=== PATIENT | female | born 1980 | race Caucasian/White ===

== ENCOUNTER 2018-06-16 15:09 | Outpatient (REF) | payer MEDICAID, SELFPAY | END 2018-06-16 15:29 | LOC: NCHCN 15:09 | PROVIDERS: PCP Registered Nurse; Visit Provider Registered Nurse | DX: Z86.14 Personal history of Methicillin resistant Staphylococcus aureus infection (principal) | CPT/HCPCS: 87081 ==

== ENCOUNTER 2018-08-13 10:03 | Outpatient (CLI) | payer MEDICAID, SELFPAY ==
--- NOTE | 2018-08-13 09:55 | DI.RAD_ITS ---
SYMPTOMS/DIAGNOSIS: RIGHT KNEE PAIN RIGHT KNEE: Comparison is made with July, from [facility]. There is severe narrowing of the lateral femorotibial joint space. There is prominent periarticular spurring as well as sclerosis. There is some valgus angulation. A joint effusion is seen. There are minimal degenerative changes of the patellofemoral joint. IMPRESSION: Severe degenerative changes of the lateral femorotibial joint.
--- NOTE | 2018-08-13 09:55 | DI.RAD_ITS ---
SYMPTOM/DIAGNOSIS: RT KNEE PAIN AP VIEWS OF LOWER EXTREMITIES: Standing AP view from performed from the iliac crest through the ankles. There are severe degenerative changes of the right lateral femoral tibial joint space causing significant valgus angulation at the right knee. This also creates a significant leg length discrepancy. The hip joint spaces and ankle joint spaces as well as left knee joint spaces are well maintained.
== END 2018-08-13 10:23 ==
PROVIDERS: PCP Registered Nurse; Visit Provider Physician Assistant
DX: M25.561 Pain in right knee (principal); M17.11 Unilateral primary osteoarthritis, right knee; M25.461 Effusion, right knee
CPT/HCPCS: 73560; 77073

== ENCOUNTER 2018-09-18 08:38 | Outpatient (CLI) | payer MEDICAID, SELFPAY ==
--- NOTE | 2018-09-18 07:56 | HPE_ITS ---
Date of service: 09/18/18 Assessment and Plan (1) Post-traumatic osteoarthritis of right knee: Current visit: No Status: Chronic Opening wedge osteotomy right femur. Details of surgery were discussed with patient as well as risks and pertinent anatomy. All questions were answered. History of Present Illness Chief Complaint: Right knee pain Narrative: Melvi is a 37 year old female who comes in today for a pre-op history and physical for an opening wedge osteotomy of her right knee. She says that she has been having right knee pain for about four years, but had injured the knee many years before that. She has had multiple interventions of this knee including a right knee arthroscopy after an injury sustained about 10 years ago. She has also tried an off brush loader and handle attacher brace of the right knee, and multiple aspirations and steroid injections of the right knee. None of these have been able to help her pain. She has had pain with ambulation, especially for a prolonged period of time. She also has difficulty with squatting and kneeling, as well as going up and down stairs. She states that she is not able to trust the knee, and is leery about lifting her grandchild because of the instability in her right knee. She did receive x-rays in the clinic but revealed a severe valgus deformity of her right knee with severe DJD of the lateral compartment of her knee. Because of her age and failure of conservative treatments to take care of her pain, Dr. Lugo offers an opening wedge osteotomy of the right knee, and patient would like to proceed. Hopefully this will buy her some time before it is necessary to move forward with a total knee replacement. Pertinent Surgical Information Melvi does relate a history of hepatitis C. She also has had a history of drug abuse, which is now being treated by 140 mg of methadone, and she admits to being a daily marijuana user. Patient denies history of hypertension, CVA, NC, angina, COPD, renal or liver disorders, bleeding disorders, diabetes, immune or thyroid disorders. No complications from anesthesia from her previous surgeries. Review of Systems Constitutional Denies fever(s) ENT Denies dizziness and Denies sore throat Cardiovascular Denies chest pain, Denies palpitations and Denies dyspnea Respiratory Denies cough and Denies dyspnea Gastrointestinal Denies abdominal pain, Denies melena, Denies hematochezia, Denies diarrhea, Denies nausea and Denies vomiting Genitourinary Denies hematuria and Denies dysuria Neurologic Denies dizziness Endocrine Denies palpitations PFSH Medical History History of drug abuse (Acute) History of hepatitis C (Acute) Asthma (Chronic) Surgical History History of tubal ligation (Chronic) History of arthroscopic knee surgery (Chronic) Family History Father Cancer Mother Cancer Aunt Cancer Social History Smoking/Tobacco Use Status: Current every day Tobacco Type: cigarettes Smoking packs per day: 0.5 Drug use: Daily Substance use type: marijuana Do you feel safe in your relationship?: Yes Meds Home Medications Medication Instructions Recorded Confirmed Type albuterol sulfate [ProAir HFA] 2 puff INHALATION PRN PRN 11/02/16 08/13/18 History lamotrigine [LaMICtal] 200 mg PO HS 07/09/17 08/13/18 History methadone 5 mg/5 mL oral solution 100 mg PO DAILY ml 08/13/18 08/13/18 History celecoxib 200 mg capsule 200 mg PO BID PRN #60 cap 09/10/18 Rx naloxone 4 mg/actuation nasal spray 1 spray SHRUTI ONCE PRN #2 each 09/10/18 Rx diazepam 5 mg tablet 5 mg PO BID-TID PRN #15 tab 09/15/18 Rx Allergies Allergy/AdvReac Type Severity Reaction Status Date / Time codeine Allergy hives with Unverified 09/18/18 08:53 throat tightness morphine Allergy hives and Unverified 09/18/18 08:53 throat swelling Penicillins Allergy Skin Rash Unverified 09/18/18 08:53 Exam [facility] Head: normocephalic and atraumatic General nose exam: no nasal discharge Throat: uvula midline and no uvular edema Other: soft palate rises symmetrically, no erythema Eyes Conjunctivae: conjunctivae normal Sclera: sclerae normal Pupils: PERRL Resp Effort & Inspection: normal respiratory effort Auscultation: clear to auscultation bilaterally and no wheezes Cardio Rate: regular rate Rhythm: regular rhythm Heart Sounds: S1 normal, S2 normal and no murmurs Other: BP: 107/70 Pulse: 64 GI Palpation: soft, no hepatosplenomegaly and nontender Auscultation: normal bowel sounds
[2018-09-18 09:47] LABS: HCT 36.8 % (36.0-46.0); Mean Corp. HGB Concentration 32.6 g/dL (32.0-36.0); Mean Corpuscular Hemoglobin 27.9 pg (27.0-33.0); Mean Corpuscular Volume 85.6 fL (80-95); Mean Platelet Volume 10.1 fL (8.0-11.0); Platelet Count 290 x1000/uL (130-400); RBC Distribution Width 16.2 % (11.7-14.6); White Blood Cell Count 10.57 k/cumm (4.4-10.8)
[2018-09-18 10:31] LABS: Anion Gap 8.8 mmol/L (3-11); BUN 10 mg/dL (7-18); CO2 28.2 mmol/L (21.0-32.0); CREATININE 0.67 mg/dL (0.55-1.02); Calcium 8.9 mg/dL (8.5-10.1); Chloride 102 mmol/L (98-107); Glucose 84 mg/dL (70-100); Potassium 3.7 mmol/L (3.5-5.1); Sodium 139 mmol/L (136-145)
== END 2018-09-18 08:58 ==
PROVIDERS: PCP Registered Nurse; Visit Provider Student in an Organized Health Care Education/Training Program
DX: M25.561 Pain in right knee (principal); M17.31 Unilateral post-traumatic osteoarthritis, right knee; Z01.812 Encounter for preprocedural laboratory examination; Z01.818 Encounter for other preprocedural examination
CPT/HCPCS: 36415; 80048; 85027; 86850; 86900; 86901; NC

== ENCOUNTER 2018-09-23 10:02 | Inpatient (IN) | payer MEDICAID, SELFPAY ==
[2018-09-23] VITALS (11 sets, daily range): BP systolic 132–177; BP diastolic 76–113; PULSE 85–99; RESP 13–23; TEMP 36.4–37.5; O2SAT 90–97
[2018-09-23] MEDS: Acetaminophen 500 MG TAB 1000 MG PO ×2 (10:43→19:41)
[2018-09-23] MEDS: Celecoxib 200 MG CAP 400 MG PO (10:43)
[2018-09-23] MEDS: Gabapentin 300 MG CAP PO ×2 (10:44→21:25)
[2018-09-23] MEDS: Lactated Ringers 1,000 ML 80 ML IV ×2 (10:44→17:32)
[2018-09-23] MEDS: Methadone Liquid 10 MG/ML 140 MG PO (11:00)
--- NOTE | 2018-09-23 12:58 | DI.RAD_ITS ---
SYMPTOM/DIAGNOSIS: POST TRAUMATIC OA RT KNEE RIGHT KNEE: Fluoroscopy Time: 105.3 seconds Intraoperative films demonstrate application of a plate and screw device to the lateral aspect of the distal femur where a bony surgical defect is demonstrated in the distal metaphysis.
[2018-09-23] MEDS: ceFAZolin 2 GM/50 ML BAG IVPB (13:27)
[2018-09-23] MEDS: Ketorolac 30 MG/ML VIAL (15:28)
[2018-09-23] MEDS: Normal Saline 20 ML VIAL (15:28)
[2018-09-23] MEDS: Bupivacaine 0.25% Pres-Free 30 ML VIAL (15:28)
[2018-09-23] MEDS: LORazepam 2 MG/ML VIAL 0.5 MG IVP (16:58)
[2018-09-23] MEDS: oxyCODONE 10 MG TAB PO ×2 (18:33→22:10)
[2018-09-23] MEDS: Ketorolac 15 MG/ML VIAL IVP (19:40)
[2018-09-23] MEDS: Normal Saline Flush 10 ML SYR IV (19:41)
[2018-09-23] MEDS: HYDROmorphone 2 MG/ML VIAL 1 MG IVP ×2 (20:57→23:35)
[2018-09-23] MEDS: Albuterol HFA 8 GM 60 PUFF INH IH (22:00)
[2018-09-24 00:49] VITALS: BP 137/78; PULSE 84; RESP 16; TEMP 37.2; O2SAT 94
[2018-09-24] MEDS: Ketorolac 15 MG/ML VIAL IVP ×2 (01:19→08:14)
[2018-09-24] MEDS: oxyCODONE 10 MG TAB PO ×2 (01:20→04:24)
[2018-09-24] MEDS: HYDROmorphone 2 MG/ML VIAL 1 MG IVP ×2 (02:24→05:41)
[2018-09-24 03:54] VITALS: BP 127/88; PULSE 68; RESP 14; TEMP 36.9; O2SAT 97
[2018-09-24] MEDS: Albuterol HFA 8 GM 60 PUFF INH IH (05:42)
[2018-09-24 07:23] VITALS: BP 143/85; PULSE 94; RESP 18; TEMP 37.3; O2SAT 96
[2018-09-24] MEDS: Acetaminophen 500 MG TAB 1000 MG PO (08:11)
[2018-09-24] MEDS: Aspirin E.C. 81 MG TABEC PO (08:12)
[2018-09-24] MEDS: diazePAM 5 MG TAB PO (08:12)
[2018-09-24] MEDS: Pantoprazole 40 MG TABCR PO (08:12)
[2018-09-24] MEDS: Methadone Liquid 10 MG/ML 140 MG PO (08:13)
[2018-09-24] MEDS: Docusate Sodium 100 MG CAP PO (08:13)
--- NOTE | 2018-09-24 08:58 | ROE_ITS ---
REPORT OF OPERATIVE PROCEDURE DATE OF SURGERY September 23, 2018 PREOPERATIVE DIAGNOSES Right knee valgus deformity with lateral compartment knee arthritis. POSTOPERATIVE DIAGNOSES Right knee valgus deformity with lateral compartment knee arthritis. PROCEDURE Lateral distal femoral varus producing osteotomy. SURGEON Leonel Lugo M.D. PIGMENT GRINDER Milena Arevalo PA-C ANESTHESIA General. ESTIMATED BLOOD LOSS 200 cc. COMPLICATIONS None. DISPOSITION The patient was awakened from anesthesia and taken to the PACU in stable condition. INDICATION FOR PROCEDURE Melvi is a 38-year old, who I had seen for severe right knee pain with notable valgus deformity of 15 + degrees. Her knee was otherwise stable, but she had significant lateral arthritis. Given her young age and significant medical history for substance abuse, as a first line treatment I recommended femo ral osteotomy for correction of deformity and hopeful offloading of the arthritic lateral compartment . I discussed the risks of the procedure to include, bleeding, infection, pain, stiffness, malunion, nonunion, continued deformity, continued pain, blood clot, damage to nerve and vessels. Despite these risks, she elected to proceed. PROCEDURE DESCRIPTION Melvi was greeted in the preoperative holding area. Her identity was confirmed and the correct side w as identified and marked. The consent was reviewed with the patient and signed. The history and physi duncan was updated. She was taken back to the Operating Room, placed in the supine position. All bony prominences were pa dded. A General anesthetic was administered. A small bump was placed underneath the right leg to brin g the leg into a neutral position with the toes facing towards the ceiling, as well as the patella. T he right leg was prepped with ChloraPrep and draped in a standard fashion. Prophylactic antibiotics i n the form of cefazolin were given. A timeout was performed for safe surgery. A standard lateral incision was made based overlying the IT band extending towards Gerdy's tubercle. The skin was incised sharply. Deep dissection was carried down all the way to the IT band. Any bleedi ng was cauterized. The IT band was then split in line with its fibers traveling down over the lateral femoral condyle and towards the Gerdy's tubercle. With the fibers split, the vastus lateralis was id entified. It was lifted off of its posterior origin. Perforating vessels were identified and cauteriz ed. This exposed the femur. Retractors were placed over the top of the femur. A small amount of disse ction was carried posteriorly to place the rectractor posteriorly to the femur, protecting the neurov ascular bundle. A guidewire was first placed across the femur at the level of the epicondyles parall el to the joint line. A second K-wire was then placed at approximately 15 or so degree angle ending a t that guidewire, but short of the medial cortex. This was the proposed osteotomy site. The Synthes TomoFix plate was then placed over the lateral femur to make sure we ended in the correct position and this seemed to adequately place the hole in the right position. Therefore, we proceeded with an osteotomy. Using a small oscillating saw, I performed the osteotomy to the depth of about 35 or so millimeters. The initial guide pin was measured at 55 millimeters. I then evaluated the osteo debra and used an osteotome to extend it more medially. I was very careful to leave at least 10 to 15 mm bridge medially. The measure distractor was then placed within the cut femoral wedge. This was slo wly and incrementally increased to about 14 degrees. This was based on measurements preoperatively. T his was also confirmed with an alignment taken with a straight metal donato placed over the center of th e hip and at the center of ankle confirmed by x-ray and noted to pass within the center of the knee. With this in position, I then measured this distance and placed a 12-mm spacer block. This would repr esent a 12-mm wedge. With this in place, all retractors were removed and once again, alignment was co nfirmed. I then used A SymALIGN Allow graft bone wedge, it measured [id number] millimeters. This was placed with in the osteotomy site. With this in position, then all retractors were once again removed. We had a m uch better alignment with still a slight valgus attitude. It was then noticed on the x-ray that there may have been some extension of our osteotomy more towards that medial surface. I did not want to tr y to risk completely destabilizing the distal femur, and so I did not adjust the bone graft or try to increase it any further. The TomoFix plating system was then placed over the lateral aspect of the f emur. This was secured in place by a K-wire, confirming to be in an appropriate location based on pal pation and by the x-ray. A cortical nonlocking screw was first placed. This brought the plate down to bone distally. Four locking screws were then placed distally across the knee; making sure these were not within the notch. Once these were secured, four screws were placed proximal to the osteotomy sit e. Once again, on the x-rays, we noted that there was some crack seen medially. However, it did not seem to be completely through. Nevertheless, it seemed that we did lose a few degrees of our correction, although repeat alignment checks did show the alignment donato passing over and just medial to the later al tibial spine. The plate appeared to have good positioning. A notch view was performed showing that the screws were not within the intercondylar notch. A live stress view was also performed showing no change in that medial femur crack. The wound was then thoroughly irrigated. All the deep tissues and periosteum were then injected with a mixture of 50 cc of 0.25% bupivacaine, 20 cc of Exparel, 30 mg of Ketoralac, 50 cc of normal saline . The wound was irrigated. The IT band was closed with a running #1-Vicryl suture. The deep layers we re then reapproximated with 0- Vicryl, followed by #2-0 Vicryl. The skin was closed with a running #4 -0 Monocryl. A Mepilex Silver dressing was placed. A vrw-ce-lfhen Sebastian wrap was applied and she was p laced into a hinging knee immobilizer unlocked. A Cryo/Cuff was also applied. At the end of the case, all counts were correct. The patient was transferred back to the PACU in sta ble condition.
--- NOTE | 2018-09-24 09:41 | DSE_ITS ---
Date of service: 09/24/18 Time of Service: 07:40 DS: Diagnosis Discharge Diagnosis (1) Knee deformity, acquired: Status: Acute Discharge Plan Disposition Patient Disposition: HOME Condition: Good Discharge Details Reason For Visit: R KNEE VALGUS DEFORMITY Admit Date/Time: 09/23/18 10:02 Admit Provider: Leonel Lugo Attending Provider: Leonel Lugo Primary Care Provider: QIANA WEEMS Hospital Course Hospital Course: Patient was admitted to the medical/surgical floor following the procedure. It was tolerated well without any notable medical, surgical, or anesthetic complications. Mobilization began postoperatively. The long catheter was removed and voiding spontaneously. Vitals were stable. Physical therapy worked with the patient and was cleared for discharge home. No acute medical issues. Home Meds and New Rx's Prescriptions: New aspirin 81 mg tablet,delayed release (DR/EC) 81 mg PO BID Qty: 60 RF: 0 acetaminophen 500 mg tablet 1,000 mg PO Q8H PRN (Reason: pain) Qty: 90 RF: 3 pantoprazole 40 mg tablet,delayed release (DR/EC) 40 mg PO DAILY Qty: 30 RF: 0 oxycodone 20 mg tablet 20 mg PO DAILY Qty: 30 RF: 0 ibuprofen 600 mg tablet 600 mg PO TID PRNQty: 90 RF: 3 Continued methadone 5 mg/5 mL solution 140 mg PO DAILY RF: 0 albuterol sulfate [ProAir HFA] 200 PUFF HFA aerosol inhaler 2 puff Inhalation PRN PRNRF: 0 lamotrigine [Lamictal] 200 MG tablet 200 mg PO HS RF: 0 Narcan 4 mg/actuation spray,non-aerosol 1 spray SHRUTI ONCE PRN (Reason: opioid overdose) Qty: 2 RF: 0 Changed diazepam 5 mg tablet 5 mg PO TID Qty: 15 RF: 0 Discontinued celecoxib 200 mg capsule 200 mg PO BID PRN (Reason: pain) Qty: 60 RF: 0 Discharge Instructions Additional Instructions: Dr. Lugo?s Discharge Instructions Activity: Touchdown weight bearing to the right leg. Use your walker or crutches for support. Use the knee immobilizer when mobilizing.Work on range of motion exercises as provided by Physical Therapy. Use the brace for any times of mobilization or when your leg is not supported. You may bend it as much as possible. - You should wear the LUISA hose on both legs for 2 weeks. Dressing: Keep the surgical dressing in place for at least one week. After the first week it may be removed and replace with light gauze and tape or nothing. It may get wet after 3 days but avoid soaking the dressing. If it gets wet, just lightly pat dry. You may remove the ANGEL wrap after 2 days. Medications: - You should take Tylenol and anti-inflammatory (Ibuprofen) as your primary pain control medications - You have been prescribed a stronger pain medication (Oxycodone) for breakthrough pain, take as needed as prescribed. Continue your home dose of Methadone 140mg daily. - You will be taking Aspirin 81mg twice a day for DVT prevention unless instructed otherwise. - If you have constipation you should take Colace or Miralax (both [id number]). It takes most people 3-4 days to have a bowel movement. Follow-up: 2 weeks Stand Alone Forms: Nursing Discharge Form Referrals: Leonel Lugo MD [ [facility] STAFF PHYSICIAN] - Activity:: Touchdown weight bearing Equipment/Supplies:: Walker Diet:: As Tolerated Discharge Orders Discharge Orders: Discharge Order (Routine); Ordered 09/24/18 Ordered By: Leonel Lugo DS: Data Vitals/I&O Vitals and I&O: Vital Signs Temperature 37.3 C 09/24/18 07:23 Temperature Source Tympanic 09/24/18 07:23 Pulse 94 H 09/24/18 07:23 Pulse Rhythm Regular 09/24/18 08:00 Respiratory Rate 18 09/24/18 07:23 Respiratory Effort Non-Labored 09/24/18 08:00 Respiratory Depth Normal 09/24/18 08:00 Respiratory Pattern Normal 09/24/18 08:00 Blood Pressure 143/85 H 09/24/18 07:23 Pulse Oximetry 96 09/24/18 07:23 Respiratory End-tidal CO2 48 09/23/18 17:20 Oxygen Delivery Method Room Air 09/24/18 07:23 Oxygen Flow Rate 0 09/24/18 07:23 Pain Level 6 09/24/18 06:41 Intake & Output 09/23/18 09/23/18 09/24/18 11:59 23:59 11:59 Intake Total 1551 / 1551 50 / 50 Output Total 850 / 850 1350 / 1350 Balance 701 / 701 -1300 / -1300 Weight 92.3 kg Intake: IV 1176 / 1176 50 / 50 Oral 375 / 375 Output: Urine 650 / 650 1350 / 1350 Estimated Blood Loss 200 / 200 Other: Urine Color Straw Yellow Urine Appearance Clear Clear Urine Odor None None Emesis Description None Voiding Methods Bedpan Bedside Commode Labs on day of discharge: Labs from last 24 hours 09/23/18 10:38 Patient ABO/Rh A Positive Antibody Screen Negative [facility] Medical History History of hepatitis C (Acute) Asthma (Chronic) History of drug abuse (Acute) Surgical History History of tubal ligation (Chronic) History of arthroscopic knee surgery (Chronic) Family History Father Cancer Mother Cancer Aunt Cancer Social History Smoking/Tobacco Use Status: Current every day Tobacco Type: cigarettes Drug use: Daily Substance use type: marijuana Do you feel safe in your relationship?: Yes
--- NOTE | 2018-09-24 09:47 | PDOC.CMIN ---
Care Management Initial Assess REASON FOR HOSPITALIZATION:: R knee valgus deformity s/p osteotomy PAST MEDICAL HISTORY/PAST SURGICAL HISTORY:: Medical: H/O SA, hepatitis C, asthma. Surgical: H/O tubal ligation, H/O arthroscopic knee surgery. PREVIOUS FUNCTIONAL STATUS/SOCIAL/FAMILY SUPPORTS:: Melvi is 38 yo woman who lives alone in one floor home in [place]. She has two daughters and grandchildren and her mother who live in the area. She is usually independent with ADL's without ambulatory device, although she does have crutches. She does not drive due to DUI record. Uses [facility] to get to her appointments at the methadone clinic in [facility]. CURRENT FUNCTIONAL STATUS:: She is up ambulating with walker in room when CM enters. She is insistent that she be discharged right now since MD told her she would be d/c'd later today. When informed MD would come back at noon to write orders, she stated she was leaving now. RN was able to message MD who wrote orders from his office for d/c. She calmed down after this and was cooperative. ADVANCE DIRECTIVES:: Does not have document and declined information. Has patient been provided with information about the portal?: Yes Did the patient sign up for the portal?: No CODE STATUS:: Full Code INSURANCE COVERAGE / FINANCIAL ISSUES:: Medicaid CURRENT HOME/COMMUNITY SERVICES/EQUIPMENT:: No current services. She has crutches at home. PRIMARY CARE PHYSICIAN:: Joycelyn Forde MD POTENTIAL DISCHARGE NEEDS:: PT recommends she have walker and for PT services. MD was contacted and orders obtained. DME options discussed with Melvi and she chose [facility], so walker was issued from [facility]. PATIENT/FAMILY EDUCATION NEEDS:: RN to review d/c instructions re meds and activity levels. Review Ask me Now questions. ANTICIPATED BARRIERS TO DISCHARGE:: none identified TRANSPORTATION:: via car with friend PLAN:: d/c home today as per MD with referral made to HH for PT services.
[2018-09-24] MEDS: oxyCODONE 10 MG TAB 20 MG PO (09:51)
--- NOTE | 2018-09-24 11:00 | PT.INIE ---
Date of service: 09/24/18 Time of Service: 09:37 PT Notes Inpatient Physical Therapy Evaluation Date: 09/24/2018 Referring Doctor: Leonel Lugo MD PT Orders: PT CONSULT: Status post right femoral osteotomy. TTWB with unlocked knee immobilizer Precautions: Fall. Standard. Right LE with unlocked knee immobilizer on. Patient Profile/Admitting Diagnosis: Patient is a 38-year-old with history of drug abuse and is a daily marijuana user who has a diagnosis of posttraumatic osteoarthritis of right knee, right knee valgus deformity with lateral compartment knee arthritis status post lateral distal femoral varus producing opening wedge osteotomy. PMHX: Medical History History of drug abuse (Acute) History of hepatitis C (Acute) Asthma (Chronic) Surgical History History of tubal ligation (Chronic) History of arthroscopic knee surgery (Chronic) Social History/Home Situation: Patient lives alone with 2 daughters in [place], [place] in a 1 floor house with 4 step to enter rails on both sides are far wide apart. She is independent with all aspects of ADLs with that the ambulatory device nor adaptive equipment. She is unable to drive due to a DUI record. She states that she has friends, neighbors and her mother who will be able to help as needed at home. She goes to the methadone clinic and [place], [place]. Current Functional Limitations: Need for assistance for all transfer and ambulation task performance using FWW and bilateral crutches for the stairs Equipment Owned/DME: Bilateral crutches Subjective: Patient is adamant about going home as soon as she is able to today. She is agreeable to a PT consult and assistive device training using prescribed weight bearing restriction. She states that she has adequate support network at home. She is agreeable to home health PT services to continue with bilateral crutch training on the stairs for safety. She hopes to continue as an outpatient PT client as soon as she is able. She reports 6/10 pain on the right knee with ambulation activity. She denies dizziness, chest pain, and headache throughout session today. Objective: General Observation: Patient seen standing with FWW with nurse, case management social worker, and friend Edgardo in the room. Hinged knee immobilizer on her right but is currently unlocked. ANGEL wraps to right LE Mental Status: Alert and oriented x4 Pain: 6/10 in the right knee at rest and with most ROM: Right Upper Extremity: Shoulder Flexion WFL. Shoulder abduction WFL. Elbow flexion WFL. Wrist flexion WFL. Functional opening and closing of hand WFL. Left Upper Extremity: Shoulder Flexion WFL. Shoulder abduction WFL. Elbow flexion WFL. Wrist flexion WFL. Functional opening and closing of hand WFL. Right Lower Extremity: Hip flexion WFL. Hip abduction WFL. Knee flexion 0-80. Knee extension -10 degrees. Ankle dorsiflexion WFL. Ankle plantarflexion WFL. Left Lower Extremity: Hip flexion WFL. Hip abduction WFL. Knee flexion WFL. Ankle dorsiflexion WFL. Ankle plantarflexion WFL. Strength: Right Upper Extremity: Shoulder flexors 5/5. Shoulder abductors 5/5. Elbow flexors 5/5. Elbow extensors 5/5. Binitrotoluene Operator strong. Left Upper Extremity: Shoulder flexors 5/5. Shoulder abductors 5/5. Elbow flexors 5/5. Elbow extensors 5/5. Binitrotoluene Operator strong. Right Lower Extremity: Hip flexors 4-/5. Hip abductors 4-/5. Knee flexors 3-/5. Knee extensors3-/5. Ankle dorsiflexors 4/5. Ankle plantarflexors 4/5. Left Lower Extremity:Hip flexors 5/5. Hip abductors 5/5. Knee flexors 5/5. Knee extensors 5/5. Ankle dorsiflexors 5/5. Ankle plantarflexors 5/5. Sensation: Intact as to pain and pressure on bilateral lower extremities. Bed Mobility/Transfers: Rolling independent Supine to sit independent Sit to supine independent Sit to stand independent Stand to sit independent Bed to chair supervision Chair to bed supervision Gait: Patient was able to tolerate level surface ambulation for 100 feet using FWW with toe-touch weight bearing on the right LE requiring only SBA from PT. Patient did not demonstrate 100% compliance with weight bearing precaution although she states that it may appear that she is putting more weight on the R LE but she is not, she stresses. On the steps, patient refused to attempt to use bilateral crutches and use the good leg to hop on the step. She did however tried to do the same while holding onto bilateral rails and demonstrated good technique and weight bearing precaution compliance. She states that she can use her bottom to get up the steps if she has to. Patient was advised that home health PT come in for a short time in order to stress stair negotiation technique to reduce fall risk. Balance: Static Sitting: Normal Dynamic Sitting: Normal Static Standing: Fair Dynamic Standing: Fair Special Tests: Mobility Limitations Standardized Measure [facility] AM-PAC 6 clicks Basic Mobility Inpatient Short Form: Raw Score: 22 CMS Score: 21% deficit Informed Consent/Education: Patient instructed in purpose of PT consult and plan of care. It was strongly recommended to patient that she could stair negotiation training to demise fall risk at home especially so that she needs to regularly go in and out out of the house for her methadone intake. Patient was also introduced and trained on the exercises that she can do on her own to maximize her motion and flexibility. Assessment: Patient is a 38-year-old female with diagnosis of posttraumatic osteoarthritis of right knee, right knee valgus deformity with lateral compartment knee arthritis status post lateral distal femoral varus producing opening wedge osteotomy. Patient presents with clinical signs and symptoms consistent with current/admitting diagnoses that have resulted to mobility limitations, gait instability, generalized weakness, and impairment of motor control as demonstrated by the following impairment level findings: 1. Decreased strength to R knee major muscle groups 2. Impaired standing balance 3. Impaired activity tolerance 4. Limitation of joint range of motion in R knee Impairments are contributing to the following functional limitations: 1. Inability to safely ambulate without assistive device and physical assistance 2. Increase completion time for mobility ADL performance 3. Increased fall risk 4. Inability to negotiate steps alone safely Patient is assessed as a complexity based on the following: History: Patient is a 38-year-old female with diagnosis of posttraumatic osteoarthritis of right knee, right knee valgus deformity with lateral compartment knee arthritis status post lateral distal femoral varus producing opening wedge osteotomy with history of drug abuse and is a daily marijuana user Examination: Demonstrable impairment in strength, balance, and range of motion with underlying impairments and functional limitations as documented above Presentation:Evolving Decision Makin moderate Plan of Care/Treatment Plan: Patient goes home today with a friend at home agreeable to a short time home health physical therapy. DISCHARGE RECOMMENDATIONS: Patient will highly benefit from short-term home health PT services to continue stair negotiation training using appropriate assistive ambulatory device in order to minimize fall risk at discharge destination. Patient did not demonstrate 100% compliance with weight bearing precaution and refused to do stairs using bilateral axillary crutches as she states that she is not prepared for it today. Patient was agreeable to having home health physical therapy to work with her to maximize safet. Patient plans to continue to have skilled physical therapy services at an outpatient clinic. Concerns about patient safety on the stairs have been relayed to case management social worker who states that she will facilitate HHS referral in consultation with orthopedic surgeon. TREATMENT CODE/TIME: 16739 x 30 minutes, 63563 x 42 minutes beginning at 9:37 AM. Thank you very much for this referral. Agustina Linares PT, DPT, CLT [facility]
--- NOTE | 2018-09-24 11:06 | IN_ITS ---
Date of service: 09/24/18 Time of Service: 09:37 PT Notes Inpatient Physical Therapy Evaluation Date: 09/24/2018 Referring Doctor: Leonel Lugo MD PT Orders: PT CONSULT: Status post right femoral osteotomy. TTWB with unlocked knee immobilizer Precautions: Fall. Standard. Right LE with unlocked knee immobilizer on. Patient Profile/Admitting Diagnosis: Patient is a 38-year-old with history of drug abuse and is a daily marijuana user who has a diagnosis of posttraumatic osteoarthritis of right knee, right knee valgus deformity with lateral compartment knee arthritis status post lateral distal femoral varus producing opening wedge osteotomy. PMHX: Medical History History of drug abuse (Acute) History of hepatitis C (Acute) Asthma (Chronic) Surgical History History of tubal ligation (Chronic) History of arthroscopic knee surgery (Chronic) Social History/Home Situation: Patient lives alone with 2 daughters in [place], [place] in a 1 floor house with 4 step to enter rails on both sides are far wide apart. She is independent with all aspects of ADLs with that the ambulatory device nor adaptive equipment. She is unable to drive due to a DUI record. She states that she has friends, neighbors and her mother who will be able to help as needed at home. She goes to the methadone clinic and [place], [place]. Current Functional Limitations: Need for assistance for all transfer and am bulation task performance using FWW and bilateral crutches for the stairs Equipment Owned/DME: Bilateral crutches Subjective: Patient is adamant about going home as soon as she is able to today. She is agreeable to a PT consult and assistive device training using prescribed weight bearing restriction. She states that she has adequate support network at home. She is agreeable to home health PT services to continue with bilateral crutch training on the stairs for safety. She hopes to continue as an outpatient PT client as soon as she is able. She reports 6/10 pain on the right knee with ambulation activity. She denies dizziness, chest pain, and headache throughout session today. Objective: General Observation: Patient seen standing with FWW with nurse, director of casework, and friend Edgardo in the room. Hinged knee immobilizer on her right but is currently unlocked. ANGEL wraps to right LE Mental Status: Alert and oriented x4 Pain: 6/10 in the right knee at rest and with most ROM: Right Upper Extremity: Shoulder Flexion WFL. Shoulder abduction WFL. Elbow flexion WFL. Wrist flexion WFL. Functional opening and closing of hand WFL. Left Upper Extremity: Shoulder Flexion WFL. Shoulder abduction WFL. Elbow flexion WFL. Wrist flexion WFL. Functional opening and closing of hand WFL. Right Lower Extremity: Hip flexion WFL. Hip abduction WFL. Knee flexion 0-80. Knee extension -10 degrees. Ankle dorsiflexion WFL. Ankle plantarflexion WFL. Left Lower Extremity: Hip flexion WFL. Hip abduction WFL. Knee flexion WFL. Ankle dorsiflexion WFL. Ankle plantarflexion WFL. Strength: Right Upper Extremity: Shoulder flexors 5/5. Shoulder abductors 5/5. Elbow flexors 5/5. Elbow extensors 5/5. Advertising Job Titles strong. Left Upper Extremity: Shoulder flexors 5/5. Shoulder abductors 5/5. Elbow flexors 5/5. Elbow extensors 5/5. Advertising Job Titles strong. Right Lower Extremity: Hip flexors 4-/5. Hip abductors 4-/5. Knee flexors 3-/5. Knee extensors3-/5. Ankle dorsiflexors 4/5. Ankle plantarflexors 4/5. Left Lower Extremity:Hip flexors 5/5. Hip abductors 5/5. Knee flexors 5/5. Knee extensors 5/5. Ankle dorsiflexors 5/5. Ankle plantarflexors 5/5. Sensation: Intact as to pain and pressure on bilateral lower extremities. Bed Mobility/Transfers: Rolling independent Supine to sit independent Sit to supine independent Sit to stand independent Stand to sit independent Bed to chair supervision Chair to bed supervision Gait: Patient was able to tolerate level surface ambulation for 100 feet using FWW with toe-touch weight bearing on the right LE requiring only SBA from PT. Patient did not demonstrate 100% compliance with weight bearing precaution although she states that it may appear that she is putting more weight on the R LE but she is not, she stresses. On the steps, patient refused to attempt to use bilateral crutches and use the good leg to hop on the step. She did however tried to do the same while holding onto bilateral rails and demonstrated good technique and weight bearing precaution compliance. She states that she can use her bottom to get up the steps if she has to. Patient was advised that home health PT come in for a short time in order to stress stair negotiation technique to reduce fall risk. Balance: Static Sitting: Normal Dynamic Sitting: Normal Static Standing: Fair Dynamic Standing: Fair Special Tests: Mobility Limitations Standardized Measure [facility] AM-PAC 6 clicks Basic Mobility Inpatient Short Form: Raw Score: 22 CMS Score: 21% deficit Informed Consent/Education: Patient instructed in purpose of PT consult and plan of care. It was strongly recommended to patient that she could stair negotiation training to demise fall risk at home especially so that she needs to regularly go in and out out of the house for her methadone intake. Patient was also introduced and trained on the exercises that she can do on her own to maximize her motion and flexibility. Assessment: Patient is a 38-year-old female with diagnosis of posttraumatic osteoarthritis of right knee, right knee valgus deformity with lateral compartment knee arthritis status post lateral distal femoral varus producing opening wedge osteotomy. Patient presents with clinical signs and symptoms consistent with current/admitting diagnoses that have resulted to mobility limitations, gait instability, generalized weakness, and impairment of motor control as demonstrated by the following impairment level findings: 1. Decreased strength to R knee major muscle groups 2. Impaired standing balance 3. Impaired activity tolerance 4. Limitation of joint range of motion in R knee Impairments are contributing to the following functional limitations: 1. Inability to safely ambulate without assistive device and physical assistance 2. Increase completion time for mobility ADL performance 3. Increased fall risk 4. Inability to negotiate steps alone safely Patient is assessed as a complexity based on the following: History: Patient is a 38-year-old female with diagnosis of posttraumatic osteoarthritis of right knee, right knee valgus deformity with lateral compartment knee arthritis status post lateral distal femoral varus producing opening wedge osteotomy with history of drug abuse and is a daily marijuana user Examination: Demonstrable impairment in strength, balance, and range of motion with underlying impairments and functional limitations as documented above Presentation:Evolving Decision Makin moderate Plan of Care/Treatment Plan: Patient goes home today with a friend at home agreeable to a short time home health physical therapy. DISCHARGE RECOMMENDATIONS: Patient will highly benefit from short-term home health PT services to continue stair negotiation training using appropriate assistive ambulatory device in order to minimize fall risk at discharge destination. Patient did not demonstrate 100% compliance with weight bearing precaution and refused to do stairs using bilateral axillary crutches as she states that she is not prepared for it today. Patient was agreeable to having home health physical therapy to work with her to maximize safet. Patient plans to continue to have skilled physical therapy services at an outpatient clinic. Concerns about patient safety on the stairs have been relayed to director of casework who states that she will facilitate HHS referral in consultation with orthopedic surgeon. TREATMENT CODE/TIME: 69963 x 30 minutes, 35786 x 42 minutes beginning at 9:37 AM. Thank you very much for this referral. Agustina Linares PT, DPT, CLT [facility]
--- NOTE | 2018-09-24 11:38 | PDOC.CMDIS ---
LACE Index Scoring Tool - Questions: Length of Stay (in days): 2 Acuity (Admit via E.D.?): No E.D. Visits: 0 - Answers: Total Score: 2 Risk of Readmission: Low Risk Care Management Discharge Reason for Hospitalization: R knee valgus deformity s/p osteotomy Discharge Plan: She is being discharged home today with referral for HH for PT services. Her friend Edgardo is transporting. Patient/Family Education Needs: RN reviewed d/c instructions re meds and activity levels. Reviewed Ask me Now. Services Needed at Discharge: Home Health Care Services, Physical Therapy
--- NOTE | 2018-09-24 13:43 | INITIAL_ITS ---
Care Management Initial Assess REASON FOR HOSPITALIZATION:: R knee valgus deformity s/p osteotomy PAST MEDICAL HISTORY/PAST SURGICAL HISTORY:: Medical: H/O SA, hepatitis C, asthma. Surgical: H/O tubal ligation, H/O arthroscopic knee surgery. PREVIOUS FUNCTIONAL STATUS/SOCIAL/FAMILY SUPPORTS:: Melvi is 38 yo woman who lives alone in one floor home in [place]. She has two daughters and grandchildren and her mother who live in the area. She is usually independent with ADL's without ambulatory device, although she does have crutches. She does not drive due to DUI record. Uses [facility] to get to her appointments at the methadone clinic in [facility]. CURRENT FUNCTIONAL STATUS:: She is up ambulating with walker in room when CM enters. She is insistent that she be discharged right now since MD told her she would be d/c'd later today. When informed MD would come back at noon to write orders, she stated she was leaving now. RN was able to message MD who wrote orders from his office for d/c. She calmed down after this and was cooperative. ADVANCE DIRECTIVES:: Does not have document and declined information. Has patient been provided with information about the portal?: Yes Did the patient sign up for the portal?: No CODE STATUS:: Full Code INSURANCE COVERAGE / FINANCIAL ISSUES:: Medicaid CURRENT HOME/COMMUNITY SERVICES/EQUIPMENT:: No current services. She has crutches at home. PRIMARY CARE PHYSICIAN:: Joycelyn Forde MD POTENTIAL DISCHARGE NEEDS:: PT recommends she have walker and for PT services. MD was contacted and orders obtained. DME options discussed with Melvi and she chose [facility], so walker was issued from [facility]. PATIENT/FAMILY EDUCATION NEEDS:: RN to review d/c instructions re meds and activity levels. Review Ask me Now questions. ANTICIPATED BARRIERS TO DISCHARGE:: none identified TRANSPORTATION:: via car with friend PLAN:: d/c home today as per MD with referral made to HH for PT services.
== END 2018-09-24 10:53 | disposition home or self-care (01) | DRG 481 ==
LOC: PDS 14:57 → MS 18:20 → PDS 10-29 13:14 → MS 10-29 13:15
PROVIDERS: Admitting Provider Student in an Organized Health Care Education/Training Program; PCP Registered Nurse; Visit Provider Student in an Organized Health Care Education/Training Program
PROC: BQ1 Imaging, Non-Axial Lower Bones, Fluoroscopy (ICD-10-PCS; CPT 27447; principal; 2018-09-23 11:00)
DX: M21.061 Valgus deformity, not elsewhere classified, right knee (principal); F11.20 Opioid dependence, uncomplicated; M17.31 Unilateral post-traumatic osteoarthritis, right knee; X58.XXXS Exposure to other specified factors, sequela
CPT/HCPCS: 27450; 36415; 81025; 86850; 86900; 86901; 97110; 97162; NC; 73560; G0378; J0690; J1100; J1885; J2060; J2405; J3010; L1833

== ENCOUNTER 2018-10-03 10:41 | Outpatient (CLI) | payer MEDICAID, SELFPAY ==
--- NOTE | 2018-10-03 10:32 | DI.RAD_ITS ---
SYMPTOMS/DIAGNOSIS: F/U RIGHT KNEE RIGHT KNEE: Two views. Comparison is 08/13/18 and 09/23/18. There are again seen postsurgical changes of an osteotomy of the distal femoral metaphysis with fixation with a sideplate and screws. No change in alignment of the orthopedic hardware or postsurgical changes in the distal femur are noted. Tricompartment degenerative changes are again seen in the knee. There is a suprapatellar joint effusion present.
== END 2018-10-03 11:01 ==
PROVIDERS: Visit Provider Student in an Organized Health Care Education/Training Program
DX: M17.31 Unilateral post-traumatic osteoarthritis, right knee (principal); Z47.89 Encounter for other orthopedic aftercare; M17.11 Unilateral primary osteoarthritis, right knee; M25.461 Effusion, right knee
CPT/HCPCS: 73560

== ENCOUNTER 2018-10-17 11:24 | Outpatient (CLI) | payer MEDICAID, SELFPAY ==
--- NOTE | 2018-10-17 11:18 | DI.RAD_ITS ---
SYMPTOM/DIAGNOSIS: F/U RIGHT KNEE SURGERY RIGHT KNEE: Comparison is made with 03 October 2018. There has been no change in the distal femoral hardware or fracture alignment. There is some increased callus formation around the fracture. Severe degenerative changes of the lateral femoral tibial joint are again noted.
== END 2018-10-17 11:44 ==
PROVIDERS: Visit Provider Physician Assistant
DX: M17.31 Unilateral post-traumatic osteoarthritis, right knee (principal); Z47.89 Encounter for other orthopedic aftercare
CPT/HCPCS: 73560

== ENCOUNTER 2018-12-08 11:56 | Outpatient (CLI) | payer MEDICAID, SELFPAY ==
--- NOTE | 2018-12-08 11:49 | DI.RAD_ITS ---
SYMPTOMS/DIAGNOSIS: F/U RIGHT KNEE: Comparison is made with the previous study of 10/17/2018. Again noted is the sideplate and compression screw device affixed to the lateral portion of the distal femur. There has been no change in the alignment of the fracture fragments. Exuberant callus formation is noted over the anterior portion of the fracture line. Note is also made of severe DJD involving the knee with lateral tibiofemoral joint narrowing, and sclerosis and hypertrophic spurring.
== END 2018-12-08 12:16 ==
PROVIDERS: PCP Registered Nurse; Visit Provider Student in an Organized Health Care Education/Training Program
DX: M17.31 Unilateral post-traumatic osteoarthritis, right knee (principal); S72.491D Other fracture of lower end of right femur, subsequent encounter for closed fracture with routine healing
CPT/HCPCS: 73560

== ENCOUNTER 2018-12-19 01:44 | Outpatient (CLI) | payer MEDICAID, SELFPAY ==
--- NOTE | 2018-12-19 14:47 | DI.CT_ITS ---
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 TECHNIQUE: COMPARISON: No exams were available for comparison FINDINGS: CT examination was performed utilizing multi slice acquisition multiplanar reconstruction. There is plate and screw fixation of the distal femoral diaphyseal metaphyseal region with a predominantly tra nsverse fracture of the distal metaphysis. There is dense callus formation in the adjoining soft tis sues particularly medially but there does not appear to be union either of the femoral fragments or t he fracture callus at this time. 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 No significant loosening of the fixation components
== END 2018-12-19 02:04 ==
PROVIDERS: PCP Registered Nurse; Visit Provider Student in an Organized Health Care Education/Training Program
DX: S72.491K Other fracture of lower end of right femur, subsequent encounter for closed fracture with nonunion (principal)
CPT/HCPCS: 73700

== ENCOUNTER 2018-12-19 15:06 | Outpatient (CLI) | payer MEDICAID, SELFPAY ==
[2018-12-19 16:06] LABS: Abs Immature Grans 0.03 k/cumm (0.0-0.09); Absolute Basophil Count 0.02 k/cumm (0.0-0.2); Absolute Eosinophil Count 0.18 k/cumm (0.0-0.7); Absolute Lymphocyte Count 4.11 k/cumm (1.2-3.4); Absolute Monocyte Count 0.66 k/cumm (0.11-0.7); Absolute Neutrophil Count 6.91 k/cumm (1.2-6.7); Basophils % 0.2; Eosinophils % 1.5; HGB 11.5 g/dL (12.0-15.5); Immature Grans % 0.3; Lymphocytes % 34.5; Mean Corp. HGB Concentration 32.9 g/dL (32.0-36.0); Mean Corpuscular Hemoglobin 28.5 pg (27.0-33.0); Mean Corpuscular Volume 86.8 fL (80-95); Mean Platelet Volume 10.1 fL (8.0-11.0); Monocytes % 5.5; Platelet Count 340 x1000/uL (130-400); RBC 4.03 m/cumm (4.00-5.20); RBC Distribution Width 14.6 % (11.7-14.6); White Blood Cell Count 11.91 k/cumm (4.4-10.8)
[2018-12-19 17:08] LABS: ALT 60 U/L (14-59); AST 86 U/L (15-37); Albumin 3.5 g/dL (3.4-5.0); Alkaline Phosphatase 192 U/L (46-116); Anion Gap 12.3 mmol/L (3-11); BUN 4 mg/dL (7-18); Bilirubin, Total 0.3 mg/dL (0.2-1.0); CO2 22.7 mmol/L (21.0-32.0); CREATININE 0.74 mg/dL (0.55-1.02); Calcium 8.9 mg/dL (8.5-10.1); Chloride 102 mmol/L (98-107); Glucose 79 mg/dL (70-100); Potassium 4.2 mmol/L (3.5-5.1); Sodium 137 mmol/L (136-145); Total Protein 7.4 g/dL (6.4-8.2)
[2018-12-22 09:37] LABS: Hepatitis B Surface Ag Negative (NEGAT)
[2018-12-22 10:13] LABS: HIV-1/2 Ag & Ab Screen Negative (NEGAT)
[2018-12-22 10:22] LABS: Hepatitis C Ab w Rflx HCV PCR Reactive (NEGAT)
[2018-12-22 10:51] LABS: HBs Antibody, Quant 4.2 mIU/mL; Hepatitis B Surface Ab Negative
[2018-12-22 10:52] LABS: Syphilis Serology (RPR) Negative (Negative)
[2018-12-22 11:43] LABS: Hep B Core Antibody Negative (NEGAT)
[2018-12-23 08:30] LABS: HCV RNA Detection Quantitative 20688 IU/mL (UNDECT)
== END 2018-12-19 15:26 ==
PROVIDERS: PCP Registered Nurse; Visit Provider Family Medicine
DX: F11.29 Opioid dependence with unspecified opioid-induced disorder (principal); Z11.4 Encounter for screening for human immunodeficiency virus [HIV]; Z11.59 Encounter for screening for other viral diseases; S72.491K Other fracture of lower end of right femur, subsequent encounter for closed fracture with nonunion
CPT/HCPCS: 36415; 80053; 86704; 86706; 86803; 87340; 87389; 73700; 85025; 86592; 87522

== ENCOUNTER 2019-01-02 10:53 | Outpatient (CLI) | payer MEDICAID, SELFPAY ==
--- NOTE | 2019-01-02 10:10 | W.PREOPHP ---
Date of service: 01/02/19 Assessment and Plan Assessment and plan (1) Nonunion of osteotomy site: Status: Acute Assessment and plan: Revision of nonunion of osteotomy of the right femur with IM nailing and distal femur plate and iliac bone graft. Details of surgery were discussed with patient as well as risks and pertinent anatomy. All questions were answered. History of Present Illness History of Present Illness Chief Complaint: Right leg osteotomy nonunion Narrative: Melvi comes in today for a preop history and physical for a revision of a distal femur osteotomy. About 2 months ago she had a distal femur osteotomy for DJD of her right knee. She continued to have pain in her thigh and knee over the next few months that did not completely go away. Ultimately imaging was obtained including a CT scan which revealed a nonunion at the osteotomy site. It does appear to be some bone bridging on the CT scan according to a note by Dr. Lugo, but it does not appear to be fully filling in. Because of this nonunion, Dr. Lugo does offer a revision of the osteotomy in which she will take out the old hardware and place an IM nail as well as a distal femur plate in its place with iliac bone graft. Melvi agrees with this plan and is anxious to proceed. Pertinent Surgical Information Melvi does relate a history of hepatitis C. She also has had a history of drug abuse, which is now being treated by 140 mg of methadone, and she admits to being a daily marijuana user. Patient denies history of hypertension, CVA, IA, angina, COPD, renal or liver disorders, bleeding disorders, diabetes, immune or thyroid disorders. No complications from anesthesia from her previous surgeries. Review of Systems Constitutional Constitutional: Denies fever(s) ENT Ears, Nose, Mouth, and Throat: Denies dizziness and Denies sore throat Cardiovascular Cardiovascular: Denies chest pain, Denies palpitations and Denies dyspnea Respiratory Respiratory: Denies cough and Denies dyspnea Gastrointestinal Gastrointestinal: Denies abdominal pain, Denies melena, Denies hematochezia, Denies diarrhea, Denies nausea and Denies vomiting Genitourinary Genitourinary: Denies hematuria and Denies dysuria Neurologic Neurologic: Denies dizziness Endocrine Endocrine: Denies palpitations [facility] Medical History (Updated 12/24/18 @ 06:41 by Leonel Lugo MD) Asthma (Chronic) History of drug abuse (Acute) per pt clean for 2 years History of hepatitis C (Acute) per pt has been treated but it didn't cure it made my numbers go down Surgical History (Updated 01/02/19 @ 10:16 by LAURA Jenkins) History of arthroscopic knee surgery (Inactive) Right History of right femoral derotational osteotomy (Acute 09/23/18) History of tubal ligation (Inactive) Social History Smoking/Tobacco Use Status: Current every day Tobacco Type: cigarettes Smoking packs per day: 0.5 Smoking cigarettes per day: 10.0 Drug use: Daily Substance use type: marijuana Do you feel safe in your relationship?: Yes Meds Home Medications and Allergies Home Medications Medication Instructions Recorded Confirmed Type albuterol sulfate [ProAir HFA] 2 puff INHALATION PRN PRN 11/02/16 12/08/18 History lamotrigine [Lamictal] 200 mg PO HS 07/09/17 12/08/18 History methadone 5 mg/5 mL oral solution 140 mg PO DAILY ml 08/13/18 12/08/18 History Narcan 1 spray SHRUTI ONCE PRN #2 each 09/24/18 12/08/18 Rx acetaminophen 1,000 mg PO Q8H PRN #90 tab 09/24/18 12/08/18 Rx aspirin 81 mg PO BID #60 tab 09/24/18 12/08/18 Rx pantoprazole 40 mg PO DAILY #30 tab 09/24/18 12/08/18 Rx Crutches #1 ea 10/17/18 12/08/18 Rx shower chair #1 ea 10/17/18 12/08/18 Rx diazepam 5 mg tablet 5 mg PO TID #15 tab 12/26/18 Rx ibuprofen 600 mg tablet 600 mg PO TID PRN #90 tab 12/26/18 Rx oxycodone 15 mg tablet 15 mg PO Q8H PRN #21 tab MDD 45mg 12/26/18 Rx Allergies Allergy/AdvReac Type Severity Reaction Status Date / Time codeine Allergy hives with Unverified 01/02/19 10:11 throat tightness morphine Allergy hives and Unverified 01/02/19 10:11 throat swelling Penicillins Allergy Skin Rash Unverified 10/11/19 10:11 Exam HENMT Head: normocephalic and atraumatic General nose exam: no nasal discharge Throat: uvula midline and no uvular edema Other: soft palate rises symmetrically, no erythema Eyes Conjunctivae: conjunctivae normal Sclera: sclerae normal Pupils: PERRL Resp Effort & Inspection: normal respiratory effort Auscultation: clear to auscultation bilaterally and no wheezes Cardio Rate: regular rate Rhythm: regular rhythm Heart Sounds: S1 normal, S2 normal and no murmurs GI Palpation: soft, no hepatosplenomegaly and nontender Auscultation: normal bowel sounds
[2019-01-02 13:01] LABS: HCT 36.1 % (36.0-46.0); HGB 11.7 g/dL (12.0-15.5); Mean Corp. HGB Concentration 32.4 g/dL (32.0-36.0); Mean Corpuscular Hemoglobin 27.7 pg (27.0-33.0); Mean Corpuscular Volume 85.5 fL (80-95); Mean Platelet Volume 9.9 fL (8.0-11.0); Platelet Count 381 x1000/uL (130-400); RBC 4.22 m/cumm (4.00-5.20); RBC Distribution Width 14.4 % (11.7-14.6); White Blood Cell Count 11.32 k/cumm (4.4-10.8)
[2019-01-02 14:30] LABS: Anion Gap 13.6 mmol/L (3-11); BUN 10 mg/dL (7-18); CO2 22.4 mmol/L (21.0-32.0); CREATININE 0.81 mg/dL (0.55-1.02); Calcium 9.2 mg/dL (8.5-10.1); Chloride 102 mmol/L (98-107); Glucose 98 mg/dL (70-100); Potassium 3.3 mmol/L (3.5-5.1); Sodium 138 mmol/L (136-145)
== END 2019-01-02 11:13 ==
PROVIDERS: PCP Registered Nurse; Visit Provider Student in an Organized Health Care Education/Training Program
DX: M21.961 Unspecified acquired deformity of right lower leg (principal); M96.89 Other intraoperative and postprocedural complications and disorders of the musculoskeletal system; S72.491K Other fracture of lower end of right femur, subsequent encounter for closed fracture with nonunion; F11.20 Opioid dependence, uncomplicated; Z01.818 Encounter for other preprocedural examination; Z01.812 Encounter for preprocedural laboratory examination
CPT/HCPCS: 36415; 80048; 85027; 86850; 86900; 86901; NC

== ENCOUNTER 2019-01-07 10:59 | Inpatient (IN) | payer MEDICAID, SELFPAY ==
[2019-01-02 11:02] VITALS: BP 110/72; PULSE 69; RESP 17; TEMP 36.5; O2SAT 97
[2019-01-07] VITALS (15 sets, daily range): BP systolic 100–164; BP diastolic 71–137; PULSE 62–91; RESP 11–18; TEMP 36.6–36.8; O2SAT 96–99
[2019-01-07] MEDS: Lactated Ringers 1,000 ML 80 ML IV ×2 (12:49→17:56)
[2019-01-07] MEDS: Celecoxib 200 MG CAP 400 MG PO (13:04)
[2019-01-07] MEDS: Acetaminophen 500 MG TAB 1000 MG PO ×2 (13:05→19:21)
[2019-01-07] MEDS: Gabapentin 300 MG CAP PO ×2 (13:05→20:10)
[2019-01-07] MEDS: ceFAZolin 2 GM/50 ML BAG IVPB (13:54)
--- NOTE | 2019-01-07 15:06 | NUR.NOTE ---
01/07/19 1315 Pt denies having illegal substances in her personal belongings here at the hospital. susanp Nursing Note:
[2019-01-07] MEDS: Bupivacaine LIPOSOME/PF 133 MG/10 ML VIAL IJ ×2 (15:10→17:26)
[2019-01-07] MEDS: Bupivacaine 0.25% Pres-Free 30 ML VIAL ×2 (15:10→17:25)
--- NOTE | 2019-01-07 17:07 | DI.RAD_ITS ---
EXAM: XR FEMUR RT CLINICAL HISTORY: nonunion of osteotomy of the right femur TECHNIQUE: C-arm fluoroscopy COMPARISON: XR knee RT 2V AP,lat from 12/08/2018 CT LOWER EXTREMITY RT WO from 12/19/2018 FINDINGS: Fluoroscopy as provided in the OR. Hard copy images show a pre existing lateral fixation plate over the distal femur. An intramedullary donato has been inserted since the previous exam. Please see proce dure note for details. FLUORO TIME: 175.7 seconds
[2019-01-07] MEDS: fentaNYL 100 MCG/2 ML VIAL IVP (18:20)
[2019-01-07] MEDS: HYDROmorphone 2 MG/ML VIAL IVP ×2 (19:22→22:05)
[2019-01-07] MEDS: diazePAM 5 MG TAB PO (19:27)
[2019-01-07] MEDS: Ketorolac 30 MG/ML VIAL IVP (20:09)
[2019-01-07] MEDS: Methylphenidate 10 MG TAB 20 MG PO (20:09)
[2019-01-07] MEDS: oxyCODONE 15 MG TAB PO (20:40)
[2019-01-07] MEDS: Normal Saline Flush 10 ML SYR IV (22:04)
[2019-01-08] VITALS (66 sets, daily range): BP systolic 135–184; BP diastolic 71–115; PULSE 82–113; RESP 10–30; TEMP 36.4–37.4; O2SAT 95–100
[2019-01-08] MEDS: HYDROmorphone 2 MG/ML VIAL IVP ×4 (00:12→06:52)
[2019-01-08] MEDS: Albuterol HFA 8 GM 60 PUFF INH IH (00:12)
[2019-01-08] MEDS: Ketorolac 30 MG/ML VIAL IVP ×4 (01:59→20:17)
[2019-01-08] MEDS: oxyCODONE 15 MG TAB PO ×5 (02:50→20:42)
[2019-01-08 07:00] LABS: HCT 30.2 % (36.0-46.0); HGB 9.6 g/dL (12.0-15.5); Mean Corp. HGB Concentration 31.8 g/dL (32.0-36.0); Mean Corpuscular Hemoglobin 27.5 pg (27.0-33.0); Mean Corpuscular Volume 86.5 fL (80-95); Mean Platelet Volume 9.9 fL (8.0-11.0); Platelet Count 369 x1000/uL (130-400); RBC 3.49 m/cumm (4.00-5.20); RBC Distribution Width 14.6 % (11.7-14.6); White Blood Cell Count 12.08 k/cumm (4.4-10.8)
[2019-01-08 07:10] LABS: Anion Gap 9.8 mmol/L (3-11); BUN 9 mg/dL (7-18); CO2 26.2 mmol/L (21.0-32.0); CREATININE 0.66 mg/dL (0.55-1.02); Calcium 8.6 mg/dL (8.5-10.1); Chloride 104 mmol/L (98-107); Glucose 93 mg/dL (70-100); Potassium 3.7 mmol/L (3.5-5.1); Sodium 140 mmol/L (136-145)
[2019-01-08] MEDS: Methylphenidate 10 MG TAB 20 MG PO ×3 (08:25→20:57)
[2019-01-08] MEDS: Pantoprazole 40 MG TABCR PO (08:26)
[2019-01-08] MEDS: lamoTRIgine 100 MG TAB 200 MG PO (08:26)
[2019-01-08] MEDS: Gabapentin 300 MG CAP PO ×3 (08:26→20:18)
[2019-01-08] MEDS: Acetaminophen 500 MG TAB 1000 MG PO ×3 (08:26→20:18)
[2019-01-08] MEDS: diazePAM 5 MG TAB PO ×3 (08:26→20:19)
[2019-01-08] MEDS: Dexamethasone 4 MG TAB PO (08:26)
[2019-01-08] MEDS: Enoxaparin 40 MG/0.4 ML SYR SC (08:27)
[2019-01-08] MEDS: Methadone Liquid 10 MG/ML 140 MG PO (08:28)
--- NOTE | 2019-01-08 09:29 | ROE_ITS ---
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 SURGERY Operative repair of right distal femoral nonunion with removal of hardware and placement of intramedu llary nail and plate with autologous bone graft harvest. SURGEON Leonel Lugo M.D. [employer] Milena Arevalo PA-C ANESTHESIA General with spinal and femoral nerve block. ESTIMATED BLOOD LOSS 1000 cc FINDINGS There was a hypertrophic nonunion at the osteotomy site. The original plate was used to help re-align the distal femur back into a neutral alignment. The osteotomy site was easily opened up and bone gra ft was harvested from the intramedullary space of the femur and the nonunion site was secured with an intramedullary nail, as well as a lateral side plate. COMPLICATIONS No surgical complications were identified. There was some ooze from the osteotomy site initially, but this decreased throughout the case with no notable vascular injury. Postoperatively, she was in acut e pain and it was unclear the success of the femoral nerve block and the spinal with epi wash. Theref ore, she was started on ketamine for an alternative approach to her acute pain management given chron ic opioid abuse, which is ongoing and dependence on methadone. She was transferred to the ICU. DISPOSITION ICU for acute postoperative pain management in the setting of chronic opioid dependence and abuse. INDICATION FOR PROCEDURE Melvi is a 38-year old who has severe lateral compartment arthritis of the right knee with notable va lgus deformity. She underwent a varus producing osteotomy of her distal femur on the right side on . Unfortunately, she left the hospital the next day and did not maintain nonweightbearing preca utions. She had to go up and down multiple flights of stairs. She had multiple falls, all within the first two weeks. At the first postoperative visit, the medial cortex of the femur was noted to be bro dennis. She had lost her correction. She had persistent pain. We tried to manage this nonoperatively to leave it to heal, but unfortunately, it formed a hypertrophic nonunion. She had persistent pain in th e setting of her chronic pain. She also had recurrent deformity. Given these findings, I did offer co rrection of the nonunion. I was very honest with Melvi that her chronic opiate use and her history of remitting opiate abuse in the form of heroin will make treating her pain quite difficult. Nonetheles s, she wants something to hopefully, fix this more permanently. Therefore, I discussed the treatment options. I reviewed the technical details of trying to fix this nonunion site. I reviewed the potenti al risks to include bleeding, infection, pain, stiffness, damage to nerves and vessels, damage to mus bertha and tendons, malunion, recurrent nonunion, blood clot, need for repeat procedures, cardiopulmonar y compromise, despite these risks, she elects to proceed. PROCEDURE DESCRIPTION Melvi was greeted in the preoperative holding area. Her identity was confirmed and the correct side w as identified and marked. The consent was reviewed with the patient and signed. The history and physi duncan was updated. Melvi was taken back to the PACU, where a femoral nerve block was administered. There are challenges with all of her care with very poor IV access. It took multiple attempts to find any access at all, w hich was somewhat challenging. Her participation in these events was also difficult with high anxiety and pain. After successful administration of an IV and femoral nerve block, she was taken back to [facility] Operating Room. She was then administered a spinal anesthetic. This also was done with some difficu lty, but it appeared to be successful. It was performed with an epi wash for hopeful longer duration. Melvi was then positioned in the supine position on the Operating Room table. All bony prominences we re well padded. A bump was placed underneath the right hip. She was secured to the table and the arms were secured and well padded. A general anesthetic without intubation was then administered. Prophyl actic antibiotics in the form of cefazolin were given. Timeout was performed for safe surgery. [facility] leg was prepped with ChloraPrep and draped in a standard fashion leaving space by the iliac crest in case for bone grafting. The knee was placed over an operative triangle to promote some flexion of the hip and of the knee. Previous incision was then opened up and extended slightly proximal, but al so extending distally towards the tibial tubercle. The deep tissues were dissected down to the Ilioti bial band. The Iliotibial band was identified and dissected out. The superior margin of the iliotibia l band was incised. This allowed us to drift slightly more anteriorly and then down the lateral borde r of the patellar tendon for access into the joint. This was taken down to full thickness level and t o expose the plate and the lateral femoral condyle. With the IT band now split, the plate was identif ied. A blackmon elevator was used to help free up any scar tissue. There was notable synovitis around the plate itself. There were adhesions and scaring between the soft tissues and the distal femur and the plate. These were again bluntly dissected with a blackmon elevator freeing them up and stripping them off of the plate. I then the anterior soft tissues off of the anterior distal femur. The unders luisito of the patellar tendon was freed from any adhesions to the deeper layer and any meniscus it was m manjula sure not to penetrate or cut. The osteotomy site was not easily identifiable. However, there was notable fibrous tissue with the us e of a curette. I was able to fall into the osteotomy site. Once this was identified, I then worked a nteriorly to posteriorly to clear out the osteotomy site of any fibrous tissue. There was notable kendrick sandy deformity of the knee. A retractor was placed in the posterior region of the osteotomy and a larg e osteotome was then used to make sure the osteotomy site was fully opened up. The proximal screws of the old plate were removed, and the laminar trousseau consultant was placed into the osteotomy site. This was op ened up to recreate a normal mechanical alignment reducing the valgus malalignment that she had. With this being held, two unicortical locking screws were placed through the old plate to help hold this position. Three of the distal screws were also removed for access into the distal femur. All remnant fibrous tissue and nonhealing tissue was removed from the osteotomy site. A starting K-wi re was then placed through the middle of the trochlear groove right at the apex of the intracondylar notch. This was confirmed to be in adequate position both on the AP and the lateral. This was advance d into the femur. The near cortex and articular surface was then opened up with a 13-mm reamer. To co llect bone graft for the nonunion repair, I elected to use the reamer irrigation aspiration system by [employer]. A 13.5-mm reamer tip was attached to the REBECCA System. This was then inserted into the femur. This collected bone graft from within the intramedullary space of the femur. This was taken slowly u p the entire length of the femur to the proximal most aspect. It was taken slowly and backed off to g ather as much bone marrow as possible. Once this was completed, we had prepared the canal for intrame dullary nail, but also collected bone graft of about 40 cc. This was kept on the back table for later use. It was combined with 10 cc of Allograft structural bone graft. The length of the femur was then measured 360 mm. A 12 x 360 mm nail was then selected and inserted i nto the femur without difficulty. It was sent just past the cartilage level of the femur. A single he lical blade was then placed through the distal aspect of the nail. I was attempting to place two scre ws in the distal fragment, but the more proximal of the two screws, would be too close to the osteoto my site and therefore, I opted for the helical blade with a larger surface area of fixation. The pass of the helical blade was opened laterally and then the helical blade was malleted into position. Thi s was all done after removing the plate and holding the osteotomy site open with a laminar trousseau consultant. Two anterior to posterior screws were then placed proximally using perfect circles techniques. Blunt dissection was carried down through the anterior musculature onto the bone making sure not to cause a ny soft tissue damage. These were also placed without difficulty. They were confirmed to be through the nail and in appropriate positions on the AP and lateral pictures. The laminar trousseau consultant was remove d and the alignment of the knee was maintained. To serve as a backup for a deformity and also just be tter fixation, I then placed a lateral plate over the femur. A [employer] variable angle and distal femur plate was sized in position. Dressed securely onto the femu r and it was secured with a K-wire. The variable angle screws allowed me to direct the screws around the nail distally. I was able to place four locking screws distally, which were full length. I then p laced a single nonlocking screw proximally to bring the plate down to bone against the shaft. Once th is was on position, three additional locking screws were placed, two being unicortical given the nail . I was able to direct the nonlocking and one locking screw around the nail, but as the plate moved m ore distal, there was no additional room and therefore unicortical locking screws were placed. The al ignment was maintained. The knee was taken through range of motion and noted to be stable. There was no notable prominent hardware. Thorough irrigation was performed with pulse irrigation. Once this was fully irrigated, the wound was irrigated with Irrisept Chlorhexidine solution. The bone graft harvested from the femur along with 10 cc of Allograft bone matrix was then packed int o the osteotomy site. The soft tissue envelope posteriorly was left largely intact and therefore this served as an envelope posteriorly and we inserted the bone graft from the anterior surface. This was pushed and pressurized into the area. All but about 5 cc of the combination bone graft was used. Th e deep tissues were then injected with a mixture of 50 cc of 0.25% bupivacaine and 10 cc of Exparel. This was done along the periosteal tissues of the knee, as well as the IT band and the vastus lateral is musculature. The IT band was then reapproximated with a #1-Vicryl. This was also used to incorpora te the superior edge of the IT band and the lateral retinaculum to close up the joint arthrotomy. The deep tissues were closed with #0-Vicryl followed by #2-0 Vicryl. The skin was closed with ricky. T he wounds were dressed with Xeroform, 4x4s, Kerlix and Sebastian wrap. She was placed into a knee immobiliz er. At the end of the case all counts were correct. The patient was awakened from anesthesia and imme diately complained of pain. She was taken to the PACU in stable condition although with significant p ain concerns. In the PACU, she required copious amounts of narcotics with zero improvement, therefore the decision was made to transfer her to the ICU for postoperative recovery and the use of alternati ve agents such as ketamine.
--- NOTE | 2019-01-08 09:56 | INITIAL_ITS ---
- If Service Date Differs Date of service: 01/08/19 Time of Service: 09:56 Care Management Initial Assess REASON FOR HOSPITALIZATION:: Non-union of osteotomy site PAST MEDICAL HISTORY/PAST SURGICAL HISTORY:: Medical History (Updated 12/24/18 @ 06:41 by Leonel Lugo MD). Asthma (Chronic). History of drug abuse (Acute). per pt clean for 2 years. History of hepatitis C (Acute). per pt has been treated but it didn't cure it made my numbers go down. Surgical History (Updated 01/02/19 @ 10:16 by LAURA Jenkins). History of arthroscopic knee surgery (Inactive). Right. History of right femoral derotational osteotomy (Acute 09/23/18). History of tubal ligation (Inactive) PREVIOUS FUNCTIONAL STATUS/SOCIAL/FAMILY SUPPORTS:: Melvi lives alone in an apartment in [place], [place]. She is independent at baseline. Melvi uses a walker to ambulate because of recent knee surgery that was complicated by premature weight bearing. Melvi has 2 daughters and grandchildren and a mother who live in the area. Melvi does not drive because of a DUI; she uses [facility] for transportation. CURRENT FUNCTIONAL STATUS:: Melvi was sitting up in a wheelchair in the ICU when CM came to see her. She stated she was in pain and had met with a [employer] for pain managemment. She is currently receiving ketamine. Melvi is desirous of going to rehab when discharged, however, because she is on methadone to treat substance abuse, CM unable to find an accdepting facility. ADVANCE DIRECTIVES:: none on file Has patient been provided with information about the portal?: No Did the patient sign up for the portal?: No CODE STATUS:: Full Code INSURANCE COVERAGE / FINANCIAL ISSUES:: Medicaid CURRENT HOME/COMMUNITY SERVICES/EQUIPMENT:: Melvi uses crutches . She also goes to [facility] in [place] for methadine treatment PRIMARY CARE PHYSICIAN:: Joycelyn Adair PATIENT/FAMILY EDUCATION NEEDS:: Discharge plan, limitations, follow up plan, Ask me Three ANTICIPATED BARRIERS TO DISCHARGE:: Melvi is on methadone for substance abuse and therefore unable to be placed in a short term rehab facility TRANSPORTATION:: via private vehicle when ready PLAN:: Melvi will likely transition to swing bed status for a week or two when pain is controlled and when determined by provider. She will then discharge home with home health if needed. Melvi will follow up with her surgeon and discharge plan of care. She will transport with friends or family via private vehicle.CM will provide support patient, family and discharge planning needs.
--- NOTE | 2019-01-08 12:19 | PDOC.ANES ---
Date of service: 01/08/19 Time of Service: 12:19 Anesthesia Note Report Anesthesia Note: Asked to Consult on June by Dr. Lugo. 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 Despite spinal anesthesia as well as femoral nerve block, she had severe pain last night. She is currently on a ketamine infusion at 0.4mg/kg/hr for acute pain as well as PRN fentanyl and oxycodone as well as scheduled valium, methadone, tylenol, toradol, and gabapentin. This morning she has been out of bed to wheelchair and is sitting in chair calm and conversive, constantly asking if she is going to . I reassured her she is not dying and we just want to better control her pain. She is currently an 8/10 at the distal right femur site, worse with movement. She is completely alert and oriented with no respiratory or hemodynamic concerns. Her ketamine infusion has been increased to 0.8mg/kg/hr with a bolus of 15mg ketamine IV (5mg Wasted). She remains alert and oriented and pain was reduced at rest to a 3-4/10 which she states is tolerable. We discussed the reality that being pain free would likely not occur and our mutual goal would be a tolerable discomfort (3-5/10). Additionally the goal will be to not request additional narcotic analgesia above and beyond her home doses unless truly needed. This will be beneficial, especially in light of her recent heroin relapse. Melvi agrees with this plan, Dr. Lugo made aware of changes.
--- NOTE | 2019-01-08 12:43 | IN_ITS ---
Date of service: 01/08/19 Time of Service: 10:15 PT Notes Inpatient Physical Therapy Evaluation Date: 01/08/2018 Referring Doctor: Leonel Lugo MD PT Orders: PT CONSULT: S/P ORIF of R distal femoral fracture with IMN and autologous bone graft Precautions: Fall. Standard. PWB on R LE with knee immobilized. ROM to R knee to tolerance. Patient Profile/Admitting Diagnosis: Patient is a 38-year-old female on opiate dependence and with history of repeated falls. 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 PMHX: Medical History (Updated 12/24/18 @ 06:41 by Leonel Lugo MD) Asthma (Chronic) History of drug abuse (Acute) per pt clean for 2 years History of hepatitis C (Acute) per pt has been treated but it didn't cure it made my numbers go down Surgical History (Updated 01/02/19 @ 10:16 by LAURA Jenkins) History of arthroscopic knee surgery (Inactive) Right History of right femoral derotational osteotomy (Acute 09/23/18) History of tubal ligation (Inactive) Social History/Home Situation: Patient lives in a one floor house with 5 steps to enter. Equipment Owned/DME: FWW Subjective: Patient states that she is in a lot of discomfort as she did not get enough sleep the prior night due to postoperative pain complaint. Patient was agreeable to PT evaluation after reinforcement from this PT and nurse Garibay about needing PT to assist with transfers and safety so she can do her morning care. Objective: General Observation: Patient resting in bed upon arrival of this PT and student PT. Nurse Garibay present in room getting patient ready for her morning care. R LE propped up on three piloows. Patient looking distressed due to pain complaint and lack of sleep. Telemetry monitoring in place. Knee immobilizer off. Unable to check dressing as patient would not allow anybody touching and looking at her R leg except for Nurse Garibay. Mental Status: Alert and oriented x 4 Pain: 9-10/10 on R surgical site aggravated by movement. ROM: Right Upper Extremity: Shoulder Flexion WFL. Shoulder abduction WFL. Elbow flexion WFL. Wrist flexion WFL. Opening and closing of hand WFL. Left Upper Extremity: Shoulder Flexion WFL. Shoulder abduction WFL. Elbow flexion WFL. Wrist flexion WFL. Opening and closing of hand WFL. Right Lower Extremity: NT due to patient refusal. Left Lower Extremity: Grossly WFL. Strength: Right Upper Extremity: Shoulder flexors 5/5. Shoulder abductors 5/5. Elbow flexors 5/5. Elbow extensors 5/5. Field Clerk strong. Left Upper Extremity: Shoulder flexors 5/5. Shoulder abductors 5/5. Elbow flexors 5/5. Elbow extensors 5/5. Field Clerk strong. Right Lower Extremity: NT due to patient refusal. Left Lower Extremity: Grossly 5/5 Bed Mobility/Transfers: Rolling moderate assist of 2 Supine to sit moderate assist of 2 Sit to supine moderate assist of 2 Sit to stand moderate assist of 2 Stand to sit moderate assist of 2 Bed to chair moderate assist of 2 Chair to bed moderate assist of 2 Gait: NT due to patient refusal and high anxiety over handling of her R leg and pain complaint. Balance: Static Sitting: Normal Dynamic Sitting: Normal Static Standing: Poor Dynamic Standing: Poor Special Tests: Mobility Limitations Standardized Measure [facility] AM-PAC 6 clicks Basic Mobility Inpatient Short Form: Raw Score: 10 CMS Score: 77% deficit Informed Consent/Education: Patient instructed in purpose of PT consult and plan of care. 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 She is agreeable to going to a SNF which can facilitate opioid dependence management while she is recovering from her most recent surgery. Her prognosis is fair. She presents with high anxiety level and has trust issue which may limit the amount of participation in PT sessions. At this time, she only trusts nurse Lani to hold onto her R leg and did not let this PT examine nor test it. Patient presents with clinical signs and symptoms consistent with current/admitting diagnoses that have resulted to mobility limitations, gait instability, generalized weakness, and impairment of motor control as demonstrated by the following impairment level findings: 1. Decreased strength to B LE major muscle groups 2. Impaired sitting/standing balance 3. Impaired activity tolerance 4. Limitation of joint range of motion in L hip and knee Impairments are contributing to the following functional limitations: 1. Dependent bed mobility skills 2. Increased dependence with transfers 3. Inability to safely ambulate without assistive device and physical assistance 4. Increase completion time for mobility ADL performance 5. Increased fall risk 6. 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 Supine-Sit minimal assist 2. Sit-Supine minimal assist 3. Sit-Stand minimal assist 4. Stand-Sit minimal assist 5. Bed-Chair minimal assist 6. Chair-Bed minimal assist 7. Independent gait on level surface with use of least restrictive device for at least 30 feet without report of pain nor dyspnea 8. Independent stair negotiation while holding onto bilateral rails for at least 5 steps without report of pain nor dyspnea 9. Independent with home exercise program 10. Standing tolerance 2 minutes; Static/Dynamic standing balance Fair Plan of Care/Treatment Plan: 1-2x/day, 7 days/week x 1 week. Plan of care has been reviewed with the FILLING WINDER providing the service under Physical Therapy direction. Initiate Physical Therapy intervention for strengthening, bed mobility, transfers, gait, stairs, balance training, use of assistive device. DISCHARGE RECOMMENDATIONS: Patient will benefit from intermediate facility placement in order to progress mobility level, strength, and balance in preparation for a safe discharge to home. Patient states she is agreeable to going to either [facility] or to another SNF in [place], [place] whenever she is medically cleared to do so. TREATMENT CODE/TIME: 18250 x21 minutes beginning at 10:15 AM. Thank you very much for this referral. Agustina Linares PT, DPT, CLT [facility]
[2019-01-08] MEDS: Normal Saline Flush 10 ML SYR IVP ×2 (13:19→16:44)
[2019-01-08] MEDS: Ketamine 500 MG/10 ML VIAL IV ×6 (14:23→23:54)
--- NOTE | 2019-01-08 14:33 | PHARADMIT ---
Addendum entered by Alexus Arenas 01/10/19 10:50: Pharmacy Note Subjective pt is working with PT Objective BP-151/103 HR-101 other VS okay no labs today Assessment ketamine continues, MD note mentions starting to wean this off tomorrow no med changes Plan continue to watch VS, labs and for med changes Addendum entered by Alexus Arenas 01/09/19 16:25: Pharmacy Note Subjective pt is working with PT Objective BP-152/113 HR-94 RR-27 K+3.2 Assessment ketamine drip continues, possible titration starting tomorrow per nursing? dexamethasone discontinued Plan no MD note yet, continue to watch VS, labs and for med changes Original Note: Admission Pharmacy Clinical Review Repair of R DISTAL FEMUR NONUNION SURGERY 01/07/19- Code Status Full Code Current Weight 86.9 kg Renally Cleared and Narrow Therapeutic Index Meds CrCl~76ml/min QTc Value / Action Taken n/a BP Control, Fever BP 163/94 Afebrile Electrolytes reviewed WNL DVT Prophylaxis Lovenox 40mg Opiate Usage / Scheduled Bowel Regimen Ordered Methadone 140mg daily Fentanyl 100mg IVP q1h/prn (a little over the conscious sedation guidelines of 1mg/kg but she has a very high tolerance) Ketamine infusion as well as IVP bolus' while awake OxyIR 45-60mg q6h/prn....increase Pyxis minimum Yes, prn bowel meds Plt/SCr for Heparin / Enoxaparin Plt 369 SCr 0.66 INR for Warfarin H/H stable, WBC/Bands H/H 9.6/30.2 WBC 12.08 Antibiotic appropriateness n/a Cultures and Sensitivities n/a Surgical ABX d/c within 24 hr Cefazolin post-op complete DM control / Insulin Dosing Heart Failure (Check EF%) (ANGEL's, B-Block, Diuretics) IV to PO Switch Home Meds Reviewed Also takes Gabapentin, diazepam, Lamictal, Methylphenidate Home Meds Not Ordered Ibuprofen Comments Pain 11/01 Anesthesia consult for pain control: Currently on Ketamine infusion titrated up to 1 mg/kg/hr = 87ml/hr, made total of 3 infusion bags for daytime and overnight working w/PT
--- NOTE | 2019-01-08 15:27 | PT.INNT ---
Date of service: 01/08/19 Time of Service: 15:27 PT Notes 01/08/19 Patient refused afternoon PT session x2, stating that she was in signficant pain and did not want anyone moving her R LE. She was willing to lift her R LE, independently, for readjustment in wheelchair and propping with pillows. Will attempt to resume PT services tomorrow morning.
--- NOTE | 2019-01-08 15:30 | DI.RAD_ITS ---
EXAM: XR FEMUR RT INDICATION: postop R femoral nonunion repair. COMPARISON: XR standing alignment from 08/13/2018 XR FEMUR RT from 01/07/2019 TECHNIQUE: 2D digital imaging was performed. FINDINGS: Intramedullary donato and distal femoral fixation plate are again. Residual postsurgical air and skin ricky are seen. There has been no change compared with the intraoperative images. IMPRESSION:
--- NOTE | 2019-01-08 16:19 | W.PM.PROGNOT ---
Date of Service Date of service: 01/08/19 Time of Service: 16:19 Assessment and Plan Assessment and plan (1) Nonunion of osteotomy site: Status: Acute Assessment and plan: Melvi is status post operative repair of right distal femur nonunion. It is expected for her to have difficult postoperative pain management given her recent opiate abuse as well as her chronic opiate dependence. She is currently in the ICU for acute pain management and has responded well to the ketamine infusion. This is a sub-anesthetic amount of ketamine to provide analgesia without sedation. Anesthesia is helping manage this medication for best effect. We will continue with the oral oxycodone but try to hold off on any IV ketamine. I expect the use of ketamine for postoperative pain management for at least another 24 to 48 hours before we transition off the ketamine. We will check an x-ray today of the right femur. I will request a PICC line to be placed for IV access given her poor access. (2) Post-traumatic osteoarthritis of right knee: Status: Chronic Subjective Subjective Patient reports: no new complaints Interval history since last seen: Melvi reports that the pain has improved. Rosendo Kwok from anesthesia has been involved with helping manage acute pain with the alternative method of ketamine given chronic opiate abuse and dependence. Melvi has been able to get out of the bed with some assistance. She denies any chest pain or shortness of breath. She has had no fevers no chills. She denies any confusion or hallucinations. Exam Narrative Exam Narrative: Alert and oriented x3. No acute distress. Sitting up in the chair. Right knee dressing is clean dry and intact. Intact ankle dorsiflexion and plantarflexion. Sensation intact light touch over the deep and superficial peroneal nerve and tibial nerve. The foot is warm and well-perfused. Breathing comfortably without any notable distress or difficulty. Objective Objective Clinical Data: Abnormal lab results 01/08/19 Range/Units 06:20 WBC 12.08 H (4.4-10.8) k/cumm RBC 3.49 L (4.00-5.20) m/cumm Hgb 9.6 L (12.0-15.5) g/dL Hct 30.2 L (36.0-46.0) % MCHC 31.8 L (32.0-36.0) g/dL Vital Signs Temperature 37.2 C 01/08/19 11:34 Temperature Source Temporal Artery Scan 01/08/19 11:34 Pulse 106 H 01/08/19 14:00 Pulse Rhythm Regular 01/07/19 11:33 Pulse 104 H 01/08/19 14:01 Respiratory Rate 15 01/08/19 14:01 Respiratory Effort Non-Labored 01/08/19 11:34 Respiratory Depth Normal 01/08/19 11:34 Respiratory Pattern Normal 01/08/19 11:34 Blood Pressure 163/94 H 01/08/19 14:00 Blood Pressure Mean 110 01/08/19 14:00 Blood Pressure Position Sitting 01/08/19 11:34 Pulse Oximetry 98 01/08/19 14:00 Respiratory End-tidal CO2 35 01/07/19 18:50 Oxygen Delivery Method Room Air 01/08/19 11:34 Oxygen Flow Rate 0 01/08/19 11:34 Pain Level 8 01/08/19 14:20 Intake & Output 01/07/19 01/08/19 01/08/19 23:59 11:59 23:59 Intake Total 1570 / 1570 3070.000 / 3398.059 328.059 / 3398.059 Output Total 1250 / 1250 1175 / 1625 450 / 1625 Balance 320 / 320 1895.000 / 1773.059 -121.941 / 1773.059 Weight 86.9 kg Intake: IV 1420 / 1420 1150.000 / 1238.059 88.059 / 1238.059 Oral 150 / 150 1920 / 2160 240 / 2160 Output: Urine 250 / 250 1175 / 1625 450 / 1625 Estimated Blood Loss 1000 / 1000 Other: Urine Color Light Gloria Yellow Yellow Urine Appearance Clear Clear Clear Urine Odor None None Comment Watts in place Emesis Description None Voiding Methods Bedside Commode Bedside Commode Laboratory Results WBC 12.08 k/cumm (4.4-10.8) H 01/08/19 06:20 RBC 3.49 m/cumm (4.00-5.20) L 01/08/19 06:20 Hgb 9.6 g/dL (12.0-15.5) L 01/08/19 06:20 Hct 30.2 % (36.0-46.0) L 01/08/19 06:20 MCV 86.5 fL (80-95) 01/08/19 06:20 MCH 27.5 pg (27.0-33.0) 01/08/19 06:20 MCHC 31.8 g/dL (32.0-36.0) L 01/08/19 06:20 RDW 14.6 % (11.7-14.6) 01/08/19 06:20 Plt Count 369 x1000/uL (130-400) 01/08/19 06:20 MPV 9.9 fL (8.0-11.0) 01/08/19 06:20 Sodium 140 mmol/L (136-145) 01/08/19 06:20 Potassium 3.7 mmol/L (3.5-5.1) 01/08/19 06:20 Chloride 104 mmol/L (98-107) 01/08/19 06:20 Carbon Dioxide 26.2 mmol/L (21.0-32.0) 01/08/19 06:20 Anion Gap 9.8 mmol/L (3-11) 01/08/19 06:20 BUN 9 mg/dL (7-18) 01/08/19 06:20 Creatinine 0.66 mg/dL (0.55-1.02) 01/08/19 06:20 Estimated GFR/1.73 m2 >= 60.00 (mL/min/1.73m2) 01/08/19 06:20 Glucose 93 mg/dL (70-100) 01/08/19 06:20 Calcium 8.6 mg/dL (8.5-10.1) 01/08/19 06:20
[2019-01-08] MEDS: fentaNYL 100 MCG/2 ML VIAL IVP ×2 (16:42→19:28)
[2019-01-08] MEDS: Docusate Sodium 100 MG CAP PO (16:44)
[2019-01-08] MEDS: Refresh PLUS Eye Drops 0.4ml 1 EACH OU (17:45)
[2019-01-08] MEDS: Normal Saline Flush 10 ML SYR 20 ML IVP (20:17)
[2019-01-08] MEDS: LORazepam 2 MG/ML VIAL IVP (21:00)
[2019-01-08] MEDS: LORazepam 2 MG/ML VIAL 1 MG IVP (23:03)
[2019-01-09] VITALS (61 sets, daily range): BP systolic 135–177; BP diastolic 71–113; PULSE 82–105; RESP 10–29; TEMP 36.4–37.5; O2SAT 91–100
[2019-01-09] MEDS: Ketamine 500 MG/10 ML VIAL IV ×5 (01:52→08:53)
[2019-01-09] MEDS: Ketorolac 30 MG/ML VIAL IVP ×4 (02:20→19:49)
[2019-01-09] MEDS: oxyCODONE 15 MG TAB PO ×4 (05:28→21:28)
[2019-01-09] MEDS: Methadone Liquid 10 MG/ML 140 MG PO (06:12)
[2019-01-09] MEDS: Methylphenidate 10 MG TAB 20 MG PO ×3 (06:17→19:49)
[2019-01-09] MEDS: Normal Saline Flush 10 ML SYR IVP ×7 (06:18→21:30)
[2019-01-09] MEDS: LORazepam 2 MG/ML VIAL 1 MG IVP ×2 (06:33→21:28)
[2019-01-09 07:23] LABS: HCT 26.5 % (36.0-46.0); HGB 8.2 g/dL (12.0-15.5); Mean Corp. HGB Concentration 30.9 g/dL (32.0-36.0); Mean Corpuscular Hemoglobin 27.2 pg (27.0-33.0); Platelet Count 332 x1000/uL (130-400); RBC 3.01 m/cumm (4.00-5.20); RBC Distribution Width 14.8 % (11.7-14.6)
[2019-01-09] MEDS: Enoxaparin 40 MG/0.4 ML SYR SC (07:23)
[2019-01-09] MEDS: Refresh PLUS Eye Drops 0.4ml 1 EACH OU (07:24)
[2019-01-09] MEDS: Docusate Sodium 100 MG CAP PO ×2 (07:25→19:49)
[2019-01-09] MEDS: Dexamethasone 4 MG TAB PO (07:25)
[2019-01-09] MEDS: Normal Saline Flush 10 ML SYR 20 ML IVP ×2 (07:25→19:21)
[2019-01-09] MEDS: Gabapentin 300 MG CAP PO ×3 (07:26→19:49)
[2019-01-09] MEDS: lamoTRIgine 100 MG TAB 200 MG PO (07:26)
[2019-01-09] MEDS: Pantoprazole 40 MG TABCR PO (07:26)
[2019-01-09] MEDS: Acetaminophen 500 MG TAB 1000 MG PO ×3 (07:27→19:49)
[2019-01-09 07:37] LABS: Anion Gap 9.8 mmol/L (3-11); BUN 12 mg/dL (7-18); CO2 27.2 mmol/L (21.0-32.0); CREATININE 0.55 mg/dL (0.55-1.02); Calcium 8.3 mg/dL (8.5-10.1); Chloride 107 mmol/L (98-107); Glucose 96 mg/dL (70-100); Potassium 3.2 mmol/L (3.5-5.1); Sodium 144 mmol/L (136-145)
--- NOTE | 2019-01-09 11:07 | PT.INTREAT ---
Date of service: 01/09/19 Time of Service: 11:07 PT Notes 01/09/19 SUBJECTIVE: June stating she wants to walk. No complaints of pain in the R LE today. Some discomfort noted in her low back. OBJECTIVE: Seated in her wheel chair. Agreeable to work with PT. TRANSFERS Sit to stand: Mod A with verbal cues Stand to sit: Mod A with verbal cues GAIT Device: FWW Weight bearing: PWB R Assist: Mod A x 1 Distance: 5'+3' Deviation: Shuffle with the left LE, walker management and verbal cueing throughout ASSESSMENT: Pt seems to have her pain under control today without complaints noted to me. She requires significant amount of verbal cueing for all transfers and gait. PLAN: Continue current POC progressing mobility as she is able to tolerate. Treatment time: 25 minutes [id number] Lily Hanks PTA Clinic location: [facility] [place], [place]
--- NOTE | 2019-01-09 14:35 | PT.INTREAT ---
Date of service: 01/09/19 Time of Service: 14:35 PT Notes 01/09/19 SUBJECTIVE: June reporting she is feeling pretty good this afternoon. Seated on commode and would like to get up. OBJECTIVE: Agreeable to PT treatment. TRANSFERS Sit to stand: Min A Stand to sit: Min A GAIT Device: FWW Weight bearing: PWB R Distance: 15' Assist: Min A x 1 Deviation: Verbal cues for technique, Small hops to unweight the right LE THEREX: Pt performs glut sets and ankle pumps and instructed to perform independently. ASSESSMENT: Pt is advancing her mobility with continued cues for proper technique and safety. She continues to have her pain under control this PM. PLAN: Continue current POC progressing mobility as she is able to tolerate. Treatment time: 20' [id number] Lily Hanks PTA Clinic location: [facility] [place], [place]
[2019-01-09] MEDS: fentaNYL 100 MCG/2 ML VIAL 150 MCG IVP ×5 (15:16→23:40)
--- NOTE | 2019-01-09 15:33 | CHAPLAIN ---
I met June this afternoon as she was getting ready to leave her room in her wheelchair. I explained my role and offered support. She asked if the chapel is always open and if she cold got here. I let her know that it is in fact, always open and as long as her nurse gives her permission to leave the floor, she is welcome to spend time in the chapel. She asked if we could talk about things not uatsdin, and told her we certainly can and let her know how to get a in touch with me.
--- NOTE | 2019-01-09 15:56 | PDOC.CMPRO ---
- If Service Date Differs Date of service: 01/09/19 Time of Service: 15:56 Care Management Progress Note S/O: Melvi was sitting up in a wheelchair when CM came to visit. She was pleasant and smiling and appropriate in her interactions. Melvi seemed more awake than on previous occasions and stated that her pain is well controlled. She shared that she had the best night's sleep she has had in a while. Melvi was again reassured that she will transition to swing bed if we are unable to find an accepting SNF. 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 P: Melvi will likely transition to swing bed status for a week or two when pain is controlled and when determined by provider. She will then discharge home with home health if needed. Melvi will follow up with her surgeon and discharge plan of care. She will transport with friends or family via private vehicle. CM will provide support patient, family and discharge planning needs.
--- NOTE | 2019-01-09 19:29 | W.PM.PROGNOT ---
Date of Service Date of service: 01/09/19 Time of Service: 13:30 Assessment and Plan Assessment and plan (1) Nonunion of osteotomy site: Status: Acute Assessment and plan: Melvi is s/p right distal femur nonunion repair involving removal of hardware, bone graftnig and replating and nailing of the femur. X-rays show no apparent complications and her exam is encouraging. She is PWB with assistive devices. Kneee immobilizer when she is ambulating. Lovenox for blood clot prevention. (2) Acute postoperative pain: Status: Acute Assessment and plan: Melvi has a challengin situation given her chronic Methadone use and her recent opiate abuse. This all makes managing her pain, in an otherwise quite painful procedure, challenging. With the assistance of anesthesia she has been kept on a Ketamine infusion in the ICU which has been able to treat her pain well. She is still requiring breakthrough narcotics but we have at least reached a reasonable level of objective pain. I would plan to keep her on the Ketamine for at least another 2-3 days before trying to remove the Ketamine and get to the floor. Subjective Subjective Interval history since last seen: Melvi had a good night last nght. She was able to sleep and reports much more tolerable levels of pain. She is currently at 1 mg/kg/hr of Ketamine and receiving Q4hr Oxycodone. Ativan was used for agitation and insomnia and this worked well. She denies any chest pain, SOB, fever, or chills. Exam Narrative Exam Narrative: Sitting in the wheelchair. Leg is elevated. Dressing c/d/i. Objective Objective Clinical Data: Abnormal lab results 01/09/19 01/09/19 Range/Units 06:18 06:18 RBC 3.01 L (4.00-5.20) m/cumm Hgb 8.2 L (12.0-15.5) g/dL Hct 26.5 L (36.0-46.0) % MCHC 30.9 L (32.0-36.0) g/dL RDW 14.8 H (11.7-14.6) % Potassium 3.2 L (3.5-5.1) mmol/L Calcium 8.3 L (8.5-10.1) mg/dL Vital Signs Temperature 37.2 C 01/10/19 03:40 Temperature Source Temporal Artery Scan 01/10/19 03:40 Pulse 78 01/10/19 06:00 Pulse Rhythm Regular 01/07/19 11:33 Pulse 80 01/10/19 06:00 Respiratory Rate 9 L 01/10/19 06:00 Respiratory Effort Non-Labored 01/10/19 03:40 Respiratory Depth Normal 01/10/19 03:40 Respiratory Pattern Normal 01/10/19 03:40 Blood Pressure 122/85 01/10/19 06:00 Blood Pressure Mean 94 01/10/19 06:00 Blood Pressure Position Sitting 01/10/19 03:40 Pulse Oximetry 98 01/09/19 16:25 Respiratory End-tidal CO2 35 01/07/19 18:50 Oxygen Delivery Method Room Air 01/10/19 03:40 Oxygen Flow Rate 0 01/10/19 03:40 Pain Level 7 01/10/19 03:40 Intake & Output 01/09/19 01/09/19 01/10/19 11:59 23:59 11:59 Intake Total 1062.637 / 3249.637 2187 / 3249.637 855 / 855 Output Total 1450 / 3100 1650 / 3100 400 / 400 Balance -387.363 / 149.637 537 / 149.637 455 / 455 Intake: IV 1062.637 / 2112.637 1050 / 2112.637 505 / 505 Oral 1137 / 1137 350 / 350 Output: Urine 1450 / 3100 1650 / 3100 400 / 400 Other: Urine Color Yellow Yellow Yellow Urine Appearance Clear Clear Clear Urine Odor Normal Normal Voiding Methods Bedside Commode Laboratory Results WBC 10.30 k/cumm (4.4-10.8) 01/09/19 06:18 RBC 3.01 m/cumm (4.00-5.20) L 01/09/19 06:18 Hgb 8.2 g/dL (12.0-15.5) L 01/09/19 06:18 Hct 26.5 % (36.0-46.0) L 01/09/19 06:18 MCV 88.0 fL (80-95) 01/09/19 06:18 MCH 27.2 pg (27.0-33.0) 01/09/19 06:18 MCHC 30.9 g/dL (32.0-36.0) L 01/09/19 06:18 RDW 14.8 % (11.7-14.6) H 01/09/19 06:18 Plt Count 332 x1000/uL (130-400) 01/09/19 06:18 MPV 10.0 fL (8.0-11.0) 01/09/19 06:18 Sodium 144 mmol/L (136-145) 01/09/19 06:18 Potassium 3.2 mmol/L (3.5-5.1) L 01/09/19 06:18 Chloride 107 mmol/L (98-107) 01/09/19 06:18 Carbon Dioxide 27.2 mmol/L (21.0-32.0) 01/09/19 06:18 Anion Gap 9.8 mmol/L (3-11) 01/09/19 06:18 BUN 12 mg/dL (7-18) 01/09/19 06:18 Creatinine 0.55 mg/dL (0.55-1.02) 01/09/19 06:18 Estimated GFR/1.73 m2 >= 60.00 (mL/min/1.73m2) 01/09/19 06:18 Glucose 96 mg/dL (70-100) 01/09/19 06:18 Calcium 8.3 mg/dL (8.5-10.1) L 01/09/19 06:18
[2019-01-10] VITALS (39 sets, daily range): BP systolic 113–159; BP diastolic 65–114; PULSE 70–103; RESP 9–27; TEMP 36.4–37.2; O2SAT 96–99
[2019-01-10] MEDS: Ketorolac 30 MG/ML VIAL IVP ×4 (02:21→19:31)
[2019-01-10] MEDS: Normal Saline Flush 10 ML SYR IVP ×2 (02:21→22:52)
[2019-01-10] MEDS: oxyCODONE 15 MG TAB PO ×5 (02:40→19:18)
[2019-01-10] MEDS: fentaNYL 100 MCG/2 ML VIAL 150 MCG IVP ×4 (03:24→22:52)
[2019-01-10] MEDS: Methadone Liquid 10 MG/ML 140 MG PO (06:57)
[2019-01-10] MEDS: Enoxaparin 40 MG/0.4 ML SYR SC (08:06)
[2019-01-10] MEDS: Pantoprazole 40 MG TABCR PO (08:06)
[2019-01-10] MEDS: Acetaminophen 500 MG TAB 1000 MG PO ×3 (08:07→19:28)
[2019-01-10] MEDS: Gabapentin 300 MG CAP PO ×3 (08:07→19:27)
[2019-01-10] MEDS: lamoTRIgine 100 MG TAB 200 MG PO (08:07)
[2019-01-10] MEDS: Methylphenidate 10 MG TAB 20 MG PO ×3 (08:10→19:28)
[2019-01-10] MEDS: Normal Saline Flush 10 ML SYR 20 ML IVP ×2 (08:30→19:30)
--- NOTE | 2019-01-10 08:36 | W.PM.PROGNOT ---
Date of Service Date of service: 01/10/19 Time of Service: 08:36 Assessment and Plan Assessment and plan (1) Acute postoperative pain: Status: Acute Assessment and plan: Melvi is a 38-year-old status post nonunion of an osteotomy site takedown with interval plate and nail placement. She has made excellent improvements over the first day and night. She has been able to sleep and she reports good pain control. Unfortunately, she is requiring a significant amount of medications including a 1 mg/kg/h infusion of ketamine. She has gone without any bolus dosing of ketamine over the last 24 hours. I am encouraging her in the nursing staff to avoid bolus dosing of fentanyl. I would like to start weaning her off the ketamine tomorrow with a hopeful transfer back to the floor on only oral medications by Saturday. She does have acute postoperative blood loss anemia but her vital signs are stable and her last hemoglobin on postop day #2 was 8.2. (2) Nonunion of osteotomy site: Status: Acute Subjective Subjective Interval history since last seen: Melvi reports that she had another good night. Her pain is been controlled. She has been able to be mobile in the wheelchair. She is moving mostly independently. She denies any numbness or tingling. Exam Narrative Exam Narrative: Sitting in the wheelchair. Right leg shows well approximated incisions without any drainage and with no sign of infection. There is some swelling around the surgical site with a joint effusion. She tolerates some gentle motion from 10 to 40 degrees. Objective Objective Clinical Data: Vital Signs Temperature 37.2 C 01/10/19 03:40 Temperature Source Temporal Artery Scan 01/10/19 03:40 Pulse 78 01/10/19 06:00 Pulse Rhythm Regular 01/07/19 11:33 Pulse 80 01/10/19 06:00 Respiratory Rate 9 L 01/10/19 06:00 Respiratory Effort Non-Labored 01/10/19 03:40 Respiratory Depth Normal 01/10/19 03:40 Respiratory Pattern Normal 01/10/19 03:40 Blood Pressure 122/85 01/10/19 06:00 Blood Pressure Mean 94 01/10/19 06:00 Blood Pressure Position Sitting 01/10/19 03:40 Pulse Oximetry 98 01/09/19 16:25 Respiratory End-tidal CO2 35 01/07/19 18:50 Oxygen Delivery Method Room Air 01/10/19 03:40 Oxygen Flow Rate 0 01/10/19 03:40 Pain Level 8 01/10/19 08:22 Intake & Output 01/09/19 01/09/19 01/10/19 11:59 23:59 11:59 Intake Total 1062.637 / 3249.637 2187 / 3249.637 855 / 855 Output Total 1450 / 3100 1650 / 3100 400 / 400 Balance -387.363 / 149.637 537 / 149.637 455 / 455 Intake: IV 1062.637 / 2112.637 1050 / 2112.637 505 / 505 Oral 1137 / 1137 350 / 350 Output: Urine 1450 / 3100 1650 / 3100 400 / 400 Other: Urine Color Yellow Yellow Yellow Urine Appearance Clear Clear Clear Urine Odor Normal Normal Voiding Methods Bedside Commode Laboratory Results WBC 10.30 k/cumm (4.4-10.8) 01/09/19 06:18 RBC 3.01 m/cumm (4.00-5.20) L 01/09/19 06:18 Hgb 8.2 g/dL (12.0-15.5) L 01/09/19 06:18 Hct 26.5 % (36.0-46.0) L 01/09/19 06:18 MCV 88.0 fL (80-95) 01/09/19 06:18 MCH 27.2 pg (27.0-33.0) 01/09/19 06:18 MCHC 30.9 g/dL (32.0-36.0) L 01/09/19 06:18 RDW 14.8 % (11.7-14.6) H 01/09/19 06:18 Plt Count 332 x1000/uL (130-400) 01/09/19 06:18 MPV 10.0 fL (8.0-11.0) 01/09/19 06:18 Sodium 144 mmol/L (136-145) 01/09/19 06:18 Potassium 3.2 mmol/L (3.5-5.1) L 01/09/19 06:18 Chloride 107 mmol/L (98-107) 01/09/19 06:18 Carbon Dioxide 27.2 mmol/L (21.0-32.0) 01/09/19 06:18 Anion Gap 9.8 mmol/L (3-11) 01/09/19 06:18 BUN 12 mg/dL (7-18) 01/09/19 06:18 Creatinine 0.55 mg/dL (0.55-1.02) 01/09/19 06:18 Estimated GFR/1.73 m2 >= 60.00 (mL/min/1.73m2) 01/09/19 06:18 Glucose 96 mg/dL (70-100) 01/09/19 06:18 Calcium 8.3 mg/dL (8.5-10.1) L 01/09/19 06:18
--- NOTE | 2019-01-10 08:57 | NUR.NOTE ---
Up to wheel chair with minimal assist. Participated in secure leg positioning. Requested to leave unit in wheel chair. Ketamine drip disconnected. Dr. Lugo in to change dressing and discuss plan. Patient fell asleep in wheel chair outside room after taking PO medications. Nursing Note:
--- NOTE | 2019-01-10 10:11 | NUR.NOTE ---
Anesthesia in and discussed pain management strategies with patient. P.T. in. Ambulated in pham with walker and knee brace on tolerated well. Remains off Ketamine. Awaiting daughter to come in and help with her shower.Nursing Note:
--- NOTE | 2019-01-10 10:33 | PDOC.CMPRO ---
Care Management Progress Note S/O:Melvi was sitting up in her wheelchair whe I visited this morning. Waiting for her daughter Renu Harvey, to arrive to help her take a shower today. Stated that her pain was starting to get a little higher att his time because she had just finished taking a walk in the hallway. Still receiving IV fentanyl and ketamine. Asked to update her HIPAA document. Removed daughter Jacqui Harvey stating that she had fallen off the wagon and was unreliable at this time. Added daughter Renu Harvey, brother Tony Juárez and aunt Nadja Valente. Updated form faxed to [facility]. Shares that she would like to go to a rehab facility but is willing to stay here in Swing Bed status when ready to change to SNF level of care. A:38y.o. female admitted for R distal femur non-union. Remains at ICU level of care for monitoring while receiving IV fentanyl and ketamine. P:Melvi will likely transition to swing bed status for a week or two when pain is controlled and when determined by provider. She will then discharge home with home health if needed. Melvi will follow up with her surgeon and discharge plan of care. She will transport with friends or family via private vehicle.CM will provide support patient, family and discharge planning needs.
--- NOTE | 2019-01-10 11:19 | PT.INTREAT ---
Date of service: 01/10/19 Time of Service: 09:30 PT Notes Inpatient Physical Therapy Treatment Note [facility] Date: 01/10/19 PRECAUTIONS:Fall/ PWB SUBJECTIVE: June states that her daughter is coming later this am and will give her a shower. She is feeling stronger today, still having pain, but seems to be able to control it better. She has been wheeling herself around the hospital floor independently. OBJECTIVE: [] BED MOBILITY/TRANSFERS Sit-stand: SBA Stand-sit: SBA GAIT Assistive Device: FWW with knee immobilizer Weight bearing: PWB/ WBAT right Assist: CG/SBA Distance: 40'x2 ASSESSMENT: tolerated session well. She is steady on feet. She stood in room going through her clothes and getting organized for her shower. PLAN: will continue towards established goals. TREATMENT CODE/TIME: 35 min direct treatment time. [id number].
--- NOTE | 2019-01-10 12:33 | NUR.NOTE ---
Daughter, daughter's boyfriend, and granddaughter in. Daughter assisted mother with shower. Left unit in wheel chair with visitors at 1225. Nursing Note:
--- NOTE | 2019-01-10 13:12 | NUR.NOTE ---
PRN Visitors left. Oxycodone given. Assisted back to recliner. Nursing Note:
[2019-01-10] MEDS: Albuterol HFA 8 GM 60 PUFF INH IH ×2 (13:42→22:47)
[2019-01-10] MEDS: LORazepam 2 MG/ML VIAL 1 MG IVP ×2 (13:59→19:32)
--- NOTE | 2019-01-10 14:05 | NUR.NOTE ---
Woke up from napping in chair c/o feeling cold and not right. Became agitated and crying stating that her leg hurt. Requested her Albuterol MDI. LS clear. 2 puffs with spacer given. After 1st puff but before second puff stated that it's not working and she needs a treatment. O2 sats 98-100% on room air. Calling out for female nurse. 2PM medications given including Neurontin, Tylenol and Toradol. IV ativan given. States she has to pee. Commode brought to side of chair. States she can manage herself. Became calm and in good spirits when her phone rang with a giggling baby ring tone.Nursing Note:
--- NOTE | 2019-01-10 15:52 | NUR.NOTE ---
Up to wheel chair. Ketamine drip put on hold and IV disconnected. Left unit with brother to go to lobby. Remained in good spirits after earlier episode of increased anxiety and crying. No complaints of pain while getting into wheel chair or leaving unit.Nursing Note:
--- NOTE | 2019-01-10 18:54 | NUR.NOTE ---
Currently asleep in recliner. Wakes up occasionally and calls out, Did you forget about me? Ketamine drip remained off after return to unit with brother. Off unit for approximately 30 minutes. Nursing Note:
[2019-01-11] VITALS (21 sets, daily range): BP systolic 124–179; BP diastolic 90–106; PULSE 74–105; RESP 14–21; TEMP 36.6–37; O2SAT 98–100
[2019-01-11] MEDS: oxyCODONE 15 MG TAB PO ×6 (00:24→20:59)
[2019-01-11] MEDS: LORazepam 2 MG/ML VIAL 1 MG IVP ×2 (00:25→04:40)
--- NOTE | 2019-01-11 00:43 | NUR.NOTE ---
Pt complained of dressing to R anterior knee peeling, then when i left the room briefly she ripped the whole dressing off. Unable to find any orders for dressing change, I covered the incision with a mepilex with border AG which appeared to be the dressing removed by the pt. Nursing Note:
[2019-01-11] MEDS: Ketorolac 30 MG/ML VIAL IVP ×4 (04:29→21:00)
[2019-01-11] MEDS: fentaNYL 100 MCG/2 ML VIAL 150 MCG IVP (04:39)
[2019-01-11] MEDS: Albuterol HFA 8 GM 60 PUFF INH IH (05:12)
[2019-01-11] MEDS: Normal Saline Flush 10 ML SYR IVP ×2 (06:31→13:26)
--- NOTE | 2019-01-11 06:36 | NUR.NOTE ---
pt left unit at approx 0535 to go downstairs and look for a newspaper. Ketamine turned off at 0500 when pt stated she would going for a ride in her wheelchair to med surg. Pt arrived back to ICU at 0630. Used commode and got herself back to recliner. No complaints of pain yet, pt moving very well around the room. Nursing Note:
[2019-01-11 07:27] LABS: HCT 24.7 % (36.0-46.0); HGB 7.8 g/dL (12.0-15.5); Mean Corp. HGB Concentration 31.6 g/dL (32.0-36.0); Mean Corpuscular Hemoglobin 27.9 pg (27.0-33.0); Mean Corpuscular Volume 88.2 fL (80-95); Mean Platelet Volume 9.8 fL (8.0-11.0); Platelet Count 323 x1000/uL (130-400); RBC Distribution Width 14.7 % (11.7-14.6); White Blood Cell Count 9.09 k/cumm (4.4-10.8)
[2019-01-11 07:34] LABS: BUN 10 mg/dL (7-18); CREATININE 0.58 mg/dL (0.55-1.02); Calcium 8.4 mg/dL (8.5-10.1); Chloride 106 mmol/L (98-107); Glucose 91 mg/dL (70-100); Potassium 3.2 mmol/L (3.5-5.1); Sodium 143 mmol/L (136-145)
--- NOTE | 2019-01-11 07:54 | NUR.NOTE ---
0745: Pt's brother arrived and woke patient up. Pt quickly got up out of the recliner chair and put herself into her wheelchair and announced that she was going down to the cafeteria to get some reading material. Pt hopped on her left foot to accompish this transfer. Pt requests can I have my pain medicine when I get back? Pt states she will be back in 15 minutes.
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
[2019-01-11] MEDS: Methadone Liquid 10 MG/ML 140 MG PO (08:59)
[2019-01-11] MEDS: Enoxaparin 40 MG/0.4 ML SYR SC (09:00)
[2019-01-11] MEDS: Gabapentin 300 MG CAP PO ×3 (09:00→20:59)
[2019-01-11] MEDS: Pantoprazole 40 MG TABCR PO (09:00)
[2019-01-11] MEDS: Docusate Sodium 100 MG CAP PO (09:00)
[2019-01-11] MEDS: Polyethylene Glycol 3350 17 GM PACKET PO (09:00)
[2019-01-11] MEDS: lamoTRIgine 100 MG TAB 200 MG PO (09:01)
[2019-01-11] MEDS: Normal Saline Flush 10 ML SYR 20 ML IVP ×2 (09:01→21:01)
[2019-01-11] MEDS: Methylphenidate 10 MG TAB 20 MG PO ×3 (09:03→21:09)
[2019-01-11] MEDS: Acetaminophen 500 MG TAB 1000 MG PO ×3 (09:04→21:00)
[2019-01-11] MEDS: fentaNYL 50 MCG PATCH TD ×2 (09:50→16:31)
[2019-01-11] MEDS: LORazepam 1 MG TAB PO ×3 (09:51→20:58)
[2019-01-11] MEDS: Potassium Chloride 20 MEQ TABCR PO ×2 (11:20→21:00)
--- NOTE | 2019-01-11 13:23 | PT.INTREAT ---
Date of service: 01/11/19 PT Notes Inpatient Physical Therapy Treatment Note [facility] Date: 01/11/19 SUBJECTIVE: June states that she is very tired. I feel like I sleep all the time. OBJECTIVE: [] BED MOBILITY/TRANSFERS Sit-supine: SBA Sit-stand: S Stand-sit: S GAIT Assistive Device: FWW Weight bearing: WBAT right Assist: SBA Distance: 75'x2 THEREX: seated heel slides for knee flex ROM, with ankle pumps. Seated may. QS and glut sets. See flowsheet for details. Legs were then elevated on pillows and she performed ankle pumps. Cryo was applied. ASSESSMENT: tolerated session well. She is independent and safe with transfers and functional mobility. No LOB while standing. PLAN: continue towards established goals. TREATMENT CODE/TIME: 30 min. [id number], [id number]
--- NOTE | 2019-01-11 17:07 | PDOC.CMPRO ---
Care Management Progress Note S/O:Melvi was sitting up in her wheelchair when I visited this morning. Pain is well controlled and the IV Ketamine as well as Dilaudid have been discontinued. Visiting with friends and family and joined them for lunch in the cafeteria. A:38y.o. female admitted for R distal femur non-union. Level of care changed to Acute today and she moved to the M/S Unit. P:Melvi will likely transition to swing bed status for a week or two when no longer requiring Acute level of care. She will then discharge home with home health if needed. Melvi will follow up with her surgeon and discharge plan of care. She will transport with friends or family via private vehicle. Rehab options will be identified for possible placement as an option to the Swing Bed program here.
[2019-01-11] MEDS: LORazepam 1 MG TAB 2 MG PO (21:09)
--- NOTE | 2019-01-11 22:54 | NUR.NOTE ---
It was reported by [employer] that patient was seen outside earlier this night.Patient state she was not aware she is not supposed to go outside she was educated this was to help keep her safe, while being in the hospital. She said she wanted to start chantix because she has not smoked for 3 days and this evening she went outside for a smoke,. When she returned to the floor she state she was in a 9/10 pain because her dressing fell off and 1 of the ricky fell out.
[2019-01-12] VITALS: BP 131/74; PULSE 81; RESP 18; TEMP 37.1; O2SAT 98
[2019-01-12] MEDS: oxyCODONE 15 MG TAB PO ×7 (00:01→23:19)
[2019-01-12] MEDS: Ketorolac 30 MG/ML VIAL IVP ×4 (01:47→23:08)
[2019-01-12] MEDS: Normal Saline Flush 10 ML SYR IVP ×7 (01:48→23:09)
[2019-01-12 03:34] VITALS: BP 128/86; PULSE 82; RESP 16; TEMP 37; O2SAT 97
[2019-01-12] MEDS: Methadone Liquid 10 MG/ML 140 MG PO (06:03)
[2019-01-12] MEDS: Methylphenidate 10 MG TAB 20 MG PO ×3 (06:56→20:33)
[2019-01-12] MEDS: LORazepam 1 MG TAB PO ×3 (06:56→23:19)
[2019-01-12] MEDS: Potassium Chloride 20 MEQ TABCR PO (07:37)
[2019-01-12] MEDS: Acetaminophen 500 MG TAB 1000 MG PO ×3 (07:37→20:33)
[2019-01-12] MEDS: Pantoprazole 40 MG TABCR PO (07:38)
[2019-01-12] MEDS: Enoxaparin 40 MG/0.4 ML SYR SC (07:38)
[2019-01-12] MEDS: lamoTRIgine 100 MG TAB 200 MG PO (07:38)
[2019-01-12] MEDS: Normal Saline Flush 10 ML SYR 20 ML IVP ×2 (07:38→20:34)
[2019-01-12] MEDS: Gabapentin 300 MG CAP PO ×3 (07:38→20:34)
[2019-01-12 07:45] VITALS: BP 153/90; PULSE 82; RESP 18; TEMP 36.8; O2SAT 98
[2019-01-12] MEDS: HYDROmorphone 2 MG/ML VIAL IVP ×2 (07:50→11:31)
[2019-01-12] MEDS: Bisacodyl 5 MG TABEC PO ×2 (10:31→16:59)
[2019-01-12 11:41] VITALS: BP 150/87; PULSE 86; RESP 16; TEMP 36.9; O2SAT 97
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
[2019-01-12 13:08] LABS: HCT 25.5 % (36.0-46.0); Mean Corp. HGB Concentration 31.4 g/dL (32.0-36.0); Mean Corpuscular Hemoglobin 27.7 pg (27.0-33.0); Mean Corpuscular Volume 88.2 fL (80-95); Mean Platelet Volume 9.3 fL (8.0-11.0); Platelet Count 360 x1000/uL (130-400); RBC 2.89 m/cumm (4.00-5.20); RBC Distribution Width 14.9 % (11.7-14.6); White Blood Cell Count 9.96 k/cumm (4.4-10.8)
[2019-01-12 13:13] LABS: Anion Gap 8.3 mmol/L (3-11); BUN 10 mg/dL (7-18); CO2 27.7 mmol/L (21.0-32.0); CREATININE 0.54 mg/dL (0.55-1.02); Calcium 8.7 mg/dL (8.5-10.1); Chloride 105 mmol/L (98-107); Glucose 90 mg/dL (70-100); Potassium 3.8 mmol/L (3.5-5.1); Sodium 141 mmol/L (136-145)
--- NOTE | 2019-01-12 13:27 | NUR.NOTE ---
Fentanyl patch removed from right shoulder and placed in med waste bin witnessed by Roger Majano. Nursing Note:
--- NOTE | 2019-01-12 14:06 | W.PM.PROGNOT ---
Date of Service Date of service: 01/12/19 Time of Service: 09:06 Assessment and Plan Assessment and plan (1) Post-traumatic osteoarthritis of right knee: Status: Chronic Assessment and plan: Transferred to the [facility] floor yesterday. Doing well. Hgb stable at 8 from acute post-operative blood loss anemia. Independent with ambulation. No BM, will increase laxatives. (2) Acute postoperative pain: Status: Acute Subjective Subjective Patient reports: no new complaints, still having pain, tolerating a regular diet and flatus; denies bowel movement and fever Exam Narrative Exam Narrative: Minimal sanguinous drainage from the wound. Notable swelling to the distal femur. ROM 10-60. Able to SLR. Objective Objective Clinical Data: Abnormal lab results 01/13/19 01/13/19 Range/Units 06:45 06:45 RBC 2.91 L (4.00-5.20) m/cumm Hgb 8.0 L (12.0-15.5) g/dL Hct 25.8 L (36.0-46.0) % MCHC 31.0 L (32.0-36.0) g/dL RDW 14.9 H (11.7-14.6) % Creatinine 0.54 L (0.55-1.02) mg/dL Vital Signs Temperature 36.8 C 01/13/19 07:25 Temperature Source Tympanic 01/13/19 07:25 Pulse 72 01/13/19 08:24 Pulse Rhythm Regular 01/13/19 11:26 Pulse 78 01/11/19 06:40 Respiratory Rate 16 01/13/19 08:24 Respiratory Effort Non-Labored 01/13/19 11:26 Respiratory Depth Normal 01/13/19 11:26 Respiratory Pattern Normal 01/13/19 11:26 Blood Pressure 131/68 01/13/19 07:25 Blood Pressure Mean 103 01/11/19 11:22 Blood Pressure Position Sitting 01/10/19 17:44 Pulse Oximetry 94 L 01/13/19 08:24 Respiratory End-tidal CO2 35 01/07/19 18:50 Oxygen Delivery Method Room Air 01/13/19 07:25 Oxygen Flow Rate 0 01/13/19 07:25 Pain Level 8 01/13/19 13:25 Comment 01/13/19 07:25 Intake & Output 01/12/19 01/13/1901/13/19 23:59 11:59 23:59 Intake Total 120 / 540 Balance 120 / 540 Intake: Oral 120 / 520 Other: Urine Color Pale Urine Appearance Clear Clear Urine Odor None Stool Size Small Stool Characteristics Soft Brown Voiding Methods Toilet Laboratory Results WBC 10.28 k/cumm (4.4-10.8) 01/13/19 06:45 RBC 2.91 m/cumm (4.00-5.20) L 01/13/19 06:45 Hgb 8.0 g/dL (12.0-15.5) L 01/13/19 06:45 Hct 25.8 % (36.0-46.0) L 01/13/19 06:45 MCV 88.7 fL (80-95) 01/13/19 06:45 MCH 27.5 pg (27.0-33.0) 01/13/19 06:45 MCHC 31.0 g/dL (32.0-36.0) L 01/13/19 06:45 RDW 14.9 % (11.7-14.6) H 01/13/19 06:45 Plt Count 375 x1000/uL (130-400) 01/13/19 06:45 MPV 9.5 fL (8.0-11.0) 01/13/19 06:45 Sodium 141 mmol/L (136-145) 01/13/19 06:45 Potassium 3.7 mmol/L (3.5-5.1) 01/13/19 06:45 Chloride 104 mmol/L (98-107) 01/13/19 06:45 Carbon Dioxide 28.9 mmol/L (21.0-32.0) 01/13/19 06:45 Anion Gap 8.1 mmol/L (3-11) 01/13/19 06:45 BUN 11 mg/dL (7-18) 01/13/19 06:45 Creatinine 0.54 mg/dL (0.55-1.02) L 01/13/19 06:45 Estimated GFR/1.73 m2 >= 60.00 (mL/min/1.73m2) 01/13/19 06:45 Glucose 94 mg/dL (70-100) 01/13/19 06:45 Calcium 8.7 mg/dL (8.5-10.1) 01/13/19 06:45
--- NOTE | 2019-01-12 15:41 | PT.INNT ---
Date of service: 01/12/19 Time of Service: 15:41 PT Notes 01/12/2019 Patient refused afternoon PT session, stating that her doctor told her to limit her activity due to increased right knee soreness and increased drainage from incision site. She states that she walked earlier today and that she has been compliant with her independent exercises, and that she will participate in PT tomorrow morning. Will attempt to resume PT services tomorrow morning.
--- NOTE | 2019-01-12 16:20 | PDOC.CMPRO ---
- If Service Date Differs Date of service: 01/12/19 Time of Service: 16:20 Care Management Progress Note S/O:Melvi was sitting up in her wheelchair when KHALIF visited this morning. She stated that she is still in pain. Dr. Lugo entered the room while KHAILF was present and outlined a change in her pain management. She has had a Fentanyl patch but stated that it is not working so that will be discontinued and IV Fentanyl will be available for breakthrough pain. Dr. Lugo also plans to increase Melvi's Oxycodone. KHALIF continues to reach out to SNFs in the hopes that placement can be secured. A:38y.o. female admitted for R distal femur non-union. Level of care changed to Acute today and she moved to the M/S Unit. P:Melvi will likely transition to swing bed status for a week or two when no longer requiring Acute level of care. She will then discharge home with home health if needed. Melvi will follow up with her surgeon and discharge plan of care. She will transport with friends or family via private vehicle. Rehab options will be identified for possible placement as an option to the Swing Bed program here.
[2019-01-12 16:28] VITALS: BP 162/86; PULSE 85; RESP 16; TEMP 36.1; O2SAT 100
[2019-01-12] MEDS: fentaNYL 100 MCG/2 ML VIAL IVP ×3 (16:59→23:09)
[2019-01-12] MEDS: Nicotine 2 MG GUM CH (16:59)
[2019-01-12] MEDS: LORazepam 1 MG TAB 2 MG PO (21:50)
[2019-01-13 00:25] VITALS: BP 173/94; PULSE 85; RESP 16; TEMP 37.2; O2SAT 99
[2019-01-13] MEDS: oxyCODONE 15 MG TAB PO ×7 (02:01→23:40)
[2019-01-13] MEDS: fentaNYL 100 MCG/2 ML VIAL IVP ×5 (03:03→20:08)
[2019-01-13] MEDS: Normal Saline Flush 10 ML SYR IVP ×6 (03:03→22:20)
[2019-01-13] MEDS: Ketorolac 30 MG/ML VIAL IVP ×4 (03:58→22:20)
[2019-01-13] MEDS: Methadone Liquid 10 MG/ML 140 MG PO (06:19)
[2019-01-13] MEDS: Methylphenidate 10 MG TAB 20 MG PO ×3 (06:19→20:10)
[2019-01-13 07:25] VITALS: BP 131/68; PULSE 90; RESP 20; TEMP 36.8; O2SAT 97
[2019-01-13 07:44] LABS: HCT 25.8 % (36.0-46.0); Mean Corpuscular Hemoglobin 27.5 pg (27.0-33.0); Mean Corpuscular Volume 88.7 fL (80-95); Mean Platelet Volume 9.5 fL (8.0-11.0); Platelet Count 375 x1000/uL (130-400); RBC 2.91 m/cumm (4.00-5.20); RBC Distribution Width 14.9 % (11.7-14.6); White Blood Cell Count 10.28 k/cumm (4.4-10.8)
[2019-01-13] MEDS: Albuterol HFA 8 GM 60 PUFF INH IH (07:57)
[2019-01-13 08:21] LABS: Anion Gap 8.1 mmol/L (3-11); BUN 11 mg/dL (7-18); CO2 28.9 mmol/L (21.0-32.0); CREATININE 0.54 mg/dL (0.55-1.02); Calcium 8.7 mg/dL (8.5-10.1); Chloride 104 mmol/L (98-107); Glucose 94 mg/dL (70-100); Potassium 3.7 mmol/L (3.5-5.1); Sodium 141 mmol/L (136-145)
[2019-01-13] MEDS: Albuterol 2.5 MG/3 ML INH SOLN VIAL (08:21)
[2019-01-13 08:24] VITALS: PULSE 72; RESP 1; RESP 16; O2SAT 94
--- NOTE | 2019-01-13 09:00 | DI.RAD_ITS ---
EXAM: XR KNEE RT 1V INDICATION: f/u R distal femur nonunion repair s/p WB. COMPARISON: XR knee RT 2V AP,lat from 12/08/2018 XR FEMUR RT from 01/08/2019 TECHNIQUE: 2D digital imaging was performed. FINDINGS: There has been no change in the hardware in the distal femur. There has been no change in fracture alignment. Skin ricky are seen. Severe degenerative changes of the knee are again seen.
[2019-01-13] MEDS: Acetaminophen 500 MG TAB 1000 MG PO ×3 (09:02→20:10)
[2019-01-13] MEDS: Docusate Sodium 100 MG CAP PO (09:02)
[2019-01-13] MEDS: Bisacodyl 5 MG TABEC PO (09:02)
[2019-01-13] MEDS: Aspirin E.C. 81 MG TABEC PO ×2 (09:02→20:11)
[2019-01-13] MEDS: LORazepam 1 MG TAB PO ×2 (09:03→13:30)
[2019-01-13] MEDS: Gabapentin 300 MG CAP PO ×3 (09:03→20:10)
[2019-01-13] MEDS: Pantoprazole 40 MG TABCR PO (09:03)
[2019-01-13] MEDS: lamoTRIgine 100 MG TAB 200 MG PO (09:03)
[2019-01-13] MEDS: Methylnaltrexone 12 MG/0.6 ML VIAL SC (09:09)
[2019-01-13] MEDS: Normal Saline Flush 10 ML SYR 20 ML IVP ×2 (09:10→20:12)
[2019-01-13 11:40] VITALS: BP 130/89; PULSE 89; RESP 16; TEMP 36.5; O2SAT 98
[2019-01-13] MEDS: Cetirizine 10 MG TAB PO (13:07)
[2019-01-13] MEDS: Fluticasone NASAL SPRAY 16 GM BTL NS (13:07)
--- NOTE | 2019-01-13 14:08 | W.PM.PROGNOT ---
Date of Service Date of service: 01/13/19 Time of Service: 11:08 Assessment and Plan Assessment and plan (1) Nonunion of osteotomy site: Status: Acute Assessment and plan: POD#6 s/p nonunion repair of the right distal femur. She has been mobilizing more than I expected. She is partial weight bearing but she seems to put more weight on it than I would like. Repeat x-ray today does not demonstrate any change in position. Minimal drainage. I encouraged June to work on ROM. She may limit her mobilization and weight bearing to help ontrol pain and swelling. Apply ice/heat as tolerated. (2) Acute postoperative pain: Status: Acute Assessment and plan: Continue with current regimen and plan on transitioning to only oral tomorrow. (3) Acute blood loss anemia: Status: Acute Assessment and plan: Follow Hgb. (4) Constipation due to opioid therapy: Status: Acute Assessment and plan: Continue Dulcolax and Miralax. Add Methylnaltrexone. Subjective Subjective Interval history since last seen: June had an increase in pain last night. She now feels better this morning. She has yet to have a bowel movement. She also complains of some postnasal drip and a cough. She did report doing too much activity yesterday. She has noted some increasing swelling about the right leg. No increase in drainage. No fevers no chills. No chest pain or shortness of breath. Exam Narrative Exam Narrative: Sitting in the reclining chair. The right leg has a clean dry and intact dressing. There is notable swelling and effusion about the right knee. Some pain with range of motion which she tolerates range of motion 10 to 40 degrees difficulty. Intact dorsiflexion and plantar flexion of the right ankle. Sensation intact light touch of the deep and superficial peroneal nerves and tibial nerve. The foot is warm and well-perfused. Objective Objective Clinical Data: Abnormal lab results 01/13/19 01/13/19 Range/Units 06:45 06:45 RBC 2.91 L (4.00-5.20) m/cumm Hgb 8.0 L (12.0-15.5) g/dL Hct 25.8 L (36.0-46.0) % MCHC 31.0 L (32.0-36.0) g/dL RDW 14.9 H (11.7-14.6) % Creatinine 0.54 L (0.55-1.02) mg/dL Vital Signs Temperature 36.8 C 01/13/19 07:25 Temperature Source Tympanic 01/13/19 07:25 Pulse 72 01/13/19 08:24 Pulse Rhythm Regular 01/13/19 11:26 Pulse 78 01/11/19 06:40 Respiratory Rate 16 01/13/19 08:24 Respiratory Effort Non-Labored 01/13/19 11:26 Respiratory Depth Normal 01/13/19 11:26 Respiratory Pattern Normal 01/13/19 11:26 Blood Pressure 131/68 01/13/19 07:25 Blood Pressure Mean 103 01/11/19 11:22 Blood Pressure Position Sitting 01/10/19 17:44 Pulse Oximetry 94 L 01/13/19 08:24 Respiratory End-tidal CO2 35 01/07/19 18:50 Oxygen Delivery Method Room Air 01/13/19 07:25 Oxygen Flow Rate 0 01/13/19 07:25 Pain Level 8 01/13/19 13:25 Comment 01/13/19 07:25 Intake & Output 01/12/19 01/13/19 01/13/19 23:59 11:59 23:59 Intake Total 120 / 540 Balance 120 / 540 Intake: Oral 120 / 520 Other: Urine Color Pale Urine Appearance Clear Clear Urine Odor None Stool Size Small Stool Characteristics Soft Brown Voiding Methods Toilet Laboratory Results WBC 10.28 k/cumm (4.4-10.8) 01/13/19 06:45 RBC 2.91 m/cumm (4.00-5.20) L 01/13/19 06:45 Hgb 8.0 g/dL (12.0-15.5) L 01/13/19 06:45 Hct 25.8 % (36.0-46.0) L 01/13/19 06:45 MCV 88.7 fL (80-95) 01/13/19 06:45 MCH 27.5 pg (27.0-33.0) 01/13/19 06:45 MCHC 31.0 g/dL (32.0-36.0) L 01/13/19 06:45 RDW 14.9 % (11.7-14.6) H 01/13/19 06:45 Plt Count 375 x1000/uL (130-400) 01/13/19 06:45 MPV 9.5 fL (8.0-11.0) 01/13/19 06:45 Sodium 141 mmol/L (136-145) 01/13/19 06:45 Potassium 3.7 mmol/L (3.5-5.1) 01/13/19 06:45 Chloride 104 mmol/L (98-107) 01/13/19 06:45 Carbon Dioxide 28.9 mmol/L (21.0-32.0) 01/13/19 06:45 Anion Gap 8.1 mmol/L (3-11) 01/13/19 06:45 BUN 11 mg/dL (7-18) 01/13/19 06:45 Creatinine 0.54 mg/dL (0.55-1.02) L 01/13/19 06:45 Estimated GFR/1.73 m2 >= 60.00 (mL/min/1.73m2) 01/13/19 06:45 Glucose 94 mg/dL (70-100) 01/13/19 06:45 Calcium 8.7 mg/dL (8.5-10.1) 01/13/19 06:45
--- NOTE | 2019-01-13 15:20 | PDOC.CMPRO ---
- If Service Date Differs Date of service: 01/13/19 Time of Service: 15:20 Care Management Progress Note S/O:Melvi was walking in her room unassisted, without a walker or cane, when CM came to see her. She admitted to being cranky and said she is tired of being here and just wants to leave. She stated that she was going to go to the cafeteria then go outside. CM reminded her that as an inpatient, she is not supposed to leave the unit. She stated she did not care; she intended to go out. She had a male with her who was pushing her wheelchair. Dr. Lugo indicated that he intends to change her to swing bed status tomorrow. A:38y.o. female admitted for R distal femur non-union. Level of care changed to Acute today and she moved to the M/S Unit. P:Melvi will likely transition to swing bed status for a week or two when no longer requiring acute level of care. All efforts to obtain a SNF bed offer have been unsuccessful due to Melvi's methadone maintenance for substance abuse.She will be discharged home with home health if needed. Melvi will follow up with her surgeon and discharge plan of care. She will transport with friends or family via private vehicle.
[2019-01-13 16:08] VITALS: BP 129/90; PULSE 79; RESP 18; TEMP 36.2; O2SAT 98
--- NOTE | 2019-01-13 16:57 | PT.INTREAT ---
Date of service: 01/13/19 Time of Service: 10:32 PT Notes Inpatient Physical Therapy Treatment Note [facility] Date: 01/13/2019 PRECAUTIONS: Fall. PWB R. Knee extension brace. R knee ROM as tolerated. SUBJECTIVE: Patient reports she is in severe pain and continues to be frustrated with how her discharge planning is process is going on. She states that the doctor told her to ?take a rest day?. While she declines the offer to go for a walk, she is agreeable to participating in therapeutic exercises this morning. OBJECTIVE: Patient is seen sitting in recliner. She appeared disoriented. Her eye movements were uncoordinated, and her eyelids did not move symmetrically. She was able to follow directions. PAIN: 9/10 BED MOBILITY/TRANSFERS Rolling L/R: Independent Supine-sit: Independent Sit-supine: Independent Sit-stand: Independent Stand-sit: Independent Bed-Chair: SBA Chair-bed: SBA GAIT Assistive Device: FWW Weight bearing: PWB R Assist: SBA Distance: 150? Deviation: Patient exhibited proper step-to gait mechanics but needed cueing to keep the walker at a further distance to her. Her gait appears antalgic on the right. THEREX: Standing Heel raises x 10 Long Arc Quads x 10 Manual-resisted hip abduction (seated): x 10 ASSESSMENT: Patient is a 38 year old female s/p R TKA POD 5 due to traumatic event. Given the time passed since surgery, Melvi is ambulating very well. She demonstrated her ability to bear more weight than the previous days. Her tolerance for movement has also increased. She admitted that she has been smoking cigarettes since admission, and was educated on the effects tobacco-products have on the healing process. Despite her level of irritability, she is succeeding and continues to benefit from PT services. Patient is showing signs/symptoms consistent with her current/admitting diagnosis. PLAN: Continue with plan of care. TREATMENT CODE/TIME: Session 1 40912 x 12 minutes beginning at 10:32 AM. Session 2 [id number] x 13 minutes beginning at 13:06 PM. Juan Ignacio, [facility] In consultation with: Agustina Linares PT, DPT, CLT [facility]
[2019-01-13 20:23] VITALS: BP 168/112; PULSE 87; RESP 16; TEMP 37.3; O2SAT 97
[2019-01-13] MEDS: LORazepam 1 MG TAB 2 MG PO (22:20)
[2019-01-14 00:11] VITALS: BP 138/81; PULSE 86; RESP 17; TEMP 37; O2SAT 100
[2019-01-14] MEDS: fentaNYL 100 MCG/2 ML VIAL IVP ×4 (01:20→14:08)
[2019-01-14] MEDS: Normal Saline Flush 10 ML SYR IVP ×5 (01:21→14:09)
[2019-01-14] MEDS: oxyCODONE 15 MG TAB PO ×4 (03:17→14:38)
[2019-01-14] MEDS: Albuterol HFA 8 GM 60 PUFF INH IH ×2 (03:18→14:43)
[2019-01-14] MEDS: Albuterol 2.5 MG/3 ML INH SOLN VIAL UPD (04:04)
[2019-01-14] MEDS: Ketorolac 30 MG/ML VIAL IVP (04:05)
[2019-01-14 05:00] VITALS: BP 121/75; PULSE 81; RESP 18; TEMP 37.2; O2SAT 95
[2019-01-14] MEDS: Methadone Liquid 10 MG/ML 140 MG PO (06:13)
[2019-01-14 07:10] VITALS: BP 142/73; PULSE 79; RESP 16; TEMP 37.1; O2SAT 98
[2019-01-14 07:41] LABS: HCT 26.3 % (36.0-46.0); Mean Corp. HGB Concentration 30.4 g/dL (32.0-36.0); Mean Corpuscular Hemoglobin 27.1 pg (27.0-33.0); Mean Corpuscular Volume 89.2 fL (80-95); Mean Platelet Volume 9.4 fL (8.0-11.0); Platelet Count 393 x1000/uL (130-400); RBC 2.95 m/cumm (4.00-5.20); RBC Distribution Width 15.2 % (11.7-14.6); White Blood Cell Count 10.63 k/cumm (4.4-10.8)
[2019-01-14] MEDS: Gabapentin 300 MG CAP PO ×2 (07:57→13:25)
[2019-01-14] MEDS: Acetaminophen 500 MG TAB 1000 MG PO ×2 (07:57→13:25)
[2019-01-14] MEDS: Pantoprazole 40 MG TABCR PO (07:58)
[2019-01-14] MEDS: Cetirizine 10 MG TAB PO (07:58)
[2019-01-14] MEDS: Celecoxib 200 MG CAP PO (07:58)
[2019-01-14] MEDS: Methylphenidate 10 MG TAB 20 MG PO ×2 (07:59→11:27)
[2019-01-14] MEDS: lamoTRIgine 100 MG TAB 200 MG PO (07:59)
[2019-01-14] MEDS: Aspirin E.C. 81 MG TABEC PO (07:59)
[2019-01-14] MEDS: Normal Saline Flush 10 ML SYR 20 ML IVP (08:00)
[2019-01-14 08:18] LABS: Anion Gap 4.7 mmol/L (3-11); BUN 12 mg/dL (7-18); CO2 30.3 mmol/L (21.0-32.0); CREATININE 0.67 mg/dL (0.55-1.02); Chloride 103 mmol/L (98-107); Glucose 92 mg/dL (70-100); Potassium 4.2 mmol/L (3.5-5.1); Sodium 138 mmol/L (136-145)
--- NOTE | 2019-01-14 08:26 | DI.RAD_ITS ---
EXAM: XR CHEST 2V PA LATERAL INDICATION: productive cough. COMPARISON: No exams were available for comparison TECHNIQUE: 2D digital imaging was performed. FINDINGS: There is a soft region of increased density projected over the left upper lobe, suspicious for an inf iltrate. The lungs are otherwise clear. There is no pleural effusion. The heart is not enlarged. A ri ght subclavian catheter ends in the distal superior vena cava or at the caval right atrial junction. IMPRESSION: Findings suspicious for a left upper lobe pneumonitis.
[2019-01-14] MEDS: Bisacodyl 5 MG TABEC PO (10:09)
[2019-01-14] MEDS: Docusate Sodium 100 MG CAP PO (10:09)
[2019-01-14 11:00] VITALS: BP 129/68; PULSE 90; RESP 14; TEMP 36.4; O2SAT 95
--- NOTE | 2019-01-14 14:31 | PT.INNT ---
Date of service: 01/14/19 Time of Service: 14:00 PT Notes 01/14/2019 Subjective: Patient is refusing physical therapy services today. She states she is in too much pain, and her knee is too swollen to be doing any activity. She also reports that she has a lung infection. She reports the doctor saw her this morning and told her she has been overdoing it. This statement has not been confirmed with Dr. Lugo. Objective: Patient?s knee does have notable swelling but nothing beyond what is to be expected. Assessment: Patient is a 38 year old female s/p R distal femoral fracture POD 6 due to traumatic event. Since admission to the medical/surgical unit, she has refused PT services twice due to pain and swelling. Upon examination, the R knee is indeed swollen, but not more than expected. The swelling is showing early signs of fibrosis. She has been known to ambulate well with FWW and using a wheelchair. She is showing signs/symptoms consistent with her current/admitting diagnoses. Plan: Continue with plan of care
--- NOTE | 2019-01-14 14:36 | CMPROGNOTE_ITS ---
- If Service Date Differs Date of service: 01/14/19 Time of Service: 14:36 Care Management Progress Note S/O:Melvi was sitting up in her wheelchair when CM came to see her. She stated that she had been really stressed yesterday and may have been a bit short. Melvi shared that her was killed in a motorcycle accident a couple of months ago and that she needs to go to court related to that. She also said that she is concerned about how she will manage at home alone; she does not want to re- injure her leg again. A:38y.o. female admitted for R distal femur non-union. Level of care changed to Acute today and she moved to the M/S Unit. P:Melvi will likely transition to swing bed status later today. All efforts to obtain a SNF bed offer have been unsuccessful due to Melvi's methadone maintenance for substance abuse. She will be discharged home with home health when ready. Melvi will follow up with her surgeon and discharge plan of care. She will transport with friends or family via private vehicle.
--- NOTE | 2019-01-14 14:48 | DSE_ITS ---
Date of service: 01/14/19 Time of Service: 14:48 DS: Diagnosis Discharge Diagnosis (1) Nonunion of osteotomy site: Status: Acute (2) Acute postoperative pain: Status: Acute (3) Acute blood loss anemia: Status: Acute (4) Constipation due to opioid therapy: Status: Acute (5) Pneumonitis: Status: Acute Discharge Plan Disposition Patient Disposition: [facility] SWING BED LEVEL 1 Condition: Improving Discharge Details Reason For Visit: R DISTAL FEMUR NONUNION Admit Date/Time: 01/07/19 10:59 Admit Provider: Leonel Lugo Attending Provider: Leonel Lugo Primary Care Provider: QIANA WEEMS Hospital Course Hospital Course: Melvi was admitted to the ICU following her repair of a right distal femur nonunion. Acute pain control was challenging over the first 24 hours but she was stabilized on a high dose ketamine drip. Both IV and oral agents were used for pain control. She was kept on this for 3 days and a positive before was transferred to the medical surgical floor. She did require IV medications at whatever dosing they are made available. Her oral medications were increased and eventually IV medications were stopped on postop day #7. She was almost independent with transfers. She was able to ambulate independently, although not always following precautions. X-rays were performed after weightbearing which did not show any change in position of the hardware. On postop #6 she developed a cough which was productive and sent for sputum analysis. Chest x- ray showed some mild changes of the left upper lobe. She reports a history of having episodes of pneumonia and therefore was started on Augmentin. Her living situation requires multiple stairs and no significant social support. Therefore, she was deemed a candidate for swing bed discharge. She is to work on stairs and independent ambulation. Home Meds and New Rx's Prescriptions: Continued methadone 5 mg/5 mL solution 140 mg PO DAILY RF: 0 (DME) Crutches Qty: 1 RF: 0 (DME) shower chair Qty: 1 RF: 0 ibuprofen 600 mg tablet 600 mg PO TID PRN (Reason: pain) Qty: 90 RF: 3 diazepam 5 mg tablet 5 mg PO TID Qty: 15 RF: 0 oxycodone 15 mg tablet 15 mg PO Q8H MDD 45mg PRN (Reason: pain) Qty: 9 RF: 0 methylphenidate HCl [Ritalin] 20 mg Tablet 20 mg PO TID RF: 0 albuterol sulfate [ProAir HFA] 200 PUFF HFA aerosol inhaler 2 puff Inhalation PRN PRNRF: 0 lamotrigine [Lamictal] 200 MG tablet 200 mg PO DAILY RF: 0 aspirin 81 mg tablet,delayed release (DR/EC) 81 mg PO BID Qty: 60 RF: 0 pantoprazole 40 mg tablet,delayed release (DR/EC) 40 mg PO DAILY Qty: 30 RF: 0 Narcan 4 mg/actuation spray,non-aerosol 1 spray SHRUTI ONCE PRN (Reason: opioid overdose) Qty: 2 RF: 0 Discharge Instructions Additional Instructions: Admit to swing bed level 1 Referrals: Leonel Lugo MD [ [facility] STAFF PHYSICIAN] - Activity:: Partial weightbearing right leg Equipment/Supplies:: Walker Diet:: As Tolerated Discharge Orders Discharge Orders: Discharge Order (Routine); Ordered 01/14/19 Ordered By: Leonel Lugo DS: Summary Status at Discharge Functional status at discharge: uses cane/walker Overall status at discharge: patient is progressing back to baseline Mental Status: mental status grossly normal Speech and Movement: speech and movement normal Mood: congruent mood Affect: normal affect Exam Psych Mental Status: mental status grossly normal Speech and Movement: speech and movement normal Mood: congruent mood Affect: normal affect DS: Data Vitals/I&O Vitals and I&O: Vital Signs Temperature 36.4 C L 01/14/19 11:00 Temperature Source Tympanic 01/14/19 11:00 Pulse 90 01/14/19 11:00 Pulse Rhythm Regular 01/14/19 09:41 Pulse 78 01/11/19 06:40 Respiratory Rate 14 01/14/19 11:00 Respiratory Effort Non-Labored 01/14/19 09:41 Respiratory Depth Normal 01/14/19 09:41 Respiratory Pattern Normal 01/14/19 09:41 Blood Pressure 129/68 01/14/19 11:00 Blood Pressure Mean 103 01/11/19 11:22 Blood Pressure Position Sitting 01/10/19 17:44 Pulse Oximetry 95 01/14/19 11:00 Respiratory End-tidal CO2 35 01/07/19 18:50 Oxygen Delivery Method Room Air 01/14/19 11:00 Oxygen Flow Rate 0 01/14/19 11:00 Pain Level 10 01/14/19 14:38 Comment 01/14/19 11:00 Intake & Output 01/13/19 01/14/19 01/14/19 23:59 11:59 23:59 Intake Total 1160 / 1160 490 / 490 Balance 1160 / 1160 490 / 490 Intake: IV 40 / 40 Oral 1160 / 1160 450 / 450 Other: Urine Color Yellow Pale Urine Appearance Clear Clear Urine Odor Normal Comment Pt voiding ad sheldon. Voiding Methods Toilet Toilet Data Completed and Pending Labs on day of discharge: Labs from last 24 hours 01/14/19 01/14/19 07:15 07:15 WBC 10.63 RBC 2.95 L Hgb 8.0 L Hct 26.3 L MCV 89.2 MCH 27.1 MCHC 30.4 L RDW 15.2 H Plt Count 393 MPV 9.4 Sodium 138 Potassium 4.2 Chloride 103 Carbon Dioxide 30.3 Anion Gap 4.7 BUN 12 Creatinine 0.67 Estimated GFR/1.73 m2 >= 60.00 Glucose 92 Calcium 9.0 01/14/19 05:30 Sputum Sputum Culture - Pending Preliminary micro results at discharge 01/14/19 05:30 Sputum Culture - Pending Sputum [facility] Medical History Asthma (Chronic) History of drug abuse (Acute) per pt clean for 2 years History of hepatitis C (Acute) per pt has been treated but it didn't cure it made my numbers go down Hx of seizure disorder (Acute) Surgical History H/O excision of mass (Acute) Lipomas removed from base of neck and lower midback 11/2018 in [place], [place] History of arthroscopic knee surgery (Inactive) Right History of right femoral derotational osteotomy (Acute 09/23/18) History of tubal ligation (Inactive) Family History Father Cancer Mother Cancer Aunt Cancer Social History Smoking/Tobacco Use Status: Current every day Tobacco Type: cigarettes Smoking packs per day: 0.5 Smoking cigarettes per day: 10.0 Drug use: Daily Substance use type: marijuana Current gender identity: female Do you feel safe in your relationship?: Yes
--- NOTE | 2019-01-14 15:52 | CHAPLAIN ---
June and I met when she was in the ICU and she indicated she would be interested in a visit later on. I checked in with her today, but she said she was not in the mood. I'll try again another day.
--- NOTE | 2019-01-14 18:00 | NUR.NOTE ---
Nursing Note: Pt to Swingbed status at 1259 this afternoon.
--- NOTE | 2019-01-15 09:54 | INDS_ITS ---
Date of service: 01/15/19 PT Notes Inpatient Physical Therapy Discharge Summary Dates: 01/15/2019 Dates of Service: 01/08/2019 through 01/14/2019 This is a clinical summary of care provided on the duration of dates listed above. No charge was made in the completion of this documentation. Referring Doctor: Leonel Lugo MD PT Orders: PT CONSULT: S/P ORIF of R distal femoral fracture with IMN and autologous bone graft Precautions: Fall. Standard. PWB on R LE with knee immobilized. ROM to R knee to tolerance. Patient Profile/Admitting Diagnosis: Patient is discharged from acute care level and will be re-evaluated under swing bed level 1 to determine appropriateness for continued skilled PT services. Patient is a 38-year-old female on opiate dependence and with history of repeated falls. 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 PMHX: Medical History (Updated 12/24/18 @ 06:41 by Leonel Lugo MD) Asthma (Chronic) History of drug abuse (Acute) per pt clean for 2 years History of hepatitis C (Acute) per pt has been treated but it didn't cure it made my numbers go down Surgical History (Updated 01/02/19 @ 10:16 by LAURA Jenkins) History of arthroscopic knee surgery (Inactive) Right History of right femoral derotational osteotomy (Acute 09/23/18) History of tubal ligation (Inactive) Social History/Home Situation: Patient lives in a one floor house with 5 steps to enter. Equipment Owned/DME: FWW Subjective: Patient states that she is in a lot of discomfort as she did not get enough sleep the prior night due to postoperative pain complaint. Patient was agreeable to PT evaluation after reinforcement from this PT and nurse Garibay about needing PT to assist with transfers and safety so she can do her morning care. Objective: General Observation: Patient resting in bed upon arrival of this PT and student PT. Nurse Garibay present in room getting patient ready for her morning care. R LE propped up on three piloows. Patient looking distressed due to pain complaint and lack of sleep. Telemetry monitoring in place. Knee immobilizer off. Unable to check dressing as patient would not allow anybody touching and looking at her R leg except for Nurse Garibay. Mental Status: Alert and oriented x 4 Pain: 9-10/10 on R surgical site aggravated by movement. ROM: Right Upper Extremity: Shoulder Flexion WFL. Shoulder abduction WFL. Elbow flexion WFL. Wrist flexion WFL. Opening and closing of hand WFL. Left Upper Extremity: Shoulder Flexion WFL. Shoulder abduction WFL. Elbow flexion WFL. Wrist flexion WFL. Opening and closing of hand WFL. Right Lower Extremity: NT due to patient refusal. Left Lower Extremity: Grossly WFL. Strength: Right Upper Extremity: Shoulder flexors 5/5. Shoulder abductors 5/5. Elbow flexors 5/5. Elbow extensors 5/5. Switchboard Clerk strong. Left Upper Extremity: Shoulder flexors 5/5. Shoulder abductors 5/5. Elbow flexors 5/5. Elbow extensors 5/5. Switchboard Clerk strong. Right Lower Extremity: NT due to patient refusal. Left Lower Extremity: Grossly 5/5 Bed Mobility/Transfers: Rolling independent Supine to sit independent Sit to supine independent Sit to stand independent Stand to sit independent Bed to chair independent Chair to bed independent Gait: Patient is able to tolerate level surface ambulation for 150 feet with only supervision assist using FWW and minimal verbal cueing for weight bearing compliance. Balance: Static Sitting: Normal Dynamic Sitting: Normal Static Standing: Fair Dynamic Standing: Fair Special Tests: Mobility Limitations Standardized Measure [facility] 6 clicks Basic Mobility Inpatient Short Form: Raw Score: 23 CMS Score: 11% deficit Informed Consent/Education: Patient instructed in purpose of PT consult and plan of care. 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 She is agreeable to going to a SNF which can facilitate opioid dependence management while she is recovering from her most recent surgery. Her prognosis is fair. She presents with high anxiety level and has trust issue which may limit the amount of participation in PT sessions. Patient presents with clinical signs and symptoms consistent with current/admitting diagnoses that have resulted to mobility limitations, gait instability, generalized weakness, and impairment of motor control as demonstrated by the following impairment level findings: 1. Decreased strength to B LE major muscle groups 2. Impaired sitting/standing balance 3. Impaired activity tolerance 4. Limitation of joint range of motion in L hip and knee Impairments are contributing to the following functional limitations: 1. Dependent bed mobility skills 2. Increased dependence with transfers 3. Inability to safely ambulate without assistive device and physical assistance 4. Increase completion time for mobility ADL performance 5. Increased fall risk 6. 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 Supine-Sit minimal assist MET 2. Sit-Supine minimal assist MET 3. Sit-Stand minimal assist MET 4. Stand-Sit minimal assist MET 5. Bed-Chair minimal assist MET 6. Chair-Bed minimal assist MET 7. Independent gait on level surface with use of least restrictive device for at least 30 feet without report of pain nor dyspnea MET 8. Independent stair negotiation while holding onto bilateral rails for at least 5 steps without report of pain nor dyspnea MET 9. Independent with home exercise program MET 10. Standing tolerance 2 minutes; Static/Dynamic standing balance Fair MET DISCHARGE RECOMMENDATIONS: Patient will benefit from senior living facility placement in order to progress mobility level, strength, and balance in preparation for a safe discharge to home. Patient states she is agreeable to going to either [facility] or to another SNF in [place], [place] whenever she is medically cleared to do so. TREATMENT CODE/TIME: NC. Thank you very much for this referral. Agustina Linares PT, DPT, CLT [facility]
== END 2019-01-14 16:23 | disposition swing bed (61) | DRG 907 ==
LOC: PDS 18:32 → ICU 19:14 → MS 01-11 11:37
PROVIDERS: Admitting Provider Student in an Organized Health Care Education/Training Program; PCP Registered Nurse; Visit Provider Student in an Organized Health Care Education/Training Program
PROC: 0QSB06Z Reposition Right Lower Femur with Intramedullary Internal Fixation Device, Open Approach (ICD-10-PCS; CPT 27472; principal; 2019-01-07 14:00)
PROC: 0QSB06Z Reposition Right Lower Femur with Intramedullary Internal Fixation Device, Open Approach (ICD-10-PCS; CPT 27245; 2019-01-07 14:00)
PROC: 0QSB06Z Reposition Right Lower Femur with Intramedullary Internal Fixation Device, Open Approach (ICD-10-PCS; CPT 27472; 2019-01-07 14:00)
DX: M96.89 Other intraoperative and postprocedural complications and disorders of the musculoskeletal system (principal); J18.9 Pneumonia, unspecified organism; D62 Acute posthemorrhagic anemia; F11.20 Opioid dependence, uncomplicated; M21.861 Other specified acquired deformities of right lower leg; M17.31 Unilateral post-traumatic osteoarthritis, right knee; K59.03 Drug induced constipation; T40.2X5A Adverse effect of other opioids, initial encounter; G89.18 Other acute postprocedural pain; Z59.1 Inadequate housing; Z91.19 Patient's noncompliance with other medical treatment and regimen; Z87.828 Personal history of other (healed) physical injury and trauma; Z87.01 Personal history of pneumonia (recurrent); G40.909 Epilepsy, unspecified, not intractable, without status epilepticus; B19.20 Unspecified viral hepatitis C without hepatic coma; J45.909 Unspecified asthma, uncomplicated
CPT/HCPCS: 27472; 36415; 36569; 36592; 73552; 76942; 80048; 85027; 94640; 97110; 97163; 97530; J1650; NC; 71046; 73560; 87070; 87205; J0690; J1100; J1885; J2060; J2250; J3010; J7613; J8540; L1830

== ENCOUNTER 2019-01-14 14:40 | Inpatient (IN) | payer MEDICAID, SELFPAY ==
--- NOTE | 2019-01-14 14:40 | HPE_ITS ---
Date of service: 01/14/19 Time of Service: 14:48 Diagnosis Discharge Diagnosis (1) Nonunion of osteotomy site: Status: Acute (2) Acute postoperative pain: Status: Acute (3) Acute blood loss anemia: Status: Acute (4) Constipation due to opioid therapy: Status: Acute (5) Pneumonitis: Status: Acute Plan Disposition Patient Disposition: [facility] SWING BED LEVEL 1 Condition: Improving Discharge Details Reason For Visit: R DISTAL FEMUR NONUNION Admit Date/Time: 01/07/19 10:59 Admit Provider: Leonel Lugo Attending Provider: Leonel Lugo Primary Care Provider: QIANA WEEMS Hospital Course Hospital Course: June was admitted to the ICU following her repair of a right distal femur nonunion. Acute pain control was challenging over the first 24 hours but she was stabilized on a high dose ketamine drip. Both IV and oral agents were used for pain control. She was kept on this for 3 days and a positive before was transferred to the medical surgical floor. She did require IV medications at whatever dosing they are made available. Her oral medications were increased and eventually IV medications were stopped on postop day #7. She was almost independent with transfers. She was able to ambulate independently, although not always following precautions. X-rays were performed after weightbearing which did not show any change in position of the hardware. On postop #6 she developed a cough which was productive and sent for sputum analysis. Chest x- ray showed some mild changes of the left upper lobe. She reports a history of having episodes of pneumonia and therefore was started on Augmentin. Her living situation requires multiple stairs and no significant social support. Therefore, she was deemed a candidate for swing bed discharge. She is to work on stairs and independent ambulation. Home Meds and New Rx's Prescriptions: Continued methadone 5 mg/5 mL solution 140 mg PO DAILY RF: 0 (DME) Crutches Qty: 1 RF: 0 (DME) shower chair Qty: 1 RF: 0 ibuprofen 600 mg tablet 600 mg PO TID PRN (Reason: pain) Qty: 90 RF: 3 diazepam 5 mg tablet 5 mg PO TID Qty: 15 RF: 0 oxycodone 15 mg tablet 15 mg PO Q8H MDD 45mg PRN (Reason: pain) Qty: 9 RF: 0 methylphenidate HCl [Ritalin] 20 mg Tablet 20 mg PO TID RF: 0 albuterol sulfate [ProAir HFA] 200 PUFF HFA aerosol inhaler 2 puff Inhalation PRN PRNRF: 0 lamotrigine [Lamictal] 200 MG tablet 200 mg PO DAILY RF: 0 aspirin 81 mg tablet,delayed release (DR/EC) 81 mg PO BID Qty: 60 RF: 0 pantoprazole 40 mg tablet,delayed release (DR/EC) 40 mg PO DAILY Qty: 30 RF: 0 Narcan 4 mg/actuation spray,non-aerosol 1 spray SHRUTI ONCE PRN (Reason: opioid overdose) Qty: 2 RF: 0 Discharge Instructions Additional Instructions: Admit to swing bed level 1 Referrals: Leonel Lugo MD [ [facility] STAFF PHYSICIAN] - Activity:: Partial weightbearing right leg Equipment/Supplies:: Walker Diet:: As Tolerated Discharge Orders Discharge Orders: Discharge Order (Routine); Ordered 01/14/19 Ordered By: Leonel Lugo DS: Summary Status at Discharge Functional status at discharge: uses cane/walker Overall status at discharge: patient is progressing back to baseline Mental Status: mental status grossly normal Speech and Movement: speech and movement normal Mood: congruent mood Affect: normal affect Exam Psych Mental Status: mental status grossly normal Speech and Movement: speech and movement normal Mood: congruent mood Affect: normal affect DS: Data Vitals/I&O Vitals and I&O: Vital Signs Temperature 36.4 C L 01/14/19 11:00 Temperature Source Tympanic 01/14/19 11:00 Pulse 90 01/14/19 11:00 Pulse Rhythm Regular 01/14/19 09:41 Pulse 78 01/11/19 06:40 Respiratory Rate 14 01/14/19 11:00 Respiratory Effort Non-Labored 01/14/19 09:41 Respiratory Depth Normal 01/14/19 09:41 Respiratory Pattern Normal 01/14/19 09:41 Blood Pressure 129/68 01/14/19 11:00 Blood Pressure Mean 103 01/11/19 11:22 Blood Pressure Position Sitting 01/10/19 17:44 Pulse Oximetry 95 01/14/19 11:00 Respiratory End-tidal CO2 35 01/07/19 18:50 Oxygen Delivery Method Room Air 01/14/19 11:00 Oxygen Flow Rate 0 01/14/19 11:00 Pain Level 10 01/14/19 14:38 Comment 01/14/19 11:00 Intake & Output 01/13/19 01/14/19 01/14/19 23:59 11:59 23:59 Intake Total 1160 / 1160 490 / 490 Balance 1160 / 1160 490 / 490 Intake: IV 40 / 40 Oral 1160 / 1160 450 / 450 Other: Urine Color Yellow Pale Urine Appearance Clear Clear Urine Odor Normal Comment Pt voiding ad sheldon. Voiding Methods Toilet Toilet Data Completed and Pending Labs on day of discharge: Labs from last 24 hours 01/14/19 01/14/19 07:15 07:15 WBC 10.63 RBC 2.95 L Hgb 8.0 L Hct 26.3 L MCV 89.2 MCH 27.1 MCHC 30.4 L RDW 15.2 H Plt Count 393 MPV 9.4 Sodium 138 Potassium 4.2 Chloride 103 Carbon Dioxide 30.3 Anion Gap 4.7 BUN 12 Creatinine 0.67 Estimated GFR/1.73 m2 >= 60.00 Glucose 92 Calcium 9.0 01/14/19 05:30 Sputum Sputum Culture - Pending Preliminary micro results at discharge 01/14/19 05:30 Sputum Culture - Pending Sputum [facility] Medical History Asthma (Chronic) History of drug abuse (Acute) per pt clean for 2 years History of hepatitis C (Acute) per pt has been treated but it didn't cure it made my numbers go down Hx of seizure disorder (Acute) Surgical History H/O excision of mass (Acute) Lipomas removed from base of neck and lower midback 11/2018 in [place] History of arthroscopic knee surgery (Inactive) Right History of right femoral derotational osteotomy (Acute 09/23/18) History of tubal ligation (Inactive) Family History Father Cancer Mother Cancer Aunt Cancer Social History Smoking/Tobacco Use Status: Current every day Tobacco Type: cigarettes Smoking packs per day: 0.5 Smoking cigarettes per day: 10.0 Drug use: Daily Substance use type: marijuana Current gender identity: female Do you feel safe in your relationship?: Yes CC:
[2019-01-14] MEDS: oxyCODONE 15 MG TAB PO ×2 (17:02→20:30)
--- NOTE | 2019-01-14 18:02 | NUR.NOTE ---
Nursing Note: Pt to Swingbed status from Acute MS at 1259.
[2019-01-14] MEDS: Ibuprofen 800 MG TAB PO (20:17)
[2019-01-14] MEDS: Methylphenidate 10 MG TAB 20 MG PO (20:18)
[2019-01-14] MEDS: Aspirin E.C. 81 MG TABEC PO (20:19)
[2019-01-14] MEDS: Acetaminophen 500 MG TAB 1000 MG PO (20:20)
[2019-01-14] MEDS: Celecoxib 200 MG CAP PO (20:20)
[2019-01-14] MEDS: Amoxicillin 875/Clav. 125 TAB PO (20:20)
[2019-01-14] MEDS: Gabapentin 300 MG CAP PO (20:20)
[2019-01-14] MEDS: LORazepam 1 MG TAB PO (20:28)
[2019-01-14] MEDS: Bisacodyl 5 MG TABEC PO (20:29)
[2019-01-14] MEDS: Docusate Sodium 100 MG CAP PO (20:29)
[2019-01-14 20:30] VITALS: BP 154/79; PULSE 76; RESP 17; TEMP 37.1; O2SAT 100
--- NOTE | 2019-01-14 21:11 | NUR.NOTE ---
Pts PICC line was removed at 2039 by this RN. Supplies were gathered, pts mid arm circumstance was measured to be 29 cm, 1 cm less than the 30 cm circumference at time of insertion. Pt and RN donned masks and RN donned gloves. External bandage was removed, PICC line was removed from vein with no bleeding at insertion site. Bacitracin was applied over insertion site and covered with Tegaderm clear film. PICC catheter was measured to be 41 cm which is equal to the 41 cm measurement at time of insertion. Pt tolerated procedure well.
[2019-01-15] MEDS: LORazepam 1 MG TAB 2 MG PO (00:02)
[2019-01-15] MEDS: oxyCODONE 15 MG TAB PO ×5 (00:03→14:49)
[2019-01-15] MEDS: Ibuprofen 800 MG TAB PO ×2 (03:39→12:07)
[2019-01-15] MEDS: Albuterol HFA 8 GM 60 PUFF INH IH (04:24)
[2019-01-15] MEDS: Methadone Liquid 10 MG/ML 140 MG PO (06:31)
[2019-01-15 08:42] VITALS: BP 148/84; PULSE 77; RESP 16; TEMP 36.8; O2SAT 97
[2019-01-15] MEDS: Aspirin E.C. 81 MG TABEC PO (08:47)
[2019-01-15] MEDS: Pantoprazole 40 MG TABCR PO (08:47)
[2019-01-15] MEDS: Methylphenidate 10 MG TAB 20 MG PO ×2 (08:48→12:07)
[2019-01-15] MEDS: lamoTRIgine 100 MG TAB 200 MG PO (08:48)
[2019-01-15] MEDS: Gabapentin 300 MG CAP PO ×2 (08:48→14:45)
[2019-01-15] MEDS: Acetaminophen 500 MG TAB 1000 MG PO ×2 (08:49→14:45)
[2019-01-15] MEDS: Celecoxib 200 MG CAP PO (08:49)
[2019-01-15] MEDS: Cetirizine 10 MG TAB PO (08:49)
[2019-01-15 12:25] VITALS: BP 134/72; PULSE 77; RESP 16; TEMP 36.2; O2SAT 96
--- NOTE | 2019-01-15 12:46 | W.PM.DS.N ---
Date of service: 01/15/19 Time of Service: 12:47 DS: Diagnosis Discharge Diagnosis (1) Constipation due to opioid therapy: Status: Acute Asessment and Plan: Continue home laxatives. (2) Acute postoperative pain: Status: Acute Asessment and Plan: Resume Methadone and Gabapentin. Continue Ativan and Oxycodone PRN. (3) Acute blood loss anemia: Status: Acute Asessment and Plan: Stable Hgb. Encourage iron rich diet. (4) Nonunion of osteotomy site: Status: Acute Asessment and Plan: POD#8 s/p repair of nonunion of right femur. Making good progress. PWB RLE. (5) Pneumonitis: Status: Acute Asessment and Plan: SPutum culture negative. CXR with only some haziness. Bactrim DS BID x 5 days. Discharge Plan Disposition Patient Disposition: HOME W/HOME HEALTH SERVICE Condition: Improving Discharge Details Reason For Visit: R DISTAL FEMUR NONUNION Admit Date/Time: 01/14/19 14:40 Admit Provider: Leonel Lugo Attending Provider: Leonel Lugo Primary Care Provider: QIANA WEEMS Home Meds and New Rx's Prescriptions: New (DME) Shower Chair Qty: 1 RF: 0 (DME) Raised Toilet Seat Qty: 1 RF: 0 polyethylene glycol 3350 17 gram Powder In Packet 17 g PO BID PRN PRN (Reason: Constipation) Qty: 0 RF: 0 sulfamethoxazole-trimethoprim 800-160 mg Tablet 1 tab PO BID Qty: 10 RF: 0 acetaminophen [Mapap Extra Strength] 500 mg Tablet 1,000 mg PO TID Qty: 90 RF: 0 docusate sodium [Colace] 100 mg Capsule 100 mg PO BID PRN PRN (Reason: Constipation) Qty: 0 RF: 0 bisacodyl 5 mg Tablet,Delayed Release (Dr/Ec) 5 mg PO TID PRN PRN (Reason: Constipation) Qty: 0 RF: 0 lorazepam 1 mg Tablet 1 mg PO TID PRN PRNQty: 21 RF: 0 lorazepam 1 mg Tablet 2 mg PO HS Qty: 14 RF: 0 gabapentin 300 mg Capsule 300 mg PO TID Qty: 90 RF: 0 ibuprofen 800 mg tablet 800 mg PO TID Qty: 90 RF: 0 oxycodone 20 mg tablet 80 mg PO Q4H PRN (Reason: pain) Qty: 168 RF: 0 Continued methadone 5 mg/5 mL solution 140 mg PO DAILY RF: 0 methylphenidate HCl [Ritalin] 20 mg Tablet 20 mg PO TID Qty: 42 RF: 0 aspirin 81 mg tablet,delayed release (DR/EC) 81 mg PO BID Qty: 60 RF: 0 pantoprazole 40 mg tablet,delayed release (DR/EC) 40 mg PO DAILY Qty: 30 RF: 0 Narcan 4 mg/actuation spray,non-aerosol 1 spray SHRUTI ONCE PRN (Reason: opioid overdose) Qty: 2 RF: 0 albuterol sulfate [ProAir HFA] 200 PUFF HFA aerosol inhaler 2 puff Inhalation PRN PRNRF: 0 lamotrigine [Lamictal] 200 MG tablet 200 mg PO DAILY RF: 0 Discontinued ibuprofen 600 mg tablet 600 mg PO TID PRN (Reason: pain) Qty: 90 RF: 3 diazepam 5 mg tablet 5 mg PO TID Qty: 15 RF: 0 oxycodone 15 mg tablet 15 mg PO Q8H MDD 45mg PRN (Reason: pain) Qty: 9 RF: 0 No Action (DME) Crutches Qty: 1 RF: 0 (DME) shower chair Qty: 1 RF: 0 Discharge Instructions Additional Instructions: Dr. Lugo?s Total Knee Discharge Instructions Activity: The most important activity is to move the knee. You should avoid putting all of your weight on the right leg. You are partial weight-bearing using crutches and walker. Dressing: You don't need to keep the wound covered at all times. You may shower and get it wet. Watch the wound for any signs of irritation or infection - redness and draining. Medications: - You should take Tylenol and anti-inflammatory Ibuprofen as your primary pain control medications - You have Gabapentin (Neurontin) for nerve pain. You will take this three times a day. - You have Lorazepam (Ativan) for anxiety, agitation and spasms which you will take as needed three times a day and at bedtime. - You have been prescribed a stronger pain medication Oxycodone for breakthrough pain, take as needed as prescribed. - You have also been prescribed a stomach acid reduction agent Pantoprozole (Protonix) to help reduce stomach acid and reflux. - You will be taking Aspirin 81mg twice a day for DVT prevention unless instructed otherwise. - If you have constipation you should take Colace or Miralax (both [id number]). It takes most people 3-4 days to have a bowel movement. Follow-up: 2 weeks 1. Encounter Date and Reason I certify that MELVI SALAZAR was seen by Leonel Lugo MD on 01/15/19 and that I had a [id number] encounter with this patient that meets the physician face to face encounter requirements. 2. Clinical Findings Supporting Skilled Need and Homebound Status I certify that home health services are medically necessary, include either intermittent custodial and/or physical/speech therapy, and that this patient is homebound in that absences from the home require considerable and taxing effort and are infrequent or of short duration, or are attributable to the need to receive medical care. [X] (a) Attached documentation from encounter provides clinical findings supporting skilled need and homebound status (including what assistance patient requires to leave the home). The encounter with the patient was in whole, or in part, for the following medical condition, which is the primary reason for home health care: R DISTAL FEMUR NONUNION Retirement: Physical Therapy: Melvi would benefit from physical therapy for a right distal femur nonunion repair. She is partial weight bearing and should use a walker or crutches. She should work on knee range of motion and gait training. Speech Therapy: Homebound: Melvi is unable to leave her home unassisted. She requires assistance and has notable gait restrictions and weakness. 3. Certification and Authentication I certify that I composed the above information based on my clinical judgement relating to this patient's medical condition and, if applicable, clinical findings communicated to me by the NPP or inpatient physician who performed the Home Health Referral. All further orders will be obtained through Dr. Lugo Referrals: Leonel Lugo MD [ [facility] STAFF PHYSICIAN] - Activity:: Partial weight bearing Equipment/Supplies:: Crutches, Raised Toilet Seat, Shower Chair, and Walker Diet:: As Tolerated Discharge Orders Discharge Orders: Discharge Order (Routine); Ordered 01/15/19 Ordered By: Leonel Lugo DS: Summary Status at Discharge Functional status at discharge: uses cane/walker Overall status at discharge: patient is progressing back to baseline Mental Status: mental status grossly normal Speech and Movement: speech and movement normal Mood: congruent mood Affect: normal affect Exam Psych Mental Status: mental status grossly normal Speech and Movement: speech and movement normal Mood: congruent mood Affect: normal affect DS: Data Vitals/I&O Vitals and I&O: Vital Signs Temperature 36.2 C L 01/15/19 12:25 Temperature Source Tympanic 01/15/19 12:25 Pulse 77 01/15/19 12:25 Pulse Rhythm Regular 01/15/19 11:57 Respiratory Rate 16 01/15/19 12:25 Respiratory Effort 01/15/19 11:57 Respiratory Depth Normal 01/15/19 11:57 Respiratory Pattern Normal 01/15/19 11:57 Blood Pressure 134/72 01/15/19 12:25 Pulse Oximetry 96 01/15/19 12:25 Oxygen Delivery Method Room Air 01/15/19 12:25 Oxygen Flow Rate 0 01/15/19 12:25 Pain Level 10 01/15/19 12:25 Comment 01/14/19 20:30 Intake & Output 01/14/19 01/15/19 01/15/19 23:59 11:59 23:59 Weight 86.9 kg Other: Urine Appearance Clear Clear PFSH Medical History Asthma (Chronic) History of drug abuse (Acute) per pt clean for 2 years History of hepatitis C (Acute) per pt has been treated but it didn't cure it made my numbers go down Hx of seizure disorder (Acute) Surgical History H/O excision of mass (Acute) Lipomas removed from base of neck and lower midback 11/2018 in [place] History of arthroscopic knee surgery (Inactive) Right History of right femoral derotational osteotomy (Acute 09/23/18) History of tubal ligation (Inactive) Family History Father Cancer Mother Cancer Aunt Cancer Social History Smoking/Tobacco Use Status: Current every day Tobacco Type: cigarettes Smoking packs per day: 0.5 Smoking cigarettes per day: 10.0 Drug use: Daily Substance use type: marijuana Current gender identity: female Do you feel safe in your relationship?: Yes
--- NOTE | 2019-01-15 13:24 | W.PM.DS.N ---
DS: Diagnosis Discharge Diagnosis (1) Constipation due to opioid therapy: Status: Acute (2) Acute postoperative pain: Status: Acute (3) Acute blood loss anemia: Status: Acute (4) Nonunion of osteotomy site: Status: Acute (5) Pneumonitis: Status: Acute Discharge Plan Disposition Patient Disposition: HOME W/HOME HEALTH SERVICE Condition: Improving Discharge Details Reason For Visit: R DISTAL FEMUR NONUNION Admit Date/Time: 01/14/19 14:40 Admit Provider: Leonel Lugo Attending Provider: Leonel Lugo Primary Care Provider: QIANA WEEMS [facility] Course Hospital Course: June was admitted to the ICU following her repair of a right distal femur nonunion. Acute pain control was challenging over the first 24 hours but she was stabilized on a high dose ketamine drip. Both IV and oral agents were used for pain control. She was kept on this for 3 days and a positive before was transferred to the medical surgical floor. She did require IV medications at whatever dosing they are made available. Her oral medications were increased and eventually IV medications were stopped on postop day #7. She was stable on a regimen of her home dose of methadone, oxycodone 80 mg, Ativan 1 mg 3 times daily and 2 mg nightly, gabapentin 300 mg 3 times daily, ibuprofen 800 mg 3 times daily, and acetaminophen 1000 mg 3 times daily. She was almost independent with transfers. She was able to ambulate independently, although not always following precautions. X-rays were performed after weightbearing which did not show any change in position of the hardware. On postop #6 she developed a cough which was productive and sent for sputum analysis. Chest x-ray showed some mild changes of the left upper lobe. She reports a history of having episodes of pneumonia and therefore was started on Bactrim. Given her success with physical therapy she was transferred to a swing bed status but quickly was independent with all activities and therefore she was deemed safe for discharge home with home health services. Home Meds and New Rx's Prescriptions: New (DME) Shower Chair Qty: 1 RF: 0 (DME) Raised Toilet Seat Qty: 1 RF: 0 polyethylene glycol 3350 17 gram Powder In Packet 17 g PO BID PRN PRN (Reason: Constipation) Qty: 0 RF: 0 docusate sodium [Colace] 100 mg Capsule 100 mg PO BID PRN PRN (Reason: Constipation) Qty: 0 RF: 0 bisacodyl 5 mg Tablet,Delayed Release (Dr/Ec) 5 mg PO TID PRN PRN (Reason: Constipation) Qty: 0 RF: 0 oxycodone 20 mg tablet 80 mg PO Q4H PRN (Reason: pain) Qty: 168 RF: 0 Continued methadone 5 mg/5 mL solution 140 mg PO DAILY RF: 0 methylphenidate HCl [Ritalin] 20 mg Tablet 20 mg PO TID Qty: 42 RF: 0 albuterol sulfate [ProAir HFA] 200 PUFF HFA aerosol inhaler 2 puff Inhalation PRN PRNRF: 0 lamotrigine [Lamictal] 200 MG tablet 200 mg PO DAILY RF: 0 Discontinued ibuprofen 600 mg tablet 600 mg PO TID PRN (Reason: pain) Qty: 90 RF: 3 diazepam 5 mg tablet 5 mg PO TID Qty: 15 RF: 0 oxycodone 15 mg tablet 15 mg PO Q8H MDD 45mg PRN (Reason: pain) Qty: 9 RF: 0 aspirin 81 mg tablet,delayed release (DR/EC) 81 mg PO BID Qty: 60 RF: 0 pantoprazole 40 mg tablet,delayed release (DR/EC) 40 mg PO DAILY Qty: 30 RF: 0 Narcan 4 mg/actuation spray,non-aerosol 1 spray SHRUTI ONCE PRN (Reason: opioid overdose) Qty: 2 RF: 0 No Action (DME) Crutches Qty: 1 RF: 0 (DME) shower chair Qty: 1 RF: 0 acetaminophen [Mapap Extra Strength] 500 mg tablet 1,000 mg PO TID Qty: 90 RF: 0 aspirin 81 mg tablet,delayed release (DR/EC) 81 mg PO BID Qty: 60 RF: 0 gabapentin 300 mg capsule 300 mg PO TID Qty: 90 RF: 0 ibuprofen 800 mg tablet 800 mg PO TID Qty: 90 RF: 0 lorazepam 1 mg tablet 1 mg PO TID PRN PRN (Reason: anxiety) Qty: 21 RF: 0 lorazepam 1 mg tablet 2 mg PO HS Qty: 14 RF: 0 Narcan 4 mg/actuation spray,non-aerosol 1 spray SHRUTI ONCE PRN (Reason: opioid overdose) Qty: 2 RF: 0 pantoprazole 40 mg tablet,delayed release (DR/EC) 40 mg PO DAILY Qty: 30 RF: 0 sulfamethoxazole-trimethoprim 800-160 mg tablet 1 tab PO BID Qty: 10 RF: 0 Discharge Instructions Additional Instructions: Dr. Lugo?s Total Knee Discharge Instructions Activity: The most important activity is to move the knee. You should avoid putting all of your weight on the right leg. You are partial weight-bearing using crutches and walker. Dressing: You don't need to keep the wound covered at all times. You may shower and get it wet. Watch the wound for any signs of irritation or infection - redness and draining. Medications: - You should take Tylenol and anti-inflammatory Ibuprofen as your primary pain control medications - You have Gabapentin (Neurontin) for nerve pain. You will take this three times a day. - You have Lorazepam (Ativan) for anxiety, agitation and spasms which you will take as needed three times a day and at bedtime. - You have been prescribed a stronger pain medication Oxycodone for breakthrough pain, take as needed as prescribed. - You have also been prescribed a stomach acid reduction agent Pantoprozole (Protonix) to help reduce stomach acid and reflux. - You will be taking Aspirin 81mg twice a day for DVT prevention unless instructed otherwise. - If you have constipation you should take Colace or Miralax (both [id number]). It takes most people 3-4 days to have a bowel movement. Follow-up: 2 weeks 1. Encounter Date and Reason I certify that MELVI SALAZAR was seen by Leonel Lugo MD on 01/15/19 and that I had a [id number] encounter with this patient that meets the physician face to face encounter requirements. 2. Clinical Findings Supporting Skilled Need and Homebound Status I certify that home health services are medically necessary, include either intermittent senior living and/or physical/speech therapy, and that this patient is homebound in that absences from the home require considerable and taxing effort and are infrequent or of short duration, or are attributable to the need to receive medical care. [X] (a) Attached documentation from encounter provides clinical findings supporting skilled need and homebound status (including what assistance patient requires to leave the home). The encounter with the patient was in whole, or in part, for the following medical condition, which is the primary reason for home health care: R DISTAL FEMUR NONUNION [facility]: Physical Therapy: Melvi would benefit from physical therapy for a right distal femur nonunion repair. She is partial weight bearing and should use a walker or crutches. She should work on knee range of motion and gait training. Speech Therapy: Homebound: Melvi is unable to leave her home unassisted. She requires assistance and has notable gait restrictions and weakness. 3. Certification and Authentication I certify that I composed the above information based on my clinical judgement relating to this patient's medical condition and, if applicable, clinical findings communicated to me by the NPP or inpatient physician who performed the Home Health Referral. All further orders will be obtained through Dr. Lugo Referrals: Leonel Lugo MD [ [facility] STAFF PHYSICIAN] - Activity:: Partial weight bearing Equipment/Supplies:: Crutches, Raised Toilet Seat, Shower Chair, and Walker Diet:: As Tolerated Discharge Orders Discharge Orders: Discharge Order (Routine); Ordered 01/15/19 Ordered By: Leonel Lugo DS: Summary Status at Discharge Functional status at discharge: uses cane/walker Overall status at discharge: patient is progressing back to baseline Mental Status: mental status grossly normal Speech and Movement: speech and movement normal Mood: congruent mood Affect: normal affect Exam Psych Mental Status: mental status grossly normal Speech and Movement: speech and movement normal Mood: congruent mood Affect: normal affect DS: Data Vitals/I&O Vitals and I&O: Vital Signs Temperature 36.2 C L 01/15/19 12:25 Temperature Source Tympanic 01/15/19 12:25 Pulse 77 01/15/19 12:25 Pulse Rhythm Regular 01/15/19 11:57 Respiratory Rate 16 01/15/19 12:25 Respiratory Effort 01/15/19 11:57 Respiratory Depth Normal 01/15/19 11:57 Respiratory Pattern Normal 01/15/19 11:57 Blood Pressure 134/72 01/15/19 12:25 Pulse Oximetry 96 01/15/19 12:25 Oxygen Delivery Method Room Air 01/15/19 12:25 Oxygen Flow Rate 0 01/15/19 12:25 Pain Level 10 01/15/19 12:25 Comment 01/14/19 20:30 Intake & Output 01/14/19 01/15/19 01/15/19 23:59 11:59 23:59 Weight 86.9 kg Other: Urine Appearance Clear Clear PFSH Medical History Asthma (Chronic) History of drug abuse (Acute) per pt clean for 2 years History of hepatitis C (Acute) per pt has been treated but it didn't cure it made my numbers go down Hx of seizure disorder (Acute) Surgical History H/O excision of mass (Acute) Lipomas removed from base of neck and lower midback 11/2018 in [place], [place] History of arthroscopic knee surgery (Inactive) Right History of right femoral derotational osteotomy (Acute 09/23/18) History of tubal ligation (Inactive) Family History Father Cancer Mother Cancer Aunt Cancer Social History Smoking/Tobacco Use Status: Current every day Tobacco Type: cigarettes Smoking packs per day: 0.5 Smoking cigarettes per day: 10.0 Drug use: Daily Substance use type: marijuana Current gender identity: female Do you feel safe in your relationship?: Yes
--- NOTE | 2019-01-15 14:35 | PT.INIE ---
Date of service: 01/15/19 Time of Service: 11:28 PT Notes Inpatient Physical Therapy Evaluation Date: 01/15/2019 Dates of Service: 01/15/2019 only Referring Doctor: Leonel Lugo MD PT Orders: PT CONSULT: S/P ORIF of R distal femoral fracture with IMN and autologous bone graft Precautions: Fall. Standard. PWB on R LE with knee immobilized. ROM to R knee to tolerance. Patient Profile/Admitting Diagnosis: Patient is reevaluated under swing bed level and is also being discharged to home today, 01/15/2019. Patient is a 38-year-old female on opiate dependence and with history of repeated falls. 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 PMHX: Medical History (Updated 12/24/18 @ 06:41 by Leonel Lugo MD) Asthma (Chronic) History of drug abuse (Acute) per pt clean for 2 years History of hepatitis C (Acute) per pt has been treated but it didn't cure it made my numbers go down Surgical History (Updated 01/02/19 @ 10:16 by LAURA Jenkins) History of arthroscopic knee surgery (Inactive) Right History of right femoral derotational osteotomy (Acute 09/23/18) History of tubal ligation (Inactive) Social History/Home Situation: Patient lives in a one floor house with 5 steps to enter. Equipment Owned/DME: [facility] Subjective: Patient looks forward to going home today and is confident about doing so. She does need to be re-educated on the use of bilateral axillary crutches as she states that she has not had somebody teach her how to use them before. She is agreeable to home health PT/OT services in order to ensure her safety and facilitate a smooth transition to home. She complains of a tolerable pain on the right knee that this did not prevent her from doing mobility training with her for this session. Objective: General Observation: Patient is seen seated on wheelchair upon arrival of PT and student PT. Edema to right thigh less today than yesterday. Mental Status: Alert and oriented x 4 Pain: 5/10 pain with weightbearing ROM: Right Upper Extremity: Shoulder Flexion WFL. Shoulder abduction WFL. Elbow flexion WFL. Wrist flexion WFL. Opening and closing of hand WFL. Left Upper Extremity: Shoulder Flexion WFL. Shoulder abduction WFL. Elbow flexion WFL. Wrist flexion WFL. Opening and closing of hand WFL. Right Lower Extremity: Right hip flexion allows to 10 degrees beyond 90 while seated on wheelchair. Right knee flexion allows up to 80 degrees before discomfort sets in while seated on wheelchair. Ankle dorsiflexion and plantar flexion WFL. Left Lower Extremity: Grossly WFL. Strength: Right Upper Extremity: Shoulder flexors 5/5. Shoulder abductors 5/5. Elbow flexors 5/5. Elbow extensors 5/5. Museum Service Scheduler strong. Left Upper Extremity: Shoulder flexors 5/5. Shoulder abductors 5/5. Elbow flexors 5/5. Elbow extensors 5/5. Museum Service Scheduler strong. Right Lower Extremity: Hip flexors 3-/5. Knee flexors 3-/5. Knee extensors 3-/5. Ankle dorsiflexors 4/5 ankle plantar flexors 4/5. Left Lower Extremity: Grossly 5/5 Bed Mobility/Transfers: Rolling independent Supine to sit independent Sit to supine independent Sit to stand independent Stand to sit independent Bed to chair independent Chair to bed independent Gait: Patient is able to tolerate level surface ambulation for 150 feet with only supervision assist using bilateral axillary crutches and minimal verbal cueing for weight bearing compliance. Patient also demonstrated tolerated up-and-down three 4 inch steps and two 6 inch steps using bilateral axillary crutches requiring only SBA with no further increase in pain report received. Balance: Static Sitting: Normal Dynamic Sitting: Normal Static Standing: Fair Dynamic Standing: Fair Special Tests: Mobility Limitations [facility] In[facility] Short Form: Raw Score: 23 CMS Score: 11% deficit Informed Consent/Education: Patient instructed in purpose of PT consult and plan of care. 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 Her prognosis is fair. She presents with high anxiety level and has trust issue which may limit the amount of participation in PT sessions. Patient continues to present with clinical signs and symptoms consistent with current/admitting diagnoses that have resulted to mobility limitations, gait instability, generalized weakness, and impairment of motor control as demonstrated by the following impairment level findings: 1. Decreased strength to R LE major muscle groups 2. Impaired standing balance 3. Impaired activity tolerance 4. Limitation of joint range of motion in L hip and knee Impairments are contributing to the following functional limitations: 1. Inability to safely ambulate without assistive device and physical assistance 2. Increase completion time for mobility ADL performance 3. Increased fall risk 4. Inability to negotiate steps alone safely Patient is [place] a 70083 moderate complexity based on the following: History: Patient is S/P repair of R distal femoral non-union with removal of hardware and placement of IMN and plate placement; is opiod dependent Examination: Demonstrable impairment in strength, balance, and range of motion with underlying impairments and functional limitations as documented above Presentation: Evolving Decision Makin moderate complexity Goals: Goals X1 week 1. Supine-Sit minimal assist MET 2. Sit-Supine minimal assist MET 3. Sit-Stand minimal assist MET 4. Stand-Sit minimal assist MET 5. Bed-Chair minimal assist MET 6. Chair-Bed minimal assist MET 7. Independent gait on level surface with use of least restrictive device for at least 30 feet without report of pain nor dyspnea MET 8. Independent stair negotiation while holding onto bilateral rails for at least 5 steps without report of pain nor dyspnea MET 9. Independent with home exercise program MET 10. Standing tolerance 2 minutes; Static/Dynamic standing balance Fair MET DISCHARGE RECOMMENDATIONS: Patient will benefit from home health PT services in order to progress mobility level using least restrictive assistive ambulatory device, assess home safety, identify additional equipment needs, and establish a functional maintenance program that will increase ability of patient to remain at home. She will benefit from a shower chair with back rest and a bedside commode for home as she continues to be partial weight bearing at home until upgraded by orthopedic surgeon. TREATMENT CODE/TIME: 60580 x 39 minutes beginning at 13:19 p.m.. Thank you very much for this referral. Agustina iLnares PT, DPT, CLT [facility]
[2019-01-15] MEDS: Sulfameth/Trimeth DS TAB 1 TAB PO (14:46)
--- NOTE | 2019-01-15 16:52 | PDOC.CMDIS ---
- If Service Date Differs Date of service: 01/15/19 Time of Service: 16:52 LACE Index Scoring Tool - Questions: Length of Stay (in days): 7 - 13 Acuity (Admit via E.D.?): No E.D. Visits: 0 - Answers: Total Score: 5 Risk of Readmission: Low Risk Care Management Discharge Reason for Hospitalization: Non-union of osteotomy site Discharge Plan: Melvi will be discharged home with new services of nursing and PT. She will have a walker and crutches and follow up with her surgeon and discharge plan of care. She will transport with her brother via private vehicle. Patient/Family Education Needs: Discharge plan, limitations, follow up plan and Ask Me Three.
== END 2019-01-15 14:58 | disposition home health service (06) | DRG 919 ==
PROVIDERS: Admitting Provider Student in an Organized Health Care Education/Training Program; PCP Registered Nurse; Visit Provider Student in an Organized Health Care Education/Training Program
DX: J18.9 Pneumonia, unspecified organism (principal); D62 Acute posthemorrhagic anemia; F11.20 Opioid dependence, uncomplicated; K59.03 Drug induced constipation; T40.2X5A Adverse effect of other opioids, initial encounter; M96.89 Other intraoperative and postprocedural complications and disorders of the musculoskeletal system; G89.18 Other acute postprocedural pain
CPT/HCPCS: 97162; NC; E0114

== ENCOUNTER 2019-02-02 16:08 | Outpatient (CLI) | payer MEDICAID, SELFPAY ==
--- NOTE | 2019-02-02 15:51 | DI.RAD_ITS ---
EXAM: XR FEMUR RT INDICATION: 1st post op. COMPARISON: XR FEMUR RT from 01/08/2019 TECHNIQUE: 2D digital imaging was performed. FINDINGS: There is again seen a sideplate and screws and an intramedullary donato transfixing the distal right fem oral fracture. The fracture is unchanged in alignment. Callus formation is seen about the fracture c onsistent with some interval healing. No new fracture or dislocation is present.
== END 2019-02-02 16:28 ==
PROVIDERS: PCP Registered Nurse; Visit Provider Student in an Organized Health Care Education/Training Program
DX: S72.491D Other fracture of lower end of right femur, subsequent encounter for closed fracture with routine healing (principal)
CPT/HCPCS: 73552

== ENCOUNTER 2019-03-02 15:39 | Outpatient (CLI) | payer MEDICAID, SELFPAY ==
--- NOTE | 2019-03-02 15:52 | DI.RAD_ITS ---
EXAM: XR STANDING ALIGNMENT INDICATION: F/U SURGERY. COMPARISON: XR KNEE RT 1V from 03/02/2019 TECHNIQUE: 2D digital imaging was performed. Standing AP views are performed from the pelvis throug h the ankles. FINDINGS: There is an intramedullary donato in the right femur as well as a distal screw and plate fixation. The re are severe degenerative changes of the lateral femoral tibial joint. The left knee joint spaces a re well maintained. The hip joint spaces are well maintained. The left femoral head projects a few millimeters superior to the right. IMPRESSION: Left femoral hardware. 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 Minimal leg length discrepancy.
--- NOTE | 2019-03-02 15:55 | DI.RAD_ITS ---
EXAM: XR KNEE RT 1V INDICATION: F/U SURGERY. COMPARISON: XR FEMUR RT from 02/02/2019 XR STANDING ALIGNMENT from 03/02/2019 TECHNIQUE: 2D digital imaging was performed. FINDINGS: An intramedullary donato is again noted through the femur. There is a lateral screw and plate fixation of the distal femur for fixation of the distal fracture. There has been continued healing at the fra cture site. There is prominent callus formation of the medial aspect of the distal femoral metaphysi s. There are severe degenerative changes of the lateral femoral tibial joint. The medial femoral ti bial joint is well maintained. There is some irregularity at the articular aspect of the patella. 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 Continued healing of distal femoral fracture.
== END 2019-03-02 15:59 ==
PROVIDERS: PCP Registered Nurse; Visit Provider Student in an Organized Health Care Education/Training Program
DX: S72.491D Other fracture of lower end of right femur, subsequent encounter for closed fracture with routine healing (principal); M17.11 Unilateral primary osteoarthritis, right knee; M21.70 Unequal limb length (acquired), unspecified site
CPT/HCPCS: 73560; 77073

== ENCOUNTER 2019-04-03 08:52 | Outpatient (CLI) | payer MEDICAID, SELFPAY ==
--- NOTE | 2019-04-03 08:57 | DI.RAD_ITS ---
EXAM: XR KNEE RT 2V AP,LAT CLINICAL HISTORY: F/U ORIF TECHNIQUE: COMPARISON: XR FEMUR RT from 02/02/2019 XR STANDING ALIGNMENT from 03/02/2019 XR KNEE RT 1V from 03/02/2019 FINDINGS: Two views were obtained and show plate and screw fixation of fracture of the distal femur with plate and screw fixation and an intramedullary donato in place. Alignment appears unchanged comparison with N ove[place] . A visible fracture plane persists. IMPRESSION:
== END 2019-04-03 09:12 ==
PROVIDERS: PCP Registered Nurse; Visit Provider Student in an Organized Health Care Education/Training Program
DX: S72.491D Other fracture of lower end of right femur, subsequent encounter for closed fracture with routine healing (principal)
CPT/HCPCS: 73560

== ENCOUNTER 2019-04-30 11:39 | Outpatient (CLI) | payer MEDICAID, SELFPAY ==
--- NOTE | 2019-04-30 11:57 | DI.RAD_ITS ---
EXAM: XR KNEE RT 2V AP,LAT CLINICAL HISTORY: F/U SURGERY TECHNIQUE: COMPARISON: XR KNEE RT 2V AP,LAT from 04/03/2019 FINDINGS: Two views were obtained. Intramedullary donato of the femur and plate and screw fixation distal femur a gain noted. Findings suggesting slightly increased healing at the fracture site of the distal femur, no change in alignment comparison with examination April 03. Severe degenerative changes of the lateral tibiofemoral joint noted. IMPRESSION:
== END 2019-04-30 11:59 ==
PROVIDERS: PCP Registered Nurse; Visit Provider Student in an Organized Health Care Education/Training Program
DX: M17.11 Unilateral primary osteoarthritis, right knee (principal); S72.491D Other fracture of lower end of right femur, subsequent encounter for closed fracture with routine healing; Z47.89 Encounter for other orthopedic aftercare
CPT/HCPCS: 73560

== ENCOUNTER 2019-05-29 11:20 | Outpatient (CLI) | payer MEDICAID, SELFPAY ==
--- NOTE | 2019-05-29 11:00 | DI.RAD_ITS ---
EXAM: XR FEMUR RT INDICATION: eval R femur nonunion and hardware. COMPARISON: XR KNEE RT 2V AP,LAT from 04/30/2019 TECHNIQUE: 2D digital imaging was performed. FINDINGS: An intramedullary donato is again noted through the femur. The distal femoral screw and plate fixation is again noted. There has been continued healing at the fracture site. Severe degenerative changes are noted of the lateral femoral tibial joint. DATA REPOSITORY: RADIATION DOSE DELIVERED:
== END 2019-05-29 11:40 ==
PROVIDERS: PCP Registered Nurse; Visit Provider Student in an Organized Health Care Education/Training Program
DX: S72.491D Other fracture of lower end of right femur, subsequent encounter for closed fracture with routine healing (principal); M17.31 Unilateral post-traumatic osteoarthritis, right knee
CPT/HCPCS: 73552

== ENCOUNTER 2019-07-06 10:31 | Outpatient (CLI) | payer MEDICAID, SELFPAY ==
--- NOTE | 2019-07-06 10:15 | DI.RAD_ITS ---
EXAM: XR KNEE RT 2V AP,LAT CLINICAL HISTORY: F/U SURGERY TECHNIQUE: 2D digital imaging was performed. COMPARISON: XR KNEE RT 2V AP,LAT from 04/30/2019 FINDINGS: Intramedullary donato is again noted through the femur. There is a screw and plate fixation along the lateral aspect of the distal femur. There has been no change in fracture alignment. Some lucency re ayleen present. No new abnormalities are seen. Degenerative changes of the lateral femoral tibial sky int are again noted.
== END 2019-07-06 10:51 ==
PROVIDERS: PCP Registered Nurse; Visit Provider Student in an Organized Health Care Education/Training Program
DX: S72.491D Other fracture of lower end of right femur, subsequent encounter for closed fracture with routine healing (principal); M17.31 Unilateral post-traumatic osteoarthritis, right knee
CPT/HCPCS: 73560

== ENCOUNTER 2019-08-31 09:14 | Outpatient (CLI) | payer MEDICAID, SELFPAY ==
--- NOTE | 2019-08-31 09:00 | DI.RAD_ITS ---
EXAM: XR KNEE RT 2V AP,LAT CLINICAL HISTORY: PRE OP. TECHNIQUE: 2D digital imaging was performed. COMPARISON: CR XR KNEE RT 2V AP,LAT from 07/06/2019 FINDINGS: There is again seen a fracture of the distal femur. Fracture lines remain visualized. Distal aspect of an intramedullary donato is again seen in the distal femur. Side plate and screws are again seen al christian the lateral aspect of the distal femur. Degenerative changes are seen in all 3 compartments of t he knee most marked in the lateral femoral tibial joint. No acute abnormality is identified. IMPRESSION: Stable appearance of the right knee. DATA REPOSITORY: RADIATION DOSE DELIVERED:
== END 2019-08-31 09:34 ==
PROVIDERS: PCP Registered Nurse; Referring Provider Registered Nurse; Visit Provider Student in an Organized Health Care Education/Training Program
DX: S72.491D Other fracture of lower end of right femur, subsequent encounter for closed fracture with routine healing (principal); M17.11 Unilateral primary osteoarthritis, right knee; M21.961 Unspecified acquired deformity of right lower leg
CPT/HCPCS: 73560

== ENCOUNTER 2019-09-02 01:39 | Outpatient (CLI) | payer MEDICAID, SELFPAY | END 2019-09-02 01:59 | PROVIDERS: PCP Registered Nurse; Visit Provider Nurse Practitioner Family | DX: R55 Syncope and collapse (principal) ==

== ENCOUNTER 2019-09-21 12:46 | Outpatient (CLI) | payer MEDICAID, SELFPAY ==
[2019-09-22 11:58] LABS: COVID-19 RT-PCR UVMMC Result Negative (Negative)
== END 2019-09-21 13:06 ==
PROVIDERS: Student in an Organized Health Care Education/Training Program; PCP Registered Nurse; Visit Provider Registered Nurse
DX: Z01.818 Encounter for other preprocedural examination (principal); Z11.59 Encounter for screening for other viral diseases
CPT/HCPCS: U0003

== ENCOUNTER 2019-09-28 02:08 | Outpatient (CLI) | payer MEDICAID, SELFPAY ==
[2019-09-28 10:55] LABS: HCT 34.6 % (36.0-46.0); HGB 10.7 g/dL (12.0-15.5); Mean Corp. HGB Concentration 30.9 g/dL (32.0-36.0); Mean Corpuscular Hemoglobin 25.6 pg (27.0-33.0); Mean Corpuscular Volume 82.8 fL (80-95); Mean Platelet Volume 10.2 fL (8.0-11.0); Platelet Count 348 x1000/uL (130-400); RBC 4.18 m/cumm (4.00-5.20); RBC Distribution Width 19.9 % (11.7-14.6)
[2019-09-28 11:16] LABS: Anion Gap 9.3 mmol/L (3-11); BUN 7 mg/dL (7-18); CO2 27.7 mmol/L (21.0-32.0); CREATININE 0.77 mg/dL (0.55-1.02); Chloride 102 mmol/L (98-107); Glucose 87 mg/dL (74-106); Potassium 4.3 mmol/L (3.5-5.1); Sodium 139 mmol/L (136-145)
[2019-09-29 02:28] LABS: COVID-19 RT-PCR UVMMC Result Negative (Negative)
== END 2019-09-28 02:28 ==
PROVIDERS: PCP Registered Nurse; Visit Provider Student in an Organized Health Care Education/Training Program
DX: M25.561 Pain in right knee (principal); M17.31 Unilateral post-traumatic osteoarthritis, right knee; Z11.59 Encounter for screening for other viral diseases; Z01.818 Encounter for other preprocedural examination; Z01.812 Encounter for preprocedural laboratory examination
CPT/HCPCS: 36415; 80048; 85027; 86850; 86900; 86901; U0003

== ENCOUNTER 2019-09-30 08:06 | Observation (INO) | payer MEDICAID, SELFPAY ==
[2019-09-30] VITALS (8 sets, daily range): BP systolic 107–145; BP diastolic 55–99; PULSE 56–78; RESP 14–18; TEMP 36–37.2; O2SAT 93–98
[2019-09-30] MEDS: Gabapentin 300 MG CAP PO (08:55)
[2019-09-30] MEDS: Acetaminophen 500 MG TAB 1000 MG PO ×2 (08:55→19:46)
[2019-09-30] MEDS: Celecoxib 200 MG CAP 400 MG PO (08:56)
[2019-09-30] MEDS: Methadone Liquid 10 MG/ML 180 MG PO (09:15)
[2019-09-30] MEDS: Lactated Ringers 1,000 ML 80 ML IV ×2 (09:30→17:32)
--- NOTE | 2019-09-30 10:13 | DI.RAD_ITS ---
EXAM: XR KNEE RT 2V AP,LAT CLINICAL HISTORY: (1) Knee deformity, acquired:. TECHNIQUE: 2D and realtime digital imaging was performed. COMPARISON: No exams were available for comparison FINDINGS: Please see procedure note for details. Fluoro Time: 38.6 seconds RADIATION DOSE DELIVERED:
[2019-09-30] MEDS: Bupivacaine 0.25% Pres-Free 30 ML VIAL ×3 (10:48→13:12)
[2019-09-30] MEDS: ceFAZolin 2 GM/50 ML BAG IVPB (11:20)
[2019-09-30] MEDS: Normal Saline 20 ML VIAL (13:09)
[2019-09-30] MEDS: Ketorolac 30 MG/ML VIAL (13:11)
--- NOTE | 2019-09-30 17:15 | DI.RAD_ITS ---
EXAM: XR KNEE RT 2V AP,LAT INDICATION: 2 view right knee - postop. COMPARISON: CR XR KNEE RT 2V AP,LAT from 08/31/2019 TECHNIQUE: 2D digital imaging was performed. FINDINGS: There has been interval removal of the intra left intramedullary donato and screw and plate fixation fr om the distal femur. There is an old distal femoral fracture. A total knee prosthesis has been pedro quyen. The components appear well aligned. There is residual postsurgical air in the soft tissues. DATA REPOSITORY: RADIATION DOSE DELIVERED:
--- NOTE | 2019-09-30 17:15 | PT.INNT ---
Date of service: 09/30/19 Time of Service: 17:15 PT Notes 09/30/11 Patient refuses PT consultation. She initially reports that she is leaving AMA. She admits that she does not have any type of assistive device at home, and that she will only consider use of crutches. She was issued a pair of axillary crutches, and at that point reports that she is staying the night, but again adamantly refuses PT. Will attempt consultation in the am.
[2019-09-30] MEDS: ceFAZolin 1 GM/50 ML BAG IVPB (18:16)
[2019-09-30] MEDS: oxyCODONE 15 MG TAB 30 MG PO ×2 (18:23→21:56)
[2019-09-30] MEDS: Pregabalin 50 MG CAP 150 MG PO (19:45)
[2019-09-30] MEDS: Methylphenidate 10 MG TAB 20 MG PO (19:45)
[2019-09-30] MEDS: Aspirin E.C. 81 MG TABEC PO (19:46)
--- NOTE | 2019-09-30 21:03 | ROE_ITS ---
Date of service: 09/30/19 Time of Service: 15:32 Operative Note Operative Note DATE OF PROCEDURE: 09/30/19 PRE-OP DIAGNOSIS: Right Knee Osteoarthritis with Retained Hardware POST-OP DIAGNOSIS: same PROCEDURE: Right Total Knee Arthroplasty with Intraoperative Navigation and Removal of IMN and Plate SURGEON: Leonel Lugo MACHINE SHOP WORKER: Joceline Retana ANESTHESIA: regional and spinal ESTIMATED BLOOD LOSS: 400 PATHOLOGY: none sent TOURNIQUET TIME: 34 COMPLICATIONS: None Patient was transported to: PACU Patient's condition: stable Implants: 1. Depuy Attune Posterior Stabilized Revision Femoral Component, Size 4, with [id number] cementless stem 2. Depuy Attune Fixed Platform Tibial Component, Size 3 3. Depuy Attune 4x7mm Fixed, Stabilized Poly 4. Depuy Attune Patellar Component, Size 32 Indications: I have seen Melvi in clinic for symptoms of knee arthritis, confirm ed with radiographic findings. Melvi has exhausted nonoperative methods and was having significant limitations in daily function and desired better function and less pain. We had previously performed a distal femoral osteotomy which failed initially but then satisfactorily restored alignment. However, she continued to have pain. I discussed the technical details of a knee replacement with hard mariee removal. I explained the risks of the procedure to include, but not limited to, bleeding, infection, pain, stiffness, fracture, damage to nerves and vessels, damage to muscles and tendons, loosening, need for repeat procedure, blood clot and cardiopulmonary demise. Despite these risks, Melvi elected to proceed. Findings: The hardware was removed without complication. A knee arthroplasty was placed with a stemmed femur to bypass the previous osteotomy site although there were no signs of nonunion. Procedure Description: Melvi was greeted in the preoperative holding area where the correct side was identified and marked. The consent was reviewed with the patient and signed. The history and physical was updated. All questions were answered. Preoperative mediacations were administered: Acetaminophen 1000mg, Celebrex 400mg, Gabapentin 300mg, and Oxycontin 10mg. An adductor canal block was then administered by the anesthesia team in the PACU. Melvi was taken back to the operating room. A spinal anesthestic was then administered. The patient was placed into the supine position on the operating room table. A nonsterile tourniquet was placed high onto the leg but only used for cementing. Posts were placed for positioning during the procedure. All bony prominences were well padded. Prophylactic antibiotics in the form of Cefazolin were administered. 1g of Tranxemic Acid was given intravenously within 30 minutes of incision. The right proximal thigh was then prepped with Chloraprep and draped in a limited fashion to the area of the proximal screws. The C-arm was positioned such that we had a good lateral of the femur showing the position of the screws. A timeout to confirm correct identity, side and site, procedure, allergies, anesthesia, and medical concerns was performed. Proximal screws from the retrograde femoral nail were first removed. A 2 similar incision was made overlying the screws, based on positioning from intraoperative fluoroscopy. Dissection was carried the skin only. Deep dissection was carried down bluntly with a blunt hemostat. Once the anterior femur was encountered gentle blunt dissection was carried out with a [place] such that the screw heads were palpable. Using C-arm for guidance the screws were removed without difficulty. There is no active bleeding. The wound was irrigated. The wound was closed with #2-0 Vicryl followed by #3-0 Monocryl. This was further closed with skin glue and a Mepilex silver dressing. This dr aping was then removed. The C-arm was not used for the remainder of the case. While the back table was kept sterile all drapes were removed. A nonsterile tourniquet was placed high up on the right thigh. Posterior placed on the bed to support positions of 90 degrees and hyperflexion. A side post was also placed for support. The right leg was then prepped with ChloraPrep starting at the foot and covered with an impervious stockinette. A separate ChloraPrep was then used to prep the knee. The stockinette was taken up all the way up the leg, secured distally with a Kim. Extremity drape was then placed in the proposed incision site was exposed by cutting out portion of the stockinette. I made sure to include proximal enough for access to the remainder of the plate. The previous lateral based incision was left visible as well. There were no signs of issue with that incision site. The surgical site was then once again prepped with ChloraPrep and allowed to dry. An [place] dressing was then placed over the exposed skin. With the knee in some flexion, a midline incision was made overlying the knee. This was taken more proximal than usual and was purposely taken slightly medial more distal to avoid intersecting the previous true lateral incision. Full thickness skin flaps were raised once the extensor mechanism was encountered. These were raised medially and laterally. Any bleeding was controlled with electrocautery. Once the extensor mechanism was fully exposed, a medial parapatellar arthrotomy was performed in a flexed position. All bleeding from the arthrotomy and the geniculate arteries was coagulated. I also went ahead and performed a quadriceps snip for better exposure knowing that I would need access to the lateral aspect of the femur. There is thickened synovium seen around the distal femur from previous surgeries and chronic inflammation. This was resected with electrocautery and a rongeur. This was carried around laterally as well to exp ose the plate over the lateral femur. A medial subperiosteal peel was performed with electrocautery to the midcoronal plane. The fat pad was removed while keeping the patellar tendon protected. The ACL and PCL were resected and the anterior horn of the lateral meniscus was transected. The knee was brought into 90 degrees of flexion and exposure of the lateral femur was obtained. I was easily able to remove the distal 4 screws from the lateral femoral plate. The more proximal screws took some additional dissection in the quadriceps that was definitely imperative and exposure here. The most proximal screw was unobtainable strictly through the lateral based incision. Therefore, made a small stab wound into the lateral thigh and placed the screwdriver through the skin under visualization from within the midline incision. Through this technique, is able to move this most proximal screw. All 8 screws were removed and the plate was removed without significant difficulty. The cap to the end of the femoral nail was then removed. The distractor device was inserted into the distal aspect of the retrograde femoral nail. The distractor was placed onto the helical blade and this was removed without difficulty. The nail was likewise removed without significant issue. The canal was irrigated and suctioned. The lateral collateral ligament complex was definitely intact. However, there is noted to be damage to the popliteus from the previously placed plate. The knee was then flexed with the patella everted. A single starting pin was then placed 1cm anterior to the PCL insertion and the notch in the direction of the femoral head. The OrthoAlign device was applied over the pin. It was oriented to be in line with the epicondylar axis and the trochlear groove. It was then pinned into place. The navigation computer was then turned on and calibrated. The distal femur cut was set at 0 degrees varus/valgus and 2.5 degrees flexion. The distal femur cutting guide then was positioned for a 9mm cut. The distal femur was cut with an oscillating saw while protecting the soft tissues. The tibia was then addressed. The OrthoAlign device was placed over the tibial tubercle and medial tibia and secured into position. Once again, OrthoAlign was calibrated and then set for a 0 degree varus/valgus cut and 3 degrees of posterior slope. With this locked into position, the cut thickness stylus was used to assess cut thickness. The lateral side was set for a 4 mm cut which corresponded to an 8 mm cut of the medial side. This was then held in position and pinned into place with 2 additional pins and a cross pin for stability. The medial and lateral collateral ligaments were protected and the cut was performed. With this completed, it was assessed and noted to be of appropriate dimensions. The guide and OrthoAlign was removed. A spacer block was inserted and the knee was brought into extension. The 6mm spacer block provided full extension, without hyperextension and with stability of both the medial and lateral collateral ligaments was assessed. The pins from the femur and the tibia were then removed. The distal femur was then sized. The anterior stylus was placed onto the lateral ridge of the anterior femur. This indicated a size 4 femur. The external rotation of the guide was adjusted to 0 degrees to match the epicondylar axis, perpendicular to [place]?s line. The 4-in-1 cutting guide was the placed. The posterior medial femur cut was evaluated and appeared of good thickness. The spacer block was inserted underneath the cutting guide and stability was confirmed in 90 degrees of flexion. An tess wing was used to confirm appropriate position of the anterior cut to avoid notching. This cutting guide was ensured to be flush on the cut surface and then pinned into place with headed pins. While protecting the soft tissues, quad tendon, and collateral ligaments, the anterior and posterior cuts were performed with a saw. The central two pins were removed and the posterior and anterior chamfers were cut next. The notch-cutting guide was placed. This was pinned to lateralize the femoral component as much as possible while keeping it flush on the cut surface. This was then pinned into position. A reciprocating saw was used to make the notch cut. A rasp smoothed the cut surfaces. A trial posterior stabilized femoral component was then inserted, impacted down to the cut surfaces, and the lug holes were drilled. A provisional trial tibial component was placed and the knee was brought through range of motion. The polyethylene was trialed until there was good flexion and extension with excellent stability to the medial and lateral collaterals. The patella was tracking without thumbs. The tibial cut surface was fully exposed. The medial and lateral menisci were removed. The tibia was then sized as a 3. The tibia had been previously marked during trialing to correspond to the center of the tibial component to help with rotation. The trial was aligned to this [place], approximately rotated to the medial 1/3rd of the tibial tubercle. The trial was pinned into place. The tibia was prepared with a reamer and a keel punch. The knee was then brought into extension and the patella was measured as 24 mm. Using the patellar clamp and cut guide, this was resected to a flat surface with at least 13mm of thickness remaining. The size 32 patella fit the best. This was oriented and then clamped into position. The lugs were drilled. I then assembled the cut through guide for the attune revision femoral system. The size 4 guide was placed with excellent fit onto the cut surface of the distal femur. The reaming guide was attached and then began to ream the distal femur. This started with the opening cemented reamer first and then proceeding from a 12 mm moving in 1 mm increments. At 60 mm are started to get some chatter. I was able to get up to an 18 mm with some effort. The plan was for a 110 mm stem which would bypass the osteotomy site. The revision box cut was then performed using reciprocating saw after removing the intramedullary reamers. A trial revision femur was then inserted with the size 18 mm x 110 mm stem. However, this was difficult to place and was shifting slightly over the medial condyle. Therefore, to prevent risk of fracture, and knowing that the os teotomy has changed the overall orientation of the distal femur, I size down to a 16 mm x 110 mm stem. This fit well and did not force the distal component in any other position than what desired. The trial components were removed. The final components, except for the polyethylene were opened on the back table. The periosteal and capsular tissues, especially posteriorly, around the knee were then systematically injected with a periarticular cocktail consisting of 50cc 0.25% Marcaine, 30mg Ketorolac, 20cc of Exparal and 50cc of injectable saline. The tourniquet was then inflated to 275mmHg. The knee was thoroughly irrigated with a pulse lavage and dried. On the back table, with the implants opened, the cement was mixed. 2 batches of antibiotic laden cement were prepared with vacuum assistance. After the cement was ready a small amount was placed on to the back side of the tibial component at the keel. A small amount was placed onto the posterior flange of the femur. Cement was manual pressurized and impregnated into the cut surface of the tibia. The tibial component was then inserted into the cut surface and impacted into position. Excess cement was removed and the component was reimpacted. Again, excess cement was removed and our attention was then turned to the femur. The femoral cut surface was once again dried and cement was manually impacted into the cut surface. No cement was allowed to go into the canal. The femoral component was lined with the cut surfaces and impacted. Excess cement was removed. It was ensured to be down against the cut surface. The trial polyethylene was then inserted and the leg was brought out into full extension for the duration of the cement curing process, approximately 15min. Cement was lastly manually impacted into the cut surface of the patella and the patellar button was clamped into position and held. During this process attention was turned to the gutters of the knee and for all interfaces for any excess cement. After the cement had finally cured, approximately 15min, the clamp was removed from the patella and the knee was taken through range of motion. A size 7mm polyethylene component provided the best range of motion and stability with less than 2mm gapping with medial and lateral stress and full extension without significant hyperextension. The patella was tracking with a no-thumbs techniq ue. The trial poly was removed and once again the knee was checked for any loose, excess, or errant cement. The poly component was then inserted and impacted into position after cleaning and drying the tibial tray. The capsule was then reapproximated with a No. 1 Vicryl at multiple locations. The capsule was finally closed with a No. 2 Stratafix, barbed suture. The tourniquet was then released and the arthrotomy appeared watertight without significant bleeding. The second dosing of 1g TXA was started. Deep tissues were then reapproximated with 0 Vicryl and 2-0 Vicryl. The skin was closed with a running 3-0 Monocryl in a subcuticular fashion. This was reinforced with skin glue. A Mepilex silver dressing was applied along with a [id number] ANGEL wrap. A CryoCuff was applied. Melvi was transferred to the hospital bed without difficulty an suffering no apparent complication. Melvi has a good prognosis although pain control will be an issue as it has been this whole time with her treatment. She had a bupivacaine spinal today with fentanyl. She also had the abductor block. I will start her on a high-dose HOGSHEAD STRIPPER with an increase in her home dose of oxycodone and continuing her home methadone dose. Physical therapy will start today and without restrictions, weight- bearing as tolerated. Aspirin 81mg BID will be used for DVT prophylaxis.
[2019-09-30] MEDS: diazePAM 5 MG TAB PO (21:56)
[2019-09-30] MEDS: Ketorolac 30 MG/ML VIAL 15 MG IVP (21:56)
[2019-09-30] MEDS: Albuterol HFA 8 GM 60 PUFF INH IH (23:46)
[2019-10-01] VITALS: BP 169/99; PULSE 84; RESP 20; TEMP 37.2; O2SAT 98
[2019-10-01 00:52] VITALS: BP 156/83; PULSE 75; RESP 20
[2019-10-01] MEDS: oxyCODONE 15 MG TAB 30 MG PO ×3 (00:59→06:52)
[2019-10-01] MEDS: ceFAZolin 1 GM/50 ML BAG IVPB (00:59)
[2019-10-01] MEDS: diphenhydrAMINE 25 MG CAP PO (01:20)
--- NOTE | 2019-10-01 01:57 | NUR.NOTE ---
Nursing Note: Since 2200 hrs. , Pt was upset of her pain meds. Requested staff to put her on the recliner chair, continuously asking for stronger pain med. Ate supper and lots of snacks like cola, ice cream & peanut butter and crackers. [employer] Dilaudid been utilized as per demand of pt. She is not satisfied,and suspicious., Stated That Dilaudid does not do anything for my pain. Oxycodone po; toradol;diazepam as scheduled administered but patient continue to cry out loud, demanded to call MD, Pt was congested and have colds. Albuterol puff given as per request. discharge specialist paged Dr. Lugo but no answer, Ortho contacted by discharge specialist and ordered benadryl 25 mg po given which she is not happy on that.Needs been attended. Watts drained good amount of clear urine now. Drsg on right leg with pb wrap is dry and intact. Cryo cuff in progress.Call lights at reach.
[2019-10-01] MEDS: Ketorolac 30 MG/ML VIAL 15 MG IVP ×2 (02:18→08:37)
[2019-10-01 03:25] VITALS: BP 149/96; PULSE 86; RESP 18; TEMP 37.3; O2SAT 98
[2019-10-01] MEDS: Methylphenidate 10 MG TAB 20 MG PO (06:18)
[2019-10-01] MEDS: Pregabalin 50 MG CAP 150 MG PO (06:18)
[2019-10-01] MEDS: Lactated Ringers 1,000 ML 80 ML IV (06:52)
[2019-10-01 07:35] VITALS: BP 169/105; PULSE 94; RESP 17; TEMP 37.3; O2SAT 99
[2019-10-01] MEDS: Acetaminophen 500 MG TAB 1000 MG PO (07:38)
[2019-10-01] MEDS: lamoTRIgine 100 MG TAB 200 MG PO (07:38)
[2019-10-01] MEDS: Pantoprazole 40 MG TABCR PO (07:39)
[2019-10-01] MEDS: Aspirin E.C. 81 MG TABEC PO (07:39)
[2019-10-01] MEDS: diazePAM 5 MG TAB PO (07:39)
[2019-10-01] MEDS: Methadone Liquid 10 MG/ML 180 MG PO (07:40)
[2019-10-01] MEDS: Normal Saline Flush 10 ML SYR IV ×2 (07:40→08:36)
--- NOTE | 2019-10-01 07:52 | DSE_ITS ---
Date of service: 10/01/19 Time of Service: 07:52 DS: Diagnosis Discharge Diagnosis (1) Post-traumatic osteoarthritis of right knee: Status: Chronic Discharge Plan Disposition Patient Disposition: HOME Condition: Stable Discharge Details Reason For Visit: S/P RIGHT LOWER EXTREMITY HARDWARE REMOVAL AND TKA Admit Date/Time: 09/30/19 08:06 Admit Provider: Leonel Lugo Attending Provider: Leonel Lugo Primary Care Provider: QIANA WEEMS Hospital Course Hospital Course: Patient was admitted to the medical/surgical floor following the procedure. The surgery was tolerated well without any notable medical, surgical, or anesthetic complications. She did have significant complaints of pain, which is a chronic issue for June. Adjustments were made to the pain regimen, and while she reported severe 9/10 pain, she was objectively stable and content with the regimen. Mobilization began postoperatively. The long catheter was removed and voiding spontaneously. Vitals were stable. Physical therapy worked with the patient and was cleared for discharge home. No acute medical issues. Pain was controlled on oral regimen. Home Meds and New Rx's Prescriptions: New metronidazole 500 mg Tablet 500 mg PO BID Qty: 14 RF: 0 Continued methadone 5 mg/5 mL solution 180 mg PO DAILY RF: 0 methylphenidate HCl [Ritalin] 20 mg tablet 20 mg PO TID MDD 60mg Qty: 42 RF: 0 pregabalin 150 mg capsule 150 mg PO BID Qty: 60 RF: 0 polyethylene glycol 3350 17 gram Powder In Packet 17 g PO BID PRN PRN (Reason: Constipation) Qty: 14 RF: 3 ibuprofen 800 mg tablet 800 mg PO Q8H PRN (Reason: pain) Qty: 90 RF: 6 aspirin 81 mg tablet,delayed release (DR/EC) 81 mg PO BID Qty: 60 RF: 0 acetaminophen [Mapap Extra Strength] 500 mg tablet 1,000 mg PO TID Qty: 90 RF: 0 pantoprazole 40 mg tablet,delayed release (DR/EC) 40 mg PO DAILY Qty: 30 RF: 3 bisacodyl 5 mg Tablet,Delayed Release (Dr/Ec) 5 mg PO TID PRN PRN (Reason: Constipation) Qty: 15 RF: 3 diazepam 10 mg tablet 10 mg PO QHS PRN (Reason: sleep) Qty: 14 RF: 0 Narcan 4 mg/actuation spray,non-aerosol 1 spray SHRUTI ONCE PRN (Reason: opioid overdose) Qty: 2 RF: 0 albuterol sulfate [ProAir HFA] 200 PUFF HFA aerosol inhaler 2 puff Inhalation PRN PRNRF: 0 lamotrigine [Lamictal] 200 MG tablet 200 mg PO DAILY RF: 0 Changed oxycodone 20 mg tablet 60 mg PO Q4H MDD 120mg PRN (Reason: pain) Qty: 126 RF: 0 Discontinued lorazepam 1 mg tablet 1 mg PO TID PRN PRN (Reason: anxiety) Qty: 21 RF: 0 lorazepam 1 mg tablet 2 mg PO HS Qty: 14 RF: 0 sulfamethoxazole-trimethoprim 800-160 mg tablet 1 tab PO BID Qty: 14 RF: 0 chlorhexidine gluconate 4 % liquid 1 applic TP DAILY Qty: 236 RF: 0 docusate sodium [Colace] 100 mg Capsule 100 mg PO BID PRN PRN (Reason: Constipation) Qty: 0 RF: 0 No Action (DME) Crutches Qty: 1 RF: 0 (DME) shower chair Qty: 1 RF: 0 (DME) compression socks, medium Misc See Rx Instructions .ROUTE .MEDSUPPLY Qty: 1 RF: 0 (DME) Bone Stimulator Qty: 1 RF: 0 (DME) Shower Chair Qty: 1 RF: 0 (DME) Raised Toilet Seat Qty: 1 RF: 0 Discharge Instructions Additional Instructions: Dr. Lugo?s Total Knee Discharge Instructions Activity: The most important activity is to walk. You should try to take short walks a few times a day. It is important that when resting you work on keeping the knee straight. Avoid putting a pillow behind the knee as this will encourage flexion. Work on range of motion exercises as provided by Physical Therapy and the preoperative booklet. - Start outpatient physical therapy within 2 weeks. - You should wear the LUISA hose on both legs for 2 weeks. Dressing: Keep the surgical dressing (JOSÉ Wound Vacuum Dressing) in place for at least one week. After the first week, you may remove this dressing and then replace with a Mepilex Silver dressing (provided by the hospital). The dressing may get wet after 3 days but avoid soaking the dressing. If it gets wet, just lightly pat dry. Most patient prefer to cover with ClingWrap or Saran Wrap to keep the dressing dry. After the first week, the dressing may be removed and replaced with light gauze and tape or nothing. Medications: - You should take Tylenol and anti-inflammatory Ibuprofen as your primary pain control medications - You have been prescribed a stronger pain medication Oxycodone for breakthrough pain, take as needed as prescribed. - You should continue Pregabalin. - You also have Diazepam to take at night for pain and sleep. - You have also been prescribed a stomach acid reduction agent Pantoprozole to help reduce stomach acid and reflux. - You will be taking Aspirin 81mg twice a day for DVT prevention unless instructed otherwise. - If you have constipation you should take Colace or Miralax (both [id number]). It takes most people 3-4 days to have a bowel movement. Follow-up: 2 weeks. You should also call physical therapy to work on scheduling outpatient therapy sessions which can begin at 2 weeks. If you have any acute concerns or questions, please do not hesitate to contact the office at [phone]. You may contact Dr. Lugo with any questions after hours through the hospital at [phone] or on his cell phone at [phone]. Referrals: Leonel Lugo MD [ [facility] STAFF PHYSICIAN] - Activity:: Activity as Tolerated Equipment/Supplies:: Walker Diet:: As Tolerated Discharge Orders Discharge Orders: Discharge Order (Routine); Ordered 10/01/19 Ordered By: Leonel Lugo DS: Summary Status at Discharge Functional status at discharge: uses cane/walker Overall status at discharge: patient is progressing back to baseline Mental Status: mental status grossly normal Speech and Movement: speech and movement normal Mood: congruent mood Affect: normal affect Exam Psych Mental Status: mental status grossly normal Speech and Movement: speech and movement normal Mood: congruent mood Affect: normal affect DS: Data Vitals/I&O Vitals and I&O: Vital Signs Temperature 37.3 C 10/01/19 07:35 Temperature Source Temporal Artery Scan 10/01/19 07:35 Pulse 94 H 10/01/19 07:35 Pulse Rhythm Regular 10/01/19 03:15 Respiratory Rate 17 10/01/19 07:35 Respiratory Effort 10/01/19 03:15 Respiratory Depth Normal 10/01/19 03:15 Respiratory Pattern Normal 10/01/19 03:15 Blood Pressure 169/105 H 10/01/19 07:35 Pulse Oximetry 99 10/01/19 07:35 Respiratory End-tidal CO2 39 09/30/19 16:28 Oxygen Delivery Method Room Air 10/01/19 07:35 Oxygen Flow Rate 0 10/01/19 07:35 Pain Level 9 10/01/19 07:38 Intake & Output 09/30/19 09/30/19 10/01/19 11:59 23:59 11:59 Intake Total 110 / 1066.666 956.666 / 9475.537 0040 / 1000 Output Total 1550 / 1550 950 / 950 Balance 110 / -483.334 -593.334 / -483.334 50 / 50 Weight 85.7 kg Intake: IV 110 / 1066.666 956.666 / 7009.985 6114 / 1000 Output: Urine 1150 / 1150 950 / 950 Estimated Blood Loss 400 / 400 Other: Urine Color Yellow Light Gloria Yellow Urine Appearance Clear Clear Clear Emesis Description None Data Completed and Pending Labs on day of discharge: Labs from last 24 hours 09/30/19 09:02 Patient ABO/Rh A Positive Antibody Screen Negative [facility] Medical History Asthma (Chronic) History of drug abuse (Acute) per pt clean for 10 months History of hepatitis C (Acute) per pt has been treated but it didn't cure it made my numbers go down--Pt. denies having Hep C. 09/24/19 Hx of seizure disorder (Acute) Pt. states it was from detox Surgical History H/O excision of mass (Acute) Lipomas removed from base of neck and lower midback 11/2018 in [place] History of arthroscopic knee surgery (Inactive) Right History of right femoral derotational osteotomy (Acute 09/23/18) History of tubal ligation (Inactive) Family History Father Cancer Mother Cancer Aunt Cancer Social History Smoking/Tobacco Use Status: Current every day Tobacco Type: cigarettes Smoking packs per day: 0.5 Smoking cigarettes per day: 10.0 Drug use: Daily Substance use type: marijuana Current gender identity: female Do you feel safe in your relationship?: Yes
[2019-10-01] MEDS: metroNIDAZOLE 500 MG TAB PO (08:36)
--- NOTE | 2019-10-01 09:07 | IN_ITS ---
Date of service: 10/01/19 Time of Service: 08:15 PT Notes Visit Reasons: S/P RIGHT LOWER EXTREMITY HARDWARE REMOVAL AND TKA Inpatient Physical Therapy Evaluation Date: 10/01/19 Referring Doctor: Dr. Lugo PT Orders: PT CONSULT: Status post hardware removal and right TKR Precautions: Fall, standard Patient Profile/Admitting Diagnosis: Patient admitted status post hardware removal and right TKR, now postop day 1. She refused PT consultation yesterday. She has a complicated surgical history in addition to a history of poor pain management. 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 Plans to utilize [facility] for appointments postoperatively. Equipment Owned/DME: Patient states that she has been issued both a walker and crutches in the past, although does not currently possess either. States that she did not utilize the crutches after her last surgery despite instruction to do so. Subjective: Melvi is in good spirits this morning. She is anxious to get up and walk in order to go home. States that she needs crutches in order to navigate her home, but requests a walker as well, as she feels more confident with support from walker. She would like to initiate outpatient PT as soon as possible. Objective: General Observation: Patient resting in chair with right knee flexed to approximately 60 degrees at initiation of session. She has a bone stimulator in place and right lower extremity is Sebastian wrapped. Watts catheter removed just prior to PT session. No additional lines. Mental Status: A&O x3. Patient appears anxious throughout session, and demonstrates poor safety with equipment management throughout session. Pain: 9/10 ROM: Right Upper Extremity: WFL Left Upper Extremity: WFL Right Lower Extremity: -10 degrees extension to approximately 60 degrees flexion right knee Left Lower Extremity: Grossly WFL Strength: Right Upper Extremity: WFL Left Upper Extremity: WFL Right Lower Extremity: Patient able to perform SLR with min assist from upper extremities. Left Lower Extremity: WFL Bed Mobility/Transfers: Supine?sit: Independent Sit?supine: Independent Sit?stand: Independent Stand?sit: Independent Patient is able to dress independently, with only minimal assistance for management of bone stimulator Gait: Patient ambulates 120 feet with FW W and WBAT right lower extremity. She maintains approximately 50% weightbearing on the right, with initial contact at the forefoot. This is performed with CGA?supervision. She was also fitted with axillary crutches, and ambulates 40 feet with supervision and minimal cueing for equipment management. Balance: Static Sitting: Normal Dynamic Sitting: Normal Static Standing: Good Dynamic Standing: Fair Special Tests: Mobility Limitations Standardized Measure [facility] AM-PAC 6 clicks Basic Mobility Inpatient Short Form: Raw Score: 24 CMS Score: 0% deficit Treatment: Today's session consisted of gait training with both FW W and bilateral axillary crutches, with extensive gait training as noted above. She was also instructed in early quad setting activities and passive extension exercises for improved ROM. She is provided with a postop PT packet. Informed Consent/Education: Patient instructed in purpose of PT consult and plan of care. Assessment: Patient is a 39 year old female referred to physical therapy services with the diagnosis of status post hardware removal and right TKA, postop day 1. Patient presents with clinical signs and symptoms consistent with diagnosis, as demonstrated by the following impairment level findings: 1. Decreased right knee range of motion 2. Decreased right lower extremity strength 3. Recent activity tolerance 4. Decreased tolerance to right lower extremity weightbearing 5. Decreased safety awareness Impairments are contributing to the following functional limitations: 1. Decreased activity tolerance 2. Increased fall risk Patient is assessed as Moderate 41168 complexity based on the following: History: Patient is a 39-year-old female 1 day status post hardware removal and right TKA. She has an extensive surgical history in addition to a history of poorly controlled pain. Complicating factors include history of drug addiction, history of poorly controlled pain, and history of poor compliance with postoperative care. Examination: Functional limitations as noted above Presentation: Evolving Decision Making: Moderate complexity Plan of Care/Treatment Plan: Patient demonstrates sufficient mobility to allow for transition back home. Fall risk is elevated due to limited safety awareness and history of poor compliance with assistive device use postoperatively. She will benefit from initiation of outpatient PT as soon as possible for improved functional strength and prevention of joint contracture. DISCHARGE RECOMMENDATIONS: Home, outpatient PT. Patient was issued both FW W and bilateral axillary crutches. TREATMENT CODE/TIME: 815?9:00; 34456, 60613 Yarelis Oliva, PT, DPT [facility]
[2019-10-01] MEDS: oxyCODONE 15 MG TAB 60 MG PO (09:49)
--- NOTE | 2019-10-01 12:10 | PDOC.CMPRO ---
- If Service Date Differs Date of service: 10/01/19 Time of Service: 12:10 Care Management Progress Note S/O: PT requested a walker for June this morning, and this was provided by CM. June discharged home before CM could meet with her. P: June will be discharged home with no new services.
== END 2019-10-01 09:55 | disposition home or self-care (01) ==
LOC: PDS 13:07 → MS 22:16 → PDS 10-20 16:23 → MS 10-20 16:23
PROVIDERS: Admitting Provider Student in an Organized Health Care Education/Training Program; PCP Registered Nurse; Visit Provider Student in an Organized Health Care Education/Training Program
PROC: 0SRC0J9 Replacement of Right Knee Joint with Synthetic Substitute, Cemented, Open Approach (ICD-10-PCS; CPT 27447; principal; 2019-09-30 10:00)
PROC: 0SRC0J9 Replacement of Right Knee Joint with Synthetic Substitute, Cemented, Open Approach (ICD-10-PCS; CPT 27447; 2019-09-30 10:00)
DX: M17.11 Unilateral primary osteoarthritis, right knee (principal); T84.84XA Pain due to internal orthopedic prosthetic devices, implants and grafts, initial encounter; M25.561 Pain in right knee; Z96.651 Presence of right artificial knee joint; S72.401S Unspecified fracture of lower end of right femur, sequela; X58.XXXS Exposure to other specified factors, sequela; J45.909 Unspecified asthma, uncomplicated; F17.210 Nicotine dependence, cigarettes, uncomplicated; F12.90 Cannabis use, unspecified, uncomplicated; K21.9 Gastro-esophageal reflux disease without esophagitis; G89.18 Other acute postprocedural pain
CPT/HCPCS: 27447; 20985; 20680; C1776; 36415; 76942; 81025; 86850; 86900; 86901; 97162; 97530; NC; 73560; E0114; G0378; J0690; J1170; J1885; J2001; J2250; J3010

== ENCOUNTER 2019-10-11 06:56 | Inpatient (IN) | payer MEDICAID, SELFPAY ==
[2019-10-11] VITALS (10 sets, daily range): BP systolic 125–186; BP diastolic 82–124; PULSE 63–86; RESP 14–22; TEMP 36.2–36.7; O2SAT 97–100
--- NOTE | 2019-10-11 06:57 | ED.GENADUL_ITS ---
Discharge Plan Disposition Patient Disposition: [facility] INPATIENT Condition: Stable Discharge Details Chief Complaint: Orthopedic Clinical Impression: Surgical wound dehiscence Primary Care Provider: QIANA WEEMS ED Provider: Lei Harrison Home Meds and New Rx's Prescriptions: No Action methadone 5 mg/5 mL solution 180 mg PO DAILY RF: 0 (DME) Crutches Qty: 1 RF: 0 (DME) shower chair Qty: 1 RF: 0 (DME) compression socks, medium Misc See Rx Instructions .ROUTE .MEDSUPPLY Qty: 1 RF: 0 (DME) Bone Stimulator Qty: 1 RF: 0 oxycodone 30 mg tablet 60 mg PO Q4H MDD 360mg PRN (Reason: pain) Qty: 84 RF: 0 sulfamethoxazole-trimethoprim 800-160 mg tablet 1 tab PO BID Qty: 14 RF: 0 methylphenidate HCl [Ritalin] 20 mg tablet 20 mg PO TID MDD 60mg Qty: 42 RF: 0 pregabalin 300 mg capsule 300 mg PO BID Qty: 60 RF: 0 (DME) Shower Chair Qty: 1 RF: 0 (DME) Raised Toilet Seat Qty: 1 RF: 0 ibuprofen 800 mg tablet 800 mg PO Q8H PRN (Reason: pain) Qty: 90 RF: 6 aspirin 81 mg tablet,delayed release (DR/EC) 81 mg PO BID Qty: 60 RF: 0 acetaminophen [Mapap Extra Strength] 500 mg tablet 1,000 mg PO TID Qty: 90 RF: 0 pantoprazole 40 mg tablet,delayed release (DR/EC) 40 mg PO DAILY Qty: 30 RF: 3 bisacodyl 5 mg Tablet,Delayed Release (Dr/Ec) 5 mg PO TID PRN PRN (Reason: Constipation) Qty: 15 RF: 3 diazepam 10 mg tablet 10 mg PO QHS PRN (Reason: sleep) Qty: 14 RF: 0 Narcan 4 mg/actuation spray,non-aerosol 1 spray SHRUTI ONCE PRN (Reason: opioid overdose) Qty: 2 RF: 0 metronidazole 500 mg Tablet 500 mg PO BID Qty: 14 RF: 0 albuterol sulfate [ProAir HFA] 200 PUFF HFA aerosol inhaler 2 puff Inhalation PRN PRNRF: 0 lamotrigine [Lamictal] 200 MG tablet 200 mg PO DAILY RF: 0 Medical Decision Making Patient discussed with Dr. Lugo. Patient has not had anything to eat or drink since last night. Wound packed with saline gauze. Patient to go to the operating room this morning. Unable to obtain IV access here despite use of ultrasound. Need preop antibiotics but will leave for anesthesia to obtain access rather than multiple attempts here. She will be kept n.p.o. She is aware of need to go to the OR. Medical Records Medical records reviewed: Yes I reviewed the patient's medical records. HPI General Mode of arrival: EMS . Date/Time Provider Initiated Documentation: 10/11/19 06:57 . Limitations to Documentation: no limitations . Information obtained by: patient, RN notes reviewed and old records reviewed . HPI Narrative: Patient presents to ED with wound dehiscence. Patient underwent right total knee replacement on the . She also had donato removed from the femur. She had a slight dehiscence from the hip wound a few days ago. She was seen by Dr. Lugo. She was placed on Bactrim. This morning she was making breakfast. She turned to open refrigerator and reports that her knee just gave out and she went down. The wound for her knee completely opened up. EMS was called. Patient transported to ED for evaluation. Related Data Home Medications Medication Instructions Recorded Confirmed albuterol sulfate [ProAir HFA] 2 puff INHALATION PRN PRN 11/02/16 10/11/19 lamotrigine [Lamictal] 200 mg PO DAILY 07/09/17 10/11/19 methadone 5 mg/5 mL oral solution 180 mg PO DAILY ml 08/13/18 10/11/19 Crutches #1 ea 10/17/18 10/08/19 shower chair #1 ea 10/17/18 10/08/19 Raised Toilet Seat #1 ea 01/15/19 10/08/19 Shower Chair #1 ea 01/15/19 10/08/19 methylphenidate HCl 20 mg tablet 20 mg PO TID #42 tab MDD 60mg 01/15/19 10/11/19 Bone Stimulator #1 ea 04/03/19 10/08/19 compression socks, medium #1 each 04/03/19 10/08/19 Narcan 1 spray SHRUTI ONCE PRN #2 each 10/01/19 10/11/19 acetaminophen [Mapap Extra 1,000 mg PO TID #90 tab 10/01/19 10/11/19 Strength] aspirin 81 mg PO BID #60 tab 10/01/19 10/11/19 bisacodyl 5 mg PO TID PRN PRN #15 tab 10/01/19 10/11/19 diazepam 10 mg PO QHS PRN #14 tab 10/01/19 10/11/19 ibuprofen 800 mg PO Q8H PRN #90 tab 10/01/19 10/11/19 metronidazole 500 mg PO BID #14 tab 10/01/19 10/11/19 pantoprazole 40 mg PO DAILY #30 tab 10/01/19 10/11/19 oxycodone 30 mg tablet 60 mg PO Q4H PRN #84 tab MDD 360mg 10/07/19 10/11/19 pregabalin 300 mg capsule 300 mg PO BID #60 cap 10/07/19 10/11/19 sulfamethoxazole 800 1 tab PO BID #14 tab 10/08/19 10/11/19 mg-trimethoprim 160 mg tablet Previous Rx's Medication Instructions Recorded Crutches #1 ea 10/17/18 shower chair #1 ea 10/17/18 Raised Toilet Seat #1 ea 01/15/19 Shower Chair #1 ea 01/15/19 methylphenidate HCl 20 mg tablet 20 mg PO TID #42 tab MDD 60mg 01/15/19 Bone Stimulator #1 ea 04/03/19 compression socks, medium #1 each 04/03/19 Narcan 1 spray SHRUTI ONCE PRN #2 each 10/01/19 acetaminophen [Mapap Extra 1,000 mg PO TID #90 tab 10/01/19 Strength] aspirin 81 mg PO BID #60 tab 10/01/19 bisacodyl 5 mg PO TID PRN PRN #15 tab 10/01/19 diazepam 10 mg PO QHS PRN #14 tab 10/01/19 ibuprofen 800 mg PO Q8H PRN #90 tab 10/01/19 metronidazole 500 mg PO BID #14 tab 10/01/19 pantoprazole 40 mg PO DAILY #30 tab 10/01/19 oxycodone 30 mg tablet 60 mg PO Q4H PRN #84 tab MDD 360mg 10/07/19 pregabalin 300 mg capsule 300 mg PO BID #60 cap 10/07/19 sulfamethoxazole 800 1 tab PO BID #14 tab 10/08/19 mg-trimethoprim 160 mg tablet Allergies Allergy/AdvReac Type Severity Reaction Status Date / Time codeine Allergy hives with Unverified 10/11/19 07:09 throat tightness morphine Allergy hives and Unverified 10/11/19 07:09 throat swelling Penicillins Allergy Skin Rash Unverified 10/11/19 07:09 Review of Systems Narrative: As documented in HPI otherwise negative as below. Const: no fever, chills, weakness Resp: no cough, SOB, pleuritic pain CV: no CP, diaphoresis, edema, syncope GI: no abdominal pain, nausea, vomiting, diarrhea Neuro: no headache, numbness, focal weakness, confusion PFSH Medical History Asthma (Chronic) History of drug abuse (Acute) per pt clean for 10 months History of hepatitis C (Acute) per pt has been treated but it didn't cure it made my numbers go down--Pt. denies having Hep C. 09/24/19 Hx of seizure disorder (Acute) Pt. states it was from detox Surgical History H/O excision of mass (Acute) Lipomas removed from base of neck and lower midback 11/2018 in [place], [place] History of arthroscopic knee surgery (Inactive) Right History of right femoral derotational osteotomy (Acute 09/23/18) History of tubal ligation (Inactive) Social History Smoking/Tobacco Use Status: Current every day Tobacco Type: cigarettes Smoking packs per day: 0.5 Smoking cigarettes per day: 10.0 Alcohol Intake: current Alcohol Intake frequency: holidays/special occasions only Drug use: Daily Substance use type: marijuana Current gender identity: female Do you feel safe at home: Yes Do you feel safe in your relationship?: Yes Exam Narrative Exam Narrative: Vitals: Afebrile. Blood pressure elevated otherwise normal vitals. Normal O2 saturation. Const: WDWN female in NAD. HEENT: NC/AT. Normal facial exam. Neck: Supple. Trachea midline. Lungs: Normal respiratory effort. Neuro: A+O x 3. Normal speech. Cranial nerves II - XII grossly intact. No gross motor or sensory deficit. Ext: Right lower extremity in a vacuum splint. Skin: Warm and dry. Knee incision opened completely from one end to the other down to patella and muscles.
--- NOTE | 2019-10-11 08:11 | OCONE_ITS ---
Date of service: 10/11/19 Time of Service: 08:11 History of Present Illness History of Present Illness Chief Complaint: Right Wound Dehiscence Narrative: Melvi is a 39-year-old who underwent extensive surgery on September 2019. She had removal of hardware including both an intramedullary nail as well as a lateral distal femur plate and then placement of a knee replacement. She did well. She went home the next day. She reported significant improvements with her pain with ambulation and standing. She weaned herself off of crutches. I did see her in the office on 10/07 for concern about her proximal incision which did show superficial dehiscence. There is no signs of infection. The main knee wound was also inspected and did not show any signs of infection. Her range of motion was 5-90. She reports that this morning she was cooking breakfast that she twisted in the kitchen and went down. It is unclear whether it open first third open after she fell but either way, she noted that her knee wound was completely open. She called EMS and was brought to the emergency department. She had a clear dehiscence of all layers of the right knee and I was called in consult. She denies any preceding symptoms. She denies numbness or tingling. She denies fevers and chills. She has not traveled out of the area since the surgery. She has not had any contact with anyone who has had or has COVID-19. She denies any chest pain or shortness of breath. Consults Consult date: 10/11/19 Requesting physician: Lei Harrison Consult Reason Right surgical wound dehiscence Assessment and Plan Assessment and plan (1) Surgical wound dehiscence: Status: Acute Assessment and plan: Melvi is a 39-year-old who has had complete surgical wound dehiscence of her right knee. Unfortunately, she has had multiple surgeries to this knee. She also has a history of skin infections and difficulty healing wounds. It is likely a combination of things which led to the wound dehiscence. She does not show any active signs of infection, however, infection must be considered. Although, I think it is unlikely given the appearance of the knee. Unfortunately, this dehiscence increases the risk of infection and therefore it is imperative that we get this quickly. I discussed this case with Melvi and she agrees to move as quickly as possible to protect the knee replacement. I recommended an urgent irrigation and debridement of the wound with thorough assessment of all soft tissues. I also take some samples of the deep tissues just to make sure there is no brewing infection. The plan will be for extensive debridement with irrigation. I would then reapproximate the knee using interrupted sutures and placement of antibiotics within the knee. This was then be closed in a more standard interrupted format with the assistance of vacuum dressing. Given that this does not appear to be infected I do not think she has to stay for any prolonged period of time. I would like her to be in a knee immobilizer when ambulating for the first 2 weeks. I did go over the risk of the procedure which would be repeat dehiscence, bleeding, infection, need for repeat procedures, weakness, stiffness. Despite these risks, she elects to proceed. Qualifiers: Encounter type: initial encounter Qualified Code(s): T81.31XA - Disruption of external operation (surgical) wound, not elsewhere classified, initial encounter Review of Systems All systems reviewed & are unremarkable except as noted in HPI and below PFSH Medical History Asthma (Chronic) History of drug abuse (Acute) per pt clean for 10 months History of hepatitis C (Acute) per pt has been treated but it didn't cure it made my numbers go down--Pt. denies having Hep C. 09/24/19 Hx of seizure disorder (Acute) Pt. states it was from detox Surgical History H/O excision of mass (Acute) Lipomas removed from base of neck and lower midback 11/2018 in [place] History of arthroscopic knee surgery (Inactive) Right History of right femoral derotational osteotomy (Acute 09/23/18) History of tubal ligation (Inactive) Family History Father Cancer Mother Cancer Aunt Cancer Social History Smoking/Tobacco Use Status: Current every day Tobacco Type: cigarettes Smoking packs per day: 0.5 Smoking cigarettes per day: 10.0 Alcohol Intake: current Alcohol Intake frequency: holidays/special occasions only Drug use: Daily Substance use type: marijuana Current gender identity: female Do you feel safe at home: Yes Do you feel safe in your relationship?: Yes Exam Const General: cooperative, in distress mild, disheveled and other (Quickly falls asleep) Nutritional Appearance: overweight Orientation: oriented x3 Limitations: other limitations (Apparently sleepy) Resp Effort & Inspection: normal respiratory effort Cardio Rate: regular rate Extrem Other: Evaluation of the right knee shows a complete wound dehiscence. There are no signs of significant trauma to the tissues. There are no signs of infection. There is no erythema. However, the almost the entirety of the incision is opened up. The arthrotomy also appears to be open. There is no active bleeding. Results Last Vital Signs Temp 36.7 C 10/11/19 06:58 Pulse 86 10/11/19 06:58 Resp 20 10/11/19 06:58 BP 150/110 H 10/11/19 06:58 Pulse Ox 99 10/11/19 06:58
[2019-10-11] MEDS: Lactated Ringers 1,000 ML 30 ML IV (09:14)
[2019-10-11] MEDS: ceFAZolin 2 GM/50 ML BAG IVPB (09:18)
[2019-10-11] MEDS: Normal Saline 20 ML VIAL (10:25)
[2019-10-11] MEDS: Ketorolac 30 MG/ML VIAL (10:27)
[2019-10-11] MEDS: Bupivacaine 0.25% Pres-Free 30 ML VIAL (10:28)
--- NOTE | 2019-10-11 11:34 | W.PM.OP ---
Date of service: 10/11/19 Time of Service: 11:34 Operative Note Operative Note DATE OF PROCEDURE: 10/11/19 PRE-OP DIAGNOSIS: Right Knee Surgical Wound Dehiscence POST-OP DIAGNOSIS: same PROCEDURE: Right Knee Irrigation and Debridement, Polyethylene Exchange, Wound and Arthrotomy Closure SURGEON: Leonel Lugo QUALITY CONTROL OPERATOR: Milena Arevalo ANESTHESIA: GETA ESTIMATED BLOOD LOSS: 50 PATHOLOGY: other (Deep cultures sent to microbiology) TOURNIQUET TIME: 0 COMPLICATIONS: None Patient was transported to: PACU Patient's condition: stable Implants: Depuy Attune 4x7mm Fixed, Stabilized Poly Indications: Meliv is a 39-year-old who is 11 days status post hardware removal with revision knee arthroplasty of the right knee. I saw her 2 days ago for superficial dehiscence of the most proximal accessory wound from the surgery. She otherwise had no complaints about her knee. She endorses full range of motion and was feeling improvements with ambulation and standing. That wound was inspected and showed no signs of concern or infection. This morning, she was in the kitchen and tripped over her cat landing on a hyperflexed right knee with immediate dehiscence of the wound. She presented to the emergency department with a complete dehiscence of all layers of the wound. After brief evaluation in the emergency department I recommended operative intervention, to include debridement and closure. I explained the risks of the procedure to include, but not limited to, bleeding, infection, pain, stiffness, damage to nerves and vessels, damage to muscles and tendons, loosening, need for repeat procedure, blood clot and cardiopulmonary demise. Despite these risks, Melvi elected to proceed. I was also very concerned about her history of wound infections so I would treat this aggressively as if it were infected. Findings: Almost the entire incision was opened. A small portion proximally and distally were still intact. The entire arthrotomy was also dehisced starting from just the inferior pole patella extending into the musculature proximally. All suture was removed. The knee was thoroughly debrided with a complete synovectomy. The polyethylene was removed. The knee was irrigated with 6 L of normal saline as well as Irricept. 2 cultures were sent. Antibiotics were placed locally in the wound VF stimuli and calcium sulfate beads. Procedure Description: Melvi was seen in the emergency department. Her history and physical was updated at that time. A consent was signed with the patient. Melvi was taken back to the operating room. A spinal anesthetic was attempted but was unsuccessful due to her combativeness and agitation. Therefore, she was converted to a general LMA. The patient was placed into the supine position on the operating room table. Posts were placed for positioning during the procedure. All bony prominences were well padded. Prophylactic antibiotics in the form of cefazolin and vancomycin were administered. 1g of Tranxemic Acid was given intravenously within 30 minutes of incision. The right leg was then prepped with Betadine and draped in a standard fashion with impervious stockinette. A timeout to confirm correct identity, side and site, procedure, allergies, anesthesia, and medical concerns was performed. The knee was briefly inspected which showed the dehiscence to involve all layers. There is a small portion, less than 2 cm, both proximally and distally which was not dehisced. This was completed with a knife. The arthrotomy was opened from the inferior pole patella through the quadriceps snip, lateral quadriceps musculature. With finger dissection was able to complete the arthrotomy distally. Rongeur was then used to remove any suture remnant. Interestingly, all the knots were still intact. The sutures within the quadriceps ruptured at multiple spots but did not pull through. I also excised the central 1 to 2 mm of the skin to promote new skin for healing as well as removing a large area which could be a nidus of infection. In general, the anatomy was difficult to appreciate initially given the proximity to surgery. There is a significant amount of scarring throughout the entire knee. A rondure was used to remove anything which appeared to be unhealthy or necrotic. There is no purulence anywhere to be found. I did take a culture swab deep within the knee given my concern for infection since the knee was open by as well as her history. Continue to a aggressive synovectomy completely around the knee working way up into the suprapatellar pouch and in the medial lateral gutters. This was also carried around anteriorly and around the patella. The knee was then irrigated with 3 L of normal saline. A second look was then performed to sharply debride any other material which appeared to be contaminated or necrotic or unhealthy. I then brought the knee into flexion and removed the polyethylene component. The posterior aspect of the knee was debrided with a rongeur and then once again the entire knee was irrigated with 3 L of normal saline. After this was completed another look was carried out within the knee and I did not see any concerning tissue. The knee was then irrigated with Irricept solution where it was left in the wound for a minimum of 3 minutes. While this was being completed, on the back table 1 g vancomycin powder was mixed with the Stimulan calcium phosphate product. This was prepared in small beads to be used at the conclusion of the case. A new posterior stabilized 4 x 7 mm polyethylene was then placed without difficulty. The knee was held in 90 degrees of flexion and the arthrotomy was closed using interrupted #1 PDS sutures laden with antibiotics. Again, since this wound was dehisced completely in a less than ideal environment and with Melvi sister, I wanted to take every precaution to hopefully prevent against infection. Once the superior portion of the arthrotomy into the quadriceps was closed, I then placed the stimulant beads into the suprapatellar pouch. The knee was brought back into flexion and the arthrotomy was finally closed with multiple interrupted #1 PDS sutures. The tissue quality was quite poor in general. And large bites were taken. Superficial wound was once again irrigated with Irricept chlorhexidine solution. The deep tissues of the knee were injected with a mixture of 0.25% bupivacaine, 30 mg ketorolac, and 20 cc of Exparel. I also anesthetized the soft tissues in the skin. The deep layers were then closed with a 0 PDS in interrupted fashion. This brought the skin edges back together. The skin was then closed with #2-0 nylon in a near far far near pattern. A few simple's were also used. This kept some of the tension off of the skin edges and nicely everted the skin edges bring them back together. I then placed a miriam wound vacuum device onto the wound. This was secured with the included dressing materials and had a good seal. She was then placed into a knee immobilizer. At the end the case all counts were correct. Melvi may weight-bear as tolerated. For mobilization I want her to wear the knee immobilizer. However, if she is not moving around, she may remove the knee immobilizer and bend the knee up to 90 degrees. She should use an assistive device for ambulation at least for the next 2 weeks. I will see her back in 3 weeks. Melvi was transferred to the hospital bed without difficulty an suffering no apparent complication.
--- NOTE | 2019-10-11 11:57 | W.PM.DS.N ---
Date of service: 10/11/19 DS: Diagnosis Discharge Diagnosis (1) Surgical wound dehiscence: Status: Acute Discharge Plan Disposition Patient Disposition: HOME Condition: Stable Discharge Details Chief Complaint: Orthopedic Clinical Impression: Surgical wound dehiscence Reason For Visit: RIGHT SURGICAL WOUND DEHISCENCE Admit Date/Time: 10/11/19 08:26 Admit Provider: Leonel Lugo Attending Provider: Leonel Lugo Primary Care Provider: QIANA WEEMS ED Provider: Lei Harrison [facility] Course Hospital Course: Patient was admitted to the medical/surgical floor following the procedure. The surgery was tolerated well without any notable medical, surgical, or anesthetic complications. She did have difficulty with waking following the procedure and vasilating between alertness and somnolence. She was arousable and would follow commands. Pain was controlled with previous oral regimen. Home Meds and New Rx's Prescriptions: Continued methadone 5 mg/5 mL solution 180 mg PO DAILY RF: 0 (DME) Crutches Qty: 1 RF: 0 (DME) shower chair Qty: 1 RF: 0 (DME) compression socks, medium Misc See Rx Instructions .ROUTE .MEDSUPPLY Qty: 1 RF: 0 (DME) Bone Stimulator Qty: 1 RF: 0 oxycodone 30 mg tablet 60 mg PO Q4H MDD 360mg PRN (Reason: pain) Qty: 84 RF: 0 sulfamethoxazole-trimethoprim 800-160 mg tablet 1 tab PO BID Qty: 14 RF: 0 methylphenidate HCl [Ritalin] 20 mg tablet 20 mg PO TID MDD 60mg Qty: 42 RF: 0 pregabalin 300 mg capsule 300 mg PO BID Qty: 60 RF: 0 (DME) Shower Chair Qty: 1 RF: 0 (DME) Raised Toilet Seat Qty: 1 RF: 0 ibuprofen 800 mg tablet 800 mg PO Q8H PRN (Reason: pain) Qty: 90 RF: 6 aspirin 81 mg tablet,delayed release (DR/EC) 81 mg PO BID Qty: 60 RF: 0 acetaminophen [Mapap Extra Strength] 500 mg tablet 1,000 mg PO TID Qty: 90 RF: 0 pantoprazole 40 mg tablet,delayed release (DR/EC) 40 mg PO DAILY Qty: 30 RF: 3 bisacodyl 5 mg Tablet,Delayed Release (Dr/Ec) 5 mg PO TID PRN PRN (Reason: Constipation) Qty: 15 RF: 3 diazepam 10 mg tablet 10 mg PO QHS PRN (Reason: sleep) Qty: 14 RF: 0 Narcan 4 mg/actuation spray,non-aerosol 1 spray SHRUTI ONCE PRN (Reason: opioid overdose) Qty: 2 RF: 0 albuterol sulfate [ProAir HFA] 200 PUFF HFA aerosol inhaler 2 puff Inhalation PRN PRNRF: 0 lamotrigine [Lamictal] 200 MG tablet 200 mg PO DAILY RF: 0 Discontinued metronidazole 500 mg Tablet 500 mg PO BID Qty: 14 RF: 0 Discharge Instructions Additional Instructions: Activity: You may put all of your weight on the right knee. However, for the next 2 weeks, you need to wear the knee immobilizer to provide some support to the knee and the knee closure. Use your crutches to support ambulation. When you are not standing or walking, you may remove the brace and work on some gentle range of motion. It is important that when resting you work on keeping the knee straight. Avoid putting a pillow behind the knee as this will encourage flexion. - Hold on outpatient physical therapy for at least 2-3 weeks. Dressing: Keep the surgical dressing (JOSÉ Wound Vacuum Dressing) in place for at least one week. After the first week, you may remove this dressing and then replace with a Mepilex Silver dressing (provided by the hospital). Please try to keep the wound dry. Most patient prefer to cover with ClingWrap or Saran Wrap to keep the dressing dry. After the first week, the dressing may be removed and replaced with the provided Mepilex silver dressing. Medications: - You should take Tylenol and anti-inflammatory Ibuprofen as your primary pain control medications - You have been prescribed a stronger pain medication Oxycodone for breakthrough pain, take as needed as prescribed. - You should continue Pregabalin, 300mg twice daily. - You also have Diazepam to take at night for pain and sleep. - You have also been prescribed a stomach acid reduction agent Pantoprozole to help reduce stomach acid and reflux. - You should continue to take Aspirin 81mg twice a day for DVT prevention unless instructed otherwise. - If you have constipation you should take Colace or Miralax (both [id number]). It takes most people 3-4 days to have a bowel movement. - You will continue on your antibiotic for the next 3 days. Follow-up: 2-3 weeks. If you have any acute concerns or questions, please do not hesitate to contact the office at [phone]. You may contact Dr. Lugo with any questions after hours through the hospital at [phone] or on his cell phone at [phone]. Referrals: Leonel Lugo MD [ [facility] STAFF PHYSICIAN] - Activity:: Elevate Remove Dressings/Wound Care:: Do Not Remove Shower/Bathe:: Cover Activity:: Activity as Tolerated Equipment/Supplies:: No Equipment Needed Diet:: As Tolerated Discharge Orders Discharge Orders: Discharge Order (Routine); Ordered 10/11/19 Ordered By: Leonel Lugo DS: Summary Status at Discharge Functional status at discharge: uses cane/walker Overall status at discharge: patient is progressing back to baseline Mental Status: mental status grossly normal Speech and Movement: speech and movement normal Mood: irritable mood Affect: irritable affect Exam Psych Mental Status: mental status grossly normal Speech and Movement: speech and movement normal Mood: irritable mood Affect: irritable affect DS: Data Vitals/I&O Vitals and I&O: Vital Signs Temperature 36.4 C L 10/11/19 11:51 Temperature Source Temporal Artery Scan 10/11/19 06:58 Pulse 64 10/11/19 11:51 Respiratory Rate 14 10/11/19 11:51 Respiratory Effort Non-Labored 10/11/19 07:04 Blood Pressure 143/95 H 10/11/19 11:51 Blood Pressure Position Sitting 10/11/19 06:58 Pulse Oximetry 100 10/11/19 11:51 Respiratory End-tidal CO2 40 10/11/19 11:51 Oxygen Delivery Method OxyMask 10/11/19 11:51 Oxygen Flow Rate 10 10/11/19 11:51 Pain Level 10 10/11/19 06:58 Intake & Output 10/10/19 10/10/19 10/11/19 11:59 23:59 11:59 Intake Total 710 / 710 Output Total 50 / 50 Balance 660 / 660 Weight 85.729 kg Intake: IV 710 / 710 Output: Estimated Blood Loss 50 / 50 Data Completed and Pending Labs on day of discharge: Labs from last 24 hours 10/11/19 09:52 Gram Stain Cancelled Anaerobic Culture Cancelled Anaerob Organism Srce Cancelled Anaer Org ID Rpt Status Cancelled 10/11/19 09:54 Knee - Right Anaerobic Culture - Pending 10/11/19 09:52 Knee - Right Surgical Culture - Pending 10/11/19 09:52 Knee - Right Gram Stain - Pending Preliminary micro results at discharge 10/11/19 09:54 Anaerobic Culture - Pending Knee - Right 10/11/19 09:52 Surgical Culture - Pending Knee - Right Gram Stain - Pending [facility] Medical History Asthma (Chronic) History of drug abuse (Acute) per pt clean for 10 months History of hepatitis C (Acute) per pt has been treated but it didn't cure it made my numbers go down--Pt. denies having Hep C. 09/24/19 Hx of seizure disorder (Acute) Pt. states it was from detox Surgical History H/O excision of mass (Acute) Lipomas removed from base of neck and lower midback 11/2018 in [place], [place] History of arthroscopic knee surgery (Inactive) Right History of right femoral derotational osteotomy (Acute 09/23/18) History of tubal ligation (Inactive) Family History Father Cancer Mother Cancer Aunt Cancer Social History Smoking/Tobacco Use Status: Current every day Tobacco Type: cigarettes Smoking packs per day: 0.5 Smoking cigarettes per day: 10.0 Alcohol Intake: current Alcohol Intake frequency: holidays/special occasions only Drug use: Daily Substance use type: marijuana Current gender identity: female Do you feel safe at home: Yes Do you feel safe in your relationship?: Yes
[2019-10-11] MEDS: oxyCODONE 15 MG TAB 60 MG PO (14:18)
[2019-10-11] MEDS: Acetaminophen 500 MG TAB 1000 MG PO (14:40)
== END 2019-10-11 15:24 | disposition home or self-care (01) | DRG 909 ==
LOC: ER 07:42 → SUR 08:47 → MS 13:21 → ER 10-12 09:38 → SUR 10-12 09:38 → MS 10-20 16:21
PROVIDERS: Admitting Provider Student in an Organized Health Care Education/Training Program; Emergency Provider Emergency Medicine; PCP Registered Nurse; Visit Provider Student in an Organized Health Care Education/Training Program
PROC: 0SPC09Z Removal of Liner from Right Knee Joint, Open Approach (ICD-10-PCS; CPT 27486; principal; 2019-10-11 08:05)
DX: T81.32XA Disruption of internal operation (surgical) wound, not elsewhere classified, initial encounter (principal); Z96.651 Presence of right artificial knee joint; F17.210 Nicotine dependence, cigarettes, uncomplicated; R45.1 Restlessness and agitation; Z98.890 Other specified postprocedural states
CPT/HCPCS: 27486; 87070; 87077; 99253; 99284; NC; 87075; 87186; 87205; G0378; J0131; J0690; J1100; J1885; J2001; J2250; J2405; J3010; L1830

== ENCOUNTER 2019-11-03 07:33 | Outpatient (CLI) | payer MEDICAID, SELFPAY ==
[2019-11-05 05:06] LABS: SARS-CoV-2 RNA Undetected (Undetected); SARS-CoV-2 Specimen Source Nasopharynx
== END 2019-11-03 07:53 ==
PROVIDERS: PCP Registered Nurse; Visit Provider Registered Nurse
DX: Z11.59 Encounter for screening for other viral diseases (principal)
CPT/HCPCS: U0003

== ENCOUNTER 2020-01-04 12:52 | Outpatient (REF) | payer MEDICAID, SELFPAY ==
[2020-01-04 13:26] LABS: Clarity Bloody
== END 2020-01-04 13:12 ==
LOC: LBN 12:52
PROVIDERS: PCP Registered Nurse; Visit Provider Student in an Organized Health Care Education/Training Program
DX: M25.561 Pain in right knee (principal); T84.84XA Pain due to internal orthopedic prosthetic devices, implants and grafts, initial encounter; Z96.651 Presence of right artificial knee joint
CPT/HCPCS: 87077; 87070; 87186; 87205; 89051

== ENCOUNTER 2020-01-04 14:16 | Outpatient (CLI) | payer MEDICAID, SELFPAY ==
--- NOTE | 2020-01-04 10:00 | DI.RAD_ITS ---
EXAM: XR FEMUR RT CLINICAL HISTORY: f/u R TKA with pain. TECHNIQUE: 2D digital imaging was performed. COMPARISON: CR XR FEMUR RT from 05/29/2019 CR XR KNEE RT 2V AP,LAT from 09/30/2019 FINDINGS: There is no acute fracture or dislocation. There has been no change in alignment of the old distal r ight femoral fracture. The patient has a right knee replacement. The visualized portions appear sta ble. The soft tissues are unremarkable. IMPRESSION: Stable right femur. DATA REPOSITORY: RADIATION DOSE DELIVERED:
--- NOTE | 2020-01-04 10:00 | DI.RAD_ITS ---
EXAM: XR KNEE RT 2V AP,LAT CLINICAL HISTORY: f/u R TKA with pain. TECHNIQUE: 2D digital imaging was performed. COMPARISON: CR XR KNEE RT 2V AP,LAT from 09/30/2019 FINDINGS: BONES: No acute fracture is present. There is an old distal right femoral fracture. No bony destruc tive lesion is seen. JOINTS: There is again seen a right total knee replacement. The orthopedic hardware appears stable. There is a joint effusion. SOFT TISSUE: There is soft tissue swelling in the suprapatella and prepatellar regions. IMPRESSION: Swelling in the prepatellar and suprapatellar soft tissues. Joint effusion. DATA REPOSITORY: RADIATION DOSE DELIVERED:
== END 2020-01-04 14:36 ==
PROVIDERS: PCP Registered Nurse; Visit Provider Student in an Organized Health Care Education/Training Program
DX: M25.461 Effusion, right knee (principal); Z96.651 Presence of right artificial knee joint
CPT/HCPCS: 73552; 73560

== ENCOUNTER 2020-01-08 13:10 | Outpatient (CLI) | payer MEDICAID, SELFPAY ==
[2020-01-09 17:55] LABS: COVID-19 RT-PCR Result NEGATIVE (Negative)
== END 2020-01-08 13:30 ==
PROVIDERS: PCP Registered Nurse; Visit Provider Student in an Organized Health Care Education/Training Program
DX: Z11.59 Encounter for screening for other viral diseases (principal); M25.561 Pain in right knee; T84.53XA Infection and inflammatory reaction due to internal right knee prosthesis, initial encounter; Z01.818 Encounter for other preprocedural examination
CPT/HCPCS: 36415; 80048; 85027; 85652; 86850; 86900; 86901; 86920; U0003; 86140

== ENCOUNTER 2020-01-14 10:16 | Outpatient (CLI) | payer MEDICAID, SELFPAY ==
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
[2020-01-14 11:07] VITALS: BP 148/83; PULSE 75; RESP 16; TEMP 36.2; O2SAT 98
== END 2020-01-14 10:36 ==
LOC: PDS 01-15 08:16 → DSU 03-08 09:43
PROVIDERS: PCP Registered Nurse; Visit Provider Student in an Organized Health Care Education/Training Program
DX: T84.84XA Pain due to internal orthopedic prosthetic devices, implants and grafts, initial encounter (principal)
CPT/HCPCS: 36415; 87040

== ENCOUNTER 2020-01-18 07:47 | Outpatient (CLI) | payer MEDICAID, SELFPAY ==
[2020-01-19 21:05] LABS: COVID-19 RT-PCR Result NEGATIVE (Negative)
== END 2020-01-18 08:07 ==
PROVIDERS: PCP Registered Nurse; Visit Provider Student in an Organized Health Care Education/Training Program
DX: Z11.59 Encounter for screening for other viral diseases (principal); Z01.818 Encounter for other preprocedural examination; T84.53XA Infection and inflammatory reaction due to internal right knee prosthesis, initial encounter
CPT/HCPCS: U0003

== ENCOUNTER 2020-01-21 10:39 | Inpatient (IN) | payer MEDICAID, SELFPAY ==
--- NOTE | 2020-01-19 14:40 | NUR.NOTE ---
This RN spoke with pt. for pre-op call, pt. stated she has NOT used any recreational drugs since last time of 01/11/20 (Injecting Focalin). Pt. was given pre-op instructions, NPO after midnight, no gum, no mints, no chewing tobacco, no lozenges or hard candy. Water only until 0730, with an arrival time of 1030. Pt was instructed to take her scheduled medications, Lyrics, Pantoprazole, Oxycodone, Methadone, and Lamictal with sips of water morning of surgery. Pt. stated understanding. (Medications reviewed and cleared for DOS with Rosendo Kwok CRNA). Pt was reminded to remain quarantining until DOS, and not to go out into the public, or go into other rooms at [facility] where she is currently staying. Pt. stated understanding. Pt, was also reminded that she is to continue wearing her mask while she is at [facility], and that she will also receive a urine test pre-operatively. Pt. stated agreeance and understanding. Nursing Note:
[2020-01-21] VITALS (65 sets, daily range): BP systolic 113–176; BP diastolic 47–153; PULSE 58–81; RESP 4–24; TEMP 36.7–37; O2SAT 85–100
[2020-01-21] MEDS: Celecoxib 200 MG CAP 400 MG PO (11:17)
[2020-01-21] MEDS: Acetaminophen 500 MG TAB 1000 MG PO (11:17)
[2020-01-21] MEDS: Lactated Ringers 1,000 ML 80 ML IV (12:00)
[2020-01-21] MEDS: ceFAZolin 2 GM/50 ML BAG IVPB (13:15)
[2020-01-21] MEDS: Ketorolac 30 MG/ML VIAL (15:58)
[2020-01-21] MEDS: Bupivacaine 0.25% Pres-Free 30 ML VIAL (15:58)
[2020-01-21] MEDS: Normal Saline 20 ML VIAL (15:58)
[2020-01-21] MEDS: HYDROmorphone 2 MG/ML VIAL IVP ×2 (18:03→20:59)
[2020-01-21] MEDS: Normal Saline Flush 10 ML SYR IV ×2 (18:05→21:00)
[2020-01-21] MEDS: diazePAM 5 MG TAB 10 MG PO (18:26)
[2020-01-21] MEDS: ACETAMINOPHEN 1,000 MG/100 ML BTL 400 MG IVPB (19:02)
--- NOTE | 2020-01-21 19:27 | W.PM.OP ---
Date of service: 01/21/20 Time of Service: 16:40 Operative Note Operative Note DATE OF PROCEDURE: 01/21/20 PRE-OP DIAGNOSIS: Infected Periprosthetic Knee Infection POST-OP DIAGNOSIS: same PROCEDURE: Explantation of right knee arthroplasty, debridement, antibiotic delivery bead placement, modifiied antibiotic spacer placement SURGEON: Leonel Lugo ASSISTANT PASSENGER LOCOMOTIVE ENGINEER: Milena Arevalo ANESTHESIA: GETA ESTIMATED BLOOD LOSS: 1,200 PATHOLOGY: other (Multiple cultures were sent for aerobic, anaerobic, and fungal) TOURNIQUET TIME: 0 COMPLICATIONS: None Patient was transported to: ICU Patient's condition: stable Implants: Depuy Attune Posterior Stabilized Femur, Size 4 Depuy Attune RP/PS 4x10mm poly 20cc of Antibiotic Loaded Stiumlan Bullets 10cc of Antibiotic Loaded Stimulan Beads Indications: Kenji is a 39 year old female has had a tumultuous course following her initial distal femoral osteotomy. After healing of the osteotomy site was completed she was then revised to a total knee arthroplasty. She did very well initially until she tripped and fell landing on a hyperflexed knee down the stairs and dehiscing the entire wound and arthrotomy. She was taken to the operating room and repair of the arthrotomy and the soft tissue envelope was performed. She healed this well but starting after the first week started having increasing pain. She was brought into the office but refused aspiration. She called on multiple occasions with some increasing pain but due to social circumstances it was difficult in getting into the office. Finally, aspiration was performed which grew staph epidermidis. Given the history of this with multiple surgeries and the organism growing, I consulted a few other arthroplasty surgeons who agreed that a revision was the best next step rather than a debridement with antibiotics and implant retention. I reviewed this with Kenji. I discussed the risk and benefits. I discussed the risk in detail to include bleeding, persistent infection, damage to nerves and vessels, damage to muscles and tendons, fracture, need for repeat procedures, blood clot, worsening infection requiring amputation or fusion. Despite these risks, she elected to proceed. When she initially presented for this procedure she had reported to be using IV drugs the day before and by later quarantine so blood cultures were obtained at that time and she was requarantine with a Covid test. Today, her blood cultures were negative and her Covid test was negative. She admits to being quarantined during this timeframe. Findings: There was some gross purulence encountered. There is also significant amount of necrotic hypertrophic tissue seen within the knee itself and a small defect over the superior medial aspect of the patella into the joint. Both the tibia and the femur had some signs of partial loosening or areas of the cement mantle between the cement and bone were loose. All implants were removed. All cement was removed. 9 L of irrigation were utilized throughout the case. New drapes and new instruments were utilized in a fraction less antibiotic spacer was placed. Procedure Description: Kenji was greeted in the preoperative holding area. Her identity was confirmed the correct side was identified and marked. The consent was reviewed the patient signed. History and physical was updated. She was taken to the operating room placed in supine position. She refused any regional peripheral nerve blockade and elected for a general anesthetic. In the supine position all bony problems well-padded. A general anesthetic was administered. A tourniquet was placed high up onto the right thigh but was not used. Prophylactic antibiotics in the form of cefazolin were administered. 1 g of tranexamic acid was administered. The right leg was prepped with ChloraPrep and draped in standard fashion. A timeout was held for safe surgery. After confirmation of all necessary components for the case were available and in the room, case proceeded. I excised the previous scar with a 3 mm wide excision of skin from the previous scar incorporating tardy of the scar and extending approximately distally by 1 cm. The skin and some subcutaneous tissue was excised sharply. Deeper dissection was carried down both with knife and electrocautery to identify tissue planes. Given the multiple other surgeries the tissue plane was very difficult to appreciate. Immediately, over the patella and the medial aspect of patella there was noted to be some purulent type material. With minimal dissection there was expression of purulent fluid. There is also seen necrotic hypertrophic synovium in this area as well which was sent to micro for both aerobic, anaerobic, and fungal cultures. There is to be some defect over this arthrotomy site. There also was like a reconstitution of tendinous tissue on top of the patella encapsulating or at least superficially binding the arthrotomy. Therefore, I utilize this as a flap and raised it to find a more natural arthrotomy site and then performed a medial parapatellar arthrotomy. This was taken sharply through all the tissue both proximally and distally. There is notable hypertrophic synovium and purulent material which was encountered mostly of the tissue rather than true pus. Other samples were taken of the tissue in this area and sent to microbiology. Bleeding was vigorous at first. I chose not use a tourniquet due to previous pain issues and the infection. However, there was some blood pressure control issues in the beginning which caused a quick loss of blood which soon stabilized after cauterization of bleeding vessels and normalization of blood pressure. She remained hemodynamically stable. An aggressive synovectomy was performed using 2 Allises and 2 Galdino's both medially and laterally. I then utilized a rongeur to remove any other necrotic appearing or devitalized tissue. This debridement excision did extend quite proximally up in the anterior thigh as well as the lateral thigh. There is mostly necrotic tissue more laterally than medially. The knee was then flexed up after releasing the medial tissue around the implant. The polyethylene was removed. This exposed the posterior synovium which was also lightly debrided. I then focused on removal of the implants. Using flexible osteotomes I went to try to separate the mantle between the implant and cement. However, was evident mostly laterally on the femur and medially on the tibia that there is already loosening between the cement at the bone. These areas I tried not to go into the bone to preserve as much bone as possible. In the areas of seem to have good fixation I loosened with the osteotome. I then placed a bone tamp on the distal flange of the femoral implant and with light taps continue to have the implant moving medially to anteriorly and laterally and [id number] and increasing in the intensity of the blows of the mallet. There is slow subtle motion until the implant was able to be removed fully. There is very minimal bone attached to the implant but most the cement came with the implant. Another culture was sent from the intramedullary space as well as from the posterior synovium. The posterior synovium was then debrided with a rongeur being careful not to penetrate to far posteriorly. A curette was used to remove any remnant cement. A small osteotome was also used for any other areas of cement however there is very little remaining cement except over the anterior flange which was removed without difficulty. In general, there is no significant bone loss appreciated. Attention was then turned to removing the tibial implant. Just like the femur there is very little well attached cement mantle. In the areas, mostly lateral, where there was attached cement used a flexible osteotome to free this up. I was able to place an osteoma underneath the tibial component and with some white mallet blows freed up so that removed itself with minimal difficulty. There is minimal bone attached, minimal bone loss, and only small amounts of cement remaining mostly within the metaphyseal region of the stem and flange. Then used a series of curettes to chisel out the well adhered cement from within the tibia. I used a back scraping curette to also remove this from within the tibia. The intramedullary space the tibia was opened with a curette for complete removal of necrotic material. Once all cement was removed I then turned my attention patella. The patella was removed with an osteotome and remnant cement and polyethylene was removed with a rongeur and curette. Using a rongeur I continued a to perform a debridement while we irrigated the knee with 9 L of normal saline. During this process irrigation was positive there is any large areas of necrotic tissue or synovium which were missed and these areas were debrided aggressively. The canals were also irrigated with pulse lavage system and likewise debrided of any necrotic or apparently infectious material. During this, on the back table, 20 cc of stimulan was prepared with tobramycin and vancomycin and a bullet format for insertion into the canals. 10 cc of stimulan were also utilized to make tobramycin and vancomycin beads. For each 10 cc of calcium sulfate beads, there was 1 g of vancomycin and 240 g of tobramycin. At this point the leg was cleaned with a clean lap and new drapes were applied. All instruments which were used for the first after the case were then passed off including light handles, Bovie electrocautery, and suction. All surgical team members changed scrubs and gloves. I then trialed components to determine appropriate fit for the low fraction antibiotic spacer. The same size femur would be used given there is minimal bone loss and a size 4 x 10 polyseem to fit appropriately. This provided stability hyperextension as well as to varus and valgus stress. The stimulant bullets were then placed into the femoral canals and the tibial canals with the seo team lead device. On the back table 2 batches of antibiotic laden cement were prepared along with additional 3 g of vancomycin and 1.2 g of tobramycin per batch of cement. The pharmacy did not have any additional tobramycin. The cement was also colored with methylene blue for later identification. The cement was mixed by hand for approxi-30 seconds until his runny and then the antibiotics were added in powder form. These are continue to be mixed by hand. Once they are no longer sticky and somewhat doughy it was placed onto the femur and the femoral component was inserted. Likewise, cement was placed onto the tibia and a tibial polyethylene was inserted. Excess cement was quickly removed and the leg was brought into about 5 degrees of extension where it stayed. The knee was moved around slightly and the tibial and femoral bone was not prepared fully to hopefully provide limited cement penetration. Once cured, the knee was taken through range of motion. Knee was stable and the components were stable. The knee was then thoroughly irrigated with irrisept chlorhexidine solution. Stimulant beads were placed within the suprapatellar pouch. The arthrotomy was then closed with #1 antibiotic laden PDS. Multiple interrupted sutures were placed throughout the entire arthrotomy with good reapproximation of the tissue. Tissue planes were challenging to reapproximate I was able to mobilize some of the failed arthrotomy over the patella overlapping the superficial tissues on top of itself to reinforce the repair. The knee was then once again irrigated with irrisept solution. The tissues deep within the knee and in this surrounding subcutaneous tissue and skin were then injected with a mixture of 0.5% Vivacaine, 20 cc of Exparel, 30 mg of ketorolac, expanded with additional 50 cc of saline. The deeper tissues been closed with a 0 Vicryl. Skin was closed with Prolene. A miriam vacuum-assisted dressing was applied to manage any drainage. A thigh to foot Sebastian wrap was then applied followed by a knee immobilizer. Multiple specimens were taken and sent to microbiology during the case. At end the case all counts were correct. There was notable blood loss of 200 cc yet she remained hemodynamically stable. She was then transferred to the ICU in a stable condition for postoperative management, monitoring, and pain treatment with ketamine and Lidocaine.
[2020-01-21] MEDS: Pregabalin 100 MG CAP 300 MG PO (20:11)
[2020-01-21] MEDS: oxyCODONE 10 MG TAB PO (20:15)
[2020-01-22] VITALS (154 sets, daily range): BP systolic 93–223; BP diastolic 52–197; PULSE 64–129; RESP 11–38; TEMP 36.2–37.5; O2SAT 87–100
[2020-01-22] MEDS: HYDROmorphone 2 MG/ML VIAL IVP ×7 (00:27→20:46)
[2020-01-22] MEDS: oxyCODONE 10 MG TAB PO (00:52)
[2020-01-22] MEDS: ACETAMINOPHEN 1,000 MG/100 ML BTL 400 MG IVPB ×3 (01:55→17:37)
[2020-01-22] MEDS: diazePAM 5 MG TAB 10 MG PO ×2 (05:14→17:28)
[2020-01-22] MEDS: Pantoprazole 40 MG TABCR PO (06:35)
[2020-01-22 06:45] LABS: Anion Gap 7.7 mmol/L (3-11); BUN 12 mg/dL (7-18); CO2 28.3 mmol/L (21.0-32.0); CREATININE 0.76 mg/dL (0.55-1.02); Chloride 104 mmol/L (98-107); Glucose 117 mg/dL (74-106); Potassium 4.8 mmol/L (3.5-5.1); Sodium 140 mmol/L (136-145)
[2020-01-22 06:48] LABS: MCH 20.6 pg (27.0-33.0); MCHC 28.3 % (32.0-36.0); MPV 9.7 fL (8.0-11.0); Platelet Count 413 10^3/uL (130-400); RBC 2.52 10^6/uL (3.93-5.22); RDW 19.3 % (11.7-14.6); RDW-SD 50.7 fL; WBC 13.63 10^3/uL (4.4-10.8)
[2020-01-22 07:19] LABS: HGB 5.2 g/dL (11.2-15.7)
[2020-01-22 07:21] LABS: HCT 18.4 % (36.0-46.0)
--- NOTE | 2020-01-22 07:58 | PDOC.ANES ---
Date of service: 01/22/20 Time of Service: 07:40 Anesthesia Note Report Anesthesia Note: I saw June this morning. Before entering room, she was lying in bed, appeared in no acute distress with eyes closed. As I entered she opened her eyes with no stimulation and stated that she is a 9/10 pain in her knee. We discussed that we expected her pain management would take time but that she was doing great. I gave her a 0.25mg/kg bolus of ketamine and increased her basal infusion from 1 to 1.5mg/kg/hr. She now states she is a 2/10. She continues on her 1.5mg/min of lidocaine infusion as well. Nursing will continue to monitor her, although we expect her tolerance to be high given recreation and prescribed medication history. She does state she is hungry and thirsty and would like to get out of bed to sit in a recliner soon. I asked that she wait a while until we can assess how the medication change has effected her. I will check on her throughout today and nursing will call with any questions or concerns.
[2020-01-22] MEDS: lamoTRIgine 100 MG TAB PO (08:29)
[2020-01-22] MEDS: lamoTRIgine 25 MG TAB PO (08:29)
[2020-01-22] MEDS: Pregabalin 100 MG CAP 300 MG PO ×2 (08:30→20:06)
[2020-01-22] MEDS: Dexamethasone 4 MG TAB PO (08:31)
[2020-01-22] MEDS: diphenhydrAMINE 25 MG CAP PO (08:32)
[2020-01-22] MEDS: Ketorolac 15 MG/ML VIAL IVP ×3 (08:32→20:05)
[2020-01-22] MEDS: oxyCODONE 10 MG TAB 40 MG PO ×3 (08:33→22:16)
[2020-01-22] MEDS: Methadone Liquid 10 MG/ML 180 MG PO (08:35)
[2020-01-22] MEDS: LIDOCAINE/D5W 2,000 MG/500 ML BAG 22.5 MG IV (10:40)
[2020-01-22] MEDS: rifAMPin 300 MG CAP PO ×2 (10:49→20:06)
[2020-01-22] MEDS: Docusate Sodium 100 MG CAP PO (12:07)
[2020-01-22] MEDS: Methylphenidate 10 MG TAB 20 MG PO (13:36)
[2020-01-22] MEDS: Normal Saline Flush 10 ML SYR IV (13:36)
--- NOTE | 2020-01-22 14:34 | W.PM.PROGNOT ---
Date of Service Date of service: 01/22/20 Time of Service: 12:35 Assessment and Plan Assessment and plan (1) Difficult intravenous access: Status: Acute Assessment and plan: PICC team was consulted last night after the surgery. Successful PICC placement was performed and it has been running appropriately. Maintain PICC access for all hospital care at this point. (2) Acute postoperative pain: Status: Acute Assessment and plan: Melvi has significant postoperative pain. She is highly sensitized with her chronic opiate dependency requiring significant amounts of medications. She is currently in the ICU for ketamine administration to help support postoperative pain and to appropriately monitor her. She is tolerating this therapy well and this seems to be providing relief without the use of as many narcotics. Anesthesia is the primary team managing the ketamine. There is a protocol for titration. Please direct questions about the ketamine to anesthesia. The ideal plan would have is continuing the ketamine throughout the day tomorrow, Saturday, and then slowly starting to titrate back to the ketamine while increasing her daily narcotics. We will continue with IV hydromorphone or oral oxycodone as needed. She will continue with her chronic methadone. We also have Valium all order as well which is done well with Melvi given her tendency for anxiety and agitation and even some flights of ideas. (3) Opioid dependence with current use: Status: Acute Assessment and plan: Her chronic opiate dependence makes managing pain difficult. Continue with home-based methadone of 180 mg daily. (4) Acute blood loss anemia: Status: Acute Assessment and plan: Melvi has some chronic anemia based on preoperative labs. We did loosen if amount of blood during the surgery, approximate 1200 cc. Her hemoglobin is 5.2 this morning. However, she has remained hemodynamically stable overnight with minimal tachycardia and actual hypertension. Recheck hemoglobin after transfusion of 2 units. (5) Infection of prosthetic right knee joint: Status: Acute Assessment and plan: Melvi is a 39-year-old who is now status post explantation of right knee components removing all cement and necrotic material. Previous aspiration revealed staph epidermidis. Cultures from the operating room are pending. She is currently on vancomycin and rifampin. We will monitor vancomycin levels. PICC line is placed. This will require at least 6 weeks of antibiotics. However, I do not think she would be a candidate for any long-term IV medications. I did review the case with infectious disease at [facility] who does make the suggestion of either once daily daptomycin or oral linezolid. We will start trending the C-reactive protein and the sed rate on positive #2. I will also work on prior authorization for linezolid as I expect that Melvi want to go home once she has gotten off the ketamine and has managed pain. We will DC the Watts today. She may ambulate as tolerated using a walker or crutches at all times. While she is mobilizing she is of the knee immobilizer in place. I will also make a physical therapy consult. Qualifiers: Encounter type: subsequent encounter Qualified Code(s): T84.53XD - Infection and inflammatory reaction due to internal right knee prosthesis, subsequent encounter Subjective Subjective Interval history since last seen: Melvi reports to be doing okay. She does complain about not being of the move and not having a proper chair and about the food. However, she feels better now than she did earlier. She complains of significant pain overnight last night but is doing much better now. Anesthesia has been able to titrate up her ketamine which seems to have helped. While she remained hemodynamically stable, her hip morning hemoglobin came back at 5.7 and therefore she was transferred 2 units. She continues to be stable. She denies any numbness or tingling. She denies any chest pain or shortness of breath. Exam Narrative Exam Narrative: Sitting in the chair. Quite fidgety and anxious appearing but this is close to her baseline. Drowsy but still able to respond appropriately and stay awake. Right leg is within the knee immobilizer. She demonstrates ankle dorsiflexion, plantarflexion, eversion, inversion. Dressings clean dry and intact. Objective Last Vital Signs Temp 36.4 C L 01/22/20 15:43 Pulse 97 H 01/22/20 16:19 Resp 20 01/22/20 18:10 BP 168/97 H 01/22/20 16:03 Pulse Ox 94 01/22/20 18:20 Laboratory Results - last 24 hr 01/22/20 01/22/20 01/22/20 06:24 06:24 07:16 WBC 13.63 H RBC 2.52 L Hgb 5.2 L* Hct 18.4 L* MCV 73.0 L MCH 20.6 L MCHC 28.3 L RDW 19.3 H Plt Count 413 H MPV 9.7 Sodium 140 Potassium 4.8 Chloride 104 Carbon Dioxide 28.3 Anion Gap 7.7 BUN 12 Creatinine 0.76 Estimated GFR/1.73 m2 >= 60.00 Glucose 117 H Calcium 9.0 Magnesium 2.0 Patient ABO/Rh Cancelled Crossmatch See Detail
--- NOTE | 2020-01-22 16:07 | INITIAL_ITS ---
- If Service Date Differs Date of service: 01/22/20 Time of Service: 16:16 Care Management Initial Assess REASON FOR HOSPITALIZATION:: Explant of R TKA, Antibiotic spaer placement PAST MEDICAL HISTORY/PAST SURGICAL HISTORY:: Asthma, depression, hx of drug ab use, hepatitis C, seizure disorder, MRSA, excision of mass, R TKA, right femoral derotational osteotomy, tubal ligation PREVIOUS FUNCTIONAL STATUS/SOCIAL/FAMILY SUPPORTS:: Melvi lives alone in an apartment in [place], [place]. She is independent at baseline. Melvi uses a walker to ambulate because of recent knee surgery that was complicated by premature weight bearing. Melvi has 2 daughters and grandchildren and a mother who live in the area. Melvi does not drive because of a DUI; she uses [facility] for transportation. CURRENT FUNCTIONAL STATUS:: Melvi was sleeping. RN reported she did not sleep well last night and had fit full sleep when able. CM did not disturb her. ADVANCE DIRECTIVES:: None on file at [facility]. Has patient been provided with info about the portal/API?: No Did the patient sign up for the portal?: No CODE STATUS:: Full Code INSURANCE COVERAGE / FINANCIAL ISSUES:: [facility] CURRENT HOME/COMMUNITY SERVICES/EQUIPMENT:: Melvi uses crutches . She also goes to [facility] in [place] for methadine treatment PRIMARY CARE PHYSICIAN:: Joycelyn Adair POTENTIAL DISCHARGE NEEDS:: Determination of L/T ABX treatment; duration, route, frequency to determine disposition. PATIENT/FAMILY EDUCATION NEEDS:: Review of discharge instructions, discuss Ask Me Three. ANTICIPATED BARRIERS TO DISCHARGE:: As below. TRANSPORTATION:: TBD by mobility and disposition. PLAN:: Due to recent intravenous substance use, Melvi would not be a good candidate for outpatient IV ABX. She also is unlikely to tolerate a [facility] hospitalization. Dr. Lugo is hopeful that oral Linezolid 600 mg twice daily for six weeks will be recommended by [facility]; awaiting determination. Anticipate if Melvi is able to discharge home on oral antibiotics that a Prior Authorization process through her [facility] will be required. She continues to be closely monitored for pain control post surgically. CM continues to follow.
--- NOTE | 2020-01-22 17:28 | PHA.REVIEW ---
Pharmacy Admission Review - Admission Clinical Review codeine Allergy (Verified 01/21/20 10:52) hives with throat tightness morphine Allergy (Verified 01/21/20 10:52) hives and throat swelling Penicillins Allergy (Verified 01/21/20 10:52) Skin Rash Height 5 ft 3 in Weight 76.5 kg - Renal Dosing Renal Dosing: BUN 12 mg/dL (7-18) 01/22/20 06:24 Creatinine 0.76 mg/dL (0.55-1.02) 01/22/20 06:24 Medications needing adjustments: Reviewed - Anticoagulation Anticoagulation: Hgb 5.2 g/dL (11.2-15.7) L* 01/22/20 06:24 Hct 18.4 % (36.0-46.0) L* 01/22/20 06:24 Plt Count 413 10^3/uL (130-400) H 01/22/20 06:24 Creatinine 0.76 mg/dL (0.55-1.02) 01/22/20 06:24 DVT Prohphylaxis: Reviewed Medications: Enoxaparin - Opiate Usage Evaluate Pain Scale/Pains Meds: Reviewed (daily methadone, oxycodone 40mg PRN - 4 doses past 24 hours, hydromorphone 2mg PRN - 6 doses past 24 hours) Scheduled Bowel Reg ordered if on Opiates?: No (PRN orders) - Relevant Labs Sodium 140 mmol/L (136-145) 01/22/20 06:24 Potassium 4.8 mmol/L (3.5-5.1) 01/22/20 06:24 Chloride 104 mmol/L (98-107) 01/22/20 06:24 Magnesium 2.0 mg/dL (1.8-2.4) 01/22/20 06:24 - DM Control DM Control: Glucose 117 mg/dL (74-106) H 01/22/20 06:24 - Heart Failure/LA EF%, ANGEL's, B-Blockers, Diuretics: N/A - BP Control BP Control: Blood Pressure [Right Arm] 168/105 Blood Pressure 168/97 Blood Pressure 162/111 Blood Pressure 168/105 Blood Pressure 151/119 Blood Pressure 161/131 Blood Pressure 164/96 Blood Pressure 169/98 Blood Pressure 158/89 Blood Pressure 144/83 Blood Pressure 144/83 Blood Pressure 131/77 Blood Pressure 145/75 Blood Pressure 131/87 Blood Pressure 118/67 Blood Pressure 118/67 Blood Pressure 116/64 Blood Pressure 128/66 Blood Pressure 127/92 Blood Pressure 127/92 Blood Pressure 141/93 Blood Pressure 93/77 Blood Pressure 138/67 Blood Pressure 154/86 Blood Pressure 154/86 Blood Pressure 126/71 If elevated: Reviewed List meds needing interventions: will monitor, no med orders yet - Qtc Review If Elevated: N/A - IV to PO Switch IV Medications: Reviewed - Home Meds Relevent Home Meds Not ordered & why?: all ordered - Current meds Current Medication Order Review: Reviewed (Ketamine concentrated infusion: 5mg/ml currently running at 60mg/hr (decreased from 120mg/hr) - THIS IS FOR PAIN CONTROL PURPOSES and is NOT a palliative order; she is also receiving diazepam PRN, pregabalin BID, ketorolac q6h in addition to opiate usage for pain control) - Comments Comments/Follow Ups: ABX regimen: rifampin BID plus Vancomycin 1g q10h. Per ordering provider of ketamine (Pieter Kwok): Not a palliative order. For pain control postoperative in pain patient. Maintain 1.5mg/kg/hr infusion rate. Titrate to pain level less than 6/10. Patient must remain alert and responsive to verbal stimuli. May titrate by 0.25 mg/kg/hr every 30 minutes up to a max of 2 mg/kg/hr. Continue to assess pain and sedation scale every hour. Notify anesthesia of any questions.
[2020-01-22 20:26] LABS: HGB 8.6 g/dL (11.2-15.7)
[2020-01-22] MEDS: DEXTROSE 5%-WATER 250 ML (23:22)
[2020-01-23] VITALS (89 sets, daily range): BP systolic 110–201; BP diastolic 72–138; PULSE 61–176; RESP 11–32; TEMP 35.8–36.5; O2SAT 92–100
[2020-01-23] MEDS: diazePAM 5 MG TAB 10 MG PO ×4 (00:16→20:35)
[2020-01-23] MEDS: HYDROmorphone 2 MG/ML VIAL IVP ×4 (00:17→21:50)
[2020-01-23] MEDS: ACETAMINOPHEN 1,000 MG/100 ML BTL 400 MG IVPB ×3 (01:45→17:27)
[2020-01-23] MEDS: Ketorolac 15 MG/ML VIAL IVP ×4 (01:45→20:43)
[2020-01-23] MEDS: Normal Saline Flush 10 ML SYR IVP ×3 (02:36→07:53)
--- NOTE | 2020-01-23 04:36 | ANES_ITS ---
Date of service: 01/23/20 Time of Service: 04:36 Anesthesia Note Report Anesthesia Note: Check in on June around 0430. This is her second night of not sleeping. Her pain is well controlled and she remains with very little short term memory repeating questions. It is hard to know what is her and what is the ketamine, however there is no doubt that the ketamine is contributing to her behavior/mental status. The documented pain scales do not accurately reflect her pain as she states she is a 9/10 at times while she would be a 0- 2/10 using a faces scale as she is texting and appears comfortable until someone enters her room. We changed her ketamine dose from 120mg/hr down to 100mg/hr and also wrote her for ativan to help with restlessness which in part is likely due to ketamine. i spoke with nursing reiterating the importance of SpO2 monitoring as well as sedation checks after ativan administration given her multiple pharmaceutical needs. I will check on her tomorrow and adjust as necessary. The goal will be to wean the ketamine to allow for her to transition to the medical floor and then home.
[2020-01-23] MEDS: Normal Saline 500 ML 10 ML IV (05:15)
[2020-01-23] MEDS: LORazepam 2 MG/ML VIAL 1 MG IVP (05:20)
--- NOTE | 2020-01-23 06:20 | NUR.NOTE ---
Nursing Note: After ativan 1mg IVP, pt is resting with eyes closed, appears to be sleeping, arousable to combination of voice and touching shoulder. Woke pt to encourage her to boost self up in bed as operative leg was hanging over side of bed. Pt able to do this with some cueing. Pt falls back to sleep quickly.
[2020-01-23 07:42] LABS: HCT 24.8 % (36.0-46.0); HGB 7.6 g/dL (11.2-15.7); MCHC 30.6 % (32.0-36.0); MCV 74.9 fL (80-95); MPV 9.7 fL (8.0-11.0); Platelet Count 400 10^3/uL (130-400); RBC 3.31 10^6/uL (3.93-5.22); RDW 19.5 % (11.7-14.6); WBC 12.08 10^3/uL (4.4-10.8)
[2020-01-23 08:01] LABS: Anion Gap 6.2 mmol/L (3-11); BUN 16 mg/dL (7-18); C-Reactive Protein 1.27 mg/dL (0.0-0.3); CO2 30.8 mmol/L (21.0-32.0); CREATININE 0.84 mg/dL (0.55-1.02); Calcium 9.2 mg/dL (8.5-10.1); Chloride 102 mmol/L (98-107); Glucose 88 mg/dL (74-106); Potassium 3.6 mmol/L (3.5-5.1); Sodium 139 mmol/L (136-145)
[2020-01-23] MEDS: Nicotine 21 MG/24 HR PATCH TD (08:20)
[2020-01-23 08:43] LABS: ESR 48 mm/hr (0-20)
--- NOTE | 2020-01-23 09:26 | PT.INIE ---
Date of service: 01/23/20 Time of Service: 09:27 PT Notes Visit Reasons: EXPLANT OF R TKA, ANTIBIOTIC SPACER PLACEMENT Inpatient Physical Therapy Evaluation Date: January 23, 2020 Referring Doctor: Leonel Lugo MD PT Orders: PT CONSULT: Evaluate and treat Precautions: Partial weightbearing with walker/crutches and knee immobilizer Patient Profile/Admitting Diagnosis: Patient is a 39-year-old female referred for PT evaluation. She has gated history with full surgical intervention in the right lower extremity. Underwent a total knee subsequently fell causing dehiscence of wound. Located with infection in which she underwent explant of right total knee with antibiotic spacer placement. She is partial weightbearing status with use of walker and knee immobilizer. Recovery is all been comp data due to excessive pain. Advised for evaluation to be completed after pain medication administered. PMHX: Asthma, depression, hx of drug abuse, hepatitis C, seizure disorder, MRSA, excision of mass, R TKA, right femoral derotational osteotomy, tubal ligation Social History/Home Situation: Patient lives in [place]. Unable to recall home setting with regards to stairs railings etc. Current Functional Limitations: Partial weightbearing right lower extremity. Unable to perform any independent ambulation, transfers and bed mobility. Equipment Owned/DME: Patient thinks she may have crutches and a front wheel but was unsure. There is a front wheeled walker Subjective: Where am I? What day is it? Objective: General Observation: Upon start of evaluation patient was heavily sedated. Was able to startle with nursing's assistance. Telemetry monitoring in place. IV dorsum left hand. Surgical dressing over anterior aspect of the right knee. Knee immobilizer unfastened under the lower extremity not fastened as she was seen earlier by orthopedics. LUISA hose on left. Nursing advised to don right LUISA hose when returning patient to bed after breakfast. Knee immobilizer was fastened appropriately prior to start of evaluation as this is required for any functional mobility with partial weightbearing status right lower extremity. Mental Status: Not oriented to place or time. Is orientated to self. Pain: No complaints. As per nursing she is well medicated. ROM: Right Upper Extremity: Within the limits Left Upper Extremity: Within n functional limits Right Lower Extremity: Active assistive hip flexion 100 degrees, abduction 35 degrees. In supine position patient's knee was flexed 30 degrees. She was able achieve 0 degrees of knee on. Passive flexion the proximal 50 degrees during donning of the mobilized. She is able to perform full active range of motion right ankle. Left Lower Extremity: Within functional limits Strength: Right Upper Extremity: 5/5 glenohumeral joint flexion, abduction, bicep and tricep. 5/5 adult care provider Left Upper Extremity: 5/5 in the humeral joint flexion, abduction by. 5/5 adult care provider Right Lower Extremity: Patient is able to perform straight leg raise with immobilizer fastened. Quad hamstring not assessed. 5/5 dorsiflexion plantarflexion. Left Lower Extremity: 5/5 throughout quads, hamstrings, hip flexion, ankle dorsiflexion, ankle plantar flexion Sensation: Decreased sensation throughout the right thigh, knee and superior aspect of the anterior robison periincisional. Bed Mobility/Transfers: Bed mobility: Patient able to transition from supine to side-lying left and right independent. Supine?sit: Mod assist x2 with head of bed 35 degrees. Sit to stand: Mod assist x2 with frequent reminders needed for partial weightbearing status right lower extremity. Transfer to front wheel walker Stand to sit: Mod assist x2 with frequent reminders for hand placement from front wheel walker Gait: 5 feet with front wheeled walker and frequent reminders for weightbearing status partial weightbearing right lower extremity and foot placement. Contact-guard x2. Balance: Static Sitting: Fair Dynamic Sitting: Fair Static Standing: Poor Dynamic Standing: Poor Special Tests: Mobility Limitations Standardized Measure [facility] AM-PAC 6 clicks Basic Mobility Inpatient Short Form: Raw Score: 13 standardized Score: 36.74 CMS Score: 64.91% Informed Consent/Education: Patient instructed in purpose of PT consult and plan of care. Assessment: Patient is a 39 year old female referred to physical therapy services with the diagnosis of status post explant of right total knee arthroplasty with antibiotic spacer placement. Patient presents with clinical signs and symptoms consistent with above diagnosis, as demonstrated by the following impairment level findings: Joint mobility, range of motion, muscle informants and motor control associated with bony surgery. Impairments are contributing to the following functional limitations: AMPAC score. Patient heavily medicated and was unsafe with her precautions and needed frequent reminders. I am hoping that she comes off the ketamine she will be more coherent to observe her precautions. Very strong upper extremities and left lower extremity helping with her overall functional movements however due to heavy medication patient displayed significant confusion. Patient presents with clinical signs and symptoms consistent with current/admitting diagnoses that have resulted to mobility limitations, gait instability, generalized weakness in the right lower extremity, and impairment of motor control as demonstrated by the following impairment level findings: 1. Decreased strength to right LE major muscle groups 2. Impaired standing balance due to post operative status 3. Impaired gait pattern due to extraction of TKA hardware in placement of antibiotic spacer Impairments are contributing to the following functional limitations: 1. Dependent bed mobility skills 2. Increased dependence with transfers 3. Inability to safely ambulate without assistive device and physical assistance 4. Increase completion time for mobility ADL performance 5. Increased fall risk 6. Inability to negotiate steps alone safely Patient is assessed as a [] Low 82799 X moderate 23483 [] High 26444 complexity based on the following: History: See above Examination: Demonstrate impairment in strength, balance, and mobility level with underlying impairments and function limitations as documented above Presentation: Evolving Decision Making: Moderate complexity Goals: Goals X1 week 1. Supine-Sit: Standby assist 2. Sit-Supine: Stand by assist 3. Sit-Stand: Stand by assist to front wheel walker 4. Stand-Sit: Standby assist from front wheeled walker 5. Bed-Chair: Standby assist with front wheeled walker 6. Chair-Bed: By assist with front wheeled walker 7. Gait: 200 feet with standby assist and front wheeled walker 8. Stairs: 5 stairs with contact-guard and able to follow weightbearing restriction 9. Balance: Demonstrate good sitting static and dynamic as well as standing static and dynamic balance Plan of Care/Treatment Plan: 1-2x/day, 7 days/week x 1 week. Plan of care has been reviewed with the [employer] providing the service under Physical Therapy direction. Initiate Physical Therapy intervention for strengthening, bed mobility, transfers, gait, stairs, balance training, use of assistive device. DISCHARGE RECOMMENDATIONS: Recommend home health PT upon discharge from [facility] when medically cleared TREATMENT CODE/TIME: 30 minutes 9:00?930. Thank you for this referral Chino Jamil PT, DPT
[2020-01-23] MEDS: rifAMPin 300 MG CAP PO ×2 (09:38→20:42)
[2020-01-23] MEDS: Pregabalin 100 MG CAP 300 MG PO ×2 (09:39→20:36)
[2020-01-23] MEDS: Pantoprazole 40 MG TABCR PO (09:39)
[2020-01-23] MEDS: Methylphenidate 10 MG TAB 20 MG PO ×2 (09:39→14:16)
[2020-01-23] MEDS: lamoTRIgine 100 MG TAB PO (09:39)
[2020-01-23] MEDS: Dexamethasone 4 MG TAB PO (09:40)
[2020-01-23] MEDS: Enoxaparin 40 MG/0.4 ML SYR SC (09:46)
[2020-01-23] MEDS: Methadone Liquid 10 MG/ML 180 MG PO (09:46)
[2020-01-23] MEDS: Docusate Sodium 100 MG CAP PO ×2 (09:47→17:31)
[2020-01-23] MEDS: lamoTRIgine 25 MG TAB PO (09:47)
[2020-01-23] MEDS: oxyCODONE 10 MG TAB 40 MG PO ×4 (10:02→20:58)
--- NOTE | 2020-01-23 10:25 | W.PM.PROGNOT ---
Date of Service Date of service: 01/23/20 Time of Service: 08:26 Assessment and Plan Assessment and plan (1) Difficult intravenous access: Status: Acute Assessment and plan: Maintain PICC access for all hospital care at this point. 20cc IVF push twice a day for each of the 3 lumens. (2) Acute postoperative pain: Status: Acute Assessment and plan: Melvi has significant postoperative pain. She is highly sensitized with her chronic opiate dependency requiring significant amounts of medications. She is currently in the ICU for ketamine administration to help support postoperative pain and to appropriately monitor her. She has had continued agitation, mental status fluxuations, and confusion and irritability on the Ketamine. Nursing has been concerned and has started to titrate down. We will continue with IV hydromorphone or oral oxycodone as needed as she comes off o the Ketamine. She will continue with her chronic methadone. We also have Valium all order as well which is done well with Melvi given her tendency for anxiety and agitation. (3) Opioid dependence with current use: Status: Acute Assessment and plan: Her chronic opiate dependence makes managing pain difficult. Continue with home-based methadone of 180 mg daily. (4) Acute blood loss anemia: Status: Acute Assessment and plan: Improvement from yesterday, morning Hgb is 7.6. Will transfuse one additional unit. Check CBC in AM. (5) Infection of prosthetic right knee joint: Status: Acute Assessment and plan: Melvi is a 39-year-old who is now status post explantation of right knee components removing all cement and necrotic material. Previous aspiration revealed staph epidermidis. Cultures from the operating room are pending. She is currently on vancomycin and rifampin. We will monitor vancomycin levels. PICC line is placed. This will require at least 6 weeks of antibiotics. However, I do not think she would be a candidate for any long-term IV medications. I did review the case with infectious disease at [facility] who does make the suggestion of either once daily daptomycin or oral linezolid. CRP and SED rate have decreased. I will also work on prior authorization for linezolid as I expect that Melvi want to go home once she has gotten off the ketamine and has managed pain. Continue to titrate off of Ketamine. She may ambulate as tolerated using a walker or crutches at all times. While she is mobilizing she is of the knee immobilizer in place. Ambulate with nursing and PT. Qualifiers: Encounter type: subsequent encounter Qualified Code(s): T84.53XD - Infection and inflammatory reaction due to internal right knee prosthesis, subsequent encounter Subjective Subjective Interval history since last seen: June continued to have a very restless night last night until recently. Nursing is concerned about her mental status and cognitive function on the Ketamine so this has started to be titrated down. She toleratd the transfusion well yesterday. Vitlas have been stable with a bit of hypertension. No fevers or chills. Morning Hgb is 7.6 so will transfuse one additional unit. Exam Narrative Exam Narrative: Laying in the bed. Asleep. Right leg is within the knee immobilizer. ANGEL wrap is removed. There is sanguinous discharge within the JOSÉ dressing but not escaping beyond the sponge. Minimal swelling and ecchymosis. +Effusion. Objective Last Vital Signs Temp 36.5 C 01/23/20 03:04 Pulse 68 01/23/20 07:01 Resp 14 01/23/20 07:01 BP 138/83 01/23/20 07:01 Pulse Ox 95 01/23/20 07:01 Laboratory Results - last 24 hr 01/22/20 01/23/20 01/23/20 20:20 05:30 06:25 WBC RBC Hgb 8.6 L D Hct MCV MCH MCHC RDW Plt Count MPV ESR Sodium 139 Potassium 3.6 D Chloride 102 Carbon Dioxide 30.8 Anion Gap 6.2 BUN 16 Creatinine 0.84 Estimated GFR/1.73 m2 >= 60.00 Glucose 88 Calcium 9.2 C-Reactive Protein 1.27 H Vancomycin Trough 23.0 H* Crossmatch 01/23/20 01/23/20 06:25 08:01 WBC 12.08 H RBC 3.31 L Hgb 7.6 L Hct 24.8 L D MCV 74.9 L MCH 23.0 L MCHC 30.6 L RDW 19.5 H Plt Count 400 MPV 9.7 ESR 48 H Sodium Potassium Chloride Carbon Dioxide Anion Gap BUN Creatinine Estimated GFR/1.73 m2 Glucose Calcium C-Reactive Protein Vancomycin Trough Crossmatch See Detail
--- NOTE | 2020-01-23 10:44 | PDOC.CMPRO ---
- If Service Date Differs Date of service: 01/23/20 Time of Service: 10:44 Care Management Progress Note S/O: No change in plan. Per doctor note, Melvi is being titrated off of Ketamine due to concerns it is causing her agitation, confusion and irritability. PICC line is remaining in place to facilitate care. Either IV hydromorphone or oral oxycodone will be provided as needed for pain management as Melvi is titrated off of the Ketamine. Lab work done this morning reveal a high WBC at 12.08 and low RBC at 3.31, though the RBC is improved from yesterday's value of 2.52. Fungal cultures from the operating room are still pending. CM will continue to follow. A: Melvi is a 39 year old female admitted to [facility] on 01/21/20 for explant of right TKA and antibiotic spacer placement. P: No change in plan. Due to recent intravenous substance use, Melvi would not be a good candidate for outpatient IV ABX. She also is unlikely to tolerate a retirement hospitalization. Dr. Lugo is hopeful that oral Linezolid 600 mg twice daily for six weeks will be recommended by [facility]; awaiting determination. Anticipate if Melvi is able to discharge home on oral antibiotics that a Prior Authorization process through her [facility] will be required. She continues to be closely monitored for pain control post surgically. CM continues to follow.
[2020-01-23] MEDS: Normal Saline Flush 10 ML SYR ×2 (10:50→14:19)
[2020-01-23] MEDS: Normal Saline Flush 10 ML SYR 20 ML IVP (17:37)
[2020-01-24] VITALS (40 sets, daily range): BP systolic 119–171; BP diastolic 71–115; PULSE 69–88; RESP 11–27; TEMP 35.9–36.2; O2SAT 96–100
[2020-01-24] MEDS: Ketorolac 15 MG/ML VIAL IVP (01:44)
[2020-01-24] MEDS: ACETAMINOPHEN 1,000 MG/100 ML BTL 400 MG IVPB ×2 (01:44→10:43)
[2020-01-24] MEDS: HYDROmorphone 2 MG/ML VIAL IVP ×3 (03:56→06:41)
[2020-01-24] MEDS: oxyCODONE 10 MG TAB 40 MG PO ×3 (04:38→12:49)
[2020-01-24] MEDS: diazePAM 5 MG TAB 10 MG PO (05:48)
[2020-01-24] MEDS: Normal Saline Flush 10 ML SYR 20 ML IVP ×2 (06:20→11:04)
[2020-01-24] MEDS: Ketorolac 30 MG/ML VIAL IVP (07:00)
[2020-01-24 07:35] LABS: HCT 28.7 % (36.0-46.0); HGB 8.8 g/dL (11.2-15.7); MCH 23.3 pg (27.0-33.0); MCHC 30.7 % (32.0-36.0); MCV 75.9 fL (80-95); MPV 9.4 fL (8.0-11.0); Platelet Count 390 10^3/uL (130-400); RBC 3.78 10^6/uL (3.93-5.22); RDW 19.2 % (11.7-14.6); RDW-SD 52.9 fL; WBC 11.13 10^3/uL (4.4-10.8)
[2020-01-24 07:47] LABS: Anion Gap 10.1 mmol/L (3-11); BUN 14 mg/dL (7-18); CO2 25.9 mmol/L (21.0-32.0); CREATININE 0.86 mg/dL (0.55-1.02); Calcium 8.9 mg/dL (8.5-10.1); Chloride 100 mmol/L (98-107); Glucose 164 mg/dL (74-106); Sodium 136 mmol/L (136-145)
[2020-01-24] MEDS: Enoxaparin 40 MG/0.4 ML SYR SC (08:46)
[2020-01-24] MEDS: lamoTRIgine 25 MG TAB PO (08:47)
[2020-01-24] MEDS: lamoTRIgine 100 MG TAB PO ×2 (08:47→11:19)
[2020-01-24] MEDS: Nicotine 21 MG/24 HR PATCH TD (08:48)
[2020-01-24] MEDS: Pantoprazole 40 MG TABCR PO (08:48)
[2020-01-24] MEDS: Methylphenidate 10 MG TAB 20 MG PO ×2 (08:48→13:05)
[2020-01-24] MEDS: Pregabalin 100 MG CAP 300 MG PO (08:49)
[2020-01-24] MEDS: rifAMPin 300 MG CAP PO (08:49)
[2020-01-24] MEDS: Methadone Liquid 10 MG/ML 180 MG PO (09:10)
--- NOTE | 2020-01-24 09:41 | NUR.NOTE ---
Patient tells she takes 400mg of Lamictal per day.Nursing Note:
--- NOTE | 2020-01-24 09:50 | NUR.NOTE ---
MD takes down right knee dressing and cleans site. Wound is well approximated. [address] New island dressing applied by MD. Over island dressing, MD applied 6 inch pb wrap and then secured knee immobilizer. Alfred is dc'd.Nursing Note:
--- NOTE | 2020-01-24 10:00 | W.PM.DS.N ---
Date of service: 01/24/20 Time of Service: 10:00 DS: Diagnosis Discharge Diagnosis (1) Difficult intravenous access: Status: Acute (2) Acute postoperative pain: Status: Acute (3) Opioid dependence with current use: Status: Acute (4) Acute blood loss anemia: Status: Acute (5) Infection of prosthetic right knee joint: Status: Acute Discharge Plan Disposition Patient Disposition: HOME Condition: Improving Discharge Details Reason For Visit: EXPLANT OF R TKA, ANTIBIOTIC SPACER PLACEMENT Admit Date/Time: 01/21/20 10:39 Admit Provider: Leonel Lugo Attending Provider: Leonel Lugo Primary Care Provider: QIANA WEEMS Hospital Course Hospital Course: Melvi was admitted to the ICU following her knee explant and spacer placement surgery. She tolerated the procedure well but did have significant blood loss. She recevied a total of 3 units of blood and tolerated this well. She did not have any hemodynamic instability. She responded well to these and rebounded her hemoglobin. She was kept in the ICU for ketamine administration for pain control. This was transistioned off and returned to Oxycodone. She was ble to ambulate with PT and independently. She desired to go home on POD#3. After discussing with Melvi, ID and pharmacy, the only option was Daptomycin without significant side effects or medication interactions. She agreed to not use any IVDU. She is going to keep the ports sealed and covered and come to the infusion room for once daily infusion of Daptomycin 650mg IV. She will need weekly labs every Saturday of CBC, CMP, CRP. Home Meds and New Rx's Prescriptions: New lamotrigine [Lamictal] 100 mg Tablet 400 mg PO DAILY Qty: 0 RF: 0 acetaminophen 500 mg tablet 1,000 mg PO Q8H PRN (Reason: pain) Qty: 90 RF: 3 aspirin 81 mg tablet,delayed release (DR/EC) 81 mg PO BID Qty: 60 RF: 0 docusate sodium [Colace] 100 mg capsule 100 mg PO BID PRNQty: 30 RF: 0 oxycodone 30 mg tablet 60 mg PO Q6H PRNQty: 56 RF: 0 rifampin 300 mg capsule 300 mg PO BID Qty: 84 RF: 0 aspirin 81 mg tablet,delayed release (DR/EC) 81 mg PO BID Qty: 60 RF: 0 Continued methadone 5 mg/5 mL solution 180 mg PO DAILY RF: 0 pregabalin 300 mg capsule 300 mg PO BID Qty: 60 RF: 3 albuterol sulfate [ProAir HFA] 200 PUFF HFA aerosol inhaler 2 puff Inhalation PRN PRNRF: 0 ibuprofen 800 mg tablet 800 mg PO Q8H PRN (Reason: pain) Qty: 90 RF: 6 methylphenidate HCl 20 mg tablet 20 mg PO TID Qty: 42 RF: 0 acetaminophen [Mapap Extra Strength] 500 mg tablet 1,000 mg PO TID Qty: 90 RF: 3 pantoprazole 40 mg tablet,delayed release (DR/EC) 40 mg PO DAILY Qty: 30 RF: 3 Discontinued oxycodone 20 mg tablet 40 mg PO Q4H MDD 240mg PRN (Reason: pain) Qty: 84 RF: 0 (DME) Shower Chair Qty: 1 RF: 0 bisacodyl 5 mg Tablet,Delayed Release (Dr/Ec) 5 mg PO TID PRN PRN (Reason: Constipation) Qty: 15 RF: 3 Narcan 4 mg/actuation spray,non-aerosol 1 spray SHRUTI ONCE PRN (Reason: opioid overdose) Qty: 2 RF: 0 lamotrigine [Lamictal] 200 MG tablet 125 mg PO DAILY RF: 0 No Action (DME) Crutches Qty: 1 RF: 0 (DME) shower chair Qty: 1 RF: 0 (DME) compression socks, medium Misc See Rx Instructions .ROUTE .MEDSUPPLY Qty: 1 RF: 0 (DME) Bone Stimulator Qty: 1 RF: 0 (DME) Raised Toilet Seat Qty: 1 RF: 0 Discharge Instructions Additional Instructions: Dr. Lugo?s Total Knee Discharge Instructions Activity: You should try to take short walks a few times a day. It is important that when resting you work on keeping the knee straight. Avoid putting a pillow behind the knee as this will encourage flexion. Keep the knee immobilizer in place until your follow-up appointment. You may remove it to check on the wound and to give the knee a break but keep it on for all movement. Dressing: Keep the surgical dressing (Mepilex) in place for at least one week. If it gets wet, just lightly pat dry. Most patient prefer to cover with ClingWrap or Saran Wrap to keep the dressing dry. After the first week, keep it covered with Mepilex dressing for one week intervals. Medications: - You should take Tylenol and anti-inflammatory Ibuprofen as your primary pain control medications - You have been prescribed a stronger pain medication Oxycodone for breakthrough pain, take as needed as prescribed. - You have also been prescribed a stomach acid reduction agent Pantoprozole to help reduce stomach acid and reflux. - You will be taking Aspirin 81mg twice a day for DVT prevention unless instructed otherwise. - If you have constipation you should take Colace or Miralax (both [id number]). It takes most people 3-4 days to have a bowel movement. - You will take Rifampin 300mg twice a day for your infection. - You also should continue to take Lyrica, Methadone, Methylphenidate, Lamictal as previously prescribed. Follow-up: 3 weeks. You will have an infusion every day of Daptomycin for the infection. You will need to come to the hospital for this. If you have any acute concerns or questions, please do not hesitate to contact the office at [phone]. You may contact Dr. Lugo with any questions after hours through the hospital at [phone] or on his cell phone at [phone]. Referrals: Leonel Lugo MD [ [facility] STAFF PHYSICIAN] - Activity:: Activity as Tolerated Equipment/Supplies:: Walker Diet:: As Tolerated Discharge Orders Discharge Orders: Discharge Order (Routine); Ordered 01/24/20 Ordered By: Leonel Lugo DS: Summary Status at Discharge Functional status at discharge: uses cane/walker Overall status at discharge: patient is progressing back to baseline Mental Status: mental status grossly normal Speech and Movement: agitated Mood: labile mood Affect: normal affect Exam Psych Mental Status: mental status grossly normal Speech and Movement: agitated Mood: labile mood Affect: normal affect DS: Data Vitals/I&O Vitals and I&O: Vital Signs Temperature 36.1 C L 01/24/20 08:21 Temperature Source Temporal Artery Scan 01/24/20 08:21 Pulse 73 01/24/20 08:21 Pulse Rhythm Regular 01/21/20 10:55 Pulse 72 11/01/20 05:06 Respiratory Rate 18 01/24/20 08:21 Respiratory Effort 01/24/20 07:57 Respiratory Depth Normal 01/24/20 07:57 Respiratory Pattern Normal 01/24/20 07:57 Blood Pressure 144/96 H 01/24/20 08:21 Blood Pressure Mean 112 01/24/20 07:57 Blood Pressure Position Sitting 01/24/20 07:57 Pulse Oximetry 97 01/24/20 08:21 Oxygen Delivery Method Room Air 01/24/20 08:21 Oxygen Flow Rate 0 01/24/20 08:21 Pain Level 5 01/24/20 09:10 Comment 01/24/20 01:00 EDT Intake & Output 01/23/20 01/23/20 01/24/20 11:59 23:59 10:59 Intake Total 2144.133 / 3411.933 1267.8 / 3411.933 698.333 / 698.333 Output Total 2500 / 4500 2000 / 4500 1300 / 1300 Balance -355.867 / -1088.067 -732.2 / -1088.067 -601.667 / -601.667 Weight 76.1 kg Intake: IV 884.133 / 1311.933 427.8 / 1311.933 103.333 / 103.333 Oral 1260 / 1500 240 / 1500 595 / 595 Blood Product 600 / 600 Rbc Leuko Reduced Unit 600 / 600 [id number] Output: Output, Wound Vac (mls) 0 / 0 Urine 2500 / 4500 2000 / 4500 1300 / 1300 Other: Urine Color Yellow Yellow Yellow Urine Appearance Clear Clear Clear Urine Odor Normal Normal Normal Comment using bedside commode Last shift patient voided 1750ml of urine but none so far. Voiding Methods Bedside Commode Bedside Commode Bedside Commode Data Completed and Pending Labs on day of discharge: Labs from last 24 hours 01/24/20 01/24/20 01/24/20 13:00 06:20 06:20 WBC 11.13 H RBC 3.78 L Hgb 8.8 L Hct 28.7 L MCV 75.9 L MCH 23.3 L MCHC 30.7 L RDW 19.2 H Plt Count 390 MPV 9.4 Sodium 136 Potassium 3.0 L Chloride 100 Carbon Dioxide 25.9 Anion Gap 10.1 BUN 14 Creatinine 0.86 Estimated GFR/1.73 m2 >= 60.00 Glucose 164 H D Calcium 8.9 Vancomycin Trough Pending Patient ABO/Rh Antibody Screen Crossmatch 01/23/20 10:54 WBC RBC Hgb Hct MCV MCH MCHC RDW Plt Count MPV Sodium Potassium Chloride Carbon Dioxide Anion Gap BUN Creatinine Estimated GFR/1.73 m2 Glucose Calcium Vancomycin Trough Patient ABO/Rh A Positive Antibody Screen Negative Crossmatch See Detail Preliminary micro results at discharge 01/21/20 14:40 Surgical Culture - Preliminary Knee - Right Staphylococcus Epidermidis 01/21/20 14:40 Surgical Culture - Preliminary Knee - Right Staphylococcus Epidermidis 01/21/20 13:47 Anaerobic Culture - Preliminary Knee - Right Joint 01/21/20 13:47 Surgical Culture - Preliminary Knee - Right Joint Staphylococcus Epidermidis PFSH Medical History Asthma Depression History of drug abuse pt. states she relapsed on Focalin via IV 01/11/20 History of hepatitis C per pt has been treated but it didn't cure it made my numbers go down--Pt. denies having Hep C. 09/24/19 Hx of seizure disorder Pt. states it was from detox MRSA (methicillin resistant Staphylococcus aureus) colonization Surgical History H/O excision of mass Lipomas removed from base of neck and lower midback 11/2018 in [place], [place] History of arthroscopic knee surgery Right History of right femoral derotational osteotomy (09/23/18) History of tubal ligation Status post total right knee replacement (09/30/19) Family History Father Cancer Mother Cancer Aunt Cancer Social History Smoking/Tobacco Use Status: Current every day Tobacco Type: cigarettes Smoking packs per day: 0.5 Smoking cigarettes per day: 10.0 Smoking risk assessment performed?: Yes Alcohol Intake: current Alcohol Intake frequency: holidays/special occasions only Drug use: Daily Substance use type: marijuana Current gender identity: female Do you feel safe at home: Yes Do you feel safe in your relationship?: Yes
[2020-01-24] MEDS: Potassium Chloride 20 MEQ TABCR PO (10:29)
--- NOTE | 2020-01-24 11:07 | NUR.NOTE ---
Medial, Proximal and Distal ports of left PICC line are flushed and have good blood return, are a patent.Nursing Note:
[2020-01-24] MEDS: lamoTRIgine 25 MG TAB 75 MG PO (11:20)
--- NOTE | 2020-01-24 11:27 | PT.INTREAT ---
PT Notes Visit Reasons: EXPLANT OF R TKA, ANTIBIOTIC SPACER PLACEMENT Inpatient Physical Therapy Treatment Note [facility] Date: 01/24/20 SUBJECTIVE: June states that she would like to go home. She feels like she can manage on her own at this point. States that she would like a shower. OBJECTIVE: [] BED MOBILITY/TRANSFERS Sit-stand: S Stand-sit: S Bed-Chair: S Chair-bed: S GAIT Assistive Device: FWW Weight bearing: PWB Assist: SBA/CGA Distance: approx 200' ASSESSMENT: tolerated session well. She was tired after her return. No increase in pain complaints. Fairly safe and independent transfers. PLAN: continue following POC. Possible d/c to home later today TREATMENT CODE/TIME: 25 min [id number]
--- NOTE | 2020-01-24 11:43 | PDOC.CMDIS ---
- If Service Date Differs Date of service: 01/24/20 Time of Service: 11:43 LACE Index Scoring Tool - Questions: Length of Stay (in days): 3 Acuity (Admit via E.D.?): No E.D. Visits: 1 - Answers: Total Score: 4 Risk of Readmission: Low Risk Care Management Discharge Reason for Hospitalization: Explant of R TKA, Antibiotic spaer placement Discharge Plan: Melvi is discharged from the hospital. Prior to surgery, she was staying at the [facility] but the authorization for the room has . Melvi knows to contact [facility] on Saturday to obtain a new authorization for a motel room. While awaiting a reauthorization from [facility], the plan is for Melvi to stay with her daughter and daughter's father. Melvi will follow up with Dr. Lugo and her plan of care as prescribed. She will be coming to the infusion room for once daily infusion of Daptomycin 650 mg IV beginning tomorrow (01/25/20). Her daughter is transporting her home via private vehicle. provides Melvi with a FWW, at Dr. Lugo's request. Patient/Family Education Needs: Discharge instructions, limitations, follow up plan of care, including Ask Me Three and self-management.
--- NOTE | 2020-01-24 13:57 | NUR.NOTE ---
Discharge paperwork is reviewed with patient. PICC line is covered with a large tegaderm and signed. Each lumen of the Picc line was capped.Nursing Note:
--- NOTE | 2020-01-24 14:05 | NUR.NOTE ---
Patient informed RN that she had already been innoculated for the flu this season.Nursing Note:
--- NOTE | 2020-01-24 14:13 | NUR.NOTE ---
Patient given 2 pb wraps to take home and 2 island dressings as well to take home.Nursing Note:
--- NOTE | 2020-01-25 12:41 | PT.INDS ---
Date of service: 01/25/20 Time of Service: 12:41 PT Notes Visit Reasons: EXPLANT OF R TKA, ANTIBIOTIC SPACER PLACEMENT Physical Therapy Inpatient Discharge Summary Date: 01/25/2020 Dates of service: 01/23/2020 only This is a clinical summary of care provided on the duration of dates listed above. No charge was made in the completion of this documentation. Referring Doctor: Leonel Lugo MD PT Orders: PT CONSULT: Evaluate and treat Precautions: Partial weight bearing with walker/crutches and knee immobilizer Patient Profile/Admitting Diagnosis: Patient is a 39-year-old female referred for PT evaluation. She has gated history with full surgical intervention in the right lower extremity. Underwent a total knee subsequently fell causing dehiscence of wound. Located with infection in which she underwent explant of right total knee with antibiotic spacer placement. She is partial weightbearing status with use of walker and knee immobilizer. Recovery is all been comp data due to excessive pain. Advised for evaluation to be completed after pain medication administered. PMHX: Asthma, depression, hx of drug abuse, hepatitis C, seizure disorder, MRSA, excision of mass, R TKA, right femoral derotational osteotomy, tubal ligation Social History/Home Situation: Patient lives in [place]. Unable to recall home setting with regards to stairs railings etc. Current Functional Limitations: Partial weightbearing right lower extremity. Unable to perform any independent ambulation, transfers and bed mobility. Equipment Owned/DME: Patient thinks she may have crutches and a front wheel but was unsure. There is a front wheeled walker Subjective: NT. See most recent RETIREMENT PLAN COUNSELOR notes. Objective: General Observation: NT. See most recent RETIREMENT PLAN COUNSELOR notes. Mental Status: NT. See most recent RETIREMENT PLAN COUNSELOR notes. Pain: NT. See most recent RETIREMENT PLAN COUNSELOR notes. ROM: Right Upper Extremity: Within the limits Left Upper Extremity: Within n functional limits Right Lower Extremity: Active assistive hip flexion 100 degrees, abduction 35 degrees. In supine position patient's knee was flexed 30 degrees. She was able achieve 0 degrees of knee on. Passive flexion the proximal 50 degrees during donning of the mobilized. She is able to perform full active range of motion right ankle. Left Lower Extremity: Within functional limits Strength: Right Upper Extremity: 5/5 glenohumeral joint flexion, abduction, bicep and tricep. 5/5 consolidation accountant Left Upper Extremity: 5/5 in the humeral joint flexion, abduction by. 5/5 consolidation accountant Right Lower Extremity: Patient is able to perform straight leg raise with immobilizer fastened. Quad hamstring not assessed. 5/5 dorsiflexion plantarflexion. Left Lower Extremity: 5/5 throughout quads, hamstrings, hip flexion, ankle dorsiflexion, ankle plantar flexion Sensation: Decreased sensation throughout the right thigh, knee and superior aspect of the anterior robison periincisional. Bed Mobility/Transfers: Bed mobility: Supervision Supine?sit: Supervision Sit to stand: Supervision Stand to sit: Supervision Gait: 200 feet with partial weight bearing using front wheeled walker with contact-guard assist Balance: Static Sitting: Fair Dynamic Sitting: Fair Static Standing: Poor Dynamic Standing: Poor Assessment: Patient is a 39-year-old female referred to physical therapy services with the diagnosis of status post explant of right total knee arthroplasty with antibiotic spacer placement. Patient continues to present with clinical signs and symptoms consistent with above diagnosis, as demonstrated by the following impairment level findings: Joint mobility, range of motion, muscle informants and motor control associated with bony surgery. Impairments are continuing to contribute to the following functional limitations: AMPAC score. Patient heavily medicated and was unsafe with her precautions and needed frequent reminders. I am hoping that she comes off the ketamine she will be more coherent to observe her precautions. Very strong upper extremities and left lower extremity helping with her overall functional movements however due to heavy medication patient displayed significant confusion. Patient continues to present with clinical signs and symptoms consistent with current/admitting diagnoses that have resulted to mobility limitations, gait instability, generalized weakness in the right lower extremity, and impairment of motor control as demonstrated by the following impairment level findings: 1. Decreased strength to right LE major muscle groups 2. Impaired standing balance due to post operative status 3. Impaired gait pattern due to extraction of TKA hardware in placement of antibiotic spacer Impairments are continuing to contribute to the following functional limitations: 1. Increased dependence with transfers 2. Inability to safely ambulate without assistive device and physical assistance 3. Increase completion time for mobility ADL performance 4. Increased fall risk 5. Inability to negotiate steps alone safely Goals: Goals X1 week 1. Supine-Sit: Standby assist MET 2. Sit-Supine: Stand by assist MET 3. Sit-Stand: Stand by assist to front wheel walker MET 4. Stand-Sit: Standby assist from front wheeled walker MET 5. Bed-Chair: Standby assist with front wheeled walker MET 6. Chair-Bed: By assist with front wheeled walker MET 7. Gait: 200 feet with standby assist and front wheeled walker NOT MET 8. Stairs: 5 stairs with contact-guard and able to follow weightbearing restriction MET 9. Balance: Demonstrate good sitting static and dynamic as well as standing static and dynamic balance MET DISCHARGE RECOMMENDATIONS: Patient will benefit from home health PT services in order to progress mobility level using least restrictive assistive ambulatory device, assess home safety, identify additional equipment needs, and establish a functional maintenance program that will increase ability of patient to remain at home. TREATMENT CODE/TIME: NC Thank you for the opportunity to participate in the care of this patient. Agustina Linares PT, DPT, CLT [facility] [place], [place]
[2020-02-22 14:59] LABS: Specimen Description See Comments
[2020-02-22 15:00] LABS: Specimen Description See Comments
== END 2020-01-24 13:45 | disposition home or self-care (01) | DRG 467 ==
LOC: PDS 13:38 → ICU 17:22
PROVIDERS: Admitting Provider Student in an Organized Health Care Education/Training Program; PCP Registered Nurse; Visit Provider Student in an Organized Health Care Education/Training Program
PROC: 0SPC0JZ Removal of Synthetic Substitute from Right Knee Joint, Open Approach (ICD-10-PCS; CPT 27488; principal; 2020-01-21 12:30)
DX: T84.53XA Infection and inflammatory reaction due to internal right knee prosthesis, initial encounter (principal); F11.20 Opioid dependence, uncomplicated; D62 Acute posthemorrhagic anemia; G89.29 Other chronic pain; J45.909 Unspecified asthma, uncomplicated; G89.18 Other acute postprocedural pain; M25.561 Pain in right knee
CPT/HCPCS: 27488; 36415; 36430; 36573; 36592; 80048; 85027; 85652; 86850; 86900; 86901; 86920; 87077; 87102; 87206; 97162; 97530; J1650; NC; 80202; 83735; 85018; 86140; 87070; 87075; 87186; 87205; J0131; J0690; J1100; J1885; J2001; J2060; J2250; J2405; J2704; J3010; J3360; J8540; L1830; P9016

== ENCOUNTER 2020-02-01 01:17 | Outpatient (RCR) | payer MEDICAID, SELFPAY ==
[2020-01-25] MEDS: Normal Saline Flush 10 ML SYR IVP (12:47)
[2020-01-27] MEDS: Normal Saline Flush 10 ML SYR IVP (13:59)
[2020-01-30] MEDS: Normal Saline Flush 10 ML SYR IVP (13:00)
== END 2020-02-22 23:59 | disposition home or self-care (01) ==
LOC: INF 01:17
PROVIDERS: PCP Registered Nurse; Visit Provider Student in an Organized Health Care Education/Training Program
DX: Z45.2 Encounter for adjustment and management of vascular access device (principal); T84.53XD Infection and inflammatory reaction due to internal right knee prosthesis, subsequent encounter; Z79.2 Long term (current) use of antibiotics
CPT/HCPCS: 96365

== ENCOUNTER 2020-02-04 09:41 | Outpatient (CLI) | payer MEDICAID, SELFPAY ==
--- NOTE | 2020-02-04 09:30 | DI.RAD_ITS ---
EXAM: XR KNEE RT 2V AP,LAT CLINICAL HISTORY: f/u spacer placement of R TKA infection. TECHNIQUE: 2D digital imaging was performed. COMPARISON: CR XR KNEE RT 2V AP,LAT from 01/04/2020 FINDINGS: BONES: No acute fracture is present. No bony destructive lesion is seen. JOINTS: The knee is normally aligned. There is a prosthetic seen in the distal femur. A spacer has b een placed in the right knee following removal of the patient's infected right total knee arthroplast y. SOFT TISSUE: There is soft tissue swelling around the knee. IMPRESSION: DATA REPOSITORY: RADIATION DOSE DELIVERED:
== END 2020-02-04 10:01 ==
PROVIDERS: PCP Registered Nurse; Referring Provider Registered Nurse; Visit Provider Student in an Organized Health Care Education/Training Program
DX: T84.53XA Infection and inflammatory reaction due to internal right knee prosthesis, initial encounter (principal)
CPT/HCPCS: 73560

== ENCOUNTER 2020-02-08 02:19 | Outpatient (CLI) | payer MEDICAID, SELFPAY ==
[2020-02-08 11:00] LABS: HCT 30.1 % (36.0-46.0); HGB 9.2 g/dL (11.2-15.7); MCH 23.6 pg (27.0-33.0); MCHC 30.6 % (32.0-36.0); MCV 77.2 fL (80-95); MPV 10.4 fL (8.0-11.0); Platelet Count 440 10^3/uL (130-400); RDW 20.4 % (11.7-14.6); RDW-SD 57.4 fL; WBC 12.09 10^3/uL (4.4-10.8)
[2020-02-08 11:10] LABS: ALT 24 U/L (14-59); AST 21 U/L (15-37); Albumin 3.1 g/dL (3.4-5.0); Alkaline Phosphatase 160 U/L (46-116); Anion Gap 11.1 mmol/L (3-11); BUN 14 mg/dL (7-18); Bilirubin, Total 0.1 mg/dL (0.2-1.0); CO2 21.9 mmol/L (21.0-32.0); CREATININE 1.02 mg/dL (0.55-1.02); Calcium 8.4 mg/dL (8.5-10.1); Chloride 103 mmol/L (98-107); Glucose 85 mg/dL (74-106); Potassium 4.2 mmol/L (3.5-5.1); Sodium 136 mmol/L (136-145); Total Protein 7.3 g/dL (6.4-8.2)
[2020-02-08 11:20] LABS: C-Reactive Protein 1.54 mg/dL (0.0-0.3)
[2020-02-08 14:06] LABS: ESR 42 mm/hr (0-20)
== END 2020-02-08 02:39 ==
PROVIDERS: PCP Registered Nurse; Visit Provider Student in an Organized Health Care Education/Training Program
DX: T84.53XA Infection and inflammatory reaction due to internal right knee prosthesis, initial encounter (principal)
CPT/HCPCS: 36415; 80053; 85027; 85652; 86140; 93005; 93010

== ENCOUNTER 2020-02-19 23:35 | Emergency (ER) | payer MEDICAID, SELFPAY ==
[2020-02-19 23:38] VITALS: BP 137/90; PULSE 90; RESP 18; TEMP 36.4; O2SAT 99
--- NOTE | 2020-02-19 23:39 | ED.GENADUL_ITS ---
Discharge Plan Disposition Patient Disposition: HOME Condition: Good Discharge Details Clinical Impression: Odynophagia Primary Care Provider: QIANA WEEMS ED Provider: Lei Harrison Meds and New Rx's Prescriptions: New Lidocaine Viscous 2 % solution 10 ml PO TID PRNQty: 100 RF: 0 Continued methadone 5 mg/5 mL solution 180 mg PO DAILY RF: 0 (DME) Crutches Qty: 1 RF: 0 (DME) shower chair Qty: 1 RF: 0 (DME) compression socks, medium Misc See Rx Instructions .ROUTE .MEDSUPPLY Qty: 1 RF: 0 (DME) Bone Stimulator Qty: 1 RF: 0 levofloxacin 750 mg tablet 750 mg PO Q24H Qty: 30 RF: 3 pregabalin 300 mg capsule 300 mg PO BID Qty: 60 RF: 3 ibuprofen 600 mg tablet 600 mg PO Q8H PRN (Reason: pain) Qty: 90 RF: 3 prochlorperazine maleate [Compazine] 5 mg tablet 5 mg PO QID PRN (Reason: nausea and vomiting) Qty: 21 RF: 0 oxycodone 30 mg tablet 30 mg PO Q4H MDD 180mg PRN (Reason: pain) Qty: 42 RF: 0 (DME) Raised Toilet Seat Qty: 1 RF: 0 albuterol sulfate [ProAir HFA] 200 PUFF HFA aerosol inhaler 2 puff Inhalation PRN PRNRF: 0 lamotrigine [Lamictal] 100 mg Tablet 400 mg PO DAILY Qty: 0 RF: 0 acetaminophen 500 mg tablet 1,000 mg PO Q8H PRN (Reason: pain) Qty: 90 RF: 3 aspirin 81 mg tablet,delayed release (DR/EC) 81 mg PO BID Qty: 60 RF: 0 docusate sodium [Colace] 100 mg capsule 100 mg PO BID PRNQty: 30 RF: 0 rifampin 300 mg capsule 300 mg PO BID Qty: 84 RF: 0 methylphenidate HCl 20 mg tablet 20 mg PO TID Qty: 42 RF: 0 pantoprazole 40 mg tablet,delayed release (DR/EC) 40 mg PO DAILY Qty: 30 RF: 0 Discharge Instructions Additional Instructions: Restart your pantoprazole to help with reflux. You may use the viscous lidocaine for symptomatic treatment if needed. Consider discontinuing the ibuprofen. Follow-up with your doctor Saturday as planned. Return to ED if chest pain, difficulty breathing, other concerns. Referrals: QIANA WEEMS, [employer] [Primary Care Provider] - Medical Decision Making Patient presenting with a diet aphasia. Complains of chest and back pain when swallowing. Is not having difficulty breathing. Is able to swallow but with discomfort. She wanted to make sure it was not related to being intubated previously. However, she did not develop symptoms until this week. She is on antibiotics as well as nonsteroidal. No evidence of thrush in the oral pharyngeal lesion that I am able to visualize. GI cocktail given with immediate relief of all discomfort and pain. Will restart her PPI that she has been on previously. Will give viscous lidocaine for use over the weekend. She has appointment to see her doctor on Saturday. Return to ED for new or worsening pain, difficulty breathing, inability to swallow, fevers. Medical Records Medical records reviewed: Yes I reviewed the patient's medical records. HPI General Mode of arrival: ambulatory . Date/Time Provider Initiated Documentation: 02/19/20 23:36 . Limitations to Documentation: no limitations . Information obtained by: patient, RN notes reviewed and old records reviewed . HPI Narrative: Patient presents to the ED with complaint of pain with swallowing. She had surgery about 2 weeks ago. She was intubated for that. She is currently on antibiotics as well as using pain medication and ibuprofen. She has developed difficulty/pain when swallowing. States it feels like she is swallowing shards of glass. She does not complain of mouth or throat pain. She has no cough or difficulty breathing. She does not describe it as chest pain. She just has pain in her chest and back when swallowing. She is able to swallow. She is not having abdominal pain or vomiting. She had been on PPIs in the past but is not on any currently. Related Data Home Medications Medication Instructions Recorded Confirmed albuterol sulfate [ProAir HFA] 2 puff INHALATION PRN PRN 11/02/16 02/04/20 methadone 5 mg/5 mL oral solution 180 mg PO DAILY ml 08/13/18 02/04/20 Crutches #1 ea 10/17/18 02/04/20 shower chair #1 ea 10/17/18 02/04/20 Raised Toilet Seat #1 ea 01/15/19 02/04/20 Bone Stimulator #1 ea 04/03/19 02/04/20 compression socks, medium #1 each 04/03/19 02/04/20 acetaminophen 1,000 mg PO Q8H PRN #90 tab 01/24/20 02/04/20 aspirin 81 mg PO BID #60 tab 01/24/20 02/04/20 docusate sodium [Colace] 100 mg PO BID PRN #30 cap 01/24/20 02/04/20 lamotrigine [Lamictal] 400 mg PO DAILY #0 tab 01/24/20 02/04/20 methylphenidate HCl 20 mg PO TID #42 tab 01/24/20 02/04/20 rifampin 300 mg PO BID #84 cap 01/24/20 02/04/20 levofloxacin 750 mg tablet 750 mg PO Q24H #30 tab 02/01/20 02/04/20 ibuprofen 600 mg tablet 600 mg PO Q8H PRN #90 tab 02/04/20 02/04/20 pregabalin 300 mg capsule 300 mg PO BID #60 cap 02/04/20 02/04/20 prochlorperazine maleate 5 mg 5 mg PO QID PRN #21 tab 02/05/20 tablet oxycodone 30 mg tablet 30 mg PO Q4H PRN #42 tab MDD 180mg 02/16/20 lidocaine HCl [Lidocaine Viscous] 10 ml PO TID PRN #100 ml 02/20/20 pantoprazole 40 mg PO DAILY #30 tab 02/20/20 Previous Rx's Medication Instructions Recorded Crutches #1 ea 10/17/18 shower chair #1 ea 10/17/18 Raised Toilet Seat #1 ea 01/15/19 Bone Stimulator #1 ea 04/03/19 compression socks, medium #1 each 04/03/19 acetaminophen 1,000 mg PO Q8H PRN #90 tab 01/24/20 aspirin 81 mg PO BID #60 tab 01/24/20 docusate sodium [Colace] 100 mg PO BID PRN #30 cap 01/24/20 lamotrigine [Lamictal] 400 mg PO DAILY #0 tab 01/24/20 methylphenidate HCl 20 mg PO TID #42 tab 01/24/20 rifampin 300 mg PO BID #84 cap 01/24/20 levofloxacin 750 mg tablet 750 mg PO Q24H #30 tab 02/01/20 ibuprofen 600 mg tablet 600 mg PO Q8H PRN #90 tab 02/04/20 pregabalin 300 mg capsule 300 mg PO BID #60 cap 02/04/20 prochlorperazine maleate 5 mg 5 mg PO QID PRN #21 tab 02/05/20 tablet oxycodone 30 mg tablet 30 mg PO Q4H PRN #42 tab MDD 180mg 02/16/20 lidocaine HCl [Lidocaine Viscous] 10 ml PO TID PRN #100 ml 02/20/20 pantoprazole 40 mg PO DAILY #30 tab 02/20/20 Allergies Allergy/AdvReac Type Severity Reaction Status Date / Time codeine Allergy hives with Verified 02/04/20 09:18 throat tightness morphine Allergy hives and Verified 02/04/20 09:18 throat swelling Penicillins Allergy Skin Rash Verified 02/04/20 09:18 General WHIT: 3 Review of Systems Narrative: As documented in HPI otherwise negative as below. Const: no fever, chills, weakness Resp: no cough, SOB, pleuritic pain CV: no CP, diaphoresis, edema, syncope GI: no abdominal pain, nausea, vomiting, diarrhea Neuro: no headache, numbness, focal weakness, confusion PFSH Medical History Asthma Depression History of drug abuse pt. states she relapsed on Focalin via IV 01/11/20 History of hepatitis C per pt has been treated but it didn't cure it made my numbers go down--Pt. denies having Hep C. 09/24/19 Hx of seizure disorder Pt. 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 HEENT: NC/AT. Normal facial exam. OP and posterior OP normal. No thrush. Eyes: Normal conjunctiva and sclera. Neck: Supple. Trachea midline. Lungs: Normal respiratory effort. Lungs are clear. Cor: RRR without murmur/gallop. Neuro: A+O x 3. Normal speech, mentation, gait. Cranial nerves II - XII grossly intact. No gross motor or sensory deficit.
== END 2020-02-20 00:15 | disposition home or self-care (01) ==
LOC: ER 02-20 00:17
PROVIDERS: Emergency Provider Emergency Medicine; PCP Registered Nurse
DX: R07.81 Pleurodynia (principal); R13.10 Dysphagia, unspecified; M54.6 Pain in thoracic spine
CPT/HCPCS: 99283

== ENCOUNTER 2020-02-25 03:19 | Outpatient (CLI) | payer MEDICAID, SELFPAY ==
[2020-02-25 16:29] LABS: ALT 22 U/L (14-59); AST 26 U/L (15-37); Albumin 3.5 g/dL (3.4-5.0); Alkaline Phosphatase 183 U/L (46-116); Anion Gap 10.3 mmol/L (3-11); BUN 12 mg/dL (7-18); Bilirubin, Total 0.2 mg/dL (0.2-1.0); C-Reactive Protein 0.79 mg/dL (0.0-0.3); CO2 24.7 mmol/L (21.0-32.0); Chloride 102 mmol/L (98-107); Glucose 85 mg/dL (74-106); Potassium 3.9 mmol/L (3.5-5.1); Sodium 137 mmol/L (136-145); Total Protein 7.8 g/dL (6.4-8.2)
== END 2020-02-25 03:39 ==
PROVIDERS: PCP Registered Nurse; Visit Provider Student in an Organized Health Care Education/Training Program
DX: T84.53XD Infection and inflammatory reaction due to internal right knee prosthesis, subsequent encounter (principal)
CPT/HCPCS: 36415; 80053; 86140

== ENCOUNTER 2020-03-11 11:55 | Outpatient (CLI) | payer MEDICAID, SELFPAY ==
--- NOTE | 2020-03-11 10:30 | DI.RAD_ITS ---
EXAM: XR KNEE RT 2V AP,LAT CLINICAL HISTORY: f/u R knee spacer. TECHNIQUE: 2D digital imaging was performed. COMPARISON: CR XR KNEE RT 2V AP,LAT from 01/04/2020 CR XR KNEE RT 2V AP,LAT from 02/04/2020 FINDINGS: BONES: There is a deformity of the patella seen on the lateral view. The findings are suspicious for a displaced fracture. Please correlate clinically. The possibility of deformity related to infecti on cannot be excluded. There are again seen findings of a right knee spacer consistent with the andres ent's prior history of infected prosthesis. Spacer appears stable in position. JOINTS: The knee is normally aligned. SOFT TISSUE: There is soft tissue swelling around the knee. IMPRESSION: 1. Deformity of the patella appreciated on the lateral view. The findings raise a question of a disp laced fracture versus findings related to infection. 2. Marked soft tissue swelling around the knee. DATA REPOSITORY: RADIATION DOSE DELIVERED:
== END 2020-03-11 12:15 ==
PROVIDERS: PCP Registered Nurse; Referring Provider Registered Nurse; Visit Provider Student in an Organized Health Care Education/Training Program
DX: M22.8X1 Other disorders of patella, right knee (principal); M79.89 Other specified soft tissue disorders
CPT/HCPCS: 73560

== ENCOUNTER 2020-03-21 11:48 | Outpatient (CLI) | payer MEDICAID, SELFPAY ==
[2020-03-21 14:25] LABS: HCT 34.5 % (36.0-46.0); HGB 10.1 g/dL (11.2-15.7); MCH 22.1 pg (27.0-33.0); MCHC 29.3 % (32.0-36.0); MCV 75.7 fL (80-95); MPV 9.8 fL (8.0-11.0); Platelet Count 382 10^3/uL (130-400); RBC 4.56 10^6/uL (3.93-5.22); RDW 18.8 % (11.7-14.6); RDW-SD 51.6 fL; WBC 8.91 10^3/uL (4.4-10.8)
[2020-03-21 15:45] LABS: ALT 19 U/L (14-59); AST 13 U/L (15-37); Albumin 3.6 g/dL (3.4-5.0); Alkaline Phosphatase 128 U/L (46-116); Anion Gap 8.4 mmol/L (3-11); BUN 7 mg/dL (7-18); Bilirubin, Total 0.2 mg/dL (0.2-1.0); C-Reactive Protein 0.38 mg/dL (0.0-0.3); CO2 26.6 mmol/L (21.0-32.0); CREATININE 0.74 mg/dL (0.55-1.02); Calcium 9.2 mg/dL (8.5-10.1); Chloride 103 mmol/L (98-107); Glucose 73 mg/dL (74-106); Potassium 4.5 mmol/L (3.5-5.1); Sodium 138 mmol/L (136-145); Total Protein 7.4 g/dL (6.4-8.2)
== END 2020-03-21 12:08 ==
PROVIDERS: Student in an Organized Health Care Education/Training Program; PCP Registered Nurse
DX: T84.53XD Infection and inflammatory reaction due to internal right knee prosthesis, subsequent encounter (principal)
CPT/HCPCS: 36415; 80053; 85027; 86140

== ENCOUNTER 2020-05-30 20:15 | Outpatient (REF) | payer MEDICAID, SELFPAY ==
[2020-05-30 16:34] LABS: Clarity Cloudy; Source Synovial
[2020-05-30 17:12] LABS: Mononuclear Cells 28 %
[2020-05-30 17:13] LABS: Polynuclear Cells 72 %
== END 2020-05-30 20:16 | disposition home or self-care (01) ==
LOC: LBN 20:15
PROVIDERS: PCP Registered Nurse; Visit Provider Student in an Organized Health Care Education/Training Program
DX: T84.53XD Infection and inflammatory reaction due to internal right knee prosthesis, subsequent encounter (principal)
CPT/HCPCS: 87070; 87205; 89051

== ENCOUNTER 2020-06-14 11:59 | Emergency (ER) | payer MEDICAID, SELFPAY ==
[2020-06-14 12:03] VITALS: BP 127/81; PULSE 76; RESP 20; TEMP 36.7; O2SAT 99
--- NOTE | 2020-06-14 12:03 | ED.GENADUL_ITS ---
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 Primary Care Provider: QIANA WEEMS ED Provider: Lei Harrison Home Meds and New Rx's Prescriptions: New oxycodone 20 mg tablet 20 mg PO Q6H MDD 80mg PRNQty: 16 RF: 0 Continued methadone 5 mg/5 mL solution 200 mg PO DAILY RF: 0 (DME) Crutches Qty: 1 RF: 0 (DME) shower chair Qty: 1 RF: 0 diclofenac sodium 1 % gel 4 g topical QID Qty: 100 RF: 4 prochlorperazine maleate [Compazine] 5 mg tablet 5 mg PO QID PRN (Reason: nausea and vomiting) Qty: 21 RF: 0 pregabalin 300 mg capsule 300 mg PO BID Qty: 60 RF: 3 ibuprofen 600 mg tablet 600 mg PO Q8H PRN (Reason: pain) Qty: 90 RF: 3 (DME) Raised Toilet Seat Qty: 1 RF: 0 albuterol sulfate [ProAir HFA] 200 PUFF HFA aerosol inhaler 2 puff Inhalation PRN PRNRF: 0 lamotrigine [Lamictal] 100 mg Tablet 400 mg PO DAILY Qty: 0 RF: 0 acetaminophen 500 mg tablet 1,000 mg PO Q8H PRN (Reason: pain) Qty: 90 RF: 3 methylphenidate HCl 20 mg tablet 20 mg PO TID Qty: 42 RF: 0 Discharge Instructions Additional Instructions: Dr. 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 He is also making arrangements for follow-up at [facility]. Please stay in touch with Dr. Lugo for further management and instructions. Return to ED if you develop spiking fevers, mental status changes, worsening pain/swelling of the knee. Referrals: Leonel Lugo MD [ [facility] STAFF PHYSICIAN] - Medical Decision Making Patient looks well does not appear toxic. Case discussed with her surgeon, Dr. Lugo, who came to see her in the ED. IV established and blood work sent. Knee aspiration performed by Dr. Lugo and fluid sent for cell count and culture. Patient's C-reactive protein is elevated. White count mildly elevated. Sed rate, fluid cell count, fluid Gram stain pending. However, given elevated C- reactive protein, Dr. Lugo feels she is likely infected. Patient given a dose of IV Toradol. She will be discharged and Dr. Lugo will coordinate follow-up at [facility]. He will also be prescribing her antibiotics and pain medications. Medical Records Medical records reviewed: Yes I reviewed the patient's medical records. Lab Data Lab results reviewed: Yes I reviewed the patient's lab results. HPI General Date/Time Provider Initiated Documentation: 06/14/20 12:03 . Limitations to Documentation: no limitations . Information obtained by: patient, RN notes reviewed and old records reviewed . HPI Narrative: Patient presents to ED with right knee pain and swelling. Patient has come off antibiotics for knee infection status post hardware removal last year. Currently has antibiotic cement in place. Last set of cultures from the fluid done earlier this month were negative. Knee began to swell up and become painful couple of days after that aspiration. Knee continues to get larger. Patient has had no fever, chills, constitutional symptoms. She is no longer able to bear weight because of pain. Orthopedics, Dr. Lugo, finally able to convince her to come in. Related Data Home Medications Medication Instructions Recorded Confirmed albuterol sulfate [ProAir HFA] 2 puff INHALATION PRN PRN 11/02/16 06/14/20 methadone 5 mg/5 mL oral solution 200 mg PO DAILY ml 08/13/18 06/14/20 Crutches #1 ea 10/17/18 04/07/20 shower chair #1 ea 10/17/18 04/07/20 Raised Toilet Seat #1 ea 01/15/19 04/07/20 acetaminophen 1,000 mg PO Q8H PRN #90 tab 01/24/20 06/14/20 lamotrigine [Lamictal] 400 mg PO DAILY #0 tab 01/24/20 06/14/20 methylphenidate HCl 20 mg PO TID #42 tab 01/24/20 06/14/20 prochlorperazine maleate 5 mg 5 mg PO QID PRN #21 tab 02/05/20 06/14/20 tablet diclofenac sodium 1 % topical gel 4 g TOPICAL QID #100 g 03/11/20 06/14/20 ibuprofen 600 mg tablet 600 mg PO Q8H PRN #90 tab 01/19/21 03/23/21 pregabalin 300 mg capsule 300 mg PO BID #60 cap 04/12/20 06/14/20 oxycodone 20 mg PO Q6H PRN #16 tab MDD 80mg 06/14/20 Previous Rx's Medication Instructions Recorded Crutches #1 ea 10/17/18 shower chair #1 ea 10/17/18 Raised Toilet Seat #1 ea 01/15/19 acetaminophen 1,000 mg PO Q8H PRN #90 tab 01/24/20 lamotrigine [Lamictal] 400 mg PO DAILY #0 tab 01/24/20 methylphenidate HCl 20 mg PO TID #42 tab 01/24/20 prochlorperazine maleate 5 mg 5 mg PO QID PRN #21 tab 02/05/20 tablet diclofenac sodium 1 % topical gel 4 g TOPICAL QID #100 g 03/11/20 ibuprofen 600 mg tablet 600 mg PO Q8H PRN #90 tab 04/12/20 pregabalin 300 mg capsule 300 mg PO BID #60 cap 04/12/20 oxycodone 20 mg PO Q6H PRN #16 tab MDD 80mg 06/14/20 Allergies Allergy/AdvReac Type Severity Reaction Status Date / Time codeine Allergy hives with Verified 06/14/20 12:08 throat tightness morphine Allergy hives and Verified 06/14/20 12:08 throat swelling Penicillins Allergy Skin Rash Verified 06/14/20 12:08 General WHIT: 5 Review of Systems Narrative: As documented in HPI otherwise negative as below. Const: no fever, chills, weakness Resp: no cough, SOB, pleuritic pain CV: no CP, diaphoresis, edema, syncope GI: no abdominal pain, nausea, vomiting, diarrhea Neuro: no headache, numbness, focal weakness, confusion PFSH Medical History Asthma Depression History of drug abuse pt. states she relapsed on Focalin via IV 01/11/20 History of hepatitis C per pt has been treated but it didn't cure it made my numbers go down--Pt. denies having Hep C. 09/24/19 Hx of seizure disorder Pt. states it was from detox MRSA (methicillin resistant Staphylococcus aureus) colonization Surgical History H/O excision of mass Lipomas removed from base of neck and lower midback 11/2018 in [place], [place] History of arthroscopic knee surgery Right History of right femoral derotational osteotomy (09/23/18) History of tubal ligation Status post total right knee replacement (09/30/19) Family History Father Cancer Mother Cancer Aunt Cancer Social History Smoking/Tobacco Use Status: Current every day Tobacco Type: cigarettes Smoking packs per day: 0.5 Smoking cigarettes per day: 10.0 Smoking risk assessment performed?: Yes Alcohol Intake: current Alcohol Intake frequency: holidays/special occasions only Drug use: Daily Substance use type: marijuana Current gender identity: female Do you feel safe at home: Yes Do you feel safe in your relationship?: Yes Exam Narrative Exam Narrative: Const: WDWN female in NAD. HEENT: NC/AT. Normal facial exam. Eyes: Normal conjunctiva and sclera. Neck: Supple. Trachea midline. Lungs: Normal respiratory effort. Neuro: A+O x 3. Normal speech, mentation, gait. Cranial nerves II - XII grossly intact. No gross motor or sensory deficit. Ext: No C/C/E. Right knee with obvious large effusion. Warm to touch with decreased range of motion. No erythema. Skin: Warm and dry without erythema.
[2020-06-14 13:02] VITALS: RESP 16
[2020-06-14 13:19] LABS: Abs Immature Grans 0.21 10^3/uL (0.0-0.06); Absolute Basophil Count 0.05 10^3/uL (0.0-0.2); Absolute Eosinophil Count 0.37 10^3/uL (0.0-0.7); Absolute Monocyte Count 0.69 10^3/uL (0.1-0.8); Anion Gap 11.3 mmol/L (3-11); BUN 16 mg/dL (7-18); Basophils % 0.4; C-Reactive Protein 4.49 mg/dL (0.0-0.3); CO2 26.7 mmol/L (21.0-32.0); CREATININE 0.6 mg/dL (0.55-1.02); Calcium 9.4 mg/dL (8.5-10.1); Chloride 102 mmol/L (98-107); Eosinophils % 2.7; Glucose 93 mg/dL (74-106); HCT 35.3 % (36.0-46.0); HGB 10.7 g/dL (11.2-15.7); Immature Grans % 1.5; Lymphocytes % 30.3; MCH 22.8 pg (27.0-33.0); MCHC 30.3 % (32.0-36.0); MCV 75.3 fL (80-95); MPV 9.2 fL (8.0-11.0); Monocytes % 5.1; Nucleated RBC 0 %; Platelet Count 580 10^3/uL (130-400); Potassium 3.4 mmol/L (3.5-5.1); RBC 4.69 10^6/uL (3.93-5.22); RDW 20.7 % (11.7-14.6); Sodium 140 mmol/L (136-145); WBC 13.58 10^3/uL (4.4-10.8)
[2020-06-14 13:32] LABS: Absolute Lymphocyte Count 4.11 10^3/uL (1.2-3.4); Absolute Neutrophil Count 8.15 10^3/uL (1.2-6.7)
[2020-06-14] MEDS: Ketorolac 30 MG/ML VIAL IVP (13:56)
[2020-06-14 13:59] LABS: Anisocytosis 2+; Diff Comment Diff Reviewed; Hypochromasia 2+; Microcytosis 2+
[2020-06-14 14:00] LABS: Poikilocytes 2+
[2020-06-14 14:03] LABS: Clarity Cloudy; Nucleated Cells 29715 uL (0)
[2020-06-14 14:05] LABS: Mononuclear Cells 12 %; Polynuclear Cells 88 %
[2020-06-14 14:08] VITALS: BP 128/72; PULSE 61; RESP 18; TEMP 37; O2SAT 96
[2020-06-14 20:48] LABS: ESR 96 mm/hr (<or=20)
--- NOTE | 2020-06-15 06:14 | OCONE_ITS ---
Date of service: 06/14/20 Time of Service: 12:40 History of Present Illness History of Present Illness Chief Complaint: Right knee pain and swelling Narrative: Melvi is a 39-year-old who I know quite well. In summary, she had significant valgus deformity of her distal femur with notable lateral compartment arthritis. She underwent a lateral opening wedge osteotomy of the distal femur to correct her alignment. 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 This was then corrected with both the plate and the nail construct that did go on to union. However, she had severe arthritis which was seen at that time. She therefore underwent a total knee arthroplasty. She was doing very well from this until she tripped over her cat falling down some stairs resulting in complete dehiscence of her wound and arthrotomy with exposed metal. This was washed out extensively and treated as if infected and repaired. Unfortunately, did come back infected with staph epidermidis. She was very challenging to treat given her history of IV drug use but we were able to come up with an oral plan with belkys quinolone and rifampin. She took this from what we can tell regularly and started to show signs of treatment of the infection. Inflammatory markers returned to normal. She was in the office a little over 2 weeks ago for reaspiration for consideration of reimplantation. She still had pain about the knee but she had no more effusion. The aspiration was uncomplicated and seem to show no signs of infection. Villavicencio elzbieta, over the ensuing next week she started developing some pain. Over the last few days she has had significant worsening pain as well as swelling about the right knee which prompted her to return to the ED today. She denies fevers or chills. She denies feeling sick. However, she does have significant pain of the right knee now requiring the use of crutches and also preventing her from moving it at all. She denies any recent sores or abscesses. She denies recent drug use. Consults Consult date: 06/14/20 Requesting physician: Lei Harrison Consult Reason Right knee pain and swelling Assessment and Plan Assessment and plan (1) Infection of prosthetic right knee joint: Status: Acute Assessment and plan: Melvi is a 39-year-old who unfortunately has had recurrence of infection about her right knee. She currently has a low friction spacer in the right knee which was doing well. Unfortunately, there is gross purulence in the aspirate and a cell count of 28,000 cells with an increase in both the CRP and the sed rate. She denies any recent sores but she has a history having multiple boils and abscesses. She also has a history of IV drug use although denies recent use. She did have an aspiration in my office prior to this worsening of her symptoms. This was done with ChloraPrep preparation of the skin using a no touch needle technique. I find it very unlikely that this would introduce an infection but likely stimulated any quiesced sent bacterial process which was housed in the knee. At this point, she is going to need a repeat debridement as well as a new spacer. Given the complexity of this case I do not feel it is on that can safely do here at [facility]. Melvi's case is challeng ing and her social constraints also make it quite challenging but she was understanding today and realizes that this needs to be done and has to be done at a center which does more these cases. There would also be better support for her and her pain management issues as well as infectious disease. Furthermore, she seems willing to take responsibility for travel to and from [facility]. I offered transport down to the emergency department for an urgent evaluation but she declined preferring to do this as an outpatient. She did promise that she would keep her phone available, on and with credit, to discuss next steps. My recommendation is that she would be seen in the next few days with likely surgery a few days after that. She understands this. She does have notable pain from the infection with a history of chronic drug use and I really want her to avoid using any illicit substances therefore I prescribed her a 4-day course of pain medication. I will renew this if she is adhering to our plan of being available and traveling down to [facility]. She understands. We will avoid ant ibiotic use at this time for a better culture during the time of the surgery. All of her questions were answered. I will work on arranging appointments at [facility] for her. Qualifiers: Encounter type: subsequent encounter Qualified Code(s): T84.53XD - Infection and inflammatory reaction due to internal right knee prosthesis, subsequent encounter Review of Systems All systems reviewed & are unremarkable except as noted in HPI and below [facility] Medical History Asthma Depression History of drug abuse pt. states she relapsed on Focalin via IV 01/11/20 History of hepatitis C per pt has been treated but it didn't cure it made my numbers go down--Pt. denies having Hep C. 09/24/19 Hx of seizure disorder Pt. states it was from detox MRSA (methicillin resistant Staphylococcus aureus) colonization Surgical History H/O excision of mass Lipomas removed from base of neck and lower midback 11/2018 in [place] History of arthroscopic knee surgery Right History of right femoral derotational osteotomy (09/23/18) History of tubal ligation Status post total right knee replacement (09/30/19) Family History Father Cancer Mother Cancer Aunt Cancer Social History Smoking/Tobacco Use Status: Current every day Tobacco Type: cigarettes Smoking packs per day: 0.5 Smoking cigarettes per day: 10.0 Smoking risk assessment performed?: Yes Alcohol Intake: current Alcohol Intake frequency: holidays/special occasions only Drug use: Daily Substance use type: marijuana Current gender identity: female Do you feel safe at home: Yes Do you feel safe in your relationship?: Yes Exam Narrative Exam Narrative: Melvi is sitting up on the hospital stretcher. The right knee is obviously quite swollen. Large effusion is palpated. No erythema. Mild warmth to the right knee. Knee is held in about 20 degrees of flexion. Any range of motion more than a few degrees causes significant pain. The midline incision is well-healed. No open sores or lesions seen about the right leg. No palpable adenopathy. Results Last Vital Signs Temp 37.0 C 06/14/20 14:08 Pulse 61 06/14/20 14:08 Resp 18 06/14/20 14:08 BP 128/72 06/14/20 14:08 Pulse Ox 96 06/14/20 14:08 Labs Result diagrams: 06/14/20 12:49 06/14/20 12:49 Labs: Laboratory Results - last 24 hr 06/14/20 06/14/20 06/14/20 12:49 12:49 12:49 WBC 13.58 H RBC 4.69 Hgb 10.7 L Hct 35.3 L MCV 75.3 L MCH 22.8 L MCHC 30.3 L RDW 20.7 H Plt Count 580 H MPV 9.2 Immature Gran % 1.5 Neutrophils % 60.0 Lymphocytes % 30.3 Monocytes % 5.1 Eosinophils % 2.7 Basophils % 0.4 Nucleated RBC % 0 Absolute Neutrophils 8.15 H Absolute Lymphocytes 4.11 H Absolute Monocytes 0.69 Absolute Eosinophils 0.37 Absolute Basophils 0.05 RBC Morphology See below Hypochromasia 2+ Poikilocytosis 2+ Anisocytosis 2+ Microcytosis 2+ ESR 96 H Sodium 140 Potassium 3.4 L Chloride 102 Carbon Dioxide 26.7 Anion Gap 11.3 H BUN 16 Creatinine 0.6 Estimated GFR/1.73 m2 >= 60.00 Glucose 93 Calcium 9.4 C-Reactive Protein 4.49 H Fluid Source Fluid Color Fluid Clarity Fluid WBC Fld Polynuclear WBCs % Fluid Mononuclear Cell Fluid Other Cells 06/14/20 12:50 WBC RBC Hgb Hct MCV MCH MCHC RDW Plt Count MPV Immature Gran % Neutrophils % Lymphocytes % Monocytes % Eosinophils % Basophils % Nucleated RBC % Absolute Neutrophils Absolute Lymphocytes Absolute Monocytes Absolute Eosinophils Absolute Basophils RBC Morphology Hypochromasia Poikilocytosis Anisocytosis Microcytosis ESR Sodium Potassium Chloride Carbon Dioxide Anion Gap BUN Creatinine Estimated GFR/1.73 m2 Glucose Calcium C-Reactive Protein Fluid Source R knee Fluid Color Red Fluid Clarity Cloudy Fluid WBC 23776 Fld Polynuclear WBCs % 88 Fluid Mononuclear Cell 12 Fluid Other Cells Procedures Joint Aspiration/Injection Joint Asp./Inject. 1: Time out performed: Yes Side of body: right Joint aspirated: knee Ultrasound guidance: No Skin prep: Chlorhexidine Local anesthesia used: lidocaine 1% Amount of anesthesia used (ml): 8 Needle size used: 18G Fluid obtained: bloody (With particulate and debris which appeared purulent) Total fluid obtained (ml): 60 Patient tolerated procedure: no complications Complications: none Additional comments: Fluid sent to the lab for culture and cell count
--- NOTE | 2020-06-16 09:29 | NUR.NOTE ---
Nursing Note: Per lab, fluid culture, right knee; on 06/14; rare staph aureus and rare 2nd GPF. Possibly from skin. Refer to fluid culture result from 05/30/20. Result given to Dr. Nasrin Rivas. Rhea Wallace
--- NOTE | 2020-06-16 09:58 | ED.FU.B_ITS ---
Follow Up Plan: Synovial fluid culture results reported to me, staph aureus and other gram-positive belkys. I relayed this information to Dr. Lugo, who has been caring for patient and her chronic infected knee. He recommends no acute change in management, patient is being followed and will need surgery at [facility] as previously planned.
== END 2020-06-14 14:09 | disposition home or self-care (01) ==
PROVIDERS: Emergency Provider Emergency Medicine; PCP Registered Nurse
DX: T84.53XA Infection and inflammatory reaction due to internal right knee prosthesis, initial encounter (principal); Y83.1 Surgical operation with implant of artificial internal device as the cause of abnormal reaction of the patient, or of later complication, without mention of misadventure at the time of the procedure
CPT/HCPCS: 20610; 36415; 80048; 85652; 87077; 96374; 99253; 99284; 85025; 86140; 87070; 87186; 87205; 89051; J1885

== ENCOUNTER 2020-07-01 20:10 | Emergency (ER) | payer MEDICAID, SELFPAY ==
--- NOTE | 2020-07-01 20:17 | ED.GENADUL_ITS ---
Discharge Plan Disposition Patient Disposition: HOME Condition: Stable Discharge Details Clinical Impression: Chronic infection of right knee Primary Care Provider: QIANA WEEMS ED Provider: Nicole Perez Home Meds and New Rx's Prescriptions: New levofloxacin 750 mg tablet 750 mg PO DAILY 4 Days Qty: 4 RF: 0 Continued methadone 5 mg/5 mL solution 200 mg PO DAILY RF: 0 (DME) Crutches Qty: 1 RF: 0 (DME) shower chair Qty: 1 RF: 0 diclofenac sodium 1 % gel 4 g topical QID Qty: 100 RF: 4 oxycodone 20 mg tablet 20 mg PO Q6H MDD 80mg PRN (Reason: pain) Qty: 8 RF: 0 prochlorperazine maleate [Compazine] 5 mg tablet 5 mg PO QID PRN (Reason: nausea and vomiting) Qty: 21 RF: 0 pregabalin 300 mg capsule 300 mg PO BID Qty: 60 RF: 3 ibuprofen 800 mg tablet 800 mg PO Q8H PRN (Reason: pain) Qty: 90 RF: 0 (DME) Raised Toilet Seat Qty: 1 RF: 0 albuterol sulfate [ProAir HFA] 200 PUFF HFA aerosol inhaler 2 puff Inhalation PRN PRNRF: 0 lamotrigine [Lamictal] 100 mg Tablet 400 mg PO DAILY Qty: 0 RF: 0 acetaminophen 500 mg tablet 1,000 mg PO Q8H PRN (Reason: pain) Qty: 90 RF: 3 methylphenidate HCl 20 mg tablet 20 mg PO TID Qty: 42 RF: 0 Discharge Instructions Instructions: Knee Pain (ED) Additional Instructions: Take the antibiotics until finished. Your prescription has been sent electronically to your pharmacy. Call the pharmacy to make sure your prescription is ready before pickup. Take the prescription as directed. Call [facility] orthopedics on Saturday morning to schedule a follow-up appointment for reevaluation and to schedule your total knee revision. Return to the emergency department with any worsening or new concerning symptoms. Discharge Data Discharge Date/Time-TO BE ENTERED AT DEPARTURE: 07/01/20 22:05 Discharge Physician: Nicole Perez Medical Decision Making 39-year-old female with a history of IV drug use and multiple right knee surgeries include her total right knee replacement complicated by recent knee infection treated with p.o. antibiotics by Dr. Lugo with referral to [facility] orthopedics for total knee revision presents with worsening right knee pain and swelling. She admits to using IV fentanyl in addition to her methadone for pain control because her oxycodone was not refilled for her right knee pain. She is afebrile. Her right knee is edematous and tender to touch with pain with range of motion but there is no erythema, it is not hot to touch, there is no fluctuance, induration or crepitus. She has neurovascular intact. Patient refused lab work on arrival. She is requesting only that we drain her right knee and put her on antibiotics. Case was discussed with Dr. Lugo who stated that we could drain her knee and place her on p.o. Levaquin. She has a h/o tubal ligation. He stated that she needs to follow-up with [facility] Ortho to reschedule her right total knee revision as her knee infection is chronic and the definitive care would be total knee revision. Case discussed with [facility] Orth[facility] who were informed of patient's ED visit today and attempted plan for aspiration and plan for oral antibiotics. They will follow up with patient on Saturday. Attempted to perform arthrocentesis at bedside after topical anesthesia spray and IV lidocaine but patient was not cooperative and continued to move on the stretcher. Attempted aspiration on lateral aspect but the patient could not tolerate pain and requested to stop the procedure. No fluid obtained. She continued to stop the procedure throughout stating you people do not know what you are doing and you are not the sharpest knives in the drawer and be sure to fax all my information to [facility] so they have this and make sure you write down that you didn't know what you were doing and can't do the procedure right. She repeatedly told staff to get her something to eat and drink. She refused to place a mask on correctly multiple times. Patient was given 1 dose of oral Levaquin here and prescription sent electronically to her pharmacy. She was advised to call [facility] orthopedics on Saturday morning to reschedule her total knee revision as soon as possible. Usual and customary return precautions given prior to discharge. Medical Records Medical records reviewed: Yes I reviewed the patient's medical records. HPI General Mode of arrival: ambulatory . Date/Time Provider Initiated Documentation: 07/01/20 20:13 . Limitations to Documentation: no limitations . Information obtained by: patient . HPI Narrative: Patient is a 39-year-old female with a history of IV drug abuse, multiple right knee surgeries and total right knee replacement, complicated by multiple infections including recently staph epidermidis which was treated with oral antibiotics and followed by Dr. Lugo with referral to [facility] orthopedics for total knee revision presents for right knee pain and swelling. Patient states her right knee is chronically swollen and in pain but has been worse over the past week. She denies any new injury. She states she had an appointment for her total knee revision at [facility] last month but RCT did not show up for her appointment and she missed the surgery. She states her oxycodone was not refilled for her pain and she has been using IV fentanyl in addition to her methadone. She denies any fever. Related Data Home Medications Medication Instructions Recorded Confirmed albuterol sulfate [ProAir HFA] 2 puff INHALATION PRN PRN 11/02/16 07/01/20 methadone 5 mg/5 mL oral solution 200 mg PO DAILY ml 08/13/18 07/01/20 Crutches #1 ea 10/17/18 04/07/20 shower chair #1 ea 10/17/18 04/07/20 Raised Toilet Seat #1 ea 01/15/19 04/07/20 acetaminophen 1,000 mg PO Q8H PRN #90 tab 01/24/20 07/01/20 lamotrigine [Lamictal] 400 mg PO DAILY #0 tab 01/24/20 07/01/20 methylphenidate HCl 20 mg PO TID #42 tab 01/24/20 07/01/20 prochlorperazine maleate 5 mg 5 mg PO QID PRN #21 tab 02/05/20 07/01/20 tablet diclofenac sodium 1 % topical gel 4 g TOPICAL QID #100 g 03/11/20 07/01/20 pregabalin 300 mg capsule 300 mg PO BID #60 cap 04/12/20 07/01/20 oxycodone 20 mg tablet 20 mg PO Q6H PRN #8 tab MDD 80mg 06/22/20 07/01/20 ibuprofen 800 mg tablet 800 mg PO Q8H PRN #90 tab 06/28/20 07/01/20 levofloxacin 750 mg PO DAILY 4 Days #4 tab 07/01/20 Previous Rx's Medication Instructions Recorded Crutches #1 ea 10/17/18 shower chair #1 ea 10/17/18 Raised Toilet Seat #1 ea 01/15/19 acetaminophen 1,000 mg PO Q8H PRN #90 tab 01/24/20 lamotrigine [Lamictal] 400 mg PO DAILY #0 tab 01/24/20 methylphenidate HCl 20 mg PO TID #42 tab 01/24/20 prochlorperazine maleate 5 mg 5 mg PO QID PRN #21 tab 02/05/20 tablet diclofenac sodium 1 % topical gel 4 g TOPICAL QID #100 g 03/11/20 pregabalin 300 mg capsule 300 mg PO BID #60 cap 04/12/20 oxycodone 20 mg tablet 20 mg PO Q6H PRN #8 tab MDD 80mg 06/22/20 ibuprofen 800 mg tablet 800 mg PO Q8H PRN #90 tab 06/28/20 levofloxacin 750 mg PO DAILY 4 Days #4 tab 07/01/20 Allergies Allergy/AdvReac Type Severity Reaction Status Date / Time codeine Allergy hives with Verified 07/01/20 20:23 throat tightness morphine Allergy hives and Verified 07/01/20 20:23 throat swelling Penicillins Allergy Skin Rash Verified 07/01/20 20:23 General WHIT: 5 Review of Systems All systems reviewed & are unremarkable except as noted in HPI and below Constitutional Constitutional: Reports as per HPI, Denies chills and Denies fever(s) Eyes Eyes: Denies blurry vision ENT Ears, Nose, Mouth, and Throat: Denies dizziness, Denies sore throat and Denies throat swelling Cardiovascular Cardiovascular: Denies chest pain and Denies dyspnea Respiratory Respiratory: Denies cough and Denies dyspnea Gastrointestinal Gastrointestinal: Denies abdominal pain, Denies diarrhea and Denies vomiting Genitourinary Genitourinary: Denies hematuria and Denies dysuria Musculoskeletal Musculoskeletal: Denies back pain, Denies numbness and Reports other (R knee pain and swelling) Integumentary/Breasts Skin/Breast: Denies lesions and Denies rash Neurologic Neurologic: Denies dizziness, Denies localized weakness and Denies numbness Allergic/Immunologic Allergic/Immunologic: Denies throat swelling [facility] Medical History Asthma Depression History of drug abuse pt. states she relapsed on Focalin via IV 01/11/20 History of hepatitis C per pt has been treated but it didn't cure it made my numbers go down--Pt. denies having Hep C. 09/24/19 Hx of seizure disorder Pt. states it was from detox MRSA (methicillin resistant Staphylococcus aureus) colonization Surgical History H/O excision of mass Lipomas removed from base of neck and lower midback 11/2018 in [place], [place] History of arthroscopic knee surgery Right History of right femoral derotational osteotomy (09/23/18) History of tubal ligation Status post total right knee replacement (09/30/19) Family History Father Cancer Mother Cancer Aunt Cancer Social History Smoking/Tobacco Use Status: Current every day Tobacco Type: cigarettes Smoking packs per day: 0.5 Smoking cigarettes per day: 10.0 Smoking risk assessment performed?: Yes Alcohol Intake: current Alcohol Intake frequency: holidays/special occasions only Drug use: Daily Substance use type: marijuana and other Details: pt reports using fentanyl non prescription. Current gender identity: female Do you feel safe at home: Yes Do you feel safe in your relationship?: Yes Exam Const General: cooperative and no acute distress HENME Head: normal to inspection Mouth: oral mucosae normal Eyes General: appearance normal, both eyes and all related structures Neck Neck: normal visual inspection Resp Effort & Inspection: normal respiratory effort and able to speak in complete sentences Cardio Rate: regular rate Skin General skin exam: no rashes or lesions noted Neuro General: patient alert, patient awake and patient oriented x3 Motor: muscle tone normal throughout Extrem Other: Right knee edematous with well-healed incision scars. Knee is tender to palpation but there is no erythema and knee is not hot to touch. Right DP/PT pulses intact. Pain in right knee with range of motion. There is no crepitus, fluctuance or induration. Psych Appearance: grossly normal Affect: normal affect Procedures Joint Aspiration/Injection Joint Asp./Inject. 1: Time Out Performed: Yes Side of body: right Joint Aspirated: knee Ultrasound Guidance: No Skin Prep: Povidone-Iodine1% Amount of anesthesia used (mL): 3 Needle Size Used: Other (27G for lidocaine, 18G for aspiration) Patient Tolerated Procedure: other Complications: unable to tolerate Additional Comments: Pt unable to remain still for procedure. Refused after first attempt. No fluid obtained.
[2020-07-01 20:19] VITALS: BP 150/79; PULSE 80; RESP 16; TEMP 36.6; O2SAT 97
--- NOTE | 2020-07-01 20:38 | NUR.NOTE ---
Nursing Note: Pt refusing IV start
--- NOTE | 2020-07-01 21:48 | NUR.NOTE ---
Nursing Note: Dr Perez requests this RN to be at bedside for aspiration procedure. Upon entering pt makes multiple statements such as, do you guys fucking know what you are even doing ? Are you an ortho doctor? pt taking off mask and EDP asking pt to keep it on and explained reasoning pt gets more angry stating, The last doctor appointment I had I didn't even have to wear one! During aspiration attempt pt yelling at this RN and EDP Last time they did this it didn't even hurt , you guys aren't the sharpest tools in the shed are you? Pt does not allow EDP to complete procedure. calling staff rude and requesting the physician's report to show that you guys couldn't get the fluid out of my knee? I'll just take the antibiotics and I'll be leaving. I need RCT to come and get me too.
[2020-07-01] MEDS: levoFLOXacin 500 MG, levoFLOXacin 250 MG 750 MG PO (22:07)
== END 2020-07-01 22:05 | disposition home or self-care (01) ==
PROVIDERS: Emergency Provider Physician Assistant; PCP Registered Nurse
DX: M25.561 Pain in right knee (principal); T84.53XA Infection and inflammatory reaction due to internal right knee prosthesis, initial encounter; Z96.651 Presence of right artificial knee joint
CPT/HCPCS: 20610; 99281

== ENCOUNTER 2020-07-26 17:38 | Emergency (ER) | payer MEDICAID, SELFPAY ==
[2020-07-26 17:52] VITALS: BP 138/77; PULSE 88; RESP 20; TEMP 36.4; O2SAT 100
--- NOTE | 2020-07-26 18:30 | DI.RAD_ITS ---
Exam(s) XR KNEE RT 2V AP,LAT EXAM: XR KNEE RT 2V AP,LAT CLINICAL HISTORY: pain and swelling. TECHNIQUE: 2D digital imaging was performed. COMPARISON: CR XR KNEE RT 2V AP,LAT from 03/11/2020 FINDINGS: The patient was only able to tolerate 2 images. Since the prior examination there has been progressive deformity and fragmentation of the proximal ti oleksandr suspicious for acute fracture or osteomyelitis. Several osseous fragments are seen inferior to t he patella. There is also worsening deformity of the distal femoral metaphysis. Findings are suspic ious for a fracture. The acuity is indeterminate. The femoral component of a prior right total knee replacement is still in place. There is marked soft tissue swelling around the knee. IMPRESSION: 1. New deformity and fragmentation of the proximal tibia. While this may be posttraumatic the possib ility of chronic osteomyelitis should be considered. 2. Deformity of the distal femoral metaphysis suggestive of a fracture. An acute fracture cannot b e excluded. 3. A CT scan of the knee should be considered for further evaluation. 4. Marked soft tissue swelling around the knee. DATA REPOSITORY: RADIATION DOSE DELIVERED:
--- NOTE | 2020-07-26 18:47 | ED.GENADUL_ITS ---
Discharge Plan Discharge Details Chief Complaint: Orthopedic Primary Care Provider: Joycelyn Adair ED Provider: Venessa Broussard Home Meds and New Rx's Prescriptions: No Action methadone 5 mg/5 mL solution 200 mg PO DAILY RF: 0 (DME) Crutches Qty: 1 RF: 0 (DME) shower chair Qty: 1 RF: 0 diclofenac sodium 1 % gel 4 g topical QID Qty: 100 RF: 4 oxycodone 20 mg tablet 20 mg PO Q6H MDD 80mg PRN (Reason: pain) Qty: 8 RF: 0 prochlorperazine maleate [Compazine] 5 mg tablet 5 mg PO QID PRN (Reason: nausea and vomiting) Qty: 21 RF: 0 pregabalin 300 mg capsule 300 mg PO BID Qty: 60 RF: 3 ibuprofen 800 mg tablet 800 mg PO Q8H PRN (Reason: pain) Qty: 90 RF: 0 (DME) Raised Toilet Seat Qty: 1 RF: 0 albuterol sulfate [ProAir HFA] 200 PUFF HFA aerosol inhaler 2 puff Inhalation PRN PRNRF: 0 lamotrigine [Lamictal] 100 mg Tablet 400 mg PO DAILY Qty: 0 RF: 0 acetaminophen 500 mg tablet 1,000 mg PO Q8H PRN (Reason: pain) Qty: 90 RF: 3 methylphenidate HCl 20 mg tablet 20 mg PO TID Qty: 42 RF: 0 Medical Decision Making [facility] with new compression deformity and osseous fragmentation of the proximal right tibial epiphysis status post removal of the tibial prosthesis to be posttraumatic but cannot exclude underlying chronic osteomyelitis associated with joint infection, patient was noted to be staph aureus positive on 06/14/2020 and has been treated with numerous courses of antibiotic, she reportedly lost finish Levaquin, 3-day supply of 750 mg 2 days prior to arrival. She denies any chest pain or shortness of breath. She denies dizziness or weakness. She did last used fentanyl this morning and is on 200 mg of methadone daily I discussed the case with Dr. Hebert with patient care has been transferred from our orthopedist to [facility] and she has accepted patient kindly in transfer Patient will be transferred to the emergency room, Dr. Luong aware I specifically asked if antibiotics should be initiated and the answer was no until after additional aspiration Patient has been tired but alert and oriented throughout this evaluation She is agreeable to transfer but is unwilling to take ambulance transportation and will be transferred by her daughter, she is aware that this is against our medical recommendation and we will discharge her to the [facility] for further evaluation and treatment At time of reevaluation, she is alert and oriented, she is sleeping in the room, she is easily arousable Unfortunately patient arthrocentesis was traumatic in nature, I attempted twice, on the second I was able to obtain several cc of bloody aspirate, 56% PMNs, unfortunately coagulated and unable to obtain white blood cell count, culture pending Patient was noted to have a potassium of 2.9, was supplemented with 40 mEq of potassium orally, unfortunately she did consume food at 9:00 and she was instructed not to consume any additional food or fluid Differential Diagnosis Differential Diagnosis: Osteomyelitis, septic arthritis, cellulitis, abscess Medical Records Medical records reviewed: Yes I reviewed the patient's medical records. Lab Data Lab results reviewed: Yes I reviewed the patient's lab results. ECG Data Attestation: I personally reviewed and interpreted this ECG (s) as follows: HPI General Mode of arrival: ambulatory . Date/Time Provider Initiated Documentation: 07/26/20 17:40 . Limitations to Documentation: no limitations . Information obtained by: patient . HPI Narrative: This 39-year-old female with a history of IV drug abuse presents with worsening pain and swelling to right knee. Patient denies any chills but states she has had elevated temp at home, T-max 100.2. Did not take antipyretics prior to arrival. Did use IV drugs today, reports differently. Denies any chest pain or shortness of breath. Denies any dizziness or weakness. States she is unable to ambulate secondary to pain. She states she did have a knee replacement but hardware was removed secondary to infection and now she has a basilar that has previously admitted antibiotics. The spacer is now considered to be infected. Patient is scheduled for surgery and has been on numerous courses of antibiotics reportedly. Related Data Home Medications Medication Instructions Recorded Confirmed albuterol sulfate [ProAir HFA] 2 puff INHALATION PRN PRN 11/02/16 07/26/20 methadone 5 mg/5 mL oral solution 200 mg PO DAILY ml 08/13/18 07/26/20 Crutches #1 ea 10/17/18 04/07/20 shower chair #1 ea 10/17/18 04/07/20 Raised Toilet Seat #1 ea 01/15/19 04/07/20 acetaminophen 1,000 mg PO Q8H PRN #90 tab 01/24/20 07/26/20 lamotrigine [Lamictal] 400 mg PO DAILY #0 tab 01/24/20 07/26/20 methylphenidate HCl 20 mg PO TID #42 tab 01/24/20 07/26/20 prochlorperazine maleate 5 mg 5 mg PO QID PRN #21 tab 02/05/20 07/26/20 tablet diclofenac sodium 1 % topical gel 4 g TOPICAL QID #100 g 03/11/20 07/26/20 pregabalin 300 mg capsule 300 mg PO BID #60 cap 04/12/20 07/26/20 oxycodone 20 mg tablet 20 mg PO Q6H PRN #8 tab MDD 80mg 06/22/20 07/01/20 ibuprofen 800 mg tablet 800 mg PO Q8H PRN #90 tab 06/28/20 07/26/20 Previous Rx's Medication Instructions Recorded Crutches #1 ea 10/17/18 shower chair #1 ea 10/17/18 Raised Toilet Seat #1 ea 01/15/19 acetaminophen 1,000 mg PO Q8H PRN #90 tab 01/24/20 lamotrigine [Lamictal] 400 mg PO DAILY #0 tab 01/24/20 methylphenidate HCl 20 mg PO TID #42 tab 01/24/20 prochlorperazine maleate 5 mg 5 mg PO QID PRN #21 tab 02/05/20 tablet diclofenac sodium 1 % topical gel 4 g TOPICAL QID #100 g 03/11/20 pregabalin 300 mg capsule 300 mg PO BID #60 cap 04/12/20 oxycodone 20 mg tablet 20 mg PO Q6H PRN #8 tab MDD 80mg 06/22/20 ibuprofen 800 mg tablet 800 mg PO Q8H PRN #90 tab 06/28/20 Allergies Allergy/AdvReac Type Severity Reaction Status Date / Time codeine Allergy hives with Verified 07/26/20 17:56 throat tightness morphine Allergy hives and Verified 07/26/20 17:56 throat swelling Penicillins Allergy Skin Rash Verified 07/26/20 17:56 General Stated Complaint: Orthopedic WHIT: 3 Review of Systems Narrative: Review of systems negative x7 aside from where [facility] Medical History Asthma Depression History of drug abuse pt. states she relapsed on Focalin via IV 01/11/20 History of hepatitis C per pt has been treated but it didn't cure it made my numbers go down--Pt. denies having Hep C. 09/24/19 Hx of seizure disorder Pt. states it was from detox MRSA (methicillin resistant Staphylococcus aureus) colonization Surgical History H/O excision of mass Lipomas removed from base of neck and lower midback 11/2018 in [place], [place] History of arthroscopic knee surgery Right History of right femoral derotational osteotomy (09/23/18) History of tubal ligation Status post total right knee replacement (09/30/19) Family History Father Cancer Mother Cancer Aunt Cancer Social History Smoking/Tobacco Use Status: Current every day Tobacco Type: cigarettes Smoking packs per day: 0.5 Smoking cigarettes per day: 10.0 Smoking risk assessment performed?: Yes Alcohol Intake: current Alcohol Intake frequency: holidays/special occasions only Drug use: Daily Substance use type: marijuana and other Details: pt reports using fentanyl non prescription. Current gender identity: female Do you feel safe at home: Yes Do you feel safe in your relationship?: Yes Exam Const General: cooperative and no acute distress Resp Effort & Inspection: normal respiratory effort Auscultation: clear to auscultation bilaterally Cardio Rate: regular rate Rhythm: regular rhythm Skin General skin exam: no rashes or lesions noted Neuro General: patient alert and patient oriented x3 Extrem Other: Right knee was neurovascularly intact, significantly swollen right knee with moderate effusion, no crepitus, exquisitely tender to palpation, no erythema Course Vital Signs Vital signs: Vital Signs Temperature 36.4 C L 07/26/20 17:52 Pulse 88 07/26/20 17:52 Respiratory Rate 20 07/26/20 17:52 Blood Pressure 138/77 07/26/20 17:52 Pulse Oximetry 100 07/26/20 17:52 Temperature 36.4 C L 07/26/20 17:52 Temperature Source Skin 07/26/20 17:52 Pulse 88 07/26/20 17:52 Respiratory Rate 20 07/26/20 17:52 Respiratory Effort Non-Labored 07/26/20 17:56 Blood Pressure 138/77 07/26/20 17:52 Blood Pressure Position Sitting 07/26/20 17:52 Pulse Oximetry 100 07/26/20 17:52 Oxygen Delivery Method Room Air 07/26/20 17:52 Oxygen Flow Rate 0 07/26/20 17:52 Pain Level 10 07/26/20 17:52
[2020-07-26] MEDS: fentaNYL 100 MCG/2 ML VIAL 50 MCG IVP ×2 (18:58→20:03)
[2020-07-26 19:10] LABS: Abs Immature Grans 0.03 10^3/uL (0.0-0.06); Absolute Basophil Count 0.03 10^3/uL (0.0-0.2); Absolute Eosinophil Count 0.11 10^3/uL (0.0-0.7); Absolute Lymphocyte Count 1.85 10^3/uL (1.2-3.4); Absolute Monocyte Count 0.58 10^3/uL (0.1-0.8); Absolute Neutrophil Count 5.93 10^3/uL (1.2-6.7); Basophils % 0.4; Eosinophils % 1.3; HCT 31.6 % (36.0-46.0); HGB 9.7 g/dL (11.2-15.7); Immature Grans % 0.4; Lymphocytes % 21.7; MCH 23.3 pg (27.0-33.0); MCHC 30.7 % (32.0-36.0); MCV 75.8 fL (80-95); Monocytes % 6.8; Neutrophils % 69.4; Nucleated RBC 0 %; Platelet Count 443 10^3/uL (130-400); RBC 4.17 10^6/uL (3.93-5.22); RDW 18.1 % (11.7-14.6); RDW-SD 49.8 fL; WBC 8.53 10^3/uL (4.4-10.8)
[2020-07-26 19:21] LABS: ESR 59 mm//hr (0-20)
[2020-07-26 19:25] LABS: ALT 14 U/L (14-59); AST 10 U/L (15-37); Albumin 2.9 g/dL (3.4-5.0); Alkaline Phosphatase 128 U/L (46-116); Anion Gap 8.9 mmol/L (3-11); BUN 6 mg/dL (7-18); Bilirubin, Total 0.2 mg/dL (0.2-1.0); C-Reactive Protein 9.97 mg/dL (0.0-0.3); CO2 29.1 mmol/L (21.0-32.0); CREATININE 0.7 mg/dL (0.55-1.02); Calcium 9.2 mg/dL (8.5-10.1); Chloride 101 mmol/L (98-107); Glucose 98 mg/dL (74-106); Sodium 139 mmol/L (136-145); Total Protein 7.7 g/dL (6.4-8.2)
[2020-07-26 19:33] LABS: Potassium 2.9 mmol/L (3.5-5.1)
--- NOTE | 2020-07-26 20:00 | RT.EKG_ITS ---
APPROVED REPORT Exam: Resting ECG Reason for Exam: hypokalemia Patient Location: E HR:91 bpm ECG Measurements Heart Rate 91 AXIS PA 151 P 33 QRSd 85 QRS 32 QT 368 T -1 QTc 453 Conclusion Sinus rhythm...normal P axis, V-rate 60- 99
[2020-07-26] MEDS: Nicotine 4 MG GUM (20:02)
[2020-07-26] MEDS: Potassium Chloride 20 MEQ TABCR 40 MEQ PO (20:38)
[2020-07-26 20:53] VITALS: BP 160/85; PULSE 97; RESP 18; TEMP 37.4; O2SAT 98
[2020-07-26 20:59] LABS: Clarity Cloudy
--- NOTE | 2020-07-26 21:16 | DI.VRAD_ITS ---
PROCEDURE INFORMATION: Exam: XR Right Knee Exam date and time: 07/26/2020 6:46 PM Age: 39 years old Clinical indication: Swelling or effusion of joint; Knee; Right; Prior surgery; Patient HX: Pain and swelling TECHNIQUE: Imaging protocol: XR Right knee. Views: 3 views. COMPARISON: CR XR KNEE RT 2V AP,LAT 03/11/2020 10:32 AM FINDINGS: Bones/joints: Again noted is hardware of joint arthroplasty with prosthetic femoral articular surfaces. There is no evidence for loosening of the prosthesis. Again noted is deformity of the distal right femoral metaphysis which may represent postsurgical appearance or healed fracture. There has been prior removal of a tibial prosthesis. There is increased deformity and fragmentation along the proximal right tibial epiphysis which could represent focal compression fracture but cannot exclude chronic osteomyelitis in this region. Findings suggest moderate joint effusion, stable. Soft tissues: Again noted is marked soft tissue swelling anterior to the right knee, stable since prior study. IMPRESSION: 1. New compression deformity and osseous fragmentation of the proximal right tibial epiphysis, status post removal of tibial prosthesis. Findings could be posttraumatic in etiology but cannot exclude underlying chronic osteomyelitis in this region associated with joint infection. Recommend clinical correlation. 2. Chronic deformity of the distal right femoral metaphysis may be postsurgical or could represent old healed fracture. 3. Marked soft tissue swelling anterior to the right knee, without clear change from prior study. Findings suggest stable moderate underlying joint effusion. Dictated and Authenticated by: Niraj Saleh MD. Ordering:ADAM Clifford MD
[2020-07-26 22:00] LABS: Polynuclear Cells 52 %
[2020-07-26 22:02] LABS: Mononuclear Cells 48 %
[2020-07-26 22:50] VITALS: BP 160/85; PULSE 97; RESP 18; TEMP 37.4; O2SAT 98
== END 2020-07-26 22:55 | disposition short-term general hospital (02) ==
PROVIDERS: Emergency Provider Physician Assistant; PCP Registered Nurse
DX: M00.9 Pyogenic arthritis, unspecified (principal); M25.461 Effusion, right knee; E87.6 Hypokalemia
CPT/HCPCS: 20610; 80053; 85652; 93005; 96374; 96376; 99285; 73560; 83735; 85025; 86140; 87070; 87205; 89051; 93010; 99283; J3010

== ENCOUNTER 2020-11-15 08:33 | Outpatient (CLI) | payer MEDICAID, SELFPAY ==
--- NOTE | 2020-11-15 08:15 | RT.EKG_ITS ---
APPROVED REPORT Exam: Resting ECG Reason for Exam: High Risk Medication Patient Location: O HR:64 bpm ECG Measurements Heart Rate 64 AXIS OR 151 P 73 QRSd 83 QRS 46 QT 422 T 56 QTc 436 Conclusion Sinus rhythm...normal P axis, V-rate 60- 99 Normal Electrocardiogram
== END 2020-11-15 08:34 | disposition home or self-care (01) ==
LOC: RT 08:35
PROVIDERS: PCP Registered Nurse; Visit Provider Family Medicine
DX: Z79.899 Other long term (current) drug therapy (principal)
CPT/HCPCS: 93005; 93010